=== PATIENT | female | born 1935 | race Caucasian/White ===

== ENCOUNTER 2017-11-15 22:08 | Inpatient (IN) | payer MEDICARE ==
[2017-11-15 23:03] LABS: #Eosinphils 0.2 thou/uL (0.0-0.7); #Lymphocytes 1.2 thou/uL (1.20-3.40); #Monocytes 0.5 thou/uL (0.11-0.59); #Neutrophils 5.3 thou/uL (1.40-6.50); %Eosinophils 3.4 % (0.0-10.0); %Lymphocytes 16.3 % (21.0-51.0); %Monocytes 6.7 % (0.0-10.0); %Neutrophils 73.6 % (42.0-75.0); Hemoglobin 14.1 g/dL (12.0-16.0); Mean Corpuscular HGB CONC 33.2 g/dL (32.0-36.0); Mean Corpuscular Hemoglobin 32.7 pg (27.0-31.0); Mean Corpuscular Volume 98.5 fl (81.0-99.0); Mean Platelet Volume 7.7 fL (7.4-10.4); Platelet Count 247 thou/uL (130-400); RBC Distribution Width 11.7 % (11.5-14.5); White Blood Cell (WBC) Count 7.1 thou/uL (4.8-10.8)
--- NOTE | 2017-11-15 23:20 | RAD ---
PA AND LATERAL CHEST RADIOGRAPH: Date: 11-15-17 History: Cough, congestion since this morning. Comparison: 11-27-16 FINDINGS: Cardiac silhouette is mildly enlarged. The pulmonary vasculature is within normal limits. Lungs are c lear. Vascular calcifications are seen in the thoracic aorta. There is calcification of the anterior longitudinal ligament. There has been no other interval change from the prior exam. IMPRESSION: No acute cardiopulmonary process. POS: [facility]
[2017-11-15 23:24] LABS: ALT (SGPT) 42 U/L (8-55); AST (SGOT) 81 U/L (5-34); Albumin 3.4 g/dL (3.4-4.8); Alkaline Phosphatase 133 U/L (40-150); Anion Gap 13 mmol/L (10-20); BUN (Urea Nitrogen) 25 mg/dL (9.8-20.1); Bilirubin, Total 1.1 mg/dL (0.2-1.2); Calc. Creatinine Clearance 0 mL/min (70-130); Calcium 9.2 mg/dL (7.8-10.44); Carbon Dioxide 29 mmol/L (23-31); Chloride 103 mmol/L (98-107); Estimated GFR-MDRD 46; Globulin 3.7 g/dL (2.4-3.5); Glucose 174 mg/dL (83-110); Potassium 4.1 mmol/L (3.5-5.1); Protein, Total 7.1 g/dL (6.0-8.3); Sodium 141 mmol/L (136-145)
[2017-11-16 00:43] LABS: CKMB 2.9 ng/mL (0-6.6); Troponin I 0.013 ng/mL (< 0.028)
[2017-11-16] MEDS ORDERED: methylPREDNISolone Sod Succ/PF 125 MG/2 ML VIAL ONE (00:43)
[2017-11-16 01:41] LABS: INR-International Normal Ratio 2.9; PTT 39.7 SEC (22.9-36.1); Prothrombin Time 31.3 SEC (12.0-14.7)
[2017-11-16] MEDS ORDERED: Doxycycline 100 MG CAP PO SCH (02:30)
[2017-11-16] MEDS ORDERED: Acetaminophen 325 MG TAB PO PRN ×2 (06:12→07:18)
--- NOTE | 2017-11-16 07:03 | HP-2 ---
TIME AND DATE OF SERVICE: 0500 hours, on 11/16/2017 CODE STATUS: DNR. PRIMARY CARE PHYSICIAN: Dr. Walters with [facility]. ATTENDING: Dr. Amaya. RESIDENT: Mariano Abraham M.D. HISTORIAN: Patient. CHIEF COMPLAINT: Cough x1 day. HISTORY OF PRESENT ILLNESS: Renee Salinas is an 82-year-old female with past medical history of hyp ertension and atrial fibrillation, who presents with a cough starting 1 day ago. Cough is productive with yellow sputum. The patient states that she has associated rhinorrhea and nasal congestion with the cough. She denies any fever, states that she started feeling poorly yesterday morning and decid ed to take a nap. She woke up from that nap, she was feeling very short of breath, and family member states that she looked wide and looked to have increased work of breathing. The patient has no hist ory of smoking. She has no history of congestive heart failure, fluid retention, or COPD; however, s he does have a long history of secondhand smoke exposure. She has no formal diagnosis; however, of C OPD, and she does not take any inhalers at home. She does take warfarin daily due to history of pulm onary embolisms and she has a history of atrial fibrillation. When asked, the patient states that sh e does not think that she has ever been in rapid ventricular response. She states that she never fee ls palpitations and she is currently not feeling any palpitations. She denies any chest pain as well . In the ER, the patient received 3 rounds of DuoNeb, 1 liter of normal saline, 125 mg Solu-Medrol, 100 mg of doxycycline, and just prior to being moved to the floor, she received 10 mg of Cardizem IV push. PAST MEDICAL HISTORY: 1. Atrial fibrillation. 2. Hypertension. 3. Cervical cancer. 4. History of pulmonary embolism. PAST SURGICAL HISTORY: 1. Cholecystectomy. 2. Cervical cancer surgery. 3. Exploratory laparotomy with intestines removed - unspecified. 4. Left hip replacement. 5. Skin graft. ALLERGIES: 1. BACTRIM. 2. PENICILLIN. 3. SULFA. MEDICATIONS: 1. Warfarin 7.5 mg p.o. daily. 2. Carvedilol 6.25 mg p.o. b.i.d. 3. Nasacort 55 mcg INH. 4. Hydrochlorothiazide 25 mg p.o. daily. 5. Lisinopril 40 mg p.o. daily. SOCIAL HISTORY: The patient denies tobacco, alcohol, or drug use. REVIEW OF SYSTEMS: A 12-point review of systems including general, eyes, ENT, respiratory, CV, GI, G U, skin, musculoskeletal, neuro, and psych were all reviewed and were unremarkable unless otherwise s tated in the HPI. PHYSICAL EXAMINATION: VITAL SIGNS: Blood pressure 152/102, pulse 112, respiratory rate 26, temperature 98, pulse ox 98% on room air. Current weight 136 kilograms. GENERAL: The patient is alert and oriented x4, in no acute distress, morbidly obese, appropriately i nteractive. EYES: Pupils equal, round, reactive to light and accommodation. Extraocular muscles intact. Conjun ctivae within normal limits. ENT: Tympanic membranes pearly lay without bulging or erythema. Nasal mucosa and oropharynx within normal limits. NECK: Supple, without lymphadenopathy or thyromegaly. CARDIOVASCULAR: Irregularly irregular rhythm and tachycardia. No murmurs or gallops; however, heart sounds were distant. RESPIRATORY: Normal effort, no retractions. There were bilateral inspiratory and expiratory wheezes . SKIN: Warm and dry without cyanosis or lesions. ABDOMEN: Soft, nontender, bowel sounds normoactive. No masses or distention. EXTREMITIES: No clubbing, cyanosis, or pitting edema. MUSCULOSKELETAL: Structure and tone within normal limits. Full range of motion. NEUROLOGIC: No focal deficits. Sensation within normal limits. PSYCHIATRIC: Appropriate. LABORATORY DATA: White blood cell count 7.1, hemoglobin 14.1, hematocrit 42.4, platelets 249, sodium 141, potassium 4.1, chloride 103, carbon dioxide 29, BUN 25, creatinine 1.14, glucose 174, calcium 9 .2, total protein 7.1, albumin 3.4, total bilirubin 1.1, AST 81, ALT 42, alkaline phosphatase 133. I NR was 2.9, PT was 31.3, PTT was 39.7. Flu A and B were negative. BNP was 195. CK-MB was 2.9, trop onin I 0.013. EKG showed atrial fibrillation with RVR, rate of 107, no ST changes. Chest x-ray show ed no acute cardiopulmonary process. ASSESSMENT AND PLAN: An 82-year-old female with past medical history of atrial fibrillation and hype rtension, who presented with 1-day history of cough and dyspnea. 1. Atrial fibrillation with rapid ventricular rate. Admit to inpatient telemetry, known history of atrial fibrillation. 2. Rapid ventricular response, likely secondary to viral upper respiratory infection versus multiple rounds of DuoNeb. We will see how patient responds to Cardizem 10 mg IV push. Consider starting Ca rdizem drip. Resume all home medications. 3. Viral upper respiratory infection. Supportive treatment. Patient has maintained great O2 sats o n room air since arriving to the ED. Patient does have a long history of secondhand smoke exposure. Consider possible mild chronic obstructive pulmonary disease exacerbation. Patient has already rece ived 3 rounds of DuoNeb and steroid. We will consider continuing steroid. 3. Hypertension. Home medications. 4. History of deep venous thrombosis. Continue home warfarin. 5. Diet: Heart healthy. 6. Activity: Ambulate with assist and fall precautions. 7. Code status: DNR. DISPOSITION AND LENGTH OF HOSPITAL STAY: 2 days. Symptomatic medications will be provided. History and physical exam as well as management discussed with Dr. Amaya.
[2017-11-16] MEDS ORDERED: Ondansetron ODT 4 MG TAB PO PRN (07:18)
[2017-11-16] MEDS ORDERED: Ondansetron HCl/PF 4 MG/2 ML Vial IVP PRN (07:18)
[2017-11-16 07:22] VITALS: BMI 55.7
[2017-11-16] MEDS ORDERED: predniSONE 20 MG TAB PO SCH ×2 (08:00→09:15)
--- NOTE | 2017-11-16 08:07 | CT ---
PRELIMINARY REPORT/[facility]/EMERGENCY AFTER HOURS PROCEDURE: EXAM: CT Chest Without Intravenous Contrast EXAM DATE/TIME: Exam ordered 11/16/2017 2:31 AM CLINICAL HISTORY: 82 years old, female; Signs and symptoms; Cough and shortness of breath; Symptoms not specified; Valentina ent HX: Er 1; 82 yo f presents to ed C/O cough since yesterday. Pt states she has been coughing up ye llow sputum. Also reports rhinorrhea and nasal congestion. Denies fever. Pt states that at 17:00 this evening she started feeling SOB, worse with lying flat. No h/o smoking. No h/o chf or fluid overload . Pt states that she takes warfarin daily for h/o pe. No h/o asthma or copd. Reports h/o afib. TECHNIQUE: Axial computed tomography images of the chest without intravenous contrast. COMPARISON: No relevant prior studies available. FINDINGS: Lungs: Lungs are clear allowing for expiratory phase imaging. Pleural space: Unremarkable. No pneumothorax. No significant effusion. Heart: Unremarkable. No cardiomegaly. No significant pericardial effusion. Mediastinum: The esophagus is unremarkable. Thyroid: 3 cm left lobe thyroid nodule. Bones/joints: Unremarkable. No acute fracture. No dislocation. Soft tissues: Unremarkable. Vasculature: Unremarkable. No thoracic aortic aneurysm. Lymph nodes: Unremarkable. No enlarged lymph nodes. IMPRESSION: 3 cm left lobe thyroid nodule. Thank you for allowing us to participate in the care of your patient. Dictated and Authenticated by: Hero Cruz MD 11/16/2017 2:56 AM Central Time ([place] & May) FINAL REPORT CT CHEST WITHOUT IV CONTRAST: I agree with the preliminary report given by Dr. Hero Cruz of [facility]. POS: [facility]
--- NOTE | 2017-11-16 08:11 | PDOC.EVN ---
Event Note - Event Note Event Note: Primary Care Provider Continuity Note: I am Mrs. Salinas's primary care provider and saw her this morning for continuity. She appears to be doing well this morning but has scattered wheezing on auscultation of her lungs. Work of breathing is normal. I have discussed her history, exam findings, and his assessment and plan with Dr. Abraham. I am in agreement with his plan as stated in his history and physical. Please refer to his notes and Dr. Courtney's notes for full exam findings and management plan.
[2017-11-16] MEDS: Carvedilol 6.25 MG TAB PO SCH ×2 (08:57→17:03)
[2017-11-16] MEDS: Hydrochlorothiazide 25 MG TAB PO SCH (08:57)
[2017-11-16] MEDS: Lisinopril 20 MG TAB PO SCH (08:57)
--- NOTE | 2017-11-16 09:00 | PDOC.EVN ---
Attending Addendum - Attending Addendum I personally evaluated the patient and discussed the management with Dr. Abraham. I agree with the History, Examination, Assessment and Plan documented in his H& P with any addition or exceptions noted below. Patient with history of cough and possible URTI versus bronchitis admitted due to Afib with RVR. She has had cough and increasing shortness of breath recently. Lungs with wheezes, labs stable from baseline. Her telemetry strip shows her to be in RVR with rate in 110-130s. This is possibly due to missing her medications yesterday. She will be admitted to telemetry. Will attempt to rate control with home medications and begin Dilt drip only if home meds to not get her rate under control. Will provide symptomatic meds for cough. INR therapeutic and no evidence on CT of infiltrate or embolism.
[2017-11-16] MEDS: Fluticasone Propionate Nasal Spray 16 gm Bottle NASAL SCH (11:38)
[2017-11-16] MEDS ORDERED: methylPREDNISolone Sod Succ/PF 125 MG/2 ML VIAL IVP SCH (12:00)
[2017-11-16] MEDS: Benzonatate 100 MG CAP PO PRN ×2 (12:34→17:12)
[2017-11-16] MEDS ORDERED: Diltiazem 125 MG in Sodium Chloride 0.9% 100 ML IVPB SCH (12:45)
[2017-11-16] MEDS ORDERED: Metoprolol Tartrate 5 MG/5 ML VIAL IVP PRN (13:58)
[2017-11-16] MEDS ORDERED: Warfarin Sodium 7.5 MG TAB PO SCH (17:00)
[2017-11-16] MEDS ORDERED: Amiodarone 200 MG TAB PO SCH (18:00)
[2017-11-17 05:10] LABS: #Eosinphils 0.1 thou/uL (0.0-0.7); #Monocytes 0.5 thou/uL (0.11-0.59); #Neutrophils 7.4 thou/uL (1.40-6.50); %Basophils 0.3 % (0.0-1.0); %Eosinophils 0.9 % (0.0-10.0); %Lymphocytes 10.8 % (21.0-51.0); %Monocytes 5.7 % (0.0-10.0); %Neutrophils 82.3 % (42.0-75.0); Hemoglobin 13.9 g/dL (12.0-16.0); Mean Corpuscular HGB CONC 31.9 g/dL (32.0-36.0); Mean Corpuscular Hemoglobin 31.9 pg (27.0-31.0); Mean Corpuscular Volume 99.9 fl (81.0-99.0); Mean Platelet Volume 8.1 fL (7.4-10.4); Platelet Count 277 thou/uL (130-400); RBC Distribution Width 11.7 % (11.5-14.5); Red Blood Cell (RBC) Count 4.35 mill/uL (4.20-5.40)
[2017-11-17 05:17] LABS: INR-International Normal Ratio 2.4; PTT 36.5 SEC (22.9-36.1)
[2017-11-17 05:40] LABS: Anion Gap 12 mmol/L (10-20); BUN (Urea Nitrogen) 28 mg/dL (9.8-20.1); Calc. Creatinine Clearance 90 mL/min (70-130); Calcium 9.2 mg/dL (7.8-10.44); Carbon Dioxide 28 mmol/L (23-31); Chloride 104 mmol/L (98-107); Estimated GFR-MDRD 48; Glucose 111 mg/dL (83-110); Sodium 140 mmol/L (136-145)
--- NOTE | 2017-11-17 06:29 | PDOC.FM ---
- Subjective Subjective: Pt had one episode of respiratory distress overnight. She was given a breathing treatment and improved.Still complaining of a cough but denies shortness of breath. - Objective MAR Reviewed: Yes Vital Signs & Weight: Vital Signs (12 hours) Temp Pulse Resp BP Pulse Ox 11/17/17 04:00 97.4 F L 93 21 H 140/65 98 11/17/17 00:00 76 20 95 11/16/17 20:00 98.4 F 110 H 20 138/82 95 11/16/17 19:57 92 20 95 Result Diagrams: 11/17/17 04:30 11/17/17 04:30 <Marilee Piedra - Last Filed: 11/17/17 11:30> - Objective Vital Signs & Weight: Vital Signs (12 hours) Temp Pulse Resp BP BP Pulse Ox 11/17/17 08:38 125/63 11/17/17 08:00 97.8 F 81 18 125/63 97 11/17/17 04:00 97.4 F L 93 21 H 140/65 98 Result Diagrams: 11/17/17 04:30 11/17/17 04:30 <Noman Luis - Last Filed: 11/17/17 12:42> Phys Exam - Physical Examination Constitutional: NAD HEENT: PERRLA, moist MMs mild expiratory wheezing; good air movement however bilaterally Cardiovascular: no significant murmur irregularly irregular Gastrointestinal: soft, non-tender, no distention Musculoskeletal: no edema, pulses present Neurological: non-focal, normal sensation Psychiatric: normal affect, A&O x 3 Skin: no rash <Marilee Piedra - Last Filed: 11/17/17 11:30> Dx/Plan (1) Atrial fibrillation with RVR Code(s): I48.91 - UNSPECIFIED ATRIAL FIBRILLATION Status: Chronic (2) History of DVT (deep vein thrombosis) Code(s): Z86.718 - PERSONAL HISTORY OF OTHER VENOUS THROMBOSIS AND EMBOLISM Status: Chronic (3) Hypertension Code(s): I10 - ESSENTIAL (PRIMARY) HYPERTENSION Status: Chronic (4) Morbid obesity Code(s): E66.01 - MORBID (SEVERE) OBESITY DUE TO EXCESS CALORIES Status: Chronic (5) Viral URI with cough Code(s): J06.9 - ACUTE UPPER RESPIRATORY INFECTION, UNSPECIFIED; B97.89 - OTH VIRAL AGENTS THE CAUSE OF DISEASES CLASSD ELSWHR Status: Acute - Plan Plan: 82 yo F with a hx of paroxsysmal atrial fibrillation, presents for viral uri sx , admitted for afib with rvr and acute bronchitis. 1.) Afib with RVR, provoked from not taking night dose of coreg while in the ER and receiving several duoneb treatments. Pt was given 10mg diltiazem X2 yesterday, metoprolol 5mg IV, and her home med of Coreg, without improvement in RVR. The pharmacy stated that the supplier for a dilt drip is out of dilt. She was then placed on amiodarone 400mg BID, which improved her rate to the mid 70s overnight. She is at 90s currently. We will continue the amiodarone currently. If stable, anticipate discharge later today. Pt is also on warfarin for her pAF, we will decrease the dose to 5mg in anticipation of an increase in her INR d/t being on prednisone and amiodarone. We would recommend that she follow-up in clinic on Wednesday to have her INR checked. We also would recommend that she see a melter supervisor open hearth furnace to further manage her atrial fibrillation while on amiodarone. 2.)Acute Bronchitis, improved Started on oral prednisone 20mg daily. Also provided with duonebs q4h prn. Continue tessilon pearls for symptomatic tx of her cough. 3.) Suspected NEIDA-Would recommend a sleep study in the outpatient setting. 4.)Passive smoke exposure, no diagnosis of COPD but pt presents similiarly to a COPD vs asthma exacerbation. Dispo: Anticipate dc later today if HR stable with close follow-up on Wednesday. <Marilee Piedra - Last Filed: 11/17/17 11:30> Attending Addendum - Attending Addendum I personally evaluated the patient and discussed the management with Dr. Venkat Courtney. I agree with the History, Examination, Assessment and Plan documented above with any addition or exceptions noted below. Patient feels improved today. Still has cough but better with cough suppressants. Her HR has come down, still in Afib but rates in 90s overall with addition of Amiodarone therapy. Dilt x 2 and Metoprolol IV yesterday with not suppress her elevated rate. If her rate continues to be controlled this afternoon, consider discharge home. Will need close monitoring in outpatient setting of her INR and close outpatient follow up. <Noman Luis - Last Filed: 11/17/17 12:42>
[2017-11-17] MEDS ORDERED: predniSONE 20 MG TAB PO SCH ×2 (08:00)
[2017-11-17] MEDS: Carvedilol 6.25 MG TAB PO SCH (08:38)
[2017-11-17] MEDS: Lisinopril 20 MG TAB PO SCH (08:38)
[2017-11-17] MEDS: Hydrochlorothiazide 25 MG TAB PO SCH (08:38)
[2017-11-17] MEDS: Fluticasone Propionate Nasal Spray 16 gm Bottle NASAL SCH (08:38)
[2017-11-17] MEDS ORDERED: Lisinopril 20 MG TAB PO SCH (09:00)
[2017-11-17] MEDS ORDERED: Non-Formulary Item 1 EACH (Lisinopril [Zestril] 40 MG) PO SCH (09:00)
[2017-11-17] MEDS ORDERED: Hydrochlorothiazide 25 MG TAB PO SCH (09:00)
[2017-11-17] MEDS ORDERED: Amiodarone 200 MG TAB PO SCH (09:00)
--- NOTE | 2017-11-17 14:54 | PQF ---
DATE: 11-17-17 ATTN: DR. NEYDA MCGOWAN / DR. TINY MURPHY Please exercise your independent, professional judgment in responding to the clarification form. Clinical indicators are provided on the bottom of this form for your review Please check appropriate box(s): [ ] Acute Renal Failure (ARF) / Acute Kidney Injury (SEGUNDO) [ X ] Acute on Chronic Renal Failure please specify Stage of CKD ____3____ (see below) [ ] Other diagnosis [ ] Unable to determine In addition, please specify: Present on Admission (POA): [ X ] Yes [ ] No [ ] Unable to determine National Kidney Foundation Guidelines for CKD Staging Stage I Kidney damage with normal or increased GFR GFR > 90 Stage II Kidney damage with mildly decreased GFR GFR 60-89 Stage III Kidney damage with moderately decreased GFR GFR 30-59 Stage IV Kidney damage with severely decreased GFR GFR 16-29 Stage V Kidney failure GFR<15 ESRD End Stage Renal Disease On dialysis Acute Renal Failure/Acute Kidney Failure defined as: Increases in SCr by (>) 0.3 mg/dl within 48 hours OR- Increases in SCr by (>) 1.5 times baseline, known or presumed to have occurred within the prior 7 days OR- Urine volume < 0.5 ml/kg/hour for 6 hours (KDIGO supplement 2012 for RIFLE/DANIELA criteria) For continuity of documentation, please document condition throughout progress notes and discharge summary. Thank You. CLINICAL INDICATORS - SIGNS / SYMPTOMS / LABS GFR: 218: 46 2: 48 CREATININE: 11-15-17: 1.14 BUN: 218: 25 2: 28 RISK FACTORS: ( ER) PT ON HOME LISINOPRIL, HYDROCHLOROTHIAZIDE TREATMENTS: ( ER) NORMAL SALINE 1L (This form is maintained as a part of the permanent medical record) 2014 [employer]. All Rights Reserved JOSE EDUARDO [email or web address] Office: [phone] [facility]
[2017-11-17 16:22] VITALS: TEMP 97.5
[2017-11-17 16:37] VITALS: BP 125/63
[2017-11-17] MEDS ORDERED: Carvedilol 6.25 MG TAB PO SCH (17:00)
[2017-11-17] MEDS ORDERED: Warfarin Sodium 7.5 MG TAB PO SCH (17:00)
--- NOTE | 2017-11-18 14:21 | DIS-2 ---
DATE OF ADMISSION: 11/16/2017 DATE OF DISCHARGE: 11/17/2017 ADMITTING RESIDENT: Mariano Abraham MD ADMITTING ATTENDING: Boogie Amaya MD DISCHARGE RESIDENT: Marilee Piedra MD DISCHARGE ATTENDING: Noman Luis MD PRIMARY CARE PHYSICIAN: Brain Walters DO PRIMARY DIAGNOSES: 1. Atrial fibrillation with rapid ventricular response. 2. Acute bronchitis. PROCEDURES: 1. Chest x-ray: No acute cardiopulmonary process; however, mildly enlarged cardiac silhouette. 2. Chest CT: There is a 3-cm left lobe thyroid nodule, otherwise unremarkable. 3. Echocardiogram: Atrial fibrillation was noted. Ejection fraction estimated to be 50-55%, normal right ventricular size and function, left atrium moderately dilated, mildly enlarged right atrium size, trace mitral regurgitation, mild mitral annular calcification is present, aortic valve leaflets are somewhat thickened, mild tricuspid regurgitation, pulmonic regurgitation, and pulmonic valve not well visualized. CONSULTATIONS: None. DISCHARGE MEDICATIONS: 1. Amiodarone 400 mg orally twice daily for the next few days. 2. Amiodarone 200 mg orally twice daily as maintenance therapy for patient's atrial fibrillation with RVR. 3. Tessalon perles 100 mg oral every 4 hours as needed. 4. Carvedilol 12.5 mg orally twice daily with meals. 5. Fluticasone nasal spray, 1 spray each naris daily. 6. Warfarin 5 mg orally at night. 7. Lisinopril 40 mg oral daily. 8. Hydrochlorothiazide 25 mg oral daily. DISCONTINUED MEDICATIONS: 1. Carvedilol 6.25 mg oral twice daily. 2. Warfarin 7.5 mg oral daily. HISTORY OF PRESENT ILLNESS AND HOSPITAL COURSE: This is an 82-year-old pleasant female with a past medical history of hypertension and atrial fibrillation. She initially presented with a cough for 1 day. It was initially productive of yellow sputum. She has associated rhinorrhea and nasal congestion. She denied a history of CHF or COPD. She does have a long history of secondhand smoke. She has a history of pulmonary embolisms and takes warfarin daily. She also has a history of paroxysmal atrial fibrillation. Additionally in the ER, she received 3 rounds of DuoNebs and 125 mg Solu- Medrol. She was not able to take her nighttime dose of her Coreg. On initial presentation, her blood pressure is mildly elevated at 152/102. She was tachycardic at 112 with a respiratory rate of 26. She was afebrile and satting at 98% on room air. She initially had bilateral inspiratory and expiratory wheezing and heart rate was irregularly irregular. Her initial labs were within normal limits with the exception of glucose of 174. AST and ALT were mildly elevated at 81 and 42, alkaline phosphatase is 133. Her EKG showed atrial fibrillation with RVR. She was admitted for atrial fibrillation with RVR and acute bronchitis. 1. Atrial fibrillation with rapid ventricular response. She was admitted to inpatient telemetry and was given 10 mg of diltiazem x2. Throughout the course of the day, her heart rate persisted in the 120s to 130s. We attempted to order a diltiazem drip for her, however, the manufacturing company is currently out of diltiazem. We then provided 5 mg IV of metoprolol to the patient. We also restarted her home medications of Coreg 6.125 mg b.i.d. All of these interventions at this point still did not lower her heart rate, and it persisted again in the 120s to 130s. At that point, we decided to try amiodarone 400 mg b.i.d. Overnight after receiving the first dose of amiodarone 400 mg, her heart rate came down to the 70s-90s range and remained that way. Throughout the rest of the next day, her rate was controlled with amiodarone 400 mg b.i.d. and she was discharged on 400 mg of amiodarone b.i.d. for the next 2 days, followed by starting maintenance therapy at 200 mg b.i.d. We think that the patient was sent into RVR because of her acute bronchitis and having to receive several DuoNeb treatments as well as not being able to take her home medication of Coreg. 2. Acute bronchitis. We provided the patient a supplemental O2. We also providing her with DuoNeb p.r.n. as well as prednisone 20 mg daily because she still was wheezing bilaterally and having mild difficulty breathing and shortness of breath. There were some question and concern regarding whether or not the patient has chronic obstructive pulmonary disease, although she is not a current smoker. She reports many years history of secondhand smoke and we would recommend a workup in the outpatient setting for chronic obstructive pulmonary disease. Patient also endorsed some difficulty sleeping at night and had one episode of respiratory distress at night and which was resolved after a treatment of DuoNebs. We would also recommend consideration of a sleep study in the outpatient setting. 3. Hypertension. The patient was restarted on her home medications and her blood pressure was controlled. 4. History of deep vein thrombosis. Her warfarin was continued; however, it was recommended by the pharmacy to decrease her warfarin dose by 30% since we started amiodarone and prednisone, which both can increase INR. The patient was decreased to 5 mg at bedtime of Warfarin and was recommended that she has close follow up with her PCP for her INR check in the outpatient setting on Wednesday (11/19/2017). DISCHARGE INSTRUCTIONS: Patient was discharged home. Recommended diet, heart healthy. Activity as tolerated and once again recommend follow up with patient' s PCP, Dr. Walters within 1 to 2 days. Also, recommend consideration of establishing care with a planning feeder. The patient states that her sees Dr. Connelly could assist her with management of atrial fibrillation while taking amiodarone. SAVANNAH
--- NOTE | 2017-12-11 18:18 | EKG ---
Test Reason : SOB Blood Pressure : / mmHG Vent. Rate : 107 BPM Atrial Rate : 125 BPM P-R Int : 000 ms QRS Dur : 110 ms QT Int : 370 ms P-R-T Axes : 000 038 101 degrees QTc Int : 493 ms Atrial fibrillation with rapid ventricular response Nonspecific ST and T wave abnormality Abnormal ECG Confirmed by BENNIE CHUNG ([id number]), editorial intern HERBERT CARTY ([id number]) on 12/11/2017 6:18:27 PM Referred By: Confirmed By:BENNIE CHUNG
== END 2017-11-17 17:59 | disposition home or self-care (01) | DRG 309 ==
LOC: ERS 22:08 → 2NO 11-16 05:00
PROVIDERS: ADMIT Family Medicine; ATTEND Family Medicine
DX: I48.2 Chronic atrial fibrillation (principal); N17.9 Acute kidney failure, unspecified; J20.9 Acute bronchitis, unspecified; E66.01 Morbid (severe) obesity due to excess calories; Z68.43 Body mass index [BMI] 50.0-59.9, adult; Z86.718 Personal history of other venous thrombosis and embolism; Z79.01 Long term (current) use of anticoagulants; Z66 Do not resuscitate; I12.9 Hypertensive chronic kidney disease with stage 1 through stage 4 chronic kidney disease, or unspecified chronic kidney disease; N18.3 Chronic kidney disease, stage 3 (moderate)
CPT/HCPCS: 36415; 71046; 71250; 80048; 80053; 82553; 83880; 84484; 85025; 85610; 85730; 87804; 93005; 93306; 94640; 96361; 96374; 96375; A4216; G8978-GP-CM; G8979-GP-CK; J2930; J7050; J7506; J7620

== ENCOUNTER 2019-05-22 17:00 | Inpatient (IN) | payer MEDICARE ==
[2019-05-22] MEDS ORDERED: Aspirin Chewable 81 MG TAB ONE (18:08)
--- NOTE | 2019-05-22 18:17 | RAD ---
Chest AP view INDICATION: Cough with hemoptysis COMPARISON: Chest radiograph dated November 15, 2017 FINDINGS: Lungs:There is airspace opacity within the right suprahilar region suspicious for pneumonia Cardiac silhouette pulmonary vasculature:There is stable cardiomegaly Pleural spaces:No pleural effusion or pneumothorax is demonstrated. Upper abdomen:No abnormality seen. Osseous structures: No acute osseous abnormality. Additional findings:None. IMPRESSION: New airspace opacities in the right upper lobe suspicious for pneumonia. Recommend correl ation with the clinical examination and radiographic follow-up to resolution.
[2019-05-22 18:26] LABS: #Lymphocytes 2.2 thou/uL (1.20-3.40); #Monocytes 1.2 thou/uL (0.11-0.59); #Neutrophils 12.5 thou/uL (1.40-6.50); %Basophils 0.1 % (0.0-1.0); %Eosinophils 0.3 % (0.0-10.0); %Lymphocytes 13.5 % (21.0-51.0); %Monocytes 7.8 % (0.0-10.0); %Neutrophils 78.4 % (42.0-75.0); Hemoglobin 13.2 g/dL (12.0-16.0); Mean Corpuscular HGB CONC 33.3 g/dL (32.0-36.0); Mean Corpuscular Volume 96.2 fL (78.0-98.0); Mean Platelet Volume 8.1 fL (7.4-10.4); Platelet Count 240 thou/uL (130-400); RBC Distribution Width 11.9 % (11.5-14.5); Red Blood Cell (RBC) Count 4.13 mill/uL (4.20-5.40)
[2019-05-22 18:36] LABS: INR-International Normal Ratio 4.6
[2019-05-22] MEDS ORDERED: cefTRIAXone\\ROCEPHIN 1 GM VIAL ONE (18:46)
[2019-05-22 18:48] LABS: ALT (SGPT) 13 U/L (8-55); AST (SGOT) 22 U/L (5-34); Albumin 3.5 g/dL (3.4-4.8); Alkaline Phosphatase 99 U/L (40-150); Anion Gap 15 mmol/L (10-20); BUN (Urea Nitrogen) 31 mg/dL (9.8-20.1); Bilirubin, Total 0.5 mg/dL (0.2-1.2); Calc. Creatinine Clearance 0 mL/min (70-130); Calcium 9.3 mg/dL (7.8-10.44); Carbon Dioxide 24 mmol/L (23-31); Chloride 103 mmol/L (98-107); Estimated GFR-MDRD 32; Globulin 3.5 g/dL (2.4-3.5); Glucose 112 mg/dL (83-110); Potassium 4.4 mmol/L (3.5-5.1); Sodium 138 mmol/L (136-145)
[2019-05-22 19:13] LABS: CKMB 1.7 ng/mL (0-6.6)
[2019-05-22] MEDS ORDERED: Ondansetron PF 4 MG/2 ML Vial IVP PRN (20:57)
[2019-05-22] MEDS ORDERED: Ondansetron ODT 4 MG TAB SL PRN (20:57)
[2019-05-22] MEDS ORDERED: Acetaminophen 325 MG TAB PO PRN (20:57)
[2019-05-22 21:56] LABS: Critical Call Chem Troponin I RESULT DECREASING; Troponin I 0.315 ng/mL (< 0.028)
[2019-05-22] MEDS ORDERED: Senokot S 8.6-50 MG TAB PO PRN (21:58)
--- NOTE | 2019-05-22 22:05 | PDOC.FPRHP ---
- History of Present Illness Chief Complaint: SOB, hemoptysis History of Present Illness: Patient is 83F with PMHx of afib, HTN, PE, abdominal gangrene, and cervical cancer presenting with SOB and hemoptysis. Patient presents today after waking up this morning around 2am feeling SOB accompanied by increased mucus production and hemoptysis. She also reports having hot flashes. Denies fevers, recent illness, chest pain. Patient denies previous diagnosis of CHF, kidney dysfunction, or lung disease. ED Course: ASA 324mg duoneb 3ml ceftriaxone 1g - Allergies/Adverse Reactions Allergies Allergy/AdvReac Type Severity Reaction Status Date / Time Penicillins Allergy Severe Anaphylaxis Verified 12/06/14 08:28 Sulfa (Sulfonamide Allergy Verified 11/16/17 17:40 Antibiotics) sulfamethoxazole Allergy Verified 11/16/17 17:40 [From Bactrim] trimethoprim [From Bactrim] Allergy Verified 11/16/17 17:40 - Home Medications Medication Instructions Recorded Confirmed Type Warfarin Sodium 7.5 mg PO DAILY 10/29/14 05/22/19 History Hydrochlorothiazide 25 mg PO DAILY 11/16/17 05/22/19 History Lisinopril [Zestril] 40 mg PO DAILY 11/16/17 05/22/19 History Diltiazem HCl [Diltiazem 24Hr ER] 180 mg PO BID 05/22/19 05/22/19 History HYDROcodone Bit/APAP 5/325 [Auxier] 1 tab PO PRN MDD 3 x day 05/22/19 History Pantoprazole [Protonix] 20 mg PO DAILY 05/22/19 05/22/19 History Carvedilol [Coreg] 6.25 mg PO BID-WM 05/23/19 05/22/19 History - History PMHx:afib, HTN, PE, abdominal gangrene, cervical cancer PSHx: cholecystectomy, hysterectomy, intestinal sx for abdominal gangrene, R hand skin graft, L hip replacement FHx: mom age 32, unknown cause father-unknown Social: no smoking, etoh, drug use - Review of Systems General: reports: night sweats. denies: fever/chills, weight/appetite/sleep changes Eyes: denies: eye pain, vision changes ENT: denies: nasal congestion, rhinorrhea Respiratory: reports: shortness of breath, other (hemoptysis). denies: cough Cardiovascular: reports: edema. denies: chest pain, palpitation Gastrointestinal: denies: nausea, vomiting, diarrhea Genitourinary: denies: incontinence, dysuria Skin: denies: rashes, lesions Musculoskeletal: denies: pain, tenderness Neurological: denies: numbness, seizure Psychological: denies: anxiety, depression - Vital signs BP: [133/73] HR: [93] RR: [18] Tmax: [98.2] Pox: [94]% on [RA] Wt: [65.0kg] - Physical Exam Constitutional: NAD, awake, alert and oriented HEENT: normocephalic and atraumatic, EOMI Neck: supple, trachea midline Chest: no-tender to palpation, no lesions Heart: other (afib, regular rate) Lungs: no respiratory distress, other (poor air movement, decreased breath sounds on R) Abdomen: soft, non-tender Musculoskeletal: normal structure, normal tone Neurological: no focal deficit, normal sensation Skin: good turgor, capillary refill <2 seconds Heme/Lymphatic: no unusual bruising or bleeding Psychiatric: normal mood and affect, good judgment and insight FMR H&P: Results - Labs Result Diagrams: 05/23/19 05:16 05/23/19 05:16 Lab results: WBC 16.0 thou/uL (4.8-10.8) H 05/22/19 18:14 Hgb 13.2 g/dL (12.0-16.0) 05/22/19 18:14 Hct 39.7 % (36.0-47.0) 05/22/19 18:14 MCV 96.2 fL (78.0-98.0) 05/22/19 18:14 Plt Count 240 thou/uL (130-400) 05/22/19 18:14 Neutrophils % 78.4 % (42.0-75.0) H 05/22/19 18:14 Sodium 138 mmol/L (136-145) 05/22/19 18:14 Potassium 4.4 mmol/L (3.5-5.1) 05/22/19 18:14 Chloride 103 mmol/L (98-107) 05/22/19 18:14 Carbon Dioxide 24 mmol/L (23-31) 05/22/19 18:14 BUN 31 mg/dL (9.8-20.1) H 05/22/19 18:14 Creatinine 1.57 mg/dL (0.6-1.1) H 05/22/19 18:14 Glucose 112 mg/dL (83-110) H 05/22/19 18:14 Lactic Acid 1.7 mmol/L (0.5-2.2) 05/22/19 18:17 Calcium 9.3 mg/dL (7.8-10.44) 05/22/19 18:14 Total Bilirubin 0.5 mg/dL (0.2-1.2) 05/22/19 18:14 AST 22 U/L (5-34) 05/22/19 18:14 ALT 13 U/L (8-55) 05/22/19 18:14 Alkaline Phosphatase 99 U/L (40-150) 05/22/19 18:14 CK-MB (CK-2) 1.7 ng/mL (0-6.6) 05/22/19 18:14 B-Natriuretic Peptide 820.2 pg/mL (0-100) H 05/22/19 18:14 Serum Total Protein 7.0 g/dL (6.0-8.3) 05/22/19 18:14 Albumin 3.5 g/dL (3.4-4.8) 05/22/19 18:14 - EKG Interpretation EKG: afib, flattened t waves - Radiology Interpretation Chest x-ray Status: report reviewed by me (RUL consolidation, suspicious for pneumonia) FMR H&P: A/P - Problem List (1) Cardiorenal syndrome Current Visit: Yes Status: Acute Code(s): I13.10 - HYP HRT & CHR KDNY DIS W/ O HRT FAIL, W STG 1-4/UNSP CHR KDNY (2) Community acquired pneumonia Current Visit: Yes Status: Acute Code(s): J18.9 - PNEUMONIA, UNSPECIFIED ORGANISM (3) NSTEMI (non-ST elevated myocardial infarction) Current Visit: Yes Status: Acute Code(s): I21.4 - NON-ST ELEVATION (NSTEMI) MYOCARDIAL INFARCTION (4) CHF (congestive heart failure) Current Visit: Yes Status: Acute Code(s): I50.9 - HEART FAILURE, UNSPECIFIED (5) Elevated INR Current Visit: Yes Status: Acute Code(s): R79.1 - ABNORMAL COAGULATION PROFILE - Plan 83F with PMHx of afib, HTN, PE, abdominal gangrene, and cervical cancer is admitted for CAP, cardiorenal syndrome, NSTEMI, likely new onset CHF, supertherapeutic INR #CAP -CXR shows RUL pneumonia -no recent hospitalizations -WBC elevated at 16 -procal elevated at 5.3 -started on rocephin in ED, continue and add azithromycin -continue to monitor WBC and procal #Cardiorenal syndrome, new onset CHF -patient has elevated BNP of 820, up from baseline of 195 -initial trop elevated 0.430, continue to trend -creatinine 1.57, up from baseline 1.09 -last echo 11/21: EF 50-55%, afib, mild valvular stenosis -IV lasix, will titrate as needed to diurese -fluid restrictions -strict I&O -will continue to monitor creatinine -chest echo #NSTEMI -initial trop elevated 0.43, patient denies any chest pain -EKG shows no st elevation, some flattened T waves -likely from demand ischemia #supertherapeutic INR -INR 4.6, patient takes 7.5mg warfarin every day -will hold warfarin and continue to monitor DVT proph: already anticoagulated on warfarin GI proph: pepcid Diet: HH Dispo: inpatient for CAP treatment and cardiac workup Code: DNR-DNI FMR H&P: Upper Level - Plan Date/Time: 05/22/19 [id number] IMariano MD, have evaluated this patient and agree with findings/plan as outlined by quality internship resident. Pertinent changes/additions are listed here. Renee Salinas is an 83 year old F with a PMH of atrial fibrillation on coumadin , HTN, GERD who presented to the ED with a 1 day history of dyspnea, cough, and sweats/chills. 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 Pt states that her cough was productive at times with dark and bright red blood. Daughter contacted patient' s PCP who recommended being evaluated in the ED. Patient states that she has had worsened lower extremity edema in both legs over the past week or so as well. She denies any chest pain, palpitations, n/v, abdominal pain, dysuria. On admission, patient had WBC of 16.0 with 73% PMNs. She had CXR done that showed RUL opacity. Lactic acid was 1.7. Her O2 sats were 94% on RA initially and she was given supplemental O2. BNP was 820 and patient has no known hx of CHF. Last Echo in Nov 2017 showed EF of 50-55%. He had a bump in Cr at 1.57. INR was supratherapeutic at 4.6. Trop was 0.43. EKG in ER showed Atrial fibrillation-rate controlled with competing junctional pacemaker, no ST changes. Patient's vitals were stable, no signs of sepsis. Patient is being admitted for community acquired pneumonia, possible new onset heart failure, NSTEMI type 2, supratherapeutic INR, SEGUNDO. We will started azithromycin and rocephin. Ordered Echo, strict I/Os, daily weights, and fluid restrict. Lasix 20 IV BID. We will trend troponins. Holding coumadin and repeating INRs. Will monitor Cr as we diurese patient, anticipate seeing improvement in kidney function with diuresis. Admit to tele/inpatient. Anticipate hospital stay >48 hours. Please see quality internship note above for full H&P, which I have reviewed and agree with. Addendum - Attending - Attending Attestation Date/Time: 05/23/19 0803 I personally evaluated the patient and discussed the management with Dr. Abraham and team on 05/22. I agree with the History, Examination, Assessment and Plan documented above with any addition or exceptions noted below. Continue antibiotics, monitor I&O's, consider cardiology consultation in AM. No additional hemoptysis, hold warfarin.
[2019-05-22] MEDS ORDERED: Furosemide 20 MG/2 ML VIAL SLOW IVP SCH (22:15)
[2019-05-22 22:55] VITALS: BMI 23.1
[2019-05-23 05:42] LABS: PTT 84.3 SEC (22.9-36.1); Prothrombin Time 45.7 SEC (12.0-14.7)
[2019-05-23 05:46] LABS: #Eosinphils 0.2 thou/uL (0.0-0.7); #Lymphocytes 1.6 thou/uL (1.20-3.40); #Monocytes 0.7 thou/uL (0.11-0.59); #Neutrophils 6.8 thou/uL (1.40-6.50); %Basophils 0.3 % (0.0-1.0); %Eosinophils 2.1 % (0.0-10.0); %Lymphocytes 16.8 % (21.0-51.0); %Monocytes 7.5 % (0.0-10.0); %Neutrophils 73.3 % (42.0-75.0); Hemoglobin 12.2 g/dL (12.0-16.0); Mean Corpuscular HGB CONC 31.6 g/dL (32.0-36.0); Mean Corpuscular Hemoglobin 30.7 pg (27.0-31.0); Mean Corpuscular Volume 97.3 fL (78.0-98.0); Mean Platelet Volume 8.2 fL (7.4-10.4); Platelet Count 196 thou/uL (130-400); RBC Distribution Width 11.9 % (11.5-14.5); Red Blood Cell (RBC) Count 3.98 mill/uL (4.20-5.40); White Blood Cell (WBC) Count 9.3 thou/uL (4.8-10.8)
[2019-05-23 05:58] LABS: Anion Gap 14 mmol/L (10-20); BUN (Urea Nitrogen) 30 mg/dL (9.8-20.1); Calc. Creatinine Clearance 31 mL/min (70-130); Calcium 8.9 mg/dL (7.8-10.44); Carbon Dioxide 27 mmol/L (23-31); Chloride 101 mmol/L (98-107); Estimated GFR-MDRD 35; Glucose 98 mg/dL (83-110); Potassium 3.9 mmol/L (3.5-5.1); Sodium 138 mmol/L (136-145)
[2019-05-23] MEDS: Furosemide 20 MG/2 ML VIAL SLOW IVP SCH ×2 (06:07→13:21)
--- NOTE | 2019-05-23 08:18 | PDOC.FM ---
- Subjective Subjective: Patient reports she is feeling better this AM. Denies SOB, reports the oxygen is helping. Denies chest pain. Reports swelling in her legs, L>R. - Objective Vital Signs & Weight: Vital Signs (12 hours) Temp Pulse Resp BP Pulse Ox 05/23/19 07:30 97.6 F 88 20 148/74 H 97 05/23/19 03:59 97.6 F 75 16 109/82 98 05/23/19 00:00 98.2 F 74 16 108/55 L 97 05/22/19 21:04 98.1 F 88 24 H 115/65 95 Weight Weight 65.062 kg I&O: 05/22/19 05/23/19 05/24/19 06:59 06:59 06:59 Output Total 700 Balance -700 Result Diagrams: 05/23/19 05:16 05/23/19 05:16 Phys Exam - Physical Examination Constitutional: NAD HEENT: moist MMs Respiratory: no wheezing, clear to auscultation bilateral exam difficult due to body habitus irregularly irregular rhythm Gastrointestinal: soft, positive bowel sounds obese mild pitting edema bilat Neurological: moves all 4 limbs Psychiatric: normal affect, A&O x 3 Skin: normal turgor, cap refill <2 seconds Dx/Plan (1) CHF (congestive heart failure) Code(s): I50.9 - HEART FAILURE, UNSPECIFIED Status: Suspected (2) Community acquired pneumonia Code(s): J18.9 - PNEUMONIA, UNSPECIFIED ORGANISM Status: Acute (3) Elevated INR Code(s): R79.1 - ABNORMAL COAGULATION PROFILE Status: Acute (4) NSTEMI (non-ST elevated myocardial infarction) Code(s): I21.4 - NON-ST ELEVATION (NSTEMI) MYOCARDIAL INFARCTION Status: Acute (5) History of DVT (deep vein thrombosis) Code(s): Z86.718 - PERSONAL HISTORY OF OTHER VENOUS THROMBOSIS AND EMBOLISM Status: Chronic (6) Hypertension Code(s): I10 - ESSENTIAL (PRIMARY) HYPERTENSION Status: Chronic (7) Morbid obesity Code(s): E66.01 - MORBID (SEVERE) OBESITY DUE TO EXCESS CALORIES Status: Chronic (8) Paroxysmal atrial fibrillation Code(s): I48.0 - PAROXYSMAL ATRIAL FIBRILLATION Status: Chronic - Plan Plan: #CAP -CXR shows RUL pneumonia -WBC elevated at 16 -procal elevated at 5.3 -started on rocephin in ED, continue and add azithromycin -continue to monitor WBC and procal #New onset CHF -BNP of 820, baseline of 195 -initial trop elevated 0.430, downtrending -last echo 11/21: EF 50-55%, afib, mild valvular stenosis -IV lasix, will titrate as needed to diurese -fluid restrictions -strict I&O -daily wts - echo pending #NSTEMI type 2 -initial trop elevated 0.43, patient denies any chest pain, downtrending -EKG shows no st elevation, some flattened T waves -likely from demand ischemia #Supratherapeutic INR -INR 4.6, patient takes 7.5mg warfarin every day -will hold warfarin and continue to monitor #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 Dye. I agree with the History, Examination, Assessment and Plan documented above with any addition or exceptions noted below. Breathing easier today compared to admission. Lungs decreased throughout likely due to habitus. Afebrile. Continue abx's. Echo eval.
[2019-05-23] MEDS ORDERED: Non-Formulary Item 1 EACH (Lisinopril [Zestril] 40 MG) PO SCH (09:00)
[2019-05-23] MEDS ORDERED: Furosemide 20 MG/2 ML VIAL SLOW IVP SCH (09:00)
[2019-05-23] MEDS ORDERED: Famotidine 20 MG TAB PO SCH (09:00)
[2019-05-23] MEDS: Azithromycin 500 MG in Sodium Chloride 0.9% 250 ML 250 ML IVPB SCH (09:04)
[2019-05-23] MEDS: Hydrochlorothiazide 25 MG TAB PO SCH (09:05)
[2019-05-23] MEDS: Lisinopril 20 MG TAB PO SCH (09:05)
[2019-05-23] MEDS: Carvedilol 6.25 MG TAB PO SCH ×2 (09:05→16:00)
[2019-05-23] MEDS: Pantoprazole 40 MG GRANULES PACKET PO SCH (09:05)
[2019-05-23 12:19] LABS: INR-International Normal Ratio 4.3
[2019-05-23 14:15] LABS: PTT 60.8 SEC (22.9-36.1)
[2019-05-23 14:17] LABS: INR-International Normal Ratio 4.7
[2019-05-23] MEDS ORDERED: Carvedilol 6.25 MG TAB PO SCH (17:00)
[2019-05-23] MEDS ORDERED: cefTRIAXone\\ROCEPHIN 1 GM in Sodium Chloride 0.9% 100 ML IVPB SCH (18:30)
[2019-05-23] MEDS ORDERED: Prevnar 13-Val Conj/PF 0.5 ML SYRINGE IM ONE (21:00)
[2019-05-24] MEDS ORDERED: HYDROcodone/Acetaminophen 5/325 mg Tablet PO SCH (02:45)
[2019-05-24 05:29] LABS: INR-International Normal Ratio 3.2; Prothrombin Time 32.7 SEC (12.0-14.7)
[2019-05-24 05:30] LABS: PTT 71.7 SEC (22.9-36.1)
[2019-05-24] MEDS: Furosemide 20 MG/2 ML VIAL SLOW IVP SCH ×2 (05:54→13:23)
--- NOTE | 2019-05-24 08:30 | PDOC.FM ---
- Subjective Subjective: Pt denies SOB or chest pain this AM. Reports she had right hip pain overnight, was given norco which she takes at home. No other complaints. - Objective Vital Signs & Weight: Vital Signs (12 hours) Temp Pulse Resp BP Pulse Ox 05/24/19 03:36 98.3 F 75 20 123/63 95 Weight Weight 141.203 kg I&O: 05/23/19 05/24/19 05/25/19 06:59 06:59 06:59 Intake Total 630 Output Total 700 2625 Result Diagrams: 05/23/19 05:16 05/23/19 05:16 Phys Exam - Physical Examination Constitutional: NAD HEENT: moist MMs Respiratory: no wheezing, clear to auscultation bilateral irregularly irregular rhythm Gastrointestinal: soft, non-tender, positive bowel sounds obese 1+ pitting edema BLE Neurological: non-focal, moves all 4 limbs Psychiatric: normal affect, A&O x 3 Skin: normal turgor, cap refill <2 seconds Dx/Plan (1) CHF (congestive heart failure) Code(s): I50.9 - HEART FAILURE, UNSPECIFIED Status: Suspected (2) Community acquired pneumonia Code(s): J18.9 - PNEUMONIA, UNSPECIFIED ORGANISM Status: Acute (3) Elevated INR Code(s): R79.1 - ABNORMAL COAGULATION PROFILE Status: Acute (4) NSTEMI (non-ST elevated myocardial infarction) Code(s): I21.4 - NON-ST ELEVATION (NSTEMI) MYOCARDIAL INFARCTION Status: Acute (5) History of DVT (deep vein thrombosis) Code(s): Z86.718 - PERSONAL HISTORY OF OTHER VENOUS THROMBOSIS AND EMBOLISM Status: Chronic (6) Hypertension Code(s): I10 - ESSENTIAL (PRIMARY) HYPERTENSION Status: Chronic (7) Morbid obesity Code(s): E66.01 - MORBID (SEVERE) OBESITY DUE TO EXCESS CALORIES Status: Chronic (8) Paroxysmal atrial fibrillation Code(s): I48.0 - PAROXYSMAL ATRIAL FIBRILLATION Status: Chronic - Plan Plan: #CAP -CXR shows RUL pneumonia -WBC elevated at 16, improved today. Procal improved5.3-> 3.13 -rocephin and azithromycin #New onset CHF -BNP of 820, baseline of 195 -initial trop elevated 0.430, downtrending -last echo 11/21: EF 50-55%, afib, mild valvular stenosis -IV lasix, will titrate as needed to diurese -fluid restrictions -strict I&O -daily wts -echo pending, will need cards consult if new dx confirmed #NSTEMI type 2 -initial trop elevated 0.43, patient denies any chest pain, downtrending with diuresis -EKG shows no st elevation, some flattened T waves -likely from demand ischemia #Supratherapeutic INR, resolved -Improving with treatment of infection -INR 3.2 this AM, patient takes 7.5mg warfarin every day -restart warfarin today, recheck in AM #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 Dye. I agree with the History, Examination, Assessment and Plan documented above with any addition or exceptions noted below. Breathing easier. Tolerating RA, Lungs clearer, INR improved. Switch to P.o. abx's resume Coumadin, wean O2
[2019-05-24] MEDS: Hydrochlorothiazide 25 MG TAB PO SCH (10:02)
[2019-05-24] MEDS: Carvedilol 6.25 MG TAB PO SCH ×2 (10:03→17:54)
[2019-05-24] MEDS: Azithromycin 500 MG in Sodium Chloride 0.9% 250 ML 250 ML IVPB SCH (10:03)
[2019-05-24] MEDS: Pantoprazole 40 MG GRANULES PACKET PO SCH (10:03)
[2019-05-24] MEDS: Lisinopril 20 MG TAB PO SCH (10:03)
[2019-05-24] MEDS: Polyethylene Glycol 3350 17 GM Packet PO SCH (10:04)
--- NOTE | 2019-05-24 12:06 | PQF ---
CLINICAL DOCUMENTATION IMPROVEMENT CLARIFICATION FORM: ICD-10 Updated PLEASE DO AN ADDENDUM TO THE PROGRESS NOTE WITH ANY DOCUMENTATION UPDATES OR ADDITIONS AND CARRY THROUGH TO DC SUMMARY. THANK YOU. DATE: 05/24/19 ATTN: DR. TANG Please exercise your independent, professional judgment in responding to the clarification form. Clinical indicators are provided on the bottom of this form for your review Please check appropriate box(es): [ x ] Sepsis due to: (Pna, UTI, gangrenous gall bladder, etc.) pna Due to: [ ] Device (please specify) [ ] Implant [ ] Graft [ ] Infusion [ ] SIRS due to non-infectious process (please specify etiology) [ ] with organ dysfunction [ ] without organ dysfunction [ ] Severe sepsis with acute organ dysfunction of: (Examples: respiratory failure, encephalopathy, acute kidney failure, other) [ ] Septic Shock [ ] Localized infection without sepsis [ ] Other diagnosis [ ] Unable to determine In addition, please specify: Present on Admission (POA): [ x ] Yes [ ] No [ ] Unable to determine For continuity of documentation, please document condition throughout progress notes and discharge summary. Thank You. CLINICAL INDICATORS - SIGNS / SYMPTOMS / LABS ER NOTE: "PT DID MEET SEPSIS CRITERIA" RISKS: PNEUMONIA WBC 16.0 RR 23 TREATMENT: IV ROCEPHIN (ER-PRESENT) IV AZITHROMYCIN (05/23-PRESENT) BLOOD CULTURES CARDIAC MONITORING (This form is maintained as a part of the permanent medical record) 2014 [employer]. All Rights Reserved JOSE EDUARDO [email or web address] Office: [phone] Attending addendum: Sepsis 2/2 PNA 3/4 SIRS criteria. MTDD
[2019-05-24] MEDS ORDERED: Cefdinir 300 MG CAP PO SCH (13:15)
[2019-05-24] MEDS: Cefdinir 300 MG CAP PO SCH ×2 (13:23→20:50)
[2019-05-24] MEDS ORDERED: Warfarin Sodium 7.5 MG TAB PO SCH (17:00)
[2019-05-25 05:22] LABS: Prothrombin Time 22.6 SEC (12.0-14.7)
[2019-05-25 05:45] LABS: #Eosinphils 0.3 thou/uL (0.0-0.7); #Lymphocytes 1.7 thou/uL (1.20-3.40); #Monocytes 0.7 thou/uL (0.11-0.59); #Neutrophils 4.9 thou/uL (1.40-6.50); %Basophils 0.2 % (0.0-1.0); %Eosinophils 4.1 % (0.0-10.0); %Lymphocytes 22.3 % (21.0-51.0); %Monocytes 9.3 % (0.0-10.0); %Neutrophils 64.2 % (42.0-75.0); Hemoglobin 13.1 g/dL (12.0-16.0); Mean Corpuscular HGB CONC 32.5 g/dL (32.0-36.0); Mean Corpuscular Hemoglobin 31.5 pg (27.0-31.0); Mean Corpuscular Volume 96.7 fL (78.0-98.0); Mean Platelet Volume 9.3 fL (7.4-10.4); Platelet Count 206 thou/uL (130-400); RBC Distribution Width 11.9 % (11.5-14.5); Red Blood Cell (RBC) Count 4.15 mill/uL (4.20-5.40); White Blood Cell (WBC) Count 7.7 thou/uL (4.8-10.8)
[2019-05-25] MEDS: Furosemide 20 MG/2 ML VIAL SLOW IVP SCH ×2 (06:20→15:02)
[2019-05-25 08:10] LABS: Anion Gap 15 mmol/L (10-20); BUN (Urea Nitrogen) 32 mg/dL (9.8-20.1); Calc. Creatinine Clearance 70 mL/min (70-130); Calcium 9.2 mg/dL (7.8-10.44); Carbon Dioxide 28 mmol/L (23-31); Chloride 98 mmol/L (98-107); Estimated GFR-MDRD 36; Glucose 130 mg/dL (83-110); Potassium 4.3 mmol/L (3.5-5.1); Sodium 137 mmol/L (136-145)
[2019-05-25] MEDS ORDERED: Azithromycin 250 MG TAB PO SCH (09:00)
--- NOTE | 2019-05-25 09:04 | PDOC.FM ---
- Subjective Subjective: Patient is now on room air. Feeling well and anxious to go home. Reports constipation. - Objective Vital Signs & Weight: Vital Signs (12 hours) Temp Pulse Resp BP Pulse Ox 05/25/19 04:47 94 L 05/25/19 04:00 97.7 F 90 20 128/65 93 L Weight Weight 139.888 kg I&O: 05/24/19 05/25/19 05/26/19 06:59 06:59 06:59 Intake Total 630 1080 Output Total 2625 2500 Balance -1994 Result Diagrams: 05/25/19 04:53 05/25/19 07:18 Phys Exam - Physical Examination Constitutional: NAD HEENT: PERRLA, moist MMs Respiratory: no wheezing, clear to auscultation bilateral Cardiovascular: irregular limited exam due to body habitus Gastrointestinal: soft, non-tender obese Musculoskeletal: pulses present trace pitting edema BLE Neurological: non-focal, moves all 4 limbs Psychiatric: normal affect, A&O x 3 Skin: normal turgor, cap refill <2 seconds Dx/Plan (1) CHF (congestive heart failure) Code(s): I50.9 - HEART FAILURE, UNSPECIFIED Status: Suspected (2) Community acquired pneumonia Code(s): J18.9 - PNEUMONIA, UNSPECIFIED ORGANISM Status: Acute (3) Elevated INR Code(s): R79.1 - ABNORMAL COAGULATION PROFILE Status: Acute (4) NSTEMI (non-ST elevated myocardial infarction) Code(s): I21.4 - NON-ST ELEVATION (NSTEMI) MYOCARDIAL INFARCTION Status: Acute (5) History of DVT (deep vein thrombosis) Code(s): Z86.718 - PERSONAL HISTORY OF OTHER VENOUS THROMBOSIS AND EMBOLISM Status: Chronic (6) Hypertension Code(s): I10 - ESSENTIAL (PRIMARY) HYPERTENSION Status: Chronic (7) Morbid obesity Code(s): E66.01 - MORBID (SEVERE) OBESITY DUE TO EXCESS CALORIES Status: Chronic (8) Paroxysmal atrial fibrillation Code(s): I48.0 - PAROXYSMAL ATRIAL FIBRILLATION Status: Chronic - Plan Plan: #CAP -CXR shows RUL pneumonia -Leukocytosis resolved -omnicef and azithromycin PO, continue for 5 more days. #Elevated BNP -BNP of 820, baseline of 195 -initial trop elevated 0.430, downtrending -last echo 11/21: EF 50-55%, afib, mild valvular stenosis -New echo shows EF 55-60% -fluid restrictions -strict I&O -daily wts -recommend outpatient follow up with Cardiology for this and NSTEMI type 2 #NSTEMI type 2 -initial trop elevated 0.43, patient denies any chest pain, downtrending with diuresis -EKG shows no st elevation, some flattened T waves -likely from demand ischemia #Supratherapeutic INR, resolved -Improving with treatment of infection -INR 2 this AM, patient takes 7.5mg warfarin every day -restart warfarin today, follow up outpatient #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
[2019-05-25 09:14] VITALS: BP 118/64; TEMP 98
[2019-05-25] MEDS: Pantoprazole 40 MG GRANULES PACKET PO SCH (09:15)
[2019-05-25] MEDS: Polyethylene Glycol 3350 17 GM Packet PO SCH (09:15)
[2019-05-25] MEDS: Hydrochlorothiazide 25 MG TAB PO SCH (09:15)
[2019-05-25] MEDS: Lisinopril 20 MG TAB PO SCH (09:16)
[2019-05-25] MEDS: Cefdinir 300 MG CAP PO SCH (09:16)
[2019-05-25] MEDS: Carvedilol 6.25 MG TAB PO SCH (09:16)
[2019-05-25] MEDS ORDERED: Warfarin Sodium 7.5 MG TAB PO SCH (17:00)
--- NOTE | 2019-05-26 13:56 | DIS ---
DATE OF ADMISSION: 05/22/2019 DATE OF DISCHARGE: 05/25/2019 RESIDENT: Kaya Dye MD. DISCHARGE ATTENDING: Dr. Arrington. CONSULTS: None. PROCEDURES: 1. Chest x-ray 05/22/2019, right upper lobe pneumonia. 2. Echocardiogram 05/24/2019, ejection fraction of 55% to 60%, left atrium is moderately dilated. PRIMARY DIAGNOSES: 1. Sepsis secondary to community-acquired pneumonia. 2. [id number] myocardial infarction type 2. 3. Supratherapeutic INR. SECONDARY DIAGNOSES: 1. Acute kidney injury on chronic kidney disease 3 2. Constipation. 3. Morbid obesity. 4. Hypertension. 5. Paroxysmal atrial fibrillation DISCHARGE MEDICATIONS: 1. Azithromycin 250 mg p.o. daily. 2. Cefdinir 300 mg p.o. twice daily for 5 days. 3. Warfarin 7.5 mg p.o. daily. 4. Lisinopril 40 mg p.o. daily. 5. Hydrochlorothiazide 25 mg p.o. daily. 6. Pantoprazole 20 mg p.o. daily. 7. Diltiazem 180 mg p.o. daily. 8. Hydrocodone 5/325 one tab p.o. t.i.d. p.r.n. for pain. 9. Carvedilol 6.25 mg p.o. b.i.d. with meals. DISCONTINUED MEDICATIONS: None. HISTORY OF PRESENT ILLNESS/HOSPITAL COURSE: An 83-year-old female with past medical history of atrial fibrillation, hypertension, and pulmonary embolism, presented with shortness of breath and increased mucus production and hemoptysis. She reported "hot and cold flashes," however, she denied fever or chest pain. The patient was found to have pneumonia on chest x-ray. Her white count was elevated at 16, and her procalcitonin was elevated at 5.3. She was started on Rocephin and azithromycin. Her white blood cell count and procalcitonin trended downward. Her shortness of breath improved. Her 48hr blood culture resulted 1 out of 2 coagulase negative Staph, which is likely contaminant. The patient met criteria on admission with tachypneic and leukocytosis. She was discharged in stable condition on p.o. Omnicef, which she tolerated while she was inpatient, and azithromycin. The patient to follow up with PCP within 1 week. NSTEMI type 2: The patient also had elevated troponins on admission. Initial troponin was 0.430, which down trended to 0.20. We recommend the patient follows up with Dr. Hdz outpatient after discharge. Echo was done, which showed ejection fraction of 55% to 60%. The patient had a supratherapeutic INR of 4.6 on admission, which was likely increased secondary to her infection. The patient's warfarin was held for 2 days while she was inpatient and INR decreased to 2.0. The patient was restarted at her normal dose of warfarin 7.5 mg daily. The patient should follow up outpatient for further monitoring of INR. Her hemoptysis improved after her INR returned to normal and her pneumonia was treated. DISPOSITION: Stable. DISCHARGE INSTRUCTIONS: 1. Location: Home. 2. Diet: Heart healthy. 3. Activity: As tolerated. 4. Followup: With PCP, Dr. Cristhian Horn within 1 week. Also follow up with Dr. Hdz, Cardiology. Job ID: [id number] MTDD
== END 2019-05-25 15:33 | disposition home or self-care (01) | DRG 871 ==
LOC: ERS 17:00 → 2NO 19:11
PROVIDERS: ADMIT Emergency Medicine; ATTEND Emergency Medicine
DX: A41.9 Sepsis, unspecified organism (principal); I21.4 Non-ST elevation (NSTEMI) myocardial infarction; J18.1 Lobar pneumonia, unspecified organism; I13.0 Hypertensive heart and chronic kidney disease with heart failure and stage 1 through stage 4 chronic kidney disease, or unspecified chronic kidney disease; N17.9 Acute kidney failure, unspecified; I10 Essential (primary) hypertension; C53.9 Malignant neoplasm of cervix uteri, unspecified; R79.1 Abnormal coagulation profile; I50.9 Heart failure, unspecified; Z66 Do not resuscitate; E66.01 Morbid (severe) obesity due to excess calories; I48.0 Paroxysmal atrial fibrillation; N18.3 Chronic kidney disease, stage 3 (moderate); K59.00 Constipation, unspecified; Z68.42 Body mass index [BMI] 45.0-49.9, adult; Z88.2 Allergy status to sulfonamides; Z88.0 Allergy status to penicillin; Z88.8 Allergy status to other drugs, medicaments and biological substances; Z90.49 Acquired absence of other specified parts of digestive tract; Z90.710 Acquired absence of both cervix and uterus; Z86.718 Personal history of other venous thrombosis and embolism
CPT/HCPCS: 36415; 71045; 80048; 80053; 82553; 83605; 83880; 84145; 84484; 85025; 85610; 85730; 87040; 87149; 93005; 93306; 94640; 94760; 96365; J0456; J0696; J1940; J3490; J7050

== ENCOUNTER 2020-03-07 19:23 | Inpatient (IN) | payer MEDICARE ==
[2020-03-07] MEDS ORDERED: HYDROcodone/Acetaminophen 5/325 mg Tablet ONE (19:56)
[2020-03-07] MEDS ORDERED: Ketorolac Tromethamine 30 MG/ML VIAL ONE (19:57)
--- NOTE | 2020-03-07 21:04 | CT ---
CT LUMBAR SPINE WITHOUT CONTRAST: 03/07/20 HISTORY: Back pain. COMPARISON: None. FINDINGS: Aortic contour has mild infrarenal ectasia which measures up to 2.8 cm in size. Mild renal cortical thinning. No hydronephrosis. No acute fracture of lumbar spine. There is narrowing of the intraspinous space L2-L5 with sclerosis and subcortical cyst formation. Limited level by level evaluation is as follows: L1-2: No neural foraminal or spinal canal narrowing. L2-3: Small disc bulge. Mild bilateral neural foraminal narrowing. Spinal canal measures approximatel y 1 cm. L3-4: Small disc bulge. Mild right and moderate left neural foraminal narrowing. No significant spina l canal narrowing. L4-5: Mild facet arthrosis on the left and moderate to severe on the right. Mild left and moderate ri ght neural foraminal narrowing. L5-S1: Advanced degenerative disc space height loss. 1 mm retrolisthesis. There is moderate bilateral hypertrophic facet arthrosis. Disc osteophyte complex in the bilateral subforaminal zones and left l ateral recess. There is severe left and moderate right neural foraminal narrowing. IMPRESSION: Spondylosis greatest at L5-S1. No acute fracture or malalignment. POS: HOME
[2020-03-07 21:53] LABS: #Eosinphils 0.2 thou/uL (0.0-0.7); #Lymphocytes 1.4 thou/uL (1.20-3.40); #Monocytes 0.7 thou/uL (0.11-0.59); #Neutrophils 5.3 thou/uL (1.40-6.50); %Basophils 0.5 % (0.0-1.0); %Eosinophils 2.7 % (0.0-10.0); %Lymphocytes 18.6 % (21.0-51.0); %Monocytes 8.6 % (0.0-10.0); %Neutrophils 69.6 % (42.0-75.0); Hemoglobin 12.8 g/dL (12.0-16.0); Mean Corpuscular HGB CONC 32.4 g/dL (32.0-36.0); Mean Corpuscular Volume 95.8 fL (78.0-98.0); Mean Platelet Volume 8.1 fL (7.4-10.4); Platelet Count 222 thou/uL (130-400); RBC Distribution Width 12.2 % (11.5-14.5); Red Blood Cell (RBC) Count 4.11 mill/uL (4.20-5.40); White Blood Cell (WBC) Count 7.6 thou/uL (4.8-10.8)
[2020-03-07 22:10] LABS: ALT (SGPT) 12 U/L (8-55); AST (SGOT) 16 U/L (5-34); Albumin 3.4 g/dL (3.4-4.8); Alkaline Phosphatase 120 U/L (40-110); Anion Gap 14 mmol/L (10-20); BUN (Urea Nitrogen) 36 mg/dL (9.8-20.1); Bilirubin, Total 0.4 mg/dL (0.2-1.2); Calc. Creatinine Clearance 0 mL/min (70-130); Calcium 8.8 mg/dL (7.8-10.44); Carbon Dioxide 28 mmol/L (23-31); Chloride 102 mmol/L (98-107); Estimated GFR-MDRD 30; Globulin 3.3 g/dL (2.4-3.5); Glucose 120 mg/dL (83-110); Potassium 4.6 mmol/L (3.5-5.1); Protein, Total 6.7 g/dL (6.0-8.3); Sodium 139 mmol/L (136-145)
[2020-03-07 22:19] LABS: Bacteria/HPF 1+ HPF (None Seen); Bilirubin Negative (Negative); Blood, Urine Negative (Negative); Clarity Clear (Clear); Glucose, Urine (Dipstick) Normal (Negative); Leukocyte 25 Leu/uL (Negative); Nitrite Negative (Negative); Protein, Urine (Dipstick) 20 mg/dL (Neg-Trace); Urobilinogen 3 mg/dL (Less than 2)
[2020-03-07 23:16] VITALS: BMI 45.2
[2020-03-07] MEDS ORDERED: Ondansetron ODT 4 MG TAB SL PRN (23:17)
[2020-03-07] MEDS ORDERED: HYDROcodone/Acetaminophen 5/325 mg Tablet PO PRN ×2 (23:17)
[2020-03-07] MEDS ORDERED: Acetaminophen 325 MG TAB PO PRN (23:17)
[2020-03-07] MEDS ORDERED: Ondansetron PF 4 MG/2 ML Vial IVP PRN (23:17)
[2020-03-07] MEDS ORDERED: Ketorolac Tromethamine 30 MG/ML VIAL IVP PRN (23:18)
[2020-03-07] MEDS ORDERED: Calcium Carbonate 500 MG ChewTAB PO PRN (23:32)
[2020-03-07] MEDS ORDERED: Senokot S 8.6-50 MG TAB PO PRN (23:32)
--- NOTE | 2020-03-07 23:46 | PDOC.FPRHP ---
- History of Present Illness Chief Complaint: Right SI Joint Pain History of Present Illness: Pt is an 84 yo F with pmh HTN, GERD, CHF, paroxysmal Afib, and HF who presents for R back pain that radiates down her leg. She states that the pain started this morning. The pain was a severe stabbing pain that radiates down the R leg. She says she took her home muscle relaxers and [place] without relief. She says she was unable to get in her bed this morning and scrapped her shins. She had to get her daughter to help her get back in her bed. ED Course: In the ED, she received Toradol and [place]. CT showed Spondylosis greatest at L5- S1. L2-L3, L3-L4 small disc bulge with neural foraminal narrowing. No fracture. Significant OA. Labs were significant for BUN/Cre: 36/1.65, Alk Phos: 120, UA: LE- 25, vishnu- 1+, WBC 4-6 - Allergies/Adverse Reactions Allergies Allergy/AdvReac Type Severity Reaction Status Date / Time Penicillins Allergy Severe Anaphylaxis Verified 03/07/20 23:12 Sulfa (Sulfonamide Allergy Verified 03/07/20 23:12 Antibiotics) sulfamethoxazole Allergy Verified 03/07/20 23:12 [From Bactrim] trimethoprim [From Bactrim] Allergy Verified 03/07/20 23:12 - Home Medications Medication Instructions Recorded Confirmed Type Warfarin Sodium 7.5 mg PO DAILY 10/29/14 03/07/20 History Hydrochlorothiazide 25 mg PO DAILY 11/16/17 03/07/20 History Lisinopril [Zestril] 40 mg PO DAILY 11/16/17 03/07/20 History HYDROcodone Bit/APAP 5/325 [[place]] 1 tab PO TID PRN 05/22/19 03/07/20 History Pantoprazole [Protonix] 20 mg PO DAILY 05/22/19 03/07/20 History Carvedilol [Coreg] 6.25 mg PO BID-WM 05/23/19 03/07/20 History Cyclobenzaprine [Flexeril] 10 mg PO TID PRN 03/07/20 03/08/20 History Diltiazem HCl [Cartia XT] 180 mg PO DAILY 03/07/20 03/07/20 History Ipratropium/Albuterol Sulfate 3 ml NEB QID PRN 03/07/20 03/08/20 History - History PMHx:HTN, GERD, CHF, paroxysmal Afib, HF PSHx: Cholecystecotomy, Cervical Cancer, Right hand skin graft, Small intestine resection, Left hip replacement FMH: Non-contributory Social: No alcohol, tobacco, or recreational drug use. - Review of Systems General: denies: fever/chills Eyes: denies: vision changes ENT: denies: nasal congestion, rhinorrhea Respiratory: denies: cough, congestion, shortness of breath Cardiovascular: denies: chest pain, edema Gastrointestinal: denies: nausea, vomiting, diarrhea, constipation, abdominal pain Genitourinary: denies: dysuria Skin: denies: rashes, lesions Musculoskeletal: reports: pain, tenderness Neurological: denies: numbness, weakness - Vital signs BP: 142/86 HR: 84 RR: 18 Tmax: 97.7 Pox: 94% on RA Wt: 142 kg - Physical Exam -Constitutional: Uncomfortable HEENT: normocephalic and atraumatic, PERRLA, EOMI, conjunctiva clear, MMM, oropharynx clear Neck: supple, no LAD Heart: RRR, normal S1/S2, no murmurs/rubs/gallops, pulses present -Heart: trace edema -Lungs: Whezzing present Abdomen: soft, non-tender, bowel sounds present Musculoskeletal: normal structure, normal tone Neurological: no focal deficit, CN II-XII intact -Neurological: Strength: 4/5 R, 5/5 L Skin: no rash/lesions, good turgor Heme/Lymphatic: no unusual bruising or bleeding, no purpura, no petechia Psychiatric: normal mood and affect FMR H&P: Results - Labs Result Diagrams: 03/08/20 04:11 03/08/20 04:11 Lab results: WBC 7.6 thou/uL (4.8-10.8) 03/07/20 21:43 Hgb 12.8 g/dL (12.0-16.0) 03/07/20 21:43 Hct 39.4 % (36.0-47.0) 03/07/20 21:43 MCV 95.8 fL (78.0-98.0) 03/07/20 21:43 Plt Count 222 thou/uL (130-400) 03/07/20 21:43 Neutrophils % 69.6 % (42.0-75.0) 03/07/20 21:43 Sodium 139 mmol/L (136-145) 03/07/20 21:43 Potassium 4.6 mmol/L (3.5-5.1) 03/07/20 21:43 Chloride 102 mmol/L (98-107) 03/07/20 21:43 Carbon Dioxide 28 mmol/L (23-31) 03/07/20 21:43 BUN 36 mg/dL (9.8-20.1) H 03/07/20 21:43 Creatinine 1.65 mg/dL (0.6-1.1) H 03/07/20 21:43 Glucose 120 mg/dL (83-110) H 03/07/20 21:43 Calcium 8.8 mg/dL (7.8-10.44) 03/07/20 21:43 Total Bilirubin 0.4 mg/dL (0.2-1.2) 03/07/20 21:43 AST 16 U/L (5-34) 03/07/20 21:43 ALT 12 U/L (8-55) 03/07/20 21:43 Alkaline Phosphatase 120 U/L (40-110) H 03/07/20 21:43 Serum Total Protein 6.7 g/dL (6.0-8.3) 03/07/20 21:43 Albumin 3.4 g/dL (3.4-4.8) 03/07/20 21:43 Urine Ketones Negative mg/dL (Negative) 03/07/20 22:00 Urine Blood Negative (Negative) 03/07/20 22:00 Urine Nitrite Negative (Negative) 03/07/20 22:00 Ur Leukocyte Esterase 25 [place]/uL (Negative) 03/07/20 22:00 Urine RBC 4-6 HPF (0-3) A 03/07/20 22:00 Urine WBC 4-6 HPF (0-3) A 03/07/20 22:00 Ur Squamous Epith Cells 4-6 HPF (0-3) A 03/07/20 22:00 Urine Bacteria 1+ HPF (None Seen) A 03/07/20 22:00 FMR H&P: A/P - Problem List (1) Sciatica Current Visit: Yes Status: Acute Code(s): M54.30 - SCIATICA, UNSPECIFIED SIDE (2) Hypertension Current Visit: No Status: Chronic Code(s): I10 - ESSENTIAL (PRIMARY) HYPERTENSION (3) Osteoarthritis Current Visit: No Status: Chronic Code(s): M19.90 - UNSPECIFIED OSTEOARTHRITIS, UNSPECIFIED SITE (4) Paroxysmal atrial fibrillation Current Visit: No Status: Chronic Code(s): I48.0 - PAROXYSMAL ATRIAL FIBRILLATION (5) CHF (congestive heart failure) Current Visit: No Status: Suspected Code(s): I50.9 - HEART FAILURE, UNSPECIFIED - Plan Pt is an 84 yo F with pmh HTN, GERD, CHF, paroxysmal Afib, and HF who presents for R back pain that radiates down her leg 1. Sciatica Pt received [place] & Toradol in the ED * CT: Spondylosis greatest at L5-S1. L2-L3, L3-L4 small disc bulge with neural foraminal narrowing. No fracture. Significant OA * Continue pain medications * PT/OT consulted 2. SEGUNDO vs CKD Cre: 1.65 * Monitro with BMP 3. HF Continue johny meds: Coreg, Diltiazem, Lisinopril 4. GERD Continue home protonix 5. Paroxysmal Afib Continue home Warfarin * Check INR 6. Asymptomatic Bactiuria UA: LE- 25, vishnu- 1+, WBC 4-6 * Will monitor for signs and symptoms at this time Code Status: Full Diet: HHLSo IVF: SL DVT PPx: Warfarin GI PPx: Protonix PCP: RAMÓN Horn Dispo: Admit to Medicine inpt for treatment of intractable back pain. FMR H&P: Upper Level - Pertinent history I went and evaluated pt. Pt reports having severe pain in right hip with inability to transfer and bear weight. Pt denies any recent injury or trauma. Denies any fever or chills. Pt reports pain going on throughout the day an continued to worsen. I reviewed the above HPI and made edits as needed. See above for full details in the HPI. - Pertinent findings Pt has tenderness to palpation along R. SI joint and greater trochanteric bursa. Straight leg test negative. RIVAS positive. No edema noted in LE. Pt has pain with movement of R. hip. No redness, or heat noted around hip. Sensation intact in LE bilaterally. Cardio: RRR, no murmurs or gallops Resp: CTA-B, no wheezes or crackles Abdomen: NTTP, Ventral Hernia noted. No distension noted. Soft - Plan Date/Time: 03/07/20 [id number] IEverette, PGY-3. have evaluated this patient and agree with findings/ plan as outlined by agriculture internship resident. Pertinent changes/additions are listed here. I have reviewed the above plan. I have made edits as needed. At this time I believe pt to be having flare of chronic osteoarthritis in R. hip with component of sacroilitis. Will give gabapentin for sciatic pain. Will continue home pain medication with extra [place] for breakthrough. PT consulted. X-ray does not show any acute pathology. ESR pending. Low suspicion for infection at this time. See above for full detailed plan. Addendum - Attending - Attending Attestation Date/Time: 03/08/20 4778 I personally evaluated the patient and discussed the management with Dr. Miguel Plaza on 03/07/2020 I agree with the History, Examination, Assessment and Plan documented above with any addition or exceptions noted below - 84 yo F with h/o HTN, GERD, CHF, and paroxysmal Afib who presents for R back pain that radiates down her leg. She states that the pain started this morning. The pain was a severe stabbing pain that radiates down the R leg. She says she took her home muscle relaxers and [place] without relief. She says she was unable to get in her bed this morning and scrapped her shins. Denies any bowel or bladder incontinence. PMH/ PSH/Meds/SH reviewed and agree with resident's documentation. Afebrile VSS. Exam repeated by me and agree with resident's findings. Labs: WBC=7.6, H/H=12.8/ 39.4, Ngf=143, Xv=430, K=4.6, Xd=524, CO2=28, BUN/Cr=36/1.65, Ovlt=461. CT L- spine- Multilevel degenerative changes with foraminal stenosis. A/P: 1) Intractable back pain secondary to sciatica - Place in obs. PT consult in AM. Will start gabapentin. Continue flexeril and prn norco. Unable to use NSAIDs due to GFR and patient on warfarin. May consider steroid taper. 2) HTN- stable; continue home meds. 3) Afib- continue home meds.
[2020-03-08] MEDS ORDERED: Cyclobenzaprine 10 MG TAB PO PRN (03:37)
[2020-03-08 04:30] LABS: #Eosinphils 0.3 thou/uL (0.0-0.7); #Lymphocytes 1.8 thou/uL (1.20-3.40); #Monocytes 0.7 thou/uL (0.11-0.59); #Neutrophils 4.1 thou/uL (1.40-6.50); %Basophils 0.2 % (0.0-1.0); %Eosinophils 4.9 % (0.0-10.0); %Lymphocytes 26.5 % (21.0-51.0); %Neutrophils 58.5 % (42.0-75.0); Hemoglobin 11.9 g/dL (12.0-16.0); Mean Corpuscular Hemoglobin 32.8 pg (27.0-31.0); Mean Corpuscular Volume 96.5 fL (78.0-98.0); Mean Platelet Volume 7.9 fL (7.4-10.4); Platelet Count 202 thou/uL (130-400); RBC Distribution Width 12.2 % (11.5-14.5); Red Blood Cell (RBC) Count 3.62 mill/uL (4.20-5.40)
[2020-03-08 04:48] LABS: Prothrombin Time 41.5 sec (12.0-14.7)
[2020-03-08 04:52] LABS: ALT (SGPT) 10 U/L (8-55); AST (SGOT) 15 U/L (5-34); Albumin 3.1 g/dL (3.4-4.8); Alkaline Phosphatase 101 U/L (40-110); Anion Gap 12 mmol/L (10-20); BUN (Urea Nitrogen) 35 mg/dL (9.8-20.1); Bilirubin, Total 0.4 mg/dL (0.2-1.2); Calc. Creatinine Clearance 63 mL/min (70-130); Calcium 8.7 mg/dL (7.8-10.44); Carbon Dioxide 29 mmol/L (23-31); Chloride 104 mmol/L (98-107); Estimated GFR-MDRD 32; Globulin 2.9 g/dL (2.4-3.5); Glucose 101 mg/dL (83-110); Potassium 4.1 mmol/L (3.5-5.1); Sodium 141 mmol/L (136-145)
[2020-03-08 04:57] LABS: INR-International Normal Ratio 4.4
--- NOTE | 2020-03-08 08:01 | PDOC.FM ---
- Subjective Subjective: Pt remains with back pain today. Her R side is worse than her left. She does have some radiation down her R leg. Apparently she has been seen in the past by neurosurgery in the past who did not think she was a surgical candidate due to weight and functional status. She did admit to injections in the distant past. She denies incontinence, saddle parasthesia, fever, chills. - Objective Vital Signs & Weight: Vital Signs (12 hours) Temp Pulse Resp BP BP Pulse Ox 03/08/20 05:30 97.2 F L 64 14 102/63 98 03/07/20 23:52 76 18 94 L 03/07/20 23:13 97.4 F L 76 20 146/86 H 94 L Weight Weight 142.927 kg Result Diagrams: 03/08/20 04:11 03/08/20 04:11 Phys Exam - Physical Examination Constitutional: NAD HEENT: moist MMs, sclera anicteric Neck: no JVD, full ROM difficulty breathing with size but not in distress Cardiovascular: RRR, no significant murmur Gastrointestinal: soft, positive bowel sounds positive leg raise on R Neurological: non-focal Psychiatric: normal affect, A&O x 3 Dx/Plan (1) Sciatica Code(s): M54.30 - SCIATICA, UNSPECIFIED SIDE Status: Acute (2) Elevated INR Code(s): R79.1 - ABNORMAL COAGULATION PROFILE Status: Acute (3) Hypertension Code(s): I10 - ESSENTIAL (PRIMARY) HYPERTENSION Status: Chronic (4) Morbid obesity Code(s): E66.01 - MORBID (SEVERE) OBESITY DUE TO EXCESS CALORIES Status: Chronic (5) Osteoarthritis Code(s): M19.90 - UNSPECIFIED OSTEOARTHRITIS, UNSPECIFIED SITE Status: Chronic (6) CHF (congestive heart failure) Code(s): I50.9 - HEART FAILURE, UNSPECIFIED Status: Suspected - Plan Plan: Pt is an 84 yo F with pmh HTN, GERD, CHF, paroxysmal Afib, and HF who presents for R back pain that radiates down her leg # Sciatica 2/2 spinal stenosis vs bulging disc Pt received [place] & Toradol in the ED - d/c toradol and will start prednisone, gabapentin * CT: Spondylosis greatest at L5-S1. L2-L3, L3-L4 small disc bulge with neural foraminal narrowing. No fracture. Significant OA * PT/OT consulted # SEGUNDO vs CKD Cre: 1.65 * Monitro with BMP but seems to be at baseline. # HF Continue johny meds: Coreg, Diltiazem, Lisinopril # Elevated INR D/C warfarin # GERD Continue home protonix # Paroxysmal Afib Continue home Warfarin * Check INR # Asymptomatic Bacteruria UA: LE- 25, vishnu- 1+, WBC 4-6 * Will monitor for signs and symptoms at this time Code Status: Full Diet: HHLSo IVF: SL DVT PPx: Warfarin GI PPx: Protonix PCP: RAMÓN Horn Dispo: Home today Addendum - Attending - Attending Attestation Date/Time: 03/08/20 [id number] I personally evaluated the patient and discussed the management with . [] I agree with the History, Examination, Assessment and Plan documented above with any addition or exceptions noted below. Pain improved. D/C home with HH, PT/OT.
[2020-03-08] MEDS ORDERED: Warfarin Sodium 7.5 MG TAB PO SCH (09:00)
[2020-03-08] MEDS ORDERED: Enoxaparin Sodium 40 MG/0.4 ML SYRINGE SC SCH (09:00)
[2020-03-08] MEDS ORDERED: Lisinopril 20 MG TAB PO SCH (09:00)
[2020-03-08] MEDS ORDERED: Hydrochlorothiazide 25 MG TAB PO SCH (09:00)
[2020-03-08] MEDS: Gabapentin 100 MG CAP PO SCH ×2 (09:34→15:07)
[2020-03-08] MEDS: Carvedilol 6.25 MG TAB PO SCH ×2 (10:49→17:53)
[2020-03-08] MEDS ORDERED: predniSONE 20 MG TAB PO SCH (12:30)
[2020-03-08] MEDS ORDERED: HYDROcodone/Acetaminophen 5/325 mg Tablet PO PRN (12:45)
[2020-03-08 15:58] VITALS: BP 138/62; TEMP 97.9
[2020-03-09] MEDS ORDERED: predniSONE 20 MG TAB PO SCH (08:00)
== END 2020-03-08 18:58 | disposition home health service (06) | DRG 552 ==
LOC: ERS 19:23 → T4-B 21:29
PROVIDERS: ADMIT Family Medicine; ATTEND Family Medicine
DX: M48.061 Spinal stenosis, lumbar region without neurogenic claudication (principal); N17.9 Acute kidney failure, unspecified; I13.0 Hypertensive heart and chronic kidney disease with heart failure and stage 1 through stage 4 chronic kidney disease, or unspecified chronic kidney disease; Z68.41 Body mass index [BMI] 40.0-44.9, adult; K21.9 Gastro-esophageal reflux disease without esophagitis; I48.0 Paroxysmal atrial fibrillation; I50.9 Heart failure, unspecified; M47.816 Spondylosis without myelopathy or radiculopathy, lumbar region; Z96.642 Presence of left artificial hip joint; M19.90 Unspecified osteoarthritis, unspecified site; M51.26 Other intervertebral disc displacement, lumbar region; N18.9 Chronic kidney disease, unspecified; R82.71 Bacteriuria; E66.01 Morbid (severe) obesity due to excess calories; R79.1 Abnormal coagulation profile; Z88.0 Allergy status to penicillin; Z88.2 Allergy status to sulfonamides; Z88.1 Allergy status to other antibiotic agents; Z79.01 Long term (current) use of anticoagulants; Z90.49 Acquired absence of other specified parts of digestive tract; Z85.41 Personal history of malignant neoplasm of cervix uteri
CPT/HCPCS: 36415; 72131; 80053; 81003; 81015; 85025; 85610; 85652; 94640; 96372; J1885; J7512; J7620

== ENCOUNTER 2020-06-09 04:21 | Emergency (ER) | payer MEDICARE ==
[2020-06-09 06:11] LABS: INR-International Normal Ratio 1.8; Prothrombin Time 20.4 sec (12.0-14.7)
--- NOTE | 2020-06-09 09:37 | RAD ---
RIGHT KNEE 4 VIEWS: HISTORY: Pain. COMPARISON: Radiograph from 2003. FINDINGS: Mild demineralization. Moderate joint effusion. No acute displaced or malalignment. Mild soft tissue calcifications. IMPRESSION: Moderate joint effusion without acute displaced fracture or malalignment. POS: HOME
--- NOTE | 2020-06-09 10:11 | ULT ---
PRELIMINARY REPORT/[facility]/EMERGENCY AFTER HOURS PROCEDURE EXAM: US Duplex right Lower Extremity Veins. CLINICAL HISTORY: RLE PAIN TECHNIQUE: Real-time ultrasound scan of the veins of the right lower extremity with color Doppler vickey w, spectral waveform analysis and compression. COMPARISON: None provided. FINDINGS: DEEP VEINS: The common femoral, femoral, and popliteal veins are echolucent and compressible. These v essels demonstrate respiratory variation and augmentation. There is normal color Doppler flow through out. The visualized calf veins are also patent. SUPERFICIAL VEINS: The visualized greater saphenous vein is patent. IMPRESSION: No deep venous thrombosis in the right lower extremity. ELECTRONICALLY SIGNED BY: Geneva Harrison MD Jun 09, 2020 7:14:09 AM CDT FINAL REPORT VENOUS DOPPLER ULTRASOUND OF THE RIGHT LOWER EXTREMITY: I agree with the preliminary report given by Dr. Deejay Carlson of [facility]. POS: OFF
--- NOTE | 2020-06-09 11:06 | RAD ---
CHEST 1 VIEW: HISTORY: COVID positive. Weakness. COMPARISON: Radiograph 05/17/2020. FINDINGS: Heart size is enlarged. No pneumothorax. No effusion. No acute osseous abnormality. IMPRESSION: Cardiomegaly. Otherwise, unremarkable exam. POS: HOME
== END 2020-06-09 06:51 | disposition home or self-care (01) ==
LOC: ERS 04:21
DX: S80.01XA Contusion of right knee, initial encounter (principal); I48.91 Unspecified atrial fibrillation; I10 Essential (primary) hypertension; J44.9 Chronic obstructive pulmonary disease, unspecified; K21.9 Gastro-esophageal reflux disease without esophagitis; Z79.01 Long term (current) use of anticoagulants; Z79.899 Other long term (current) drug therapy; W19.XXXA Unspecified fall, initial encounter
CPT/HCPCS: 36415; 71045; 85610; 85730

== ENCOUNTER 2020-07-01 08:05 | Inpatient (IN) | payer MEDICARE, OTHER ==
[2020-07-01] MEDS ORDERED: Iopamidol-370 76% 500 ML 1 ML ONE (08:55)
[2020-07-01 09:09] LABS: #Basophils 0.1 thou/uL (0.0-0.2); #Eosinphils 0.2 thou/uL (0.0-0.7); #Lymphocytes 1.4 thou/uL (1.20-3.40); #Monocytes 0.5 thou/uL (0.11-0.59); #Neutrophils 3.6 thou/uL (1.40-6.50); %Eosinophils 3.4 % (0.0-10.0); %Lymphocytes 24.8 % (21.0-51.0); %Monocytes 9.2 % (0.0-10.0); %Neutrophils 61.7 % (42.0-75.0); Hemoglobin 11.5 g/dL (12.0-16.0); Mean Corpuscular Hemoglobin 31.6 pg (27.0-31.0); Mean Corpuscular Volume 98.8 fL (78.0-98.0); Platelet Count 278 thou/uL (130-400); RBC Distribution Width 12.9 % (11.5-14.5); Red Blood Cell (RBC) Count 3.63 mill/uL (4.20-5.40); White Blood Cell (WBC) Count 5.8 thou/uL (4.8-10.8)
[2020-07-01 09:27] LABS: ALT (SGPT) 20 U/L (8-55); AST (SGOT) 19 U/L (5-34); Albumin 3.1 g/dL (3.4-4.8); Alkaline Phosphatase 107 U/L (40-110); Anion Gap 13 mmol/L (10-20); BUN (Urea Nitrogen) 39 mg/dL (9.8-20.1); Bilirubin, Total 0.5 mg/dL (0.2-1.2); CK (CPK) 24 U/L (29-168); Calc. Creatinine Clearance 0 mL/min (70-130); Calcium 9.5 mg/dL (7.8-10.44); Carbon Dioxide 35 mmol/L (23-31); Chloride 99 mmol/L (98-107); Estimated GFR-MDRD 40; Globulin 3.7 g/dL (2.4-3.5); Glucose 140 mg/dL (83-110); Potassium 4.1 mmol/L (3.5-5.1); Protein, Total 6.8 g/dL (6.0-8.3); Sodium 143 mmol/L (136-145)
[2020-07-01 10:31] LABS: Bacteria/HPF 3+ HPF (None Seen); Bilirubin Negative (Negative); Blood, Urine Negative (Negative); Clarity Extra Turbid (Clear); Glucose, Urine (Dipstick) Normal (Negative); Ketone, Urine Negative (Negative); Leukocyte 250 Leu/uL (Negative); Nitrite 1+ (Negative); Protein, Urine (Dipstick) 30 mg/dL (Neg-Trace); RBC/HPF 0-3 HPF (0-3); Specific Gravity, Urine 1.021 (1.002-1.036); Squamous Epithelial 0-3 HPF (0-3); pH, Urine 7.5 (5.0-9.0)
--- NOTE | 2020-07-01 10:58 | RAD ---
CHEST 1 VIEW: INDICATION: History of weakness. COMPARISON: Prior exam dated 06/09/2020. FINDINGS: There is stable cardiomegaly. Lungs are clear. No pleural effusion or pneumothorax is evident. No acute osseous abnormality is evident. IMPRESSION: Stable cardiomegaly. POS: BH
--- NOTE | 2020-07-01 11:12 | RAD ---
Exam: Lumbar spine 3 views HISTORY: Fall. Pain. FINDINGS: Diffuse bony mineralization. Osteophyte formation the distal thoracic spine and upper lumba r spine. No fractures or malalignment. Moderate loss of disc space height at L5-S1. 1.2 mm of vertebral disease L5 upon S1 Atherosclerosis of the aorta. AP diameter is 2.8 cm. Visualized sacrum and bony pelvis are intact. Left hip arthroplasty. There are degenerative changes i n the right shoulder IMPRESSION: 1. Diffuse bone demineralization 2. No fracture. 3. Degenerative disc disease at L4-5-S1.
--- NOTE | 2020-07-01 11:13 | RAD ---
Radiograph pelvis one view: 07/01/2020 HISTORY: 85-year-old female with acute pelvic pain due to fall FINDINGS: Total left hip replacement arthroplasty hardware. In the right hip, there is severe joint space narrowing, severe sclerosis, severe bony hypertrophy, a nd significant flattening of the femoral head. The superior aspect of the femoral head has a moderately large region of dense sclerosis. The pelvic ring appears to be grossly intact. Although no grossly displaced acute fracture is identified, the osteopenia and the overlying bowel ga s could obscure a nondisplaced or mildly displaced acute pelvic fracture. Furthermore, the very severe DJD of the right hip could obscure a right hip fracture. 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 2) status post total left hip replacement arthroplasty. 3) no obvious grossly displaced pelvic fracture identified.
--- NOTE | 2020-07-01 12:12 | PDOC.FPRHP ---
- History of Present Illness Chief Complaint: Right sided weakness History of Present Illness: Patient is an 85 year old female with a history of HTN, HLD, CHF, Afib, CKD3, COPD and DVT/PEs who presents to the ED with complaints of right sided weakness for the past 3 weeks. The patient was recently admitted to the hospital on 05/18- 05/21 for COVID+ pneumonia. On 05/24, the patient noted right sided weakness without numbness or tingling. She denies slurry speech, facial droop, incontinence, syncope and seizure at that time. She says the weakness has not worsened or improved since onset. She also complains of generalized fatigue and weakness. She can only ambulate for 30 seconds before sitting down, change from baseline prior to 05/23 admission. She now requires assistance with most ADLs including changing, cooking, showering and moving. She reports right shoulder pain, right hip pain and right knee pain related to history of OA. She also notes increased reflux episodes since running out of protonix recently. She denies headache, lightheadedness, vision changes, chest pain, SOB, nausea, abdominal pain and edema. She notes that she was discharged in 05/23 on 3L home O2, previously not on O2. ED Course: In the ED, patient noted to have chronic deconditioning. Referral was placed to [facility]. UA + nitrite, leuk yara, WBC and bacteria. Doxy 100 administered. - Allergies/Adverse Reactions Allergies Allergy/AdvReac Type Severity Reaction Status Date / Time Penicillins Allergy Severe Verified 05/18/20 04:28 Sulfa (Sulfonamide Allergy Verified 05/18/20 04:28 Antibiotics) sulfamethoxazole Allergy Verified 05/18/20 04:28 [From Bactrim] trimethoprim [From Bactrim] Allergy Verified 05/18/20 04:28 - Home Medications Medication Instructions Recorded Confirmed Type Hydrochlorothiazide 25 mg PO DAILY 11/16/17 05/18/20 History Lisinopril [Zestril] 40 mg PO DAILY 11/16/17 05/18/20 History Pantoprazole [Protonix] 20 mg PO DAILY 05/22/19 05/18/20 History Carvedilol [Coreg] 6.25 mg PO BID-WM 05/23/19 05/18/20 History Diltiazem HCl [Cartia XT] 180 mg PO DAILY 03/07/20 05/18/20 History Ipratropium/Albuterol Sulfate 3 ml IH Q6H PRN 03/07/20 05/18/20 History Warfarin Sodium 6 mg PO MWF #30 tablet 03/08/20 05/18/20 Rx Warfarin Sodium 7.5 mg PO TTH #30 tablet 03/08/20 05/18/20 Rx Furosemide [Lasix] 20 mg PO DAILY 05/18/20 05/18/20 History Gabapentin [Neurontin] 300 mg PO TID 05/18/20 05/18/20 History Docusate [Colace] 100 mg PO BID cap 05/21/20 Rx Doxycycline [Vibramycin] 100 mg PO BID 5 Days #10 cap 05/21/20 Rx Polyethylene Glycol 3350 [Miralax] 17 gm PO DAILY #0 pk 05/21/20 Rx predniSONE 40 mg PO QAM-WM 5 Days #10 tab 05/21/20 Rx - History PMHx: HTN, chronic back pain due to spondylosis, OA, hypopituitarism, HLD, Afib, CKD3, CHF, COPD, GERD, Afib, cervical cancer at age 37 PSHx: hysterectomy, cholecystectomy, hip replacement, skin graft FHx: Mom-HTN, Dad-[place] Social: lives with daughters, never smoker, no alcohol or drug use. Uses wheelchair because of back pain. - Review of Systems General: reports: fatigue. denies: fever/chills Eyes: denies: eye pain, vision changes ENT: denies: nasal congestion, rhinorrhea Respiratory: reports: exercise intolerance (after walking 30 seconds). denies: cough, congestion, shortness of breath Cardiovascular: denies: chest pain, edema, orthopnea Gastrointestinal: denies: nausea, abdominal pain Genitourinary: denies: incontinence, dysuria, polyuria, discharge Skin: denies: jaundice Musculoskeletal: reports: pain (Right shoulder, hip, knee - chronic), arthritis/arthralgias (Right shoulder, hip, knee). denies: tenderness Neurological: reports: weakness (R sided). denies: numbness, syncope, seizure Psychological: denies: anxiety, depression - Vital signs BP: [141/91] HR: [72] RR: [15] Tmax: [98.1] Pox: [100]% on [3L] Wt: [139kg] - Physical Exam Constitutional: NAD -Constitutional: Morbidly obese HEENT: normocephalic and atraumatic, conjunctiva clear, MMM Neck: FROM, trachea midline Chest: no-tender to palpation Heart: RRR, normal S1/S2, pulses present, no edema Lungs: CTAB, no respiratory distress -Lungs: Difficult to auscultate due to body habitus Abdomen: soft, non-tender, bowel sounds present Musculoskeletal: normal structure -Musculoskeletal: Restricted ROM of right knee, chronic Neurological: CN II-XII intact, normal sensation -Neurological: LUE 5/5, RUE 4/5, LLE 5/5, RLE 3/5 Required assistance moving in bed -Skin: Venous stasis dermatitis, more prevalent on R leg Heme/Lymphatic: no purpura, no petechia Psychiatric: normal mood and affect FMR H&P: Results - Labs Result Diagrams: 07/01/20 08:47 07/01/20 08:46 Lab results: WBC 5.8 thou/uL (4.8-10.8) 07/01/20 08:47 Hgb 11.5 g/dL (12.0-16.0) L 07/01/20 08:47 Hct 35.8 % (36.0-47.0) L 07/01/20 08:47 MCV 98.8 fL (78.0-98.0) H 07/01/20 08:47 Plt Count 278 thou/uL (130-400) 07/01/20 08:47 Neutrophils % 61.7 % (42.0-75.0) 07/01/20 08:47 Sodium 143 mmol/L (136-145) 07/01/20 08:46 Potassium 4.1 mmol/L (3.5-5.1) 07/01/20 08:46 Chloride 99 mmol/L (98-107) 07/01/20 08:46 Carbon Dioxide 35 mmol/L (23-31) H 07/01/20 08:46 BUN 39 mg/dL (9.8-20.1) H 07/01/20 08:46 Creatinine 1.27 mg/dL (0.6-1.1) H 07/01/20 08:46 Glucose 140 mg/dL (83-110) H 07/01/20 08:46 Calcium 9.5 mg/dL (7.8-10.44) 07/01/20 08:46 Total Bilirubin 0.5 mg/dL (0.2-1.2) 07/01/20 08:46 AST 19 U/L (5-34) 07/01/20 08:46 ALT 20 U/L (8-55) 07/01/20 08:46 Alkaline Phosphatase 107 U/L (40-110) 07/01/20 08:46 Creatine Kinase 24 U/L (29-168) L 07/01/20 08:46 Serum Total Protein 6.8 g/dL (6.0-8.3) 07/01/20 08:46 Albumin 3.1 g/dL (3.4-4.8) L 07/01/20 08:46 Urine Ketones Negative mg/dL (Negative) 07/01/20 09:45 Urine Blood Negative (Negative) 07/01/20 09:45 Urine Nitrite 1+ (Negative) A 07/01/20 09:45 Ur Leukocyte Esterase 250 Makenzie/uL (Negative) A 07/01/20 09:45 Urine RBC 0-3 HPF (0-3) 07/01/20 09:45 Urine WBC 11-20 HPF (0-3) A 07/01/20 09:45 Ur Squamous Epith Cells 0-3 HPF (0-3) 07/01/20 09:45 Urine Bacteria 3+ HPF (None Seen) A 07/01/20 09:45 - EKG Interpretation EKG: HR 83, Afib FMR H&P: A/P - Plan Possible CVA vs. chronic deconditioning R sided weakness since 05/23. Hx COVID pneumonia on 05/18, DVT and PEs in past. On warfarin for afib. Chronic deconditioning, worsened after recent hospitalization. -Admit to stroke unit -Start atorvastatin 40mg daily -CTA Head/Neck -Echo -Consider MRI Brain pending CTA results -PT/OT consult -Continue Warfarin 6mg MWF, 7.5 TTH Paroxysmal Afib -EKG in ED showed afib -Continue home meds -Continue warfarin -INR level Asymptomatic bacturia UA + nitrite, leuk yara, WBC, bacteria. Using diaper due to inability to ambulate. Asymptomatic. Received doxy 100 in the ED. -Monitor for symptoms Macrocytic anemia -Hgb 11.5, MCV 98.8 in ED CHF Unknown last echo. Asymptomatic. -Echo -Continue home meds HTN BP ranged 99-140 systolic in ED. -Continue home meds HLD Not currently on statin -Start atorvastatin 40mg daily GERD -Restart home protonix CKD3 Cr. 1.27, BUN 39 in ED. -Renally dose medication COPD Recent COVID+ pneumonia -Continue home O2 at 3L -Continue home duonebs -Does not require contact/respiratory precautions since out of the 20 day time- frame Chronic pain Patient reports taking [place] 5 TID PRN for years due to chronic joint pain. -[place] 5 Q6H PRN Cervical cancer s/p hysterectomy Hypopituitarism -aware PCP: RAMESH Tolliver Code: DNR DVT Ppx: home warfarin Dispo: Admit to stroke inpatient, expected LOS >= 2 days FMR H&P: Upper Level - Plan Date/Time: 07/01/20 1207 IChad DO, have evaluated this patient and agree with findings/plan as outlined by healthcare administration internship resident. Pertinent changes/additions are listed here. This is an 85 yo female with a pmh of GERD, COPD, HTN, Atrial fibrillation, HTN, hx of PEs, who presents to the ER with a cc of weakness. She and her daughter are present and both help with the history. She was diagnosed with COVID-19 on 05/18/20 and was subsequently hospitalized. She did not require intubation or BiPAP and improved until her discharge on 05/21/20. During her hospitalization, she received convalescent plasma and remdesivir. Since her discharge, she has had some generalized weakness. A month ago, however, she developed right sided weakness and required more assistance to move. Her daughter reports they needed to more help to move her to the point of bringing her in at this time. Currently, she denies SOB, chest pain, abdominal pain, nausea, vomiting, or diarrhea. She does endorse right sided pain and weakness that is new. Her daughter reports some right hip and knee pain that has been worked up and ruled out in the ER over the past month She also reports blurry vision that comes and goes. She also reports becoming light headed and passing out when using her duonebs. In the ER today, she received Doxycycline 100mg. [facility] consulted from the ER. Objective: Vitals: BP 162/97 (wrist cuff), HR 77, RR 15, Temp 98.1, SpO2 100 on 3L, Wt 138kg General: NAD, lethally obese HEENT: MMM, AT/NC Cardio: unable to auscultate 2/2 body habitus, tele lead shows rate controlled atrial fibrillation Lungs: Equal chest rise, unable to auscultate 2/2 body habitus MSK: 5/5 strength on the left, 4/5 on the right. poor ROM 2/2 weight and pain in right sided joint Neuro: CNII-XII grossly intact A/P Subacute right sided weakness concerning for stroke s/p COVID -Admit to stroke -CT brain to assess for lesion, CTA head and neck and MRI brain if CT is negative -Risk stratifying labs -CM for in patient rehab -Her current condition is likely the result of her obesity and deconditioning -PT/OT Afib, rate controlled -Continue home meds -Continue home warfarin -Pending INR/PTT Chronic pain -Continue [place] 5 q6hr PRN pain -CLIENT CONSULTANT aware is appropriate Please see healthcare administration internship note for further information and management of chronic conditions Code: DNR per pt and family Prophylaxis: Home Warfarin Family: Daughter at bedside Fluids: SL Diet: CC Disposition: DC to inpt rehab pending stroke work up
[2020-07-01] MEDS ORDERED: Ondansetron ODT 4 MG TAB PO PRN (13:45)
[2020-07-01] MEDS ORDERED: Acetaminophen 325 MG TAB PO PRN (13:45)
[2020-07-01] MEDS ORDERED: Ondansetron PF 4 MG/2 ML Vial IVP PRN (13:45)
--- NOTE | 2020-07-01 15:24 | CT ---
EXAM: CT ANGIOGRAM OF THE HEAD AND NECK INDICATION: Stroke. COMPARISON: None. TECHNIQUE: CT angiogram of the head and neck are performed in the axial plane. Three-dimensional reformatted nathaniel ges are submitted for interpretation. FINDINGS: NONCONTRAST HEAD CT: No parenchymal hemorrhage. No extra-axial hematoma No midline shift. Basilar cisterns are patent. Brain volume, age-appropriate. Cortical lay-white matter differentiation is preserved. Confluent white matter hypodensities due to chronic small vessel ischemic change Intact calvarium. Adequate aeration of the sinuses and mastoid air cells. CTA OF THE HEAD WITH AND WITHOUT CONTRAST: POSTCONTRAST CT OF BRAIN: Pathologic enhancement: No pathologic enhancement the brain. Postcontrast soft tissue neck CT: Aerodigestive tract:Aerodigestive tract is patent. No mucosal abnormality. Sinuses: Adequate aeration. Orbits: Bilateral ocular lenses implants are appropriately located. Both globes are intact. Retrobulb ar fat is preserved. Symmetric attenuation the optic nerves and ocular rectus muscles. Salivary glands:Symmetric attenuation. Thyroid gland: Left thyroid nodule, incompletely evaluated. Lymph nodes: No evidence of lymphadenopathy by size criteria. Paraspinal muscles: Symmetric attenuation of the sternocleidomastoid muscles. Appropriate attenuation of the paraspinal muscles. Cervical spine:Vertebral body height is maintained. No fracture. No sign bolus administration. No sig nificant central canal stenosis or significant neural foraminal narrowing. Limited evaluation by technique. Upper mediastinum and lung apices: Chronic changes. CT angiogram was suboptimal due to patient body habitus, motion degradation and contrast extravasatio n with incomplete bolus administration. CTA OF THE NECK WITH CONTRAST: Aorta: Grossly unremarkable. Right carotid artery: No significant stenosis based upon NASCET criteria. Left carotid: No significant stenosis based upon NASCET criteria. There is calcified plaque in the l eft carotid bifurcation. Subclavian arteries:Grossly patent . Vertebral arteries: Proximal mid vertebral arteries are poorly defined due to body habitus and contra st bolus limiting adequate opacification of the vertebral arteries. Dominant left vertebral artery. CTA OF THE BRAIN: Intracranial internal carotid arteries:Atherosclerosis cavernous and paraclinoid segments of the inte rnal carotid artery . Anterior circulation: Appropriate enhancement and luminal diameter the A1 segments, proximal M1 segme nts, M1 MCA branches and proximal A2 segments. Intracranial vertebral arteries: Grossly patent. Limited evaluation of PICA artery origins. No obviou s abnormality in the left PICA artery origin. Both vertebral arteries supply a normal caliber basilar artery. Right [employer]IONS ARCH[employer] CONSULTANT has a origin. Left P1 segment has appropriate enhancement and luminal diameter. IMPRESSION: 1. Markedly suboptimal evaluation due to patient body habitus, motion and contrast extravasation with resultant suboptimal bolus administration. Due to a diminished GFR, exam was not repeated. 2. No evidence of significant or obvious atherosclerosis of the [place] of [place]. 3. No significant stenosis based upon NASCET criteria involving bilateral cervical carotid arteries. Transcribed Date/Time: 07/01/2020 3:57 PM
[2020-07-01 15:52] LABS: INR-International Normal Ratio 2.1; Prothrombin Time 23.3 sec (12.0-14.7)
[2020-07-01 19:56] VITALS: BMI 43.8
[2020-07-01] MEDS: Gabapentin 100 MG CAP PO SCH ×2 (19:57→20:57)
[2020-07-01] MEDS: Carvedilol 6.25 MG TAB PO SCH (20:56)
[2020-07-01] MEDS: Atorvastatin Calcium 40 MG TAB PO SCH (20:58)
--- NOTE | 2020-07-01 22:52 | HP ---
I have examined the patient and discussed the case with Dr. Mela Watkins. HISTORY OF PRESENT ILLNESS: Briefly, Ms. Salinas is an 85-year-old white female, who was hospitalized just over a month ago with COVID pneumonia. Since that time, she has noticed intermittent weakness on her right side including her right leg, right arm without associated numbness or paresthesia. She has not had any slurred speech nor as she knows the facial droop. She presented to our ER today with the above complaints for further evaluation. The rest of the H and P as well as PMH, social history, etc is on report of Dr. Mela Watkins. PHYSICAL EXAMINATION: VITAL SIGNS: Her blood pressure is 140/90, heart rate is 92 and regular, respirations are 15. She is afebrile. Her pulse ox on 3 L is 100%. GENERAL: She is awake and alert. No acute distress. NECK: Supple. CARDIAC: Heart rhythm is regular without gallop or murmur. LUNGS: Clear, but diminished without rales or wheezes. No respiratory distress. ABDOMEN: Obese, but flat, soft without guarding, rebound, or rigidity. NEUROLOGIC: There is a very subtle difference between strength of the left upper and right upper extremity with the left greater than right. There is as well a very subtle difference between the strength of the left lower extremity with left being greater than right. LABORATORY DATA: CBC; white count is 5800, hemoglobin is 11.5, hematocrit 35.8, MCV is 98.8. Chemistries; sodium 143, potassium 4.1, chloride 99, bicarb is 35, BUN 39, creatinine 1.27, glucose is 140. Her liver enzymes are normal. Her chest x-ray shows stable cardiomegaly. The lungs are clear. CT of the head and neck, the entire report is quite extensive and basically there is no sign of stroke. There is no sign of intracranial hemorrhage or subdural hematoma. ASSESSMENT: Right-sided weakness with no CT evidence of stroke. PLAN: Admit, observe, get OT/PT involved as this may be deconditioning given the patient's body habitus. Job ID: [id number]
[2020-07-02] MEDS ORDERED: Warfarin Sodium 3 MG TAB PO SCH (02:15)
--- NOTE | 2020-07-02 05:45 | PDOC.FM ---
- Subjective Subjective: Patient says she slept well overnight. Reports right sided weakness is unchanged. She denies headache, chest pain, SOB, nausea, abdominal pain and edema. - Objective MAR Reviewed: Yes Vital Signs & Weight: Vital Signs (12 hours) Temp Pulse Resp BP Pulse Ox 07/02/20 03:21 97.4 F L 85 18 111/65 98 07/01/20 23:56 97.6 F 97 20 123/86 98 07/01/20 20:31 121/68 07/01/20 20:00 97.8 F 74 22 H 88/44 L 98 07/01/20 18:25 97.7 F 94 22 H 114/72 97 Weight Weight 138.482 kg Result Diagrams: 07/01/20 08:47 07/02/20 04:45 Phys Exam - Physical Examination Constitutional: NAD Morbidly obese HEENT: moist MMs, sclera anicteric Neck: supple, full ROM Respiratory: no wheezing, clear to auscultation bilateral Difficult to auscultate due to body habitus Cardiovascular: RRR, no significant murmur Gastrointestinal: soft, positive bowel sounds Musculoskeletal: no edema, pulses present Neurological: normal sensation, moves all 4 limbs Strength unchanged from prior exam Psychiatric: normal affect, A&O x 3 Skin: no rash Dx/Plan - Plan Plan: Chronic deconditioning 2/2 recent hospital stay, body habitus R/o CVA R sided weakness and overall fatigue since 05/23. Hx COVID pneumonia on 05/18, DVT and PEs in past. CTA Head/Neck showed no sign of obvious atherosclerosis, no signficant stenosis. -Continue atorvastatin 40mg daily -Echo -MRI Brain -PT/OT consult -Continue home Warfarin 6mg MWF, 7.5 TTH Paroxysmal Afib EKG in ED showed afib. INR 2.1. -Continue home meds -Continue warfarin Asymptomatic bacturia UA + nitrite, leuk yara, WBC, bacteria. Using diaper due to inability to ambulate. Asymptomatic. Received doxy 100 in the ED. -Monitor for symptoms Macrocytic anemia -Hgb 11.5, MCV 98.8 in ED CHF Unknown last echo. Asymptomatic. -Echo -Continue home meds HTN -Continue home meds HLD -Continue atorvastatin 40mg daily GERD -Continue home protonix CKD3 Cr. 1.27, BUN 39 in ED. -Renally dose medication COPD Recent COVID+ pneumonia -Continue home O2 at 3L -Continue home duonebs -Does not require contact/respiratory precautions since out of the 20 day time- frame Chronic pain Patient reports taking [place] 5 TID PRN for years due to chronic joint pain. -[place] 5 Q6H PRN Cervical cancer s/p hysterectomy Hypopituitarism -aware PCP: RAMESH Tolliver Code: DNR DVT Ppx: home warfarin Dispo: Placement pending PT/OT results and further medical management
[2020-07-02 05:51] LABS: Anion Gap 13 mmol/L (10-20); BUN (Urea Nitrogen) 34 mg/dL (9.8-20.1); Calc. Creatinine Clearance 99 mL/min (70-130); Calcium 9.3 mg/dL (7.8-10.44); Carbon Dioxide 32 mmol/L (23-31); Chloride 100 mmol/L (98-107); Estimated GFR-MDRD 57; Glucose 129 mg/dL (83-110); Potassium 3.9 mmol/L (3.5-5.1); Sodium 141 mmol/L (136-145)
--- NOTE | 2020-07-02 09:07 | MRI ---
MRI of thebrain without contrast: 07/02/2020 COMPARISON:None available HISTORY:Generalized weakness, assess for acute infarction TECHNIQUE: Multiplanar multisequence MR imaging of thebrain without contrast Findings:The diffusion weighted imaging demonstrates no evidence for acute infarction. The axial gradient echo imaging demonstrates no evidence for intracranial hemorrhage. There are numerous foci of increased T2 and FLAIR signal within the periventricular, deep, and subcor tical white matter, consistent with small vessel disease. Regional bone marrow signal intensity appears grossly unremarkable on the sagittal T1 imaging. Paranasal sinuses and mastoid air cells demonstrate normal signal intensity. Arterial flow voids at t he axial level of the skull base appear grossly unremarkable on axial T2-weighted imaging. IMPRESSION:Evidence of significant small vessel disease. No MR evidence of intracranial hemorrhage or acute infarction.
[2020-07-02] MEDS: Carvedilol 6.25 MG TAB PO SCH ×2 (09:36→17:58)
[2020-07-02] MEDS: Gabapentin 100 MG CAP PO SCH ×3 (09:37→20:42)
[2020-07-02] MEDS: Hydrochlorothiazide 25 MG TAB PO SCH (09:37)
[2020-07-02] MEDS: Furosemide 20 MG TAB PO SCH (09:37)
[2020-07-02] MEDS: Lisinopril 20 MG TAB PO SCH (09:39)
[2020-07-02] MEDS: HYDROcodone/Acetaminophen 5/325 mg Tablet PO PRN ×2 (14:08→20:43)
[2020-07-02 14:51] LABS: SARS-CoV-2 by NAA Indeterminate (NotDetected); SARS-CoV-2 orf1ab Negative
[2020-07-02 14:52] LABS: SARS-CoV-2 MS2 Positive; SARS-CoV-2 N Gene Positive; SARS-CoV-2 S Gene Negative
[2020-07-02 15:26] LABS: Hemoglobin 11.2 g/dL (12.0-16.0); Platelet Count 251 thou/uL (130-400)
[2020-07-02 15:37] LABS: INR-International Normal Ratio 1.9; Prothrombin Time 21.9 sec (12.0-14.7)
--- NOTE | 2020-07-02 16:20 | PRG ---
DATE OF SERVICE: 07/02/2020 ADDENDUM: This is an addendum to the note of Dr. Mela Watkins. I have examined Ms. Salinas. I agree with the assessment and plan of Dr. Mela Watkins. Job ID: [id number]
[2020-07-02] MEDS: Warfarin Sodium 7.5 MG TAB PO SCH (17:59)
[2020-07-02] MEDS: Atorvastatin Calcium 40 MG TAB PO SCH (20:42)
--- NOTE | 2020-07-03 05:31 | PDOC.FM ---
- Subjective Subjective: Patient reports generalized muscle soreness since working with PT/OT yesterday. She denies headache, vision changes, chest pain, SOB, nausea and abdominal pain. No change in weakness. - Objective MAR Reviewed: Yes Vital Signs & Weight: Vital Signs (12 hours) Temp Pulse Resp BP BP Pulse Ox 07/03/20 03:45 97.8 F 76 18 100/64 92 L 07/03/20 00:00 97.6 F 73 16 104/51 L 96 07/02/20 20:00 98.4 F 76 18 111/59 L 94 L 07/02/20 17:58 119/65 Weight Admit Weight 138.482 kg Weight 138.482 kg I&O: 07/01/20 07/02/20 07/03/20 06:59 06:59 06:59 Intake Total 680 Output Total 600 Balance 80 Result Diagrams: 07/02/20 15:15 07/03/20 04:51 Phys Exam - Physical Examination Constitutional: NAD Morbidly obese HEENT: moist MMs, sclera anicteric Neck: supple, full ROM Respiratory: no wheezing, clear to auscultation bilateral Difficult to auscultate due to body habitus Cardiovascular: RRR, no significant murmur Gastrointestinal: soft, positive bowel sounds Musculoskeletal: no edema, pulses present Neurological: normal sensation, moves all 4 limbs Decreases strength on R side, unchanged Psychiatric: normal affect Skin: no rash Dx/Plan - Plan Plan: Chronic deconditioning 2/2 recent hospital stay, body habitus R sided weakness and overall fatigue since 05/23. Hx COVID pneumonia on 05/18, DVT and PEs in past. CTA Head/Neck showed no sign of obvious atherosclerosis, no signficant stenosis. MRI showed significant small vessel disease. -Continue atorvastatin 40mg daily -F/u Echo result -PT/OT consult. PT recommended rehab. -CM consult for placement -Continue home Warfarin 6mg MWF, 7.5 TTH Paroxysmal Afib EKG in ED showed afib. INR 2.1->1.9 -Continue home meds -Continue warfarin Asymptomatic bacturia UA + nitrite, leuk yara, WBC, bacteria. Using diaper due to inability to ambulate. Asymptomatic. Received doxy 100 in the ED. -Monitor for symptoms Macrocytic anemia -Hgb 11.5, MCV 98.8 in ED. CHF Unknown last echo. Asymptomatic. -Echo -Continue home meds HTN -Continue home meds HLD -Continue atorvastatin 40mg daily GERD -Continue home protonix CKD3 Cr. 1.27, BUN 39 in ED. At baseline. -Renally dose medication COPD Recent COVID+ pneumonia -Continue home O2 at 3L -Continue home duonebs -Does not require contact/respiratory precautions since out of the 20 day time- frame Chronic pain Patient reports taking [place] 5 TID PRN for years due to chronic joint pain. -[place] 5 Q6H PRN Cervical cancer s/p hysterectomy Hypopituitarism -aware PCP: RAMESH Tolliver Code: DNR DVT Ppx: home warfarin Dispo: Placement pending OT recs and further medical management
[2020-07-03 05:39] LABS: Anion Gap 12 mmol/L (10-20); BUN (Urea Nitrogen) 40 mg/dL (9.8-20.1); Calc. Creatinine Clearance 75 mL/min (70-130); Carbon Dioxide 34 mmol/L (23-31); Chloride 99 mmol/L (98-107); Estimated GFR-MDRD 41; Glucose 113 mg/dL (83-110); Potassium 4.1 mmol/L (3.5-5.1); Sodium 141 mmol/L (136-145)
[2020-07-03] MEDS: HYDROcodone/Acetaminophen 5/325 mg Tablet PO PRN ×2 (08:52→22:57)
[2020-07-03] MEDS: Carvedilol 6.25 MG TAB PO SCH ×2 (08:53→16:57)
[2020-07-03] MEDS: Furosemide 20 MG TAB PO SCH (08:54)
[2020-07-03] MEDS: Gabapentin 100 MG CAP PO SCH ×3 (08:54→22:57)
[2020-07-03] MEDS: Lisinopril 20 MG TAB PO SCH (08:55)
[2020-07-03] MEDS: Hydrochlorothiazide 25 MG TAB PO SCH (08:55)
[2020-07-03 09:29] LABS: INR-International Normal Ratio 1.9; Prothrombin Time 21.8 sec (12.0-14.7)
--- NOTE | 2020-07-03 12:32 | PRG ---
DATE OF SERVICE: 07/03/2020 Ms. Salinas is resting quietly in bed. We are still awaiting placement. Job ID: [id number]
--- NOTE | 2020-07-03 15:49 | CT ---
EXAM: CT ANGIOGRAM OF THE HEAD AND NECK INDICATION: Stroke. COMPARISON: None. TECHNIQUE: CT angiogram of the head and neck are performed in the axial plane. Three-dimensional reformatted nathaniel ges are submitted for interpretation. FINDINGS: NONCONTRAST HEAD CT: No parenchymal hemorrhage. No extra-axial hematoma No midline shift. Basilar cisterns are patent. Brain volume, age-appropriate. Cortical lay-white matter differentiation is preserved. Confluent white matter hypodensities due to chronic small vessel ischemic change Intact calvarium. Adequate aeration of the sinuses and mastoid air cells. CTA OF THE HEAD WITH AND WITHOUT CONTRAST: POSTCONTRAST CT OF BRAIN: Pathologic enhancement: No pathologic enhancement the brain. Postcontrast soft tissue neck CT: Aerodigestive tract:Aerodigestive tract is patent. No mucosal abnormality. Sinuses: Adequate aeration. Orbits: Bilateral ocular lenses implants are appropriately located. Both globes are intact. Retrobulb ar fat is preserved. Symmetric attenuation the optic nerves and ocular rectus muscles. Salivary glands:Symmetric attenuation. Thyroid gland: Left thyroid nodule, incompletely evaluated. Lymph nodes: No evidence of lymphadenopathy by size criteria. Paraspinal muscles: Symmetric attenuation of the sternocleidomastoid muscles. Appropriate attenuation of the paraspinal muscles. Cervical spine:Vertebral body height is maintained. No fracture. No sign bolus administration. No sig nificant central canal stenosis or significant neural foraminal narrowing. Limited evaluation by technique. Upper mediastinum and lung apices: Chronic changes. CT angiogram was suboptimal due to patient body habitus, motion degradation and contrast extravasatio n with incomplete bolus administration. CTA OF THE NECK WITH CONTRAST: Aorta: Grossly unremarkable. Right carotid artery: No significant stenosis based upon NASCET criteria. Left carotid: No significant stenosis based upon NASCET criteria. There is calcified plaque in the l eft carotid bifurcation. Subclavian arteries:Grossly patent . Vertebral arteries: Proximal mid vertebral arteries are poorly defined due to body habitus and contra st bolus limiting adequate opacification of the vertebral arteries. Dominant left vertebral artery. CTA OF THE BRAIN: Intracranial internal carotid arteries:Atherosclerosis cavernous and paraclinoid segments of the inte rnal carotid artery . Anterior circulation: Appropriate enhancement and luminal diameter the A1 segments, proximal M1 segme nts, M1 MCA branches and proximal A2 segments. Intracranial vertebral arteries: Grossly patent. Limited evaluation of PICA artery origins. No obviou s abnormality in the left PICA artery origin. Both vertebral arteries supply a normal caliber basilar artery. 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 Left P1 segment has appropriate enhancement and luminal diameter. IMPRESSION: 1. Markedly suboptimal evaluation due to patient body habitus, motion and contrast extravasation with resultant suboptimal bolus administration. Due to a diminished GFR, exam was not repeated. 2. No evidence of significant or obvious atherosclerosis of the [place]. 3. No significant stenosis based upon NASCET criteria involving bilateral cervical carotid arteries. Transcribed Date/Time: 07/03/2020 3:48 PM
[2020-07-03] MEDS: Warfarin Sodium 3 MG TAB PO SCH (16:57)
--- NOTE | 2020-07-03 19:59 | PQF ---
CLINICAL DOCUMENTATION CLARIFICATION FORM: Dear Dr. CATHI QUILES Date: 07-03-20 Please exercise your independent, professional judgment in responding to the clarification form. Clinical indicators are provided on the bottom of this form for your review. Please check appropriate box(es): [ X ] Chronic Respiratory Failure secondary to recent COVID pneumonia [ ] with Hypoxia [ ] with Hypercapnia [ ] Respiratory Insufficiency [ ] Hypoxia [ ] Other diagnosis [ ] Unable to determine In addition, please specify: Present on Admission (POA): [ X ] Yes [ ] No [ ] Unable to determine For continuity of documentation, please document condition throughout progress notes and discharge summary. Thank You. To be completed by CDI/Coding staff for physician review: CLINICAL INDICATORS - SIGNS / SYMPTOMS / LABS / RESULTS AND LOCATION IN MR: H&P 07-01-20: HX CHF, HTN, HLD, A FIB, CKD3, COPD, IN HOSPITAL ON FOR COVID + PNEUMONIA, WAS DISCHARGED IN 05-23 ON 3L HOME O2, PREVIOUSLY NOT ON O2, CONTINUE HOME O2 AT 3L, CONTINUE DUONEBS RISK FACTORS / RESULTS AND LOCATION IN MR: H&P 07-01-20: HX CHF, HTN, HLD, A FIB, CKD3, COPD, IN HOSPITAL ON FOR COVID + PNEUMONIA, WAS DISCHARGED IN 05-23 ON 3L HOME O2, PREVIOUSLY NOT ON O2, CONTINUE HOME O2 AT 3L, CONTINUE DUONEBS TREATMENTS / RESULTS AND LOCATION IN MR: H&P 07-01-20: CONTINUE HOME O2 AT 3L, CONTINUE DUONEBS Acute Respiratory Failure: ABG pH < 7.35 or > 7.45; Decreased oxygen saturation (<90% room air or < 95% on oxygen); PCO2 > 50 mm Hg; PO2 < 60 mm Hg; Labored or rapid respirations ARDS: Dx Criteria [[place] ARDS]: Respiratory symptoms within one week of a known clinical insult (e.g. shock, infection, surgery, trauma) Bilateral opacities in CXR/Chest CT not due to CHF or fluid CDS Signature: Sury Gaitan Phone #: [phone] Date: 07-03-20 This is a permanent part of the Medical Record [facility]
--- NOTE | 2020-07-03 20:11 | PQF ---
CLINICAL DOCUMENTATION CLARIFICATION FORM: Dear Dr. CATHI QUILES Date: 07-03-20 Please exercise your independent, professional judgment in responding to the clarification form. Clinical indicators are provided on the bottom of this form for your review. Please check appropriate box(es): [ ] UTI [ ] Contaminated urine specimen without UTI [ X ] Other diagnosis: Asymptomatic bacteruria [ ] Unable to determine In addition, please specify: Present on Admission (POA): [ X ] Yes [ ] No [ ] Unable to determine For continuity of documentation, please document condition throughout progress notes and discharge summary. Thank You. To be completed by CDI/Coding staff for physician review: CLINICAL INDICATORS - SIGNS / SYMPTOMS / LABS / RESULTS AND LOCATION IN MR: ER NOTES 07-01-20: SHE DOES HAVE A URINARY TRACT INFECTION AND CANNOT WALK ER DX: ACUTE CYSTITIS, WEAKNESS H&P: 07-01-20: UA + NITRATE, LEUK, ROBERTA, WBC AND BACTERIA. DOXY 100 ADMINISTERED. ASYMPTOMATIC BACTERURIA, MONITOR SYMPTOMS URINE: 07-01-20: UR LEUKOCYTE ESTERASE: 250 A URINE WBC: 11-20 A URINE BACTERIA: 3+ A RISK FACTORS / RESULTS AND LOCATION IN MR: ER NOTES 07-01-20: HAD COVID 2 WEEKS AGO AND WAS D/C LAST WEEK AND HAS STEADILY BEEN GETTING WORSE ; SHE DOES HAVE A URINARY TRACT INFECTION AND CANNOT WALK TREATMENT / RESULTS AND LOCATION IN MR: ER NOTES 07-01-20: DOXY-100 IVPB H&P: 07-01-20: MONITOR SYMPTOMS CDS Signature: Sury Gaitan Phone #: [phone] Date: 07-03-20 This is a permanent part of the Medical Record [facility]
[2020-07-03] MEDS: Atorvastatin Calcium 40 MG TAB PO SCH (22:57)
[2020-07-04 05:29] LABS: Anion Gap 16 mmol/L (10-20); BUN (Urea Nitrogen) 46 mg/dL (9.8-20.1); Calc. Creatinine Clearance 63 mL/min (70-130); Calcium 8.7 mg/dL (7.8-10.44); Carbon Dioxide 29 mmol/L (23-31); Chloride 99 mmol/L (98-107); Estimated GFR-MDRD 33; Glucose 121 mg/dL (83-110); Potassium 3.9 mmol/L (3.5-5.1); Sodium 140 mmol/L (136-145)
--- NOTE | 2020-07-04 05:39 | PDOC.FM ---
- Subjective Subjective: Patient reports drinking a few sips of water per day. She says she does not enjoy drinking fluids and is satisfied by little. She notes that her urine remains consistently yellow to [place] depending on fluid intake. She denies headache, vision changes, chest pain, SOB, nausea and vomiting. She notes L leg numbness upon waking. She underwent RA trial last pm with sats > 88% while sitting. - Objective MAR Reviewed: Yes Vital Signs & Weight: Vital Signs (12 hours) Temp Pulse Resp BP Pulse Ox 07/04/20 04:07 100/55 L 93 L 07/04/20 04:00 97.6 F 75 16 92 L 07/04/20 03:35 89 L 07/04/20 03:26 78/45 L 07/03/20 23:53 97.7 F 77 14 96/59 L 94 L 07/03/20 20:00 98.2 F 82 18 100/58 L 99 Weight Admit Weight 138.482 kg Weight 138.482 kg I&O: 07/02/20 07/03/20 07/04/20 06:59 06:59 06:59 Intake Total 680 825 Output Total 600 875 Balance 80 -50 Result Diagrams: 07/02/20 15:15 07/04/20 04:33 Phys Exam - Physical Examination Constitutional: NAD Morbidly obese HEENT: moist MMs, sclera anicteric Neck: supple, full ROM Respiratory: no wheezing, clear to auscultation bilateral Difficult to auscultate due to body habitus Cardiovascular: RRR, no significant murmur Gastrointestinal: soft, positive bowel sounds Musculoskeletal: pulses present, edema present (1+ pitting edema up to ankles ) Neurological: moves all 4 limbs Psychiatric: normal affect, A&O x 3 Skin: no rash Dx/Plan - Plan Plan: Chronic deconditioning 2/2 recent hospital stay, body habitus R sided weakness and overall fatigue since 05/23. Hx COVID pneumonia on 05/18, DVT and PEs in past. CTA Head/Neck showed no sign of obvious atherosclerosis, no signficant stenosis. MRI showed significant small vessel disease. -Continue atorvastatin 40mg daily -F/u Echo result -PT/OT consult. Recommended rehab. Accepted pending insurance approval. -Continue home Warfarin 6mg MWF, 7.5 TTH CKD3 Cr. 1.27, BUN 39 in ED. Trended Cr 0.94->1.24->1.49. Urine [place] in color today. Poor fluid intake. -Renally dose medication -Encouraged increased PO intake while maintaining 1500 fluid restriction Paroxysmal Afib EKG in ED showed afib. INR 2.1->1.9->1.9 -Continue home meds -Continue warfarin Asymptomatic bacteriuria UA + nitrite, leuk yara, WBC, bacteria. Using diaper due to inability to ambulate. Asymptomatic. Received doxy 100 in the ED. -Denies symptoms Macrocytic anemia -Hgb 11.5, MCV 98.8 in ED. CHF Unknown last echo. Asymptomatic. -Echo -Continue home meds HTN BP decreased to 78/45 without symptoms overnight. Improved to 100/55 upon recheck 30 min later. Overall decrease in systolic pressure likely 2/2 decreased PO intake in setting of Lasix administration. -Monitor BP -Continue home meds HLD -Continue atorvastatin 40mg daily GERD -Continue home protonix COPD Recent COVID+ pneumonia -Continue home O2 at 3L -Continue home duonebs -Does not require contact/respiratory precautions since out of the 20 day time- frame Chronic pain Patient reports taking [place] 5 TID PRN for years due to chronic joint pain. -[place] 5 Q6H PRN Cervical cancer s/p hysterectomy Hypopituitarism -aware PCP: RAMESH Tolliver Code: DNR DVT Ppx: home warfarin Dispo: Placement pending insurance approval
[2020-07-04] MEDS: HYDROcodone/Acetaminophen 5/325 mg Tablet PO PRN (08:06)
[2020-07-04] MEDS: Gabapentin 100 MG CAP PO SCH ×3 (08:07→21:00)
[2020-07-04] MEDS: Lisinopril 20 MG TAB PO SCH (08:07)
[2020-07-04] MEDS: Carvedilol 6.25 MG TAB PO SCH ×2 (08:07→17:36)
[2020-07-04] MEDS: Furosemide 20 MG TAB PO SCH (08:07)
[2020-07-04] MEDS: Hydrochlorothiazide 25 MG TAB PO SCH (08:07)
[2020-07-04] MEDS ORDERED: Lactated Ringer's 500 ML IV SCH (09:15)
[2020-07-04 09:32] LABS: Hemoglobin 11.6 g/dL (12.0-16.0)
[2020-07-04 09:39] LABS: INR-International Normal Ratio 2.2; Prothrombin Time 24.5 sec (12.0-14.7)
--- NOTE | 2020-07-04 11:41 | PRG ---
DATE OF SERVICE: 07/04/2020 ADDENDUM: This is an addendum to the note of Dr. Mela Watkins. I have examined Ms. Salinas and agree with the assessment and plan of Dr. Watkins. Ms. Salinas has been approved for placement, which will hopefully take place later today or tomorrow. Job ID: [id number]
[2020-07-04] MEDS: Warfarin Sodium 7.5 MG TAB PO SCH (18:51)
[2020-07-04] MEDS: Atorvastatin Calcium 40 MG TAB PO SCH (21:00)
[2020-07-05] MEDS: HYDROcodone/Acetaminophen 5/325 mg Tablet PO PRN ×2 (04:46→20:43)
[2020-07-05 05:04] LABS: Anion Gap 13 mmol/L (10-20); BUN (Urea Nitrogen) 51 mg/dL (9.8-20.1); Calc. Creatinine Clearance 68 mL/min (70-130); Calcium 8.5 mg/dL (7.8-10.44); Carbon Dioxide 29 mmol/L (23-31); Chloride 98 mmol/L (98-107); Estimated GFR-MDRD 34; Glucose 112 mg/dL (83-110); Sodium 136 mmol/L (136-145)
--- NOTE | 2020-07-05 06:03 | PDOC.FM ---
- Subjective Subjective: Patient says she is feeling "ok." She denies headache, chest pain, SOB, nausea, and abdominal pain. She reports drinking frequently over the past 24 hours and notes that her urine has improved from an [place] color to dark yellow. She has been working with PT/OT daily. - Objective MAR Reviewed: Yes Vital Signs & Weight: Vital Signs (12 hours) Temp Pulse Resp BP Pulse Ox 07/04/20 21:00 100 07/04/20 20:00 98.1 F 70 15 92/63 100 Weight Admit Weight 138.482 kg Weight 147.826 kg I&O: 07/03/20 07/04/20 07/05/20 06:59 06:59 06:59 Intake Total 164 696 3371 Output Total 825 034 4631 Balance 80 -150 1654 Result Diagrams: 07/04/20 08:59 07/05/20 04:34 Phys Exam - Physical Examination Constitutional: NAD Morbid obesity, urine pharmaceutical officer in color vs. yesterday HEENT: moist MMs, sclera anicteric Neck: supple, full ROM Respiratory: no wheezing, clear to auscultation bilateral Difficult to auscultate due to body habitus Cardiovascular: no significant murmur, irregular (Afib) Gastrointestinal: soft, positive bowel sounds Musculoskeletal: no edema, pulses present Neurological: moves all 4 limbs Psychiatric: normal affect, A&O x 3 Skin: no rash Dx/Plan - Plan Plan: Chronic deconditioning 2/2 recent hospital stay, body habitus R sided weakness and overall fatigue since 05/23. Hx COVID pneumonia on 05/18, DVT and PEs in past. CTA Head/Neck showed no sign of obvious atherosclerosis, no signficant stenosis. MRI showed significant small vessel disease. Echo: EF 50- 55%. -Continue atorvastatin 40mg daily -PT/OT consult. Recommended rehab. Accepted pending insurance approval. -Continue home Warfarin 6mg MWF, 7.5 TTH SEGUNDO on CKD3 Cr. 1.27, BUN 39 in ED. Trended Cr 0.94->1.24->1.49->1.47. Hx poor fluid intake. Received 500mL bolus yesterday. -Renally dose medication -Encouraged increased PO intake while maintaining 1500 fluid restriction Paroxysmal Afib EKG in ED showed afib. INR stable. -Tele: Afib, HR 80s -Continue home meds -Continue warfarin Asymptomatic bacteriuria UA + nitrite, leuk yara, WBC, bacteria. Using diaper due to inability to ambulate. Asymptomatic. Received doxy 100 in the ED. -Denies symptoms Macrocytic anemia -Hgb 11.5, MCV 98.8 in ED. -Stable CHF -Echo: EF 50-55% -Continue home meds HTN Hypotensive yesterday afternoon with systolic 80s. Likely 2/2 decreased PO intake in setting of recent Lasix administration. -Continue to hold Lasix -Hold HCTZ and lisinopril until BP improves HLD -Continue atorvastatin 40mg daily GERD -Continue home protonix COPD Recent COVID+ pneumonia -Continue home O2 at 3L. Wean as tolerated with sats > 88% -Continue home duonebs -Does not require contact/respiratory precautions since out of the 20 day time- frame Chronic pain Patient reports taking [place] 5 TID PRN for years due to chronic joint pain. -[place] 5 Q6H PRN Cervical cancer s/p hysterectomy Hypopituitarism -aware PCP: RAMESH Tolliver Code: DNR DVT Ppx: home warfarin Dispo: Placement pending insurance approval
[2020-07-05] MEDS ORDERED: Lactated Ringer's 500 ML IV SCH (08:30)
[2020-07-05] MEDS: Carvedilol 6.25 MG TAB PO SCH ×2 (09:55→16:35)
[2020-07-05] MEDS: Gabapentin 100 MG CAP PO SCH (09:56)
--- NOTE | 2020-07-05 12:07 | PRG ---
DATE OF SERVICE: 07/05/2020 Arrangements have been made for group home and the patient is in agreement. We will try to transfer out today. Job ID: [id number]
[2020-07-05 13:19] LABS: INR-International Normal Ratio 2.3; Prothrombin Time 25.8 sec (12.0-14.7)
[2020-07-05] MEDS: Gabapentin 300 MG CAP PO SCH ×2 (14:37→20:41)
[2020-07-05] MEDS: Warfarin Sodium 3 MG TAB PO SCH (16:36)
[2020-07-05] MEDS: Atorvastatin Calcium 40 MG TAB PO SCH (20:41)
[2020-07-06 05:21] LABS: INR-International Normal Ratio 2.5; Prothrombin Time 26.8 sec (12.0-14.7)
--- NOTE | 2020-07-06 05:33 | PDOC.FM ---
- Subjective Subjective: Patient says she is feeling well. She reports daily activity with therapy. She denies headache, vision changes, SOB, abdominal pain and edema. - Objective MAR Reviewed: Yes Vital Signs & Weight: Vital Signs (12 hours) Temp Pulse Resp BP BP Pulse Ox 07/06/20 04:00 97.5 F L 75 17 127/69 94 L 07/06/20 01:04 95/41 L 07/05/20 20:00 97.3 F L 62 20 111/54 L 100 Weight Admit Weight 138.482 kg Weight 147.826 kg I&O: 07/04/20 07/05/20 07/06/20 06:59 06:59 06:59 Intake Total 825 2899 1180 Output Total 975 1245 2450 Balance -150 1654 -1270 Result Diagrams: 07/06/20 08:27 07/06/20 04:59 Phys Exam - Physical Examination Constitutional: NAD Morbidly obese, yellow urine - improved HEENT: moist MMs, sclera anicteric Neck: supple, full ROM Respiratory: no wheezing, clear to auscultation bilateral Cardiovascular: no significant murmur, irregular (Irregularly irregular) Gastrointestinal: soft, positive bowel sounds Musculoskeletal: no edema, pulses present Neurological: non-focal, moves all 4 limbs Psychiatric: normal affect, A&O x 3 Skin: no rash Dx/Plan - Plan Plan: Chronic deconditioning 2/2 recent hospital stay, body habitus R sided weakness and overall fatigue since 05/23. Hx COVID pneumonia on 05/18, DVT and PEs in past. CTA Head/Neck showed no sign of obvious atherosclerosis, no signficant stenosis. MRI showed significant small vessel disease. Echo: EF 50- 55%. -Continue atorvastatin 40mg daily -PT/OT consult. Recommended rehab. Insurance denied inpatient rehab. Pending approval for [facility] -Continue home Warfarin 6mg MWF, 7.5 TTH SEGUNDO, improved on CKD3 Cr. 1.27, BUN 39 in ED. Trended Cr 0.94->1.24->1.49->1.47->1.18. Hx poor fluid intake. Received 500mL bolus x 2. -Renally dose medication -Encourage increased PO intake while maintaining 1500 fluid restriction Paroxysmal Afib EKG in ED showed afib. INR stable. -Tele: Afib -Continue home meds -Continue warfarin Asymptomatic bacteriuria UA + nitrite, leuk yara, WBC, bacteria. Using diaper due to inability to ambulate. Asymptomatic. Received doxy 100 in the ED. -Denies symptoms Macrocytic anemia -Hgb 11.5, MCV 98.8 in ED. -Stable HFpEF -Echo: EF 50-55% -Continue home meds HTN -Continue to hold Lasix -Hold HCTZ and lisinopril until BP improves HLD -Continue atorvastatin 40mg daily GERD -Continue home protonix COPD Recent COVID+ pneumonia -Continue home O2 at 3L. Wean as tolerated with sats > 88% -Continue home duonebs -Does not require contact/respiratory precautions since out of the 20 day time- frame Chronic pain Patient reports taking [place] 5 TID PRN for years due to chronic joint pain. -[place] 5 Q6H PRN Cervical cancer s/p hysterectomy Hypopituitarism -aware PCP: RAMESH Tolliver Code: DNR DVT Ppx: home warfarin Dispo: [facility] swing bed pending approval Addendum - Attending - Attending Attestation Date/Time: 07/06/20 0900 I personally evaluated the patient and discussed the management with Dr. Bhupinder herrera. I agree with the History, Examination, Assessment and Plan documented above with any addition or exceptions noted below. Patient feeling well. Continue current management. Awaiting swing bed placement.
[2020-07-06 05:39] LABS: Anion Gap 13 mmol/L (10-20); BUN (Urea Nitrogen) 46 mg/dL (9.8-20.1); Calc. Creatinine Clearance 84 mL/min (70-130); Calcium 8.8 mg/dL (7.8-10.44); Carbon Dioxide 31 mmol/L (23-31); Chloride 101 mmol/L (98-107); Estimated GFR-MDRD 44; Glucose 123 mg/dL (83-110); Potassium 4.5 mmol/L (3.5-5.1); Sodium 140 mmol/L (136-145)
[2020-07-06 08:41] LABS: Hemoglobin 11.2 g/dL (12.0-16.0)
[2020-07-06] MEDS: Carvedilol 6.25 MG TAB PO SCH ×2 (10:27→16:18)
[2020-07-06] MEDS: Gabapentin 300 MG CAP PO SCH ×3 (10:28→20:30)
[2020-07-06] MEDS: HYDROcodone/Acetaminophen 5/325 mg Tablet PO PRN (14:55)
[2020-07-06] MEDS ORDERED: Lisinopril 20 MG TAB PO SCH (16:00)
[2020-07-06] MEDS: Warfarin Sodium 7.5 MG TAB PO SCH (16:19)
[2020-07-06] MEDS: Atorvastatin Calcium 40 MG TAB PO SCH (20:30)
[2020-07-07] MEDS: HYDROcodone/Acetaminophen 5/325 mg Tablet PO PRN (02:59)
[2020-07-07 05:13] LABS: INR-International Normal Ratio 2.5; Prothrombin Time 27.2 sec (12.0-14.7)
[2020-07-07 05:26] LABS: Anion Gap 12 mmol/L (10-20); BUN (Urea Nitrogen) 40 mg/dL (9.8-20.1); Calc. Creatinine Clearance 106 mL/min (70-130); Calcium 8.8 mg/dL (7.8-10.44); Carbon Dioxide 31 mmol/L (23-31); Chloride 102 mmol/L (98-107); Estimated GFR-MDRD 57; Glucose 118 mg/dL (83-110); Potassium 4.6 mmol/L (3.5-5.1); Sodium 140 mmol/L (136-145)
--- NOTE | 2020-07-07 05:35 | PDOC.FM ---
- Subjective Subjective: Patient says she is feeling well. She reports daily activity with therapy with increased fatigue afterward. She denies headache, vision changes, SOB, abdominal pain and edema. - Objective Vital Signs & Weight: Vital Signs (12 hours) Temp Pulse Resp BP Pulse Ox 07/07/20 04:00 98.1 F 69 17 113/58 L 96 07/06/20 20:00 98.3 F 73 17 124/65 97 Weight Admit Weight 138.482 kg Weight 147.826 kg I&O: 07/05/20 07/06/20 07/07/20 06:59 06:59 06:59 Intake Total 2899 1180 480 Output Total 1245 2840 750 Balance 5477 -2289 -336 Result Diagrams: 07/06/20 08:27 07/07/20 04:49 Phys Exam - Physical Examination Constitutional: NAD Morbidly obese HEENT: moist MMs, sclera anicteric Neck: supple, full ROM Respiratory: no wheezing, clear to auscultation bilateral Cardiovascular: irregular (Irreguarly irregular) Gastrointestinal: soft, non-tender, positive bowel sounds Musculoskeletal: no edema, pulses present Neurological: non-focal, moves all 4 limbs Psychiatric: normal affect, A&O x 3 Deviation from normal: Venous stasis dermatitis, more prevelent on R leg Dx/Plan - Plan Plan: Chronic deconditioning 2/2 recent hospital stay, body habitus R sided weakness and overall fatigue since 05/23. Hx COVID pneumonia on 05/18. CTA Head/Neck showed no sign of obvious atherosclerosis, no signficant stenosis. MRI showed significant small vessel disease. Echo: EF 50-55%. -Continue atorvastatin 40mg daily -PT/OT consult. Recommended rehab. Insurance denied inpatient rehab. Pending approval for [facility] -Continue home Warfarin 6mg MWF, 7.5 TTH SEGUNDO, resolved, on CKD3 Cr. 1.27, BUN 39 in ED. Trended Cr 0.94->1.24->1.49->1.47->1.18->0.94. Due to poor fluid intake. -Renally dose medication -Encourage increased PO intake while maintaining 1500 fluid restriction Paroxysmal Afib EKG in ED showed afib. INR stable. -Tele: Afib with HR 80s -Continue home meds -Continue warfarin Asymptomatic bacteriuria UA + nitrite, leuk yara, WBC, bacteria. Using diaper due to inability to ambulate. Asymptomatic. Received doxy 100 in the ED. -Denies symptoms Macrocytic anemia -Hgb 11.5, MCV 98.8 in ED. -Stable HFpEF -Echo: EF 50-55% -Continue home meds HTN -Continue to hold Lasix -Hold HCTZ and lisinopril when hypotensive HLD -Continue atorvastatin 40mg daily GERD -Continue home protonix COPD Recent COVID+ pneumonia -Continue home O2 at 3L. Wean as tolerated with sats > 88% -Continue home duonebs -Does not require contact/respiratory precautions since out of the 20 day time- frame Chronic pain Patient reports taking [place] 5 TID PRN for years due to chronic joint pain. -[place] 5 Q6H PRN Cervical cancer s/p hysterectomy Hypopituitarism -aware PCP: RAMESH Tolliver Code: DNR DVT Ppx: home warfarin Dispo: [facility] swing bed pending approval Addendum - Attending - Attending Attestation Date/Time: 07/07/20 0705 I personally evaluated the patient and discussed the management with Dr. Watkins. I agree with the History, Examination, Assessment and Plan documented above with any addition or exceptions noted below. Patient reports feeling well. She was able to stand for the first time in awhile yesterday. Continue current mgmt, working on placement.
[2020-07-07] MEDS: Lisinopril 20 MG TAB PO SCH (10:57)
[2020-07-07] MEDS: Carvedilol 6.25 MG TAB PO SCH ×2 (10:57→17:23)
[2020-07-07] MEDS: Gabapentin 300 MG CAP PO SCH ×3 (10:57→20:40)
[2020-07-07] MEDS: Warfarin Sodium 7.5 MG TAB PO SCH (17:24)
[2020-07-07] MEDS: Atorvastatin Calcium 40 MG TAB PO SCH (20:40)
[2020-07-08 05:10] LABS: INR-International Normal Ratio 2.5; Prothrombin Time 27.2 sec (12.0-14.7)
[2020-07-08 05:29] LABS: Anion Gap 13 mmol/L (10-20); BUN (Urea Nitrogen) 35 mg/dL (9.8-20.1); Calc. Creatinine Clearance 105 mL/min (70-130); Calcium 8.5 mg/dL (7.8-10.44); Carbon Dioxide 26 mmol/L (23-31); Chloride 104 mmol/L (98-107); Estimated GFR-MDRD 56; Glucose 119 mg/dL (83-110); Potassium 4.5 mmol/L (3.5-5.1); Sodium 138 mmol/L (136-145)
--- NOTE | 2020-07-08 05:52 | PDOC.FM ---
- Subjective Subjective: No acute overnight events. She denies chest pain, SOB, constipation. She still has generalized weakness. She is worried about loss of independence. - Objective Vital Signs & Weight: Vital Signs (12 hours) Temp Pulse Resp BP Pulse Ox 07/08/20 03:46 97.8 F 78 18 131/57 L 93 L 07/07/20 23:45 97.1 F L 76 18 136/62 95 07/07/20 20:00 97.9 F 80 20 155/73 H 95 Weight Admit Weight 138.482 kg Weight 147.826 kg I&O: 07/06/20 07/07/20 07/08/20 06:59 06:59 06:59 Intake Total 1180 480 480 Output Total 2450 1200 1180 Balance -1270 -720 -700 Result Diagrams: 07/08/20 08:53 07/08/20 04:33 Phys Exam - Physical Examination Constitutional: NAD HEENT: moist MMs, sclera anicteric Respiratory: no wheezing, no rales clear anteriorly, distant breath sounds Cardiovascular: RRR, no significant murmur Gastrointestinal: soft, non-tender obese Musculoskeletal: no edema, pulses present Neurological: non-focal Psychiatric: normal affect, A&O x 3 Skin: no rash Dx/Plan - Plan Plan: Chronic deconditioning 2/2 recent hospital stay, body habitus R sided weakness and overall fatigue since 05/23. Hx COVID pneumonia on 05/18. CTA Head/Neck showed no sign of obvious atherosclerosis, no signficant stenosis. MRI showed significant small vessel disease. Echo: EF 50-55%. -Continue atorvastatin 40mg daily -PT/OT consult. Recommended rehab. Insurance denied inpatient rehab. Pending approval for [facility] -Continue home Warfarin 6mg MWF, 7.5 TTH SEGUNDO, resolved, on CKD3 Cr. 1.27, BUN 39 in ED. Trended Cr 0.94->1.24->1.49->1.47->1.18->0.94. Due to poor fluid intake. -Renally dose medication -Encourage increased PO intake while maintaining 1500 fluid restriction Paroxysmal Afib EKG in ED showed afib. INR stable. -Tele: Afib with HR 80s -Continue home meds -Continue warfarin Asymptomatic bacteriuria UA + nitrite, leuk yara, WBC, bacteria. Using diaper due to inability to ambulate. Asymptomatic. Received doxy 100 in the ED. -Denies symptoms Macrocytic anemia -Hgb 11.5, MCV 98.8 in ED. -Stable HFpEF -Echo: EF 50-55% -Continue home meds HTN -Continue to hold Lasix -Hold HCTZ and lisinopril when hypotensive HLD -Continue atorvastatin 40mg daily GERD -Continue home protonix COPD Recent COVID+ pneumonia -On 1L NC this AM, Wean as tolerated with sats > 88% -Continue home duonebs -Does not require contact/respiratory precautions since out of the 20 day time- frame Chronic pain Patient reports taking [place] 5 TID PRN for years due to chronic joint pain. -[place] 5 Q6H PRN Cervical cancer s/p hysterectomy Hypopituitarism -aware PCP: RAMESH Tolliver Code: DNR DVT Ppx: home warfarin Dispo: [facility] swing bed pending approval Addendum - Attending - Attending Attestation Date/Time: 07/08/20 1100 I personally evaluated the patient and discussed the management with Dr. Costa. I agree with the History, Examination, Assessment and Plan documented above with any addition or exceptions noted below.
[2020-07-08 09:18] LABS: Hemoglobin 10.4 g/dL (12.0-16.0)
[2020-07-08] MEDS: Carvedilol 6.25 MG TAB PO SCH (09:38)
[2020-07-08] MEDS: Gabapentin 300 MG CAP PO SCH (09:38)
[2020-07-08] MEDS: Lisinopril 20 MG TAB PO SCH (09:38)
[2020-07-08 11:20] VITALS: TEMP 97.5
[2020-07-08 12:37] VITALS: BP 147/69
--- NOTE | 2020-07-09 16:23 | EKG ---
Test Reason : WEAKNESS Blood Pressure : / mmHG Vent. Rate : 082 BPM Atrial Rate : 129 BPM P-R Int : 000 ms QRS Dur : 102 ms QT Int : 366 ms P-R-T Axes : 000 009 066 degrees QTc Int : 427 ms Atrial fibrillation Low voltage QRS Nonspecific ST and T wave abnormality Abnormal ECG Confirmed by CADEN WALLACE DO ([id number]), newspaper copy editor HERBERT CARTY ([id number]) on 07/09/2020 4:22:28 PM Referred By: Confirmed By:CADEN WALLACE DO
--- NOTE | 2020-07-10 02:56 | DIS ---
DATE OF ADMISSION: 07/01/2020 DATE OF DISCHARGE: 07/08/2020 CONSULT: Physical Therapy and Occupational Therapy. PROCEDURES: High CT angiography of the head and neck, brain MRI, echocardiogram. PRIMARY DIAGNOSIS: Chronic deconditioning. SECONDARY DIAGNOSES: 1. Acute kidney injury with chronic kidney disease 3. 2. Paroxysmal atrial fibrillation. 3. Asymptomatic bacteriuria. 4. Macrocytic anemia. 5. Heart failure with preserved ejection fraction. 6. Hypertension. 7. Hyperlipidemia. 8. Gastroesophageal reflux disease. 9. Chronic obstructive pulmonary disease. 10. Recent coronavirus disease pneumonia. 11. Chronic joint pain. 12. History of cervical cancer. 13. History of hypopituitarism. DISCHARGE MEDICATIONS: 1. Lisinopril 40 mg p.o. daily. 2. Protonix 40 mg p.o. daily. 3. Carvedilol 6.25 mg p.o. b.i.d. with meals. 4. Ipratropium albuterol sulfate nebulizer treatments 3 mL q.6 hours p.r.n. 5. Diltiazem 180 mg p.o. daily. 6. Warfarin 6 mg p.o. on Mondays, Wednesdays, and Fridays. 7. Warfarin 7.5 mg p.o. on Tuesdays and . 8. Gabapentin 300 mg p.o. t.i.d. 9. Atorvastatin 40 mg p.o. at bedtime. 10. Monclova 5/325 one tab p.o. q.6 hours p.r.n. Discontinued medications: 1. Hydrochlorothiazide 25 mg p.o. daily. 2. Lasix 20 mg p.o. daily. 3. Monclova 10/325, one tab t.i.d. p.r.n. HOSPITAL COURSE: Ms. Salinas is an 85-year-old female who was admitted to the hospital with complaint of right-sided weakness that had been ongoing for three weeks at the time of presentation. Just prior to the onset of her symptoms, she was hospitalized for COVID positive pneumonia from 05/18 to 05/21. On 05/24, her symptoms of right-sided weakness without numbness or tingling began. She monitored these symptoms at home and has not sought care for them before this admission. Of note, she was discharged from her previous admission to home on 3 L of home oxygen. She had not previously been on oxygen. Since her return to home, she has been requiring assistance with most ADLs including changing her clothes, cooking, showering and moving. Her family was helping her with these ADLs, but they are no longer able to help her perform these activities. She was admitted and evaluated for possible stroke including CT angio of the head and neck and brain, which showed no carotid stenosis, no acute narrowing of the vasculature in the [place] and no acute hemorrhage. She was also evaluated with an echocardiogram which revealed an ejection fraction of 50% to 55% and an MRI of the brain, which revealed significant small-vessel disease, but no evidence of acute stroke. She was evaluated by Physical Therapy and Occupational Therapy, who noted both her right-sided weakness and her chronic deconditioning with difficulty performing ADLs and was recommended to go to inpatient rehab. However, her insurance denied placement at inpatient rehab and she remained admitted for several days awaiting placement in a swing bed. During this time, she had somewhat poor oral intake due to her feeling of generalized weakness. Her home medications were continued and with this poor oral intake in the setting of Lasix administrations, she did have one episode of hypotension. The hypotension improved without the administration of fluids, but did remain borderline. She continued to improve her oral intake. Her blood pressure improved as well and remained stable and her Lasix, hydrochlorothiazide and lisinopril were held throughout most of her admission. The rest of her home medications were continued. Due to her significant small vessel disease, she was started on atorvastatin in the setting of hyperlipidemia as well. She otherwise remained stable, but deconditioned throughout her admission and was discharged to Swing Bed in [place] in stable condition. DISPOSITION: Stable. DISCHARGE INSTRUCTIONS: Location, care home at [place]. Diet, heart healthy. Activity as tolerated. Follow up with your PCP at [facility] upon discharge from care home. Job ID: [id number] [facility] HOSPITALClarice
== END 2020-07-08 13:52 | disposition swing bed (61) | DRG 57 ==
LOC: ERS 08:05 → 2SE 12:02
PROVIDERS: ADMIT Family Medicine; ATTEND Family Medicine
DX: G81.91 Hemiplegia, unspecified affecting right dominant side (principal); J96.10 Chronic respiratory failure, unspecified whether with hypoxia or hypercapnia; I13.0 Hypertensive heart and chronic kidney disease with heart failure and stage 1 through stage 4 chronic kidney disease, or unspecified chronic kidney disease; E23.0 Hypopituitarism; N17.9 Acute kidney failure, unspecified; Z68.42 Body mass index [BMI] 45.0-49.9, adult; I50.32 Chronic diastolic (congestive) heart failure; Z86.19 Personal history of other infectious and parasitic diseases; Z66 Do not resuscitate; M19.90 Unspecified osteoarthritis, unspecified site; E66.01 Morbid (severe) obesity due to excess calories; I87.2 Venous insufficiency (chronic) (peripheral); I48.0 Paroxysmal atrial fibrillation; D53.9 Nutritional anemia, unspecified; R82.71 Bacteriuria; K21.9 Gastro-esophageal reflux disease without esophagitis; J44.9 Chronic obstructive pulmonary disease, unspecified; N18.30 Chronic kidney disease, stage 3 unspecified; E78.5 Hyperlipidemia, unspecified; M47.9 Spondylosis, unspecified; G89.29 Other chronic pain; Z90.710 Acquired absence of both cervix and uterus; Z90.49 Acquired absence of other specified parts of digestive tract; Z88.0 Allergy status to penicillin; Z88.1 Allergy status to other antibiotic agents; Z88.2 Allergy status to sulfonamides; Z88.8 Allergy status to other drugs, medicaments and biological substances; Z79.02 Long term (current) use of antithrombotics/antiplatelets; Z79.899 Other long term (current) drug therapy; Z85.41 Personal history of malignant neoplasm of cervix uteri; Z86.711 Personal history of pulmonary embolism
CPT/HCPCS: 36415; 51701; 70496; 70498; 70551; 71045; 72100; 72170; 80048; 80053; 81003; 81015; 82550; 84484; 85014; 85018; 85025; 85049; 85610; 87635; 93005; 93306; 96365; J3490; Q9967; U0003

== ENCOUNTER 2020-08-16 00:57 | Inpatient (IN) | payer MEDICARE ==
[2020-08-16 01:20] LABS: Actual Bicarbonate (HCO3a) 25.2 mEq/L (22-28); Analyzer IN Cardio ER; Base Excess (BEa) -1.1 mEq/L (-2.0 to +3.0); CO2 Tension 49.3 mmHg (35.0-45.0); Calcium, Ionized (arterial) 1.17 mmol/L (1.12-1.30); Carboxyhemoglobin (COHb) 0.1 gm% (0.0-3.0); Hemoglobin (Hb) 11.3 g/dL (12.0-16.0); O2 Tension (PaO2), arterial 76.5 mmHg (> 60.0); Potassium - ABG Lab 3.62 mmol/L (3.70-5.30); pH, Arterial 7.33 (7.35-7.45)
[2020-08-16 02:09] LABS: #Eosinphils 0.1 thou/uL (0.0-0.7); #Lymphocytes 1.6 thou/uL (1.20-3.40); #Monocytes 0.6 thou/uL (0.11-0.59); #Neutrophils 7.3 thou/uL (1.40-6.50); %Basophils 0.1 % (0.0-1.0); %Eosinophils 1.3 % (0.0-10.0); %Lymphocytes 16.5 % (21.0-51.0); %Monocytes 5.8 % (0.0-10.0); %Neutrophils 76.3 % (42.0-75.0); Hemoglobin 10.5 g/dL (12.0-16.0); Mean Corpuscular HGB CONC 31.4 g/dL (32.0-36.0); Mean Corpuscular Hemoglobin 30.8 pg (27.0-31.0); Mean Corpuscular Volume 97.9 fL (78.0-98.0); Mean Platelet Volume 6.8 fL (7.4-10.4); Platelet Count 291 thou/uL (130-400); RBC Distribution Width 13.9 % (11.5-14.5); White Blood Cell (WBC) Count 9.5 thou/uL (4.8-10.8)
[2020-08-16 02:28] LABS: INR-International Normal Ratio 1.8; Prothrombin Time 21.6 sec (12.0-14.7)
[2020-08-16 02:33] LABS: ALT (SGPT) 54 U/L (8-55); AST (SGOT) 25 U/L (5-34); Alkaline Phosphatase 203 U/L (40-110); Anion Gap 15 mmol/L (10-20); BUN (Urea Nitrogen) 17 mg/dL (9.8-20.1); Bilirubin, Total 0.6 mg/dL (0.2-1.2); Calc. Creatinine Clearance 0 mL/min (70-130); Calcium 8.7 mg/dL (7.8-10.44); Carbon Dioxide 25 mmol/L (23-31); Chloride 105 mmol/L (98-107); Globulin 3.9 g/dL (2.4-3.5); Glucose 163 mg/dL (83-110); Potassium 3.6 mmol/L (3.5-5.1); Protein, Total 6.9 g/dL (6.0-8.3); Sodium 141 mmol/L (136-145)
[2020-08-16] MEDS ORDERED: Furosemide 40 MG/4 ML VIAL ONE (02:52)
[2020-08-16] MEDS ORDERED: Nitroglycerin 2% Ointment 1 INCH/1 GM Packet ONE (02:52)
[2020-08-16] MEDS ORDERED: Aspirin 300 MG Suppository ONE (02:52)
[2020-08-16 02:55] LABS: CKMB 1.5 ng/mL (0-6.6)
--- NOTE | 2020-08-16 03:24 | PDOC.FPRHP ---
- History of Present Illness Chief Complaint: SOB History of Present Illness: 85 yo F with a history of COPD, CHF, Afib, and COVID in May 2020 presenting for shortness of breath and respiratory distress that started yesterday evening. Patient explains while getting ready for bed she began to feel short of breath and it increasingly worsened while lying in bed, not improving with her home oxygen of 2L and her daughter called EMS. On arrival, EMS found O2 sat to be 67%, they placed her home O2 of 2L and she improved to 75% and subsequently placed CPAP, gave solumedrol and magnesium. Patient has been using supplemental oxygen at home since her hospitalization for COVID pnemonia in May. She was also hospitalized at the end of June for generalized deconditioning and weakness and discharged to a SNF for PT. Patient was discharged home from there on 07/27 and has been receiving HH. She had a negative covid test on 08/10. She is dependent on her daughter with which she lives for her ADLs and uses a wheelc hair due to chronic back pain and spondylosis. Patient denies headache, CP, palpitations or LE edema. She was not feeling short of breath during the day yesterday and explains it only began in the evening. She endorses 2-3 days of diarrhea and intermittent nausea since yesterday evening. Upon review of clinic records, patient was switched from warfarin to eliquis for long-term anticoagulation for Afib today by Dr. Tolliver at her home visit. She was often missing doses of warfarin and has been subtherapeutic. - Allergies/Adverse Reactions Allergies Allergy/AdvReac Type Severity Reaction Status Date / Time Penicillins Allergy Severe Verified 05/18/20 04:28 Sulfa (Sulfonamide Allergy Verified 05/18/20 04:28 Antibiotics) sulfamethoxazole Allergy Verified 05/18/20 04:28 [From Bactrim] trimethoprim [From Bactrim] Allergy Verified 05/18/20 04:28 - Home Medications Medication Instructions Recorded Confirmed Type Pantoprazole [Protonix] 20 mg PO DAILY 05/22/19 08/16/20 History Carvedilol [Coreg] 6.25 mg PO BID-WM 05/23/19 08/16/20 History Gabapentin [Neurontin] 300 mg PO TID 05/18/20 08/16/20 History HYDROcodone Bit/APAP 5/325 [[place]] 1 tab PO Q6H PRN tab 07/03/20 08/16/20 Rx Calcium Carbonate [Tums] 1,000 mg PO QIDPRN PRN tab 07/27/20 08/16/20 Rx Apixaban [Eliquis] 5 mg PO BID 08/16/20 08/16/20 History Atorvastatin Calcium 40 mg PO DAILY 08/16/20 08/16/20 History Lisinopril 5 mg PO DAILY 08/16/20 08/16/20 History - History PMHx: COPD, CHF, COVID pneumonia (05/23), HTN, OA, chronic back pain due to spondylosis, hypopituitarism, HLD, Afib, CKD3, GERD, cervical cancer at 37 PSHx: hysterectomy, cholecystectomy, hip replacement, skin graft FHx: Mom-HTN, Dad-NC Social: Denies tobacco, alcohol, and drug use - Review of Systems General: denies: fever/chills Eyes: reports: vision changes Respiratory: reports: shortness of breath. denies: cough Cardiovascular: denies: chest pain, edema Gastrointestinal: reports: nausea, diarrhea, abdominal pain. denies: vomiting, constipation, GI bleeding Genitourinary: denies: dysuria, polyuria Skin: denies: rashes, itching Musculoskeletal: reports: pain Neurological: reports: weakness - Vital signs BP: 130/92 HR: 109 RR: 27 Tmax: 98.3 Pox: 98% on BIPAP Wt: 146kg - Physical Exam Constitutional: awake, alert and oriented HEENT: normocephalic and atraumatic, no scleral icterus, grossly normal vision, grossly normal hearing Neck: no JVD Heart: no murmurs/rubs/gallops, pulses present, no edema -Heart: irregular rate and rhythm Lungs: CTAB, no wheezing Abdomen: soft, non-tender Musculoskeletal: normal structure Neurological: no focal deficit Skin: no rash/lesions Psychiatric: normal mood and affect, good judgment and insight, intact recent and remote memory FMR H&P: Results - Labs Result Diagrams: 09/08/20 03:10 09/09/20 03:11 Lab results: WBC 9.5 thou/uL (4.8-10.8) 08/16/20 01:53 Hgb 10.5 g/dL (12.0-16.0) L 08/16/20 01:53 Hct 33.3 % (36.0-47.0) L 08/16/20 01:53 MCV 97.9 fL (78.0-98.0) 08/16/20 01:53 Plt Count 291 thou/uL (130-400) 08/16/20 01:53 Neutrophils % 76.3 % (42.0-75.0) H 08/16/20 01:53 Sodium 141 mmol/L (136-145) 08/16/20 01:53 Potassium 3.6 mmol/L (3.5-5.1) 08/16/20 01:53 Chloride 105 mmol/L (98-107) 08/16/20 01:53 Carbon Dioxide 25 mmol/L (23-31) 08/16/20 01:53 BUN 17 mg/dL (9.8-20.1) 08/16/20 01:53 Creatinine 1.02 mg/dL (0.6-1.1) 08/16/20 01:53 Glucose 163 mg/dL (83-110) H 08/16/20 01:53 Lactic Acid 2.2 mmol/L (0.5-2.2) 08/16/20 01:14 Calcium 8.7 mg/dL (7.8-10.44) 08/16/20 01:53 Total Bilirubin 0.6 mg/dL (0.2-1.2) 08/16/20 01:53 AST 25 U/L (5-34) 08/16/20 01:53 ALT 54 U/L (8-55) 08/16/20 01:53 Alkaline Phosphatase 203 U/L (40-110) H 08/16/20 01:53 CK-MB (CK-2) 1.5 ng/mL (0-6.6) 08/16/20 01:53 B-Natriuretic Peptide 286.5 pg/mL (0-100) H 08/16/20 01:14 Serum Total Protein 6.9 g/dL (6.0-8.3) 08/16/20 01:53 Albumin 3.0 g/dL (3.4-4.8) L 08/16/20 01:53 - EKG Interpretation EKG: Afib w/RVR, HR 112 - Radiology Interpretation Chest x-ray Status: image reviewed by me (bilateral pleural effusions) FMR H&P: A/P - Plan 85 yo F with history of COPD, CHF, and Afib presenting for SOB and respiratory distress Acute hypoxic respiratory failure -67% on RA at home, improved to 99 on CPAP. Currently 97 on BIPAP in ED. s/p solumedrol and magnesium per EMS -CXR: bilateral pleural effusions that were not present on previous imaging -BNP 286, lactic 2.2, trop 0.068 -ABG: pH 7.32, pCO2 49 -EKG: Afib w/RVR -Unsure of etiology. Suspicion for PE due to sudden onset and patient's recent h istory of missing doses of warfarin and change to eliquis vs Afib w/RVR vs HF exacerbation though patient's BNP is not extraordinary and she does not appear fluid overloaded. Low suspicion for infectious process due to nml WBC, neg lactic, and afebrile. UA pending -Ddimer pending, if positive will order CTA Afib w/RVR -Known history -Anticoagulated with warfarin prior to 08/[address] Tolliver at which time he switched to eliquis due to subtherapeutic INR and missing warfarin doses. -Unsure if patient takes diltiazem at home. It is listed in eCW but not listed as a discharge medication for patient's recent SNF placement. -HR 90-110s while in ED -Given diltiazem 5mg. If tolerates will start Dilt drip at 5mg/hr. Elevated troponin -0.068 -likely demand ischemia due to Afib -trend Diarrhea -2-3 day history. Denies bloody stool. -K 3.6 -Will check Mg, Phos HFpEF -ECHO 07/02, EF 50-55% -BNP 286 -Received 40mg IV lasix in ED -strict I/Os, daily weights -May be source of SOB and pulmonary effusion. Will monitor how patient responds to lasix given ED and pursue further diuresis if necessary COPD -Aware, duonebs prn at home -Received solumedrol and magnesium per EMS -no wheezing on PE Recent hospitalization for COVID pneumonia -05/18-05/21 -Has been on supplemental home oxygen since -Reports negative test on 08/10 HTN -Elevated in ED -Nitropaste -Continue home meds in AM HLD -Aware, continue home meds GERD -Aware, continue home meds Chronic back pain due to spondylosis -Aware, continue home meds -takes norco for pain CKD3 -Cr 1.02 on admission -Continue to monitor DVT PPx: eliquis Diet: NPO while on BIPAP, HH when removed Code: DNR PCP: Jn Dispo: Admit to IMCU for use of BIPAP to maintain oxygenation. eLOS >48 hours for workup of source of sudden SOB and respiratory distress. FMR H&P: Upper Level - Plan Date/Time: 08/16/20 0323 IEagle DO, have evaluated this patient and agree with findings/plan as outlined by summer internship resident. Pertinent changes/additions are listed here. 85 yo F w pmhx sig for copd, afib, and previous covid pna earlier this evening she began to have worsening SOB, she felt like she couldnt get air so her daughter called ems who found her to be satting in the 70s. she denies any chest pain, fever, or feeling poor prior to this. she does report some pre-syncope type feeling with the onset of sob, but not many other symptoms. Of note, over the past few days she has had some loose stools, no abdominal pain and today was switched from warfarin to NOAC for subtherapuetic INR. she was dx with covid in july and sent home on O2 which she had not had before, returned to the hospital for weakness and sent to rehab afterwards, she tested neg for covid on 08/10. In the ED she has been in afib, in and out of rvr, BPs normal to elevated. cxr sig for R and possibly some left pleural effusion, labs near baseline except for an indeterminate troponin. on exam she is breathing comfortably on bipap 15 IPAP/6 EPAP rate in the 20s, lungs CTAB, heart IRIRR, abd nttp, extremities w/o edema, pulses present. Acute hypoxic respiratory failure 2/2 CHF vs PE, abg is pending, new pleural effusion possibly from CHF, consider malig. lower on ddx would be infectious cause obtain procal, lasix given, considering subtherapuetic ac and her mostly being bed bound will obtain ddimer and perform CTA if positive. Her afib rvr could be contributing to her symptoms, will push 5mg dilt and monitor response, consider drip if tolerated. with normal lung exam it is unlikely she is in acute copd exacerba tion. NSTEMI type 2 most likely causing elevated trop, continue to trend, EKG for chest pain. If pt decompensates consider urgent thoracentesis. admit to imcu for monitoring of respiratory status and further evaluation, ELOS>48hrs. Addendum - Attending - Attending Attestation Date/Time: 09/09/20 1028 I personally evaluated the patient and discussed the management with Dr. Ochoa on 08/16/20. I agree with the History, Examination, Assessment and Plan documented above with any addition or exceptions noted below.
[2020-08-16] MEDS ORDERED: Ondansetron ODT 4 MG TAB PO PRN (03:53)
[2020-08-16 04:15] LABS: ALV-art Gradient 147.075 mmHg (0-20); Puncture Site RRA
[2020-08-16 05:06] LABS: Lactic Acid 1.2 mmol/L (0.5-2.2)
[2020-08-16 05:16] LABS: Troponin I 0.164 ng/mL (< 0.028)
[2020-08-16] MEDS ORDERED: Diltiazem 125 MG in Sodium Chloride 0.9% 100 ML IVPB SCH (06:15)
--- NOTE | 2020-08-16 07:46 | RAD ---
XR Chest 1 View Portable History: Dyspnea Comparison: Radiograph July 01, 2020 Findings: Large layering pleural effusions. Heart size is enlarged. No pneumothorax. No acute osseous abnormality. Impression: New large pleural effusions with moderate cardiomegaly and pulmonary venous congestion.
[2020-08-16] MEDS ORDERED: Carvedilol 6.25 MG TAB PO SCH (08:00)
--- NOTE | 2020-08-16 08:17 | CT ---
PRELIMINARY REPORT/[facility]/EMERGENCY AFTER HOURS PROCEDURE EXAM: CTA Chest with Intravenous Contrast CLINICAL HISTORY: ER 12... 85-year-old female presents via EMS with complaints of acute shortness of breath. Past medic al history is significant for COPD and Covid 1 month ago. Patient is chronically on 2 L of supplemental oxygen. Tonight patient states that she gradually developed difficulty breathing that wa s not alleviated with her supplemental oxygen. TECHNIQUE: Axial CTA images of the chest with intravenous contrast. Three-dimensional MIP/volume rendered reform ations were performed. LIMITATIONS: Motion artifact and photon starvation obscures portions of this evaluation. Specifically, this is a limited evaluation of the moderate and smaller sized pulmonary arteries bilaterally. CONTRAST: With; ISOVUE 370. 70ML COMPARISON: Chest CTA from March 07, 2017. FINDINGS: PULMONARY ARTERIES There is no intraluminal filling defect suspicious for PE within the larger main or larger segmental pulmonary arteries bilaterally. AORTA No thoracic aortic aneurysm. LUNGS Small amount of atelectasis versus consolidation adjacent to the bilateral pleural effusions. PLEURAL SPACES Moderate-sized bilateral pleural effusions. No pneumothorax. HEART AND MEDIASTINUM Cardiomegaly. No significant pericardial effusion. Reflux of contrast into the IVC and hepatic veins . LYMPH NODES No lymphadenopathy. BONES No acute fracture. Degenerative changes of the thoracic spine. Osteopenia. CHEST WALL AND UPPER ABDOMEN Minimal nodular thickening of the left adrenal gland. Enlarged heterogeneous left thyroid lobe with internal calcifications. IMPRESSION: 1. No pulmonary embolism within the large main or larger segmental pulmonary arteries bilaterally. Please note that this is a limited exam of the moderate sized and smaller segmental pulmonary arteries bilaterally due to motion artifact and photon starvation, and pulmonary emboli cannot be exc luded in these vessels. 2. Moderate-sized bilateral pleural effusions, left slightly larger than right, with a small amount of adjacent atelectasis versus consolidation. 3. Reflux of contrast into the IVC and hepatic veins may be related to injection technique, however can also be seen in the setting of right heart dysfunction. 4. Enlarged heterogeneous left thyroid lobe with internal calcifications. Recommend dedicated thyro id ultrasound for further evaluation, and this can be performed on an outpatient nonemergent basis. ELECTRONICALLY SIGNED BY: Joe Contreras MD Aug 16, 2020 6:54:30 AM SPLITTER OPERATOR This report is intended for review by the ordering physician only, in accordance of law. If you recei ve this report in error, please call [facility] at [phone]. FINAL REPORT EMERGENT AFTER HOURS CT ANGIOGRAM THORAX WITH IV CONTRAST AND 3D RECONSTRUCTIONS: HISTORY: Elevated D-dimer. Acute shortness of breath. Patient with history of COVID one month ago. COMPARISON: 03/07/2017. IMPRESSION: 1. No CT evidence of a pulmonary embolus involving the central or proximal segmental pulmonary arteri es bilaterally. There is suboptimal evaluation of the distal segmental pulmonary arteries as well as subsegmental pulmonary arteries, and pulmonary embolus at these levels would be difficult to exclu de. 2. Mild cardiomegaly. 3. Moderate-sized bilateral pleural effusions with associated passive atelectasis. 4. Reflux of contrast into the IVC and hepatic veins which may be related to right heart dysfunction. 5. Heterogeneous left thyroid lobe with calcifications likely related to dominant thyroid nodule. Thy roid ultrasound is recommended for further evaluation. The presumed heterogeneous nodule left lobe of thyroid gland measures 2.8 cm. Findings are in agreement with preliminary report by [facility]. Transcribed Date/Time: 08/16/2020 8:21 AM
[2020-08-16] MEDS: Lisinopril 20 MG TAB PO SCH (08:36)
[2020-08-16] MEDS: Apixaban 5 MG TAB PO SCH ×2 (08:36→20:21)
[2020-08-16] MEDS: Gabapentin 300 MG CAP PO SCH ×3 (08:37→20:23)
[2020-08-16 11:42] LABS: Bacteria/HPF 2+ HPF (None Seen); Bilirubin Negative (Negative); Blood, Urine Negative (Negative); Clarity Clear (Clear); Glucose, Urine (Dipstick) Normal (Negative); Ketone, Urine Negative (Negative); Leukocyte 250 Leu/uL (Negative); Nitrite Negative (Negative); Protein, Urine (Dipstick) Negative (Neg-Trace); RBC/HPF 0-3 HPF (0-3); Urobilinogen Normal mg/dL (Less than 2)
[2020-08-16 11:48] LABS: Urine Culture Reflex No No
[2020-08-16 13:26] LABS: Troponin I 0.242 ng/mL (< 0.028)
[2020-08-16] MEDS ORDERED: Iopamidol 370 76% 100 ML VIAL ONE (15:15)
[2020-08-16] MEDS: Carvedilol 6.25 MG TAB PO SCH (15:57)
[2020-08-16] MEDS ORDERED: Polyethylene Glycol 3350 17 GM Packet PO SCH (17:45)
[2020-08-16 18:13] LABS: Troponin I 0.165 ng/mL (< 0.028)
[2020-08-16] MEDS: HYDROcodone/Acetaminophen 5/325 mg Tablet PO PRN (20:21)
[2020-08-16] MEDS: Atorvastatin Calcium 40 MG TAB PO SCH (20:23)
[2020-08-17 04:47] LABS: #Lymphocytes 1.2 thou/uL (1.20-3.40); #Monocytes 0.6 thou/uL (0.11-0.59); #Neutrophils 8.2 thou/uL (1.40-6.50); %Eosinophils 0.1 % (0.0-10.0); %Lymphocytes 11.6 % (21.0-51.0); %Neutrophils 82.3 % (42.0-75.0); Mean Corpuscular HGB CONC 31.4 g/dL (32.0-36.0); Mean Corpuscular Hemoglobin 31.1 pg (27.0-31.0); Mean Corpuscular Volume 99.2 fL (78.0-98.0); Mean Platelet Volume 7.3 fL (7.4-10.4); Platelet Count 237 thou/uL (130-400); RBC Distribution Width 14.1 % (11.5-14.5)
[2020-08-17 05:08] LABS: ALT (SGPT) 40 U/L (8-55); AST (SGOT) 21 U/L (5-34); Alkaline Phosphatase 167 U/L (40-110); Anion Gap 13 mmol/L (10-20); BUN (Urea Nitrogen) 26 mg/dL (9.8-20.1); Bilirubin, Total 0.4 mg/dL (0.2-1.2); Calc. Creatinine Clearance 83 mL/min (70-130); Carbon Dioxide 31 mmol/L (23-31); Chloride 103 mmol/L (98-107); Globulin 3.6 g/dL (2.4-3.5); Glucose 154 mg/dL (83-110); Potassium 4.5 mmol/L (3.5-5.1); Protein, Total 6.6 g/dL (6.0-8.3); Sodium 142 mmol/L (136-145)
--- NOTE | 2020-08-17 05:58 | PDOC.FM ---
- Subjective Subjective: Patient resting in bed this morning on NC. She says she feels much better. Improved SOB, decreased work of breathing. Tolerating PO. Has not been up out of bed yet. Denies CP, abdominal pain, GARCIA. Patient's dilt gtt was discontinued 08/16 around 1640. She remains in Afib but rate is controlled. - Objective MAR Reviewed: Yes Vital Signs & Weight: Vital Signs (12 hours) Temp Pulse Ox 08/17/20 05:06 99 08/17/20 03:38 98.1 F 08/16/20 23:28 96.9 F L 08/16/20 20:00 97.4 F L 93 L Weight Weight 141.521 kg Most Recent Monitor Data Heart Rate from ECG 69 NIBP 116/62 NIBP BP-Mean 80 Respiration from ECG 14 SpO2 97 I&O: 08/15/20 08/16/20 08/17/20 06:59 06:59 06:59 Intake Total 760 Output Total 300 Balance 460 Result Diagrams: 08/17/20 04:32 08/17/20 04:32 Phys Exam - Physical Examination Constitutional: NAD on NC HEENT: moist MMs Neck: full ROM Respiratory: no wheezing hard to assess as patient does not want to sit up in bed for proper exam afib Gastrointestinal: soft, non-tender Musculoskeletal: no edema, pulses present Neurological: moves all 4 limbs Psychiatric: normal affect, A&O x 3 Dx/Plan - Plan Plan: Acute hypoxic respiratory failure -Unsure of etiology: Afib w/RVR vs HF exacerbation though patient's BNP is not extraordinary and she does not appear fluid overloaded. Low suspicion for infectious process due to nml WBC, neg lactic, and afebrile -67% on RA at home, improved to 99 on CPAP. Currently 97 on BIPAP in ED. s/p solumedrol and magnesium per EMS -CXR: bilateral pleural effusions that were not present on previous imaging -BNP 286, lactic 2.2, trop 0.068 -ABG: pH 7.32, pCO2 49 -EKG: Afib w/RVR -Ddimer elevated, CTA negative for PE -echo pending HFpEF -ECHO 07/02, EF 50-55% -BNP 286 -Received 40mg IV lasix in ED -strict I/Os, daily weights -May be source of SOB and pulmonary effusion -echo pending Afib w/RVR, now rate controlled -Known history -Anticoagulated with warfarin prior to 08/[address] Tolliver at which time he switched to eliquis due to subtherapeutic INR and missing warfarin doses. -HR 90-110s while in ED -s/p dilt gtt stopped 08/16 -increased Coreg to 12.5mg -Continue home PO Dilt 180mg Elevated troponin -0.068>.164>.242>.165 -likely demand ischemia due to Afib Diarrhea -2-3 day history. Denies bloody stool. -follow up electrolytes COPD -Aware, duonebs prn at home -Received solumedrol and magnesium per EMS -no wheezing on PE Recent hospitalization for COVID pneumonia -05/18-05/21 -Has been on supplemental home oxygen since -Reports negative test on 08/10 HTN -Elevated in ED -Nitropaste -Continue home meds HLD -Aware, continue home meds GERD -Aware, continue home meds Chronic back pain due to spondylosis -Aware, continue home meds -takes norco for pain CKD3 -Cr 1.02 on admission -Continue to monitor DVT PPx: eliquis Diet: HH Code: DNR PCP: Jn Dispo: eLOS >48 hours for workup of source of sudden SOB and respiratory distress. Transfer to tele if patient is doing well off of bipap Addendum - Attending - Attending Attestation Date/Time: 08/17/20 1202 I personally evaluated the patient and discussed the management with Dr. Marques I agree with the History, Examination, Assessment and Plan documented above with any addition or exceptions noted below.
[2020-08-17] MEDS ORDERED: Atorvastatin Calcium 40 MG TAB PO SCH (09:00)
--- NOTE | 2020-08-17 09:03 | PDOC.BPN ---
- Brief Progress Note Encounter Date: 08/16/20 Encounter Time: 07:45 Renee Salinas is an 85 yo female with a significant PMH including paroxysmal a- fib, post-inflammatory respiratory failure 2/2 COVID, HTN, diastolic heart failure, hx of CAD, hx of thrombus who presented with history of overnight oxygen desaturation and difficulty "catching her breath". She states she has had multiple episodes of waking and feeling like she is short of breath even though she is on [place] oxygen. I saw Mrs. Salinas on 08/15 and placed on order for a home sleep study as I thought an aspect of her desaturating was secondary to NEIDA. Symptoms included snoring, hypoxemia, daytime sleepiness in the setting of being overweight. Of note patient has been subtherapeutic while on warfarin so we were scheduled to switch to apixaban 5 mg BID on 08/16 for better coverage, convenience, and safety, and less risk of bleeding including hemorrhagic stroke. A noteable event was prior to her discharge from rehab at the end of July which resulted in patient being discontinued from her diltiazem, lasix, HCTZ, Lisinopril. She was continued on her coreg for some rate control. Family noted Mrs. Salinas to have episodes of RVR so they initiated diltiazem about a week prior to my home visit. She was running in the 90's on my visit. She also did not appear fluid overloaded but exam is difficult due to body habitus and weakness. Her BP was elevated so restarted lisinopril at half dose, 20 mg. We were going to recheck BP in 2 weeks and possibly increase dose if needed. Vitals: Blood pressure, rate were WNL during my examination Pertinent PE: General: uncomfortable appearing but at baseline for her Lungs: did not appreciate rales, crackles, wheezing but difficult in setting of bipap Cardiac: Reg rate, abnormal rhythm LE: negative raisa's sign, no tenderness to palpation, no significant swelling A/P: # Acute Hypoxic Respiratory Failure - CTA - no PE - CXR, CTA revealed pleural effusions. Could consider initiating Lasix. - Control RVR with dilt drip - continue dilt 180 mg PO daily, coreg 6.25 mg PO BID - Seems pt desats overnight - possibly component of NEIDA. No workup in past. She could benefit from CPAP overnight. - Has post-inflammatory lung changes 2/2 COVID with little reserve it appears - CTA revealed possibly R heart dysfunction which could be 2/2 elevated pressures of pulmonary arteries - procal negative # Elevated trop likely demand ischemia # Paroxysmal A-fib with RVR - restart home dilt, coreg - convert warfarin to apixaban 5 mg PO BID once INR is < 2. # Diastolic Heart Failure; HFpEF - possibly an acute exacerbation with BP uncontrolled, consider controlling BP with addition of home lisinopril 40 mg PO daily - consider restarting home lasix 20 mg PO daily # HTN -as above # HLD - can continue atorvastatin which was restarted at rehab. Could discontinue as her 10 year prognosis is poor. # CKD Stage III - monitor # Hx of CAD - no ASA with Bleed risk and taking anticoag # GERD - recommend continuing home PPI Dispo: admit to IMCU Diet: HH VTE: apixaban Refer to Dr. Marques's workup and treatment for management of patient.
[2020-08-17] MEDS: Carvedilol 6.25 MG TAB PO SCH ×2 (09:57→17:28)
[2020-08-17] MEDS: Apixaban 5 MG TAB PO SCH ×2 (09:57→20:16)
[2020-08-17] MEDS: Gabapentin 300 MG CAP PO SCH ×3 (09:58→20:16)
[2020-08-17] MEDS: Lisinopril 20 MG TAB PO SCH (09:59)
[2020-08-17] MEDS: Polyethylene Glycol 3350 17 GM Packet PO SCH (09:59)
[2020-08-17] MEDS: Atorvastatin Calcium 40 MG TAB PO SCH (20:15)
[2020-08-17] MEDS: HYDROcodone/Acetaminophen 5/325 mg Tablet PO PRN (20:19)
[2020-08-18 04:42] LABS: #Eosinphils 0.1 thou/uL (0.0-0.7); #Lymphocytes 1.6 thou/uL (1.20-3.40); #Monocytes 0.6 thou/uL (0.11-0.59); #Neutrophils 4.4 thou/uL (1.40-6.50); %Basophils 0.1 % (0.0-1.0); %Eosinophils 0.9 % (0.0-10.0); %Lymphocytes 24.4 % (21.0-51.0); %Monocytes 9.1 % (0.0-10.0); %Neutrophils 65.4 % (42.0-75.0); Hemoglobin 9.9 g/dL (12.0-16.0); Mean Corpuscular HGB CONC 30.8 g/dL (32.0-36.0); Mean Corpuscular Hemoglobin 30.8 pg (27.0-31.0); Mean Platelet Volume 7.4 fL (7.4-10.4); Platelet Count 239 thou/uL (130-400); Red Blood Cell (RBC) Count 3.21 mill/uL (4.20-5.40); White Blood Cell (WBC) Count 6.7 thou/uL (4.8-10.8)
[2020-08-18 04:50] LABS: ALT (SGPT) 31 U/L (8-55); AST (SGOT) 15 U/L (5-34); Albumin 2.9 g/dL (3.4-4.8); Alkaline Phosphatase 146 U/L (40-110); Anion Gap 10 mmol/L (10-20); BUN (Urea Nitrogen) 33 mg/dL (9.8-20.1); Bilirubin, Total 0.4 mg/dL (0.2-1.2); Calc. Creatinine Clearance 82 mL/min (70-130); Calcium 8.5 mg/dL (7.8-10.44); Carbon Dioxide 31 mmol/L (23-31); Chloride 103 mmol/L (98-107); Globulin 3.3 g/dL (2.4-3.5); Glucose 110 mg/dL (83-110); Protein, Total 6.2 g/dL (6.0-8.3); Sodium 140 mmol/L (136-145)
--- NOTE | 2020-08-18 06:18 | PDOC.FM ---
- Subjective Subjective: Patient resting comfortably in bed. Breathing has improved, denies SOB. Denies CP, eating well. Using CPAP at night. Discussed HH vs rehab with patient and she agrees she thinks she needs rehab. As per tele, patient is Afib 40s-70s while sleeping. 80s when shes awake. - Objective MAR Reviewed: Yes Vital Signs & Weight: Vital Signs (12 hours) Temp Pulse Resp BP Pulse Ox 08/18/20 03:52 97.8 F 67 125/69 95 08/18/20 00:37 65 15 95 08/18/20 00:00 97 08/17/20 22:01 97.6 F 82 18 110/59 L 97 08/17/20 20:00 94 L 08/17/20 19:25 97.4 F L Weight Weight 140.387 kg Most Recent Monitor Data Heart Rate from ECG 70 NIBP 138/93 NIBP BP-Mean 108 Respiration from ECG 18 SpO2 94 I&O: 08/16/20 08/17/20 08/18/20 06:59 06:59 06:59 Intake Total 1000 720 Output Total 450 400 Balance 550 320 Result Diagrams: 08/18/20 04:05 08/18/20 04:05 Phys Exam - Physical Examination Constitutional: NAD HEENT: moist MMs Neck: full ROM Respiratory: no wheezing, clear to auscultation bilateral afib Gastrointestinal: soft, non-tender Musculoskeletal: edema present trace edema b/l LE Neurological: moves all 4 limbs Psychiatric: A&O x 3 Skin: normal turgor Dx/Plan - Plan Plan: Acute hypoxic respiratory failure -Unsure of etiology: Afib w/RVR vs HF exacerbation though patient's BNP is not extraordinary and she does not appear fluid overloaded. Low suspicion for infectious process due to nml WBC, neg lactic, and afebrile -67% on RA at home, improved to 99 on CPAP. Currently 97 on BIPAP in ED. s/p solumedrol and magnesium per EMS -CXR: bilateral pleural effusions that were not present on previous imaging -BNP 286, lactic 2.2, trop 0.068 -ABG: pH 7.32, pCO2 49 -EKG: Afib w/RVR -Ddimer elevated, CTA negative for PE -echo 08/17: technically difficulty exam 2/2 body habitus, EF 50-55%, diastolic dysfunction cannot be assessed -follow up chest XR HFpEF -ECHO 07/02, EF 50-55%, see repeat above -BNP 286 -Received 40mg IV lasix in ED, continue lasix as needed -strict I/Os, daily weights -May be source of SOB and pulmonary effusion Afib w/RVR, now rate controlled -Known history: known source, as patient was not taking PO Dilt at home. Patient also just was seen by Dr Connelly outpatient -Anticoagulated with warfarin prior to 08/[address] Tolliver at which time he switched to eliquis due to subtherapeutic INR and missing warfarin doses. -HR 90-110s while in ED -s/p dilt gtt stopped 08/16 -decrease Coreg from 12.5mg back to home 6.25mg given patients rate of 40-60s overnight -Continue home PO Dilt 180mg Elevated troponin -0.068>.164>.242>.165 -likely demand ischemia due to Afib Diarrhea -2-3 day history. Denies bloody stool. -follow up electrolytes COPD -Aware, duonebs prn at home -Received solumedrol and magnesium per EMS -no wheezing on PE -duonebs PRN Recent hospitalization for COVID pneumonia -05/18-05/21 -Has been on supplemental home oxygen since -Reports negative test on 08/10 HTN -Elevated in ED -Nitropaste -Continue home meds HLD -Aware, continue home meds GERD -Aware, continue home meds Chronic back pain due to spondylosis -Aware, continue home meds -takes norco for pain CKD3 -Cr 1.02 on admission -Continue to monitor DVT PPx: eliquis Diet: HH Code: DNR PCP: Jn Dispo: eLOS >48 hours for workup of source of sudden SOB and respiratory distress. pending case management for rehab placement Addendum - Attending - Attending Attestation Date/Time: 08/18/20 2211 I personally evaluated the patient and discussed the management with Dr. Marques I agree with the History, Examination, Assessment and Plan documented above with any addition or exceptions noted below. Recommend restart home rx and look into options for continued rehab. She has physically declined since being out of recent rehab and would benefit from continued PT restorative care.
[2020-08-18] MEDS ORDERED: Furosemide 20 MG/2 ML VIAL SLOW IVP SCH (06:30)
[2020-08-18] MEDS: Lisinopril 20 MG TAB PO SCH (08:59)
[2020-08-18] MEDS: Carvedilol 6.25 MG TAB PO SCH ×2 (09:00→15:27)
[2020-08-18] MEDS: Apixaban 5 MG TAB PO SCH ×2 (09:00→21:36)
[2020-08-18] MEDS: Gabapentin 300 MG CAP PO SCH ×3 (09:02→21:36)
[2020-08-18] MEDS: Polyethylene Glycol 3350 17 GM Packet PO SCH (09:05)
--- NOTE | 2020-08-18 12:01 | RAD ---
EXAM: Chest PA and lateral: HISTORY: Bilateral pleural effusion COMPARISON: 11/15/2027 FINDINGS: Heart: Enlarged. Aorta: Unremarkable Pulmonary vessels: Normal Costophrenic angles: Mall bilateral pleural effusions. Lungs: Bibasilar parenchymal changes likely represent atelectasis. Aspiration and/or pneumonia cannot be entirely excluded. Pneumothorax: No pneumothorax Osseous structures: No osseous abnormalities IMPRESSION: 1. Bibasilar pleural and parenchymal changes. 2. Cardiomegaly.
[2020-08-18] MEDS ORDERED: Heparin 1,000 UNITS/ML VIAL ONE (14:03)
[2020-08-18] MEDS: Atorvastatin Calcium 40 MG TAB PO SCH (21:36)
[2020-08-18] MEDS: HYDROcodone/Acetaminophen 5/325 mg Tablet PO PRN (21:40)
[2020-08-19 05:26] LABS: #Eosinphils 0.1 thou/uL (0.0-0.7); #Lymphocytes 1.5 thou/uL (1.20-3.40); #Monocytes 0.5 thou/uL (0.11-0.59); %Basophils 0.3 % (0.0-1.0); %Eosinophils 2.4 % (0.0-10.0); %Lymphocytes 23.8 % (21.0-51.0); %Neutrophils 65.6 % (42.0-75.0); Hemoglobin 10.1 g/dL (12.0-16.0); Mean Corpuscular HGB CONC 31.3 g/dL (32.0-36.0); Mean Corpuscular Hemoglobin 30.7 pg (27.0-31.0); Mean Corpuscular Volume 98.1 fL (78.0-98.0); Platelet Count 259 thou/uL (130-400); RBC Distribution Width 14.1 % (11.5-14.5); Red Blood Cell (RBC) Count 3.27 mill/uL (4.20-5.40); White Blood Cell (WBC) Count 6.1 thou/uL (4.8-10.8)
--- NOTE | 2020-08-19 05:44 | PDOC.FM ---
- Subjective Subjective: Patient was resting comfortably in bed. CPAP was on and running. Patient was awake for the morning and requesting that her CPAP be removed. She denied any CP, SOB, or abdominal pain. - Objective MAR Reviewed: Yes Vital Signs & Weight: Vital Signs (12 hours) Temp Pulse Resp BP Pulse Ox 08/19/20 03:50 98.3 F 58 L 108/55 L 91 L 08/19/20 01:20 66 15 96 08/19/20 00:29 96 08/18/20 20:00 96 08/18/20 19:45 98.0 F 72 20 118/76 96 Weight Weight 136.849 kg Most Recent Monitor Data Heart Rate from ECG 70 NIBP 138/93 NIBP BP-Mean 108 Respiration from ECG 18 SpO2 94 I&O: 08/17/20 08/18/20 08/19/20 06:59 06:59 06:59 Intake Total 7964 552 5148 Output Total 450 400 800 Balance 550 320 340 Result Diagrams: 08/19/20 04:03 08/19/20 04:03 EKG Reviewed by me: Yes (Afib rate in 60s-80s) Phys Exam - Physical Examination Constitutional: NAD HEENT: moist MMs Neck: supple, full ROM Respiratory: no wheezing, no rales, no rhonchi Irregularly irregular Gastrointestinal: soft, non-tender, no distention, positive bowel sounds Musculoskeletal: no edema Neurological: non-focal Psychiatric: normal affect, A&O x 3 Skin: no rash Dx/Plan - Plan Plan: Acute hypoxic respiratory failure -Unsure of etiology: Afib w/RVR vs HF exacerbation though patient's BNP is not extraordinary and she does not appear fluid overloaded. Low suspicion for infectious process due to nml WBC, neg lactic, and afebrile -67% on RA at home, improved to 99 on CPAP. s/p BIPAP in ED. s/p solumedrol and magnesium per EMS -now on 2 L NC -CXR: bilateral pleural effusions that were not present on previous imaging -BNP 286, lactic 2.2, trop 0.068 -ABG: pH 7.32, pCO2 49 -EKG: Afib w/RVR -Ddimer elevated, CTA negative for PE -echo 08/17: technically difficulty exam 2/2 body habitus, EF 50-55%, diastolic dysfunction cannot be assessed -follow up chest XR HFpEF -ECHO 07/02, EF 50-55%, see repeat above -BNP 286 -Received 40mg IV lasix in ED, continue lasix as needed -strict I/Os, daily weights -May be source of SOB and pulmonary effusion Afib w/RVR, now rate controlled -Known history: known source, as patient was not taking PO Dilt at home. Patient also just was seen by Dr Connelly outpatient -Anticoagulated with warfarin prior to 08/[address] Tolliver at which time he switched to eliquis due to subtherapeutic INR and missing warfarin doses. -HR 90-110s while in ED, now rate controlled in the 60s-80s -s/p dilt gtt stopped 08/16 -home Coreg of 6.25mg, home PO Dilt 180mg Elevated troponin -0.068>.164>.242>.165 -likely demand ischemia due to Afib Diarrhea -2-3 day history. Denies bloody stool. -follow up electrolytes, stable COPD -Aware, duonebs prn at home -s/p solumedrol and magnesium per EMS -no wheezing on PE -duonebs PRN Recent hospitalization for COVID pneumonia -05/18-05/21 -Has been on supplemental home oxygen since -Reports negative test on 08/10 HTN -Continue home meds HLD -Aware, continue home meds GERD -Aware, continue home meds Chronic back pain due to spondylosis -Aware, continue home meds -takes norco for pain CKD3 -Cr 1.02 on admission -Continue to monitor Dispo: pending case management for rehab placement Addendum - Attending - Attending Attestation Date/Time: 08/19/20 3883 I personally evaluated the patient and discussed the management with Dr. Jacome I agree with the History, Examination, Assessment and Plan documented above with any addition or exceptions noted below. Working on placement. titrating HF meds.
[2020-08-19 05:49] LABS: ALT (SGPT) 35 U/L (8-55); AST (SGOT) 34 U/L (5-34); Albumin 2.9 g/dL (3.4-4.8); Alkaline Phosphatase 148 U/L (40-110); Anion Gap 12 mmol/L (10-20); BUN (Urea Nitrogen) 36 mg/dL (9.8-20.1); Bilirubin, Total 0.7 mg/dL (0.2-1.2); Calc. Creatinine Clearance 84 mL/min (70-130); Calcium 8.6 mg/dL (7.8-10.44); Carbon Dioxide 30 mmol/L (23-31); Chloride 103 mmol/L (98-107); Globulin 3.3 g/dL (2.4-3.5); Glucose 94 mg/dL (83-110); Potassium 4.3 mmol/L (3.5-5.1); Protein, Total 6.2 g/dL (6.0-8.3); Sodium 141 mmol/L (136-145)
[2020-08-19] MEDS: Gabapentin 300 MG CAP PO SCH ×3 (09:42→21:21)
[2020-08-19] MEDS: Lisinopril 20 MG TAB PO SCH (09:43)
[2020-08-19] MEDS: Apixaban 5 MG TAB PO SCH ×2 (09:45→21:21)
[2020-08-19] MEDS: Carvedilol 6.25 MG TAB PO SCH ×2 (09:45→15:52)
[2020-08-19] MEDS: Polyethylene Glycol 3350 17 GM Packet PO SCH (09:45)
[2020-08-19] MEDS: Calcium Carbonate 500 MG ChewTAB PO PRN (15:51)
[2020-08-19] MEDS: Atorvastatin Calcium 40 MG TAB PO SCH (21:21)
[2020-08-19] MEDS: Ondansetron PF 4 MG/2 ML Vial IVP PRN (21:22)
[2020-08-20 04:31] LABS: #Lymphocytes 0.9 thou/uL (1.20-3.40); #Monocytes 0.6 thou/uL (0.11-0.59); #Neutrophils 7.2 thou/uL (1.40-6.50); %Basophils 0.1 % (0.0-1.0); %Eosinophils 0.2 % (0.0-10.0); %Lymphocytes 10.8 % (21.0-51.0); %Monocytes 6.4 % (0.0-10.0); %Neutrophils 82.4 % (42.0-75.0); Hemoglobin 9.7 g/dL (12.0-16.0); Mean Corpuscular HGB CONC 31.5 g/dL (32.0-36.0); Mean Corpuscular Hemoglobin 30.8 pg (27.0-31.0); Mean Corpuscular Volume 97.9 fL (78.0-98.0); Mean Platelet Volume 7.9 fL (7.4-10.4); Platelet Count 224 thou/uL (130-400); RBC Distribution Width 13.9 % (11.5-14.5); Red Blood Cell (RBC) Count 3.13 mill/uL (4.20-5.40); White Blood Cell (WBC) Count 8.7 thou/uL (4.8-10.8)
[2020-08-20 05:23] LABS: ALT (SGPT) 206 U/L (8-55); AST (SGOT) 247 U/L (5-34); Albumin 2.7 g/dL (3.4-4.8); Alkaline Phosphatase 265 U/L (40-110); Anion Gap 12 mmol/L (10-20); BUN (Urea Nitrogen) 41 mg/dL (9.8-20.1); Calc. Creatinine Clearance 63 mL/min (70-130); Calcium 8.3 mg/dL (7.8-10.44); Carbon Dioxide 29 mmol/L (23-31); Chloride 101 mmol/L (98-107); Glucose 137 mg/dL (83-110); Protein, Total 5.7 g/dL (6.0-8.3); Sodium 137 mmol/L (136-145)
[2020-08-20] MEDS ORDERED: Sodium Chloride 0.9% 500 ML IV SCH (05:30)
--- NOTE | 2020-08-20 06:11 | PDOC.FM ---
- Subjective Subjective: Patient had a low BP of 79/52, was satting in the 70s on CPAP, and was having difficulty following commands. CPAP was removed and she was started on 4L NC with improvement in saturation. She was also given 500 ml bolus with improvement in pressures. When I rounded on the patient, the nurse was checking her BP again and it was in the 80s/60s. We bolused another 500 with improvement in pressure. Patient was responsive at the time and was able to follow commands. She was laying flat on her back and was satting in the 90s on 3 L NC. She denies CP, SOB, abdominal pain, GARCIA. Her daughter reports that she was nauseous all day yesterday and struggled with PO intake. - Objective MAR Reviewed: Yes Vital Signs & Weight: Vital Signs (12 hours) Temp Pulse Resp BP Pulse Ox 08/19/20 20:00 94 L 08/19/20 19:15 97.7 F 65 20 127/60 94 L Weight Weight 136.849 kg Most Recent Monitor Data Heart Rate from ECG 70 NIBP 138/93 NIBP BP-Mean 108 Respiration from ECG 18 SpO2 94 I&O: 08/18/20 08/19/20 08/20/20 06:59 06:59 06:59 Intake Total 720 1140 720 Output Total 400 800 450 Balance 320 340 270 Result Diagrams: 08/20/20 04:04 08/20/20 04:04 EKG Reviewed by me: Yes (afib rate in 70s-80s) Phys Exam - Physical Examination laying flat on her back with NC in place HEENT: moist MMs Respiratory: no wheezing, no rales, no rhonchi Distant breath sounds Cardiovascular: no significant murmur irregularly irregular Gastrointestinal: soft, non-tender Neurological: non-focal Psychiatric: normal affect Skin: no rash Dx/Plan - Plan Plan: Acute hypoxic respiratory failure -Unsure of etiology: Afib w/RVR vs HF exacerbation though patient's BNP is not extraordinary and she does not appear fluid overloaded. Low suspicion for infectious process due to nml WBC, neg lactic, and afebrile -67% on RA at home, improved to 99 on CPAP. s/p BIPAP in ED. s/p solumedrol and magnesium per EMS -now on 3 L NC, pt is on 2 L at home -CXR: bilateral pleural effusions that were not present on previous imaging, repeat xray showed improvement -BNP 286, lactic 2.2, trop 0.068 -ABG: pH 7.32, pCO2 49 -EKG: Afib w/RVR -Ddimer elevated, CTA negative for PE -echo 08/17: technically difficulty exam 2/2 body habitus, EF 50-55%, diastolic dysfunction cannot be assessed HFpEF -ECHO 07/02, EF 50-55%, see repeat above -BNP 286 -s/p lasix -strict I/Os, daily weights -May be source of SOB and pulmonary effusion Hypotension -likely 2/2 to diuresis -low pressures overnight -s/p 500 ml bolus x2 -will hold morning lisinopril and coreg Afib w/RVR, now rate controlled -Known history: known source, as patient was not taking PO Dilt at home. Patient also just was seen by Dr Connelly outpatient -Anticoagulated with warfarin prior to 08/[address] Tolliver at which time he switched to eliquis due to subtherapeutic INR and missing warfarin doses. -HR 90-110s while in ED, now rate controlled in the 60s-80s -s/p dilt gtt stopped 08/16 -home Coreg of 6.25mg (holding today), home PO Dilt 180mg SEGUNDO -likely secondary to hypoperfusion -s/p fluids -will continue to monitor Transaminitis -likely 2/2 to hypoperfusion -s/p fluids -will continue to monitor Elevated troponin -0.068>.164>.242>.165 -likely demand ischemia due to Afib Diarrhea -2-3 day history. Denies bloody stool. -follow up electrolytes, stable COPD -Aware, duonebs prn at home -s/p solumedrol and magnesium per EMS -no wheezing on PE -duonebs PRN Recent hospitalization for COVID pneumonia -05/18-05/21 -Has been on supplemental home oxygen since -Reports negative test on 08/10 HTN -lisinopril decreased yesterday -holding due to hypotension as mentioned above HLD -Aware, continue home meds GERD -Aware, continue home meds Chronic back pain due to spondylosis -Aware, continue home meds -takes norco for pain CKD3 -Cr 1.02 on admission -Continue to monitor Dispo: pending case management for rehab placement and blood pressure control Addendum - Attending - Attending Attestation Date/Time: 08/20/20 7121 I personally evaluated the patient and discussed the management with Dr. Darvin allison. I agree with the History, Examination, Assessment and Plan documented above with any addition or exceptions noted below. Daughter reports declining mentation overnight. She had one episode of hy potension overnight and received a 1L bolus. Likely over diuresis given increase in Cr. Will monitor O2 requirement. Encourage ambulation. Working on placement. OOH DNR signed today.
[2020-08-20] MEDS ORDERED: Lisinopril 20 MG TAB PO SCH (09:00)
[2020-08-20] MEDS: Apixaban 5 MG TAB PO SCH ×2 (10:20→21:25)
[2020-08-20] MEDS: Gabapentin 300 MG CAP PO SCH ×3 (10:20→21:25)
[2020-08-20] MEDS: Polyethylene Glycol 3350 17 GM Packet PO SCH (10:20)
[2020-08-20] MEDS: Carvedilol 6.25 MG TAB PO SCH (10:27)
[2020-08-20] MEDS: Ondansetron PF 4 MG/2 ML Vial IVP PRN (18:57)
[2020-08-20] MEDS: Calcium Carbonate 500 MG ChewTAB PO PRN (18:57)
--- NOTE | 2020-08-20 20:58 | PDOC.BPN ---
- Brief Progress Note Encounter Date: 08/20/20 Encounter Time: 20:30 Called for low BP of 87/44, recheck on manual cuff 88/48. T 97.9, P 72, R 18, 92 on 3L. She has also had minimal urine output: bladder scan showed <100 ml, I/O catheter was 5 ml dark fluid. Went to see patient, she is laying in bed, eyes open, responds to questions. Cardiac: RRR, no murmurs. Lungs BCTA, but difficult exam due to body habitus. Daughter in the room reports she has been pushing fluids today, had about 5 cups of fluids all together today. Plan is to bolus 500 ml LR and recheck BP. Will also check BMP now since daughter is concerned about her kidney function, and her Cr did appear to bump up today.
[2020-08-20] MEDS: Atorvastatin Calcium 40 MG TAB PO SCH (21:24)
[2020-08-20] MEDS: HYDROcodone/Acetaminophen 5/325 mg Tablet PO PRN (21:28)
[2020-08-20 21:55] LABS: Anion Gap 16 mmol/L (10-20); BUN (Urea Nitrogen) 48 mg/dL (9.8-20.1); Calc. Creatinine Clearance 41 mL/min (70-130); Calcium 8.2 mg/dL (7.8-10.44); Carbon Dioxide 25 mmol/L (23-31); Chloride 101 mmol/L (98-107); Glucose 120 mg/dL (83-110); Potassium 4.8 mmol/L (3.5-5.1); Sodium 137 mmol/L (136-145)
[2020-08-20] MEDS ORDERED: Lactated Ringer's 500 ML IV SCH (22:15)
[2020-08-21 04:30] LABS: #Eosinphils 0.2 thou/uL (0.0-0.7); #Lymphocytes 1.3 thou/uL (1.20-3.40); #Monocytes 0.6 thou/uL (0.11-0.59); #Neutrophils 4.3 thou/uL (1.40-6.50); %Basophils 0.2 % (0.0-1.0); %Eosinophils 2.7 % (0.0-10.0); %Monocytes 9.4 % (0.0-10.0); %Neutrophils 66.6 % (42.0-75.0); Hemoglobin 9.5 g/dL (12.0-16.0); Mean Corpuscular HGB CONC 30.6 g/dL (32.0-36.0); Mean Corpuscular Hemoglobin 30.4 pg (27.0-31.0); Mean Corpuscular Volume 99.5 fL (78.0-98.0); Mean Platelet Volume 8.2 fL (7.4-10.4); Platelet Count 213 thou/uL (130-400); RBC Distribution Width 13.9 % (11.5-14.5); Red Blood Cell (RBC) Count 3.12 mill/uL (4.20-5.40); White Blood Cell (WBC) Count 6.4 thou/uL (4.8-10.8)
[2020-08-21 04:50] LABS: ALT (SGPT) 144 U/L (8-55); AST (SGOT) 102 U/L (5-34); Albumin 2.7 g/dL (3.4-4.8); Alkaline Phosphatase 252 U/L (40-110); Anion Gap 13 mmol/L (10-20); BUN (Urea Nitrogen) 51 mg/dL (9.8-20.1); Bilirubin, Total 1.1 mg/dL (0.2-1.2); Calc. Creatinine Clearance 36 mL/min (70-130); Calcium 8.4 mg/dL (7.8-10.44); Carbon Dioxide 30 mmol/L (23-31); Chloride 99 mmol/L (98-107); Globulin 3.1 g/dL (2.4-3.5); Glucose 102 mg/dL (83-110); Potassium 5.2 mmol/L (3.5-5.1); Protein, Total 5.8 g/dL (6.0-8.3); Sodium 137 mmol/L (136-145)
[2020-08-21] MEDS ORDERED: Lactated Ringer's 500 ML IV SCH (05:30)
--- NOTE | 2020-08-21 06:19 | PDOC.FM ---
- Subjective Subjective: Overnight, the residents were called for low BP of 87/44, recheck on manual cuff 88/48. She has also had minimal urine output with I/O catheter showing 5 ml dark fluid. At that time, patient was laying in bed, eyes open, responding to questions. She was bolused a total of 1000 mls of LR overnight. This morning during my exam, patient was sitting up on the side of the bed preparing to eat breakfast. She was requesting her morning coffee. Her daughter reported that this was the most interactive she had been all night. Patient denied any pain but was still producing minimal urine that was very dark in color. - Objective MAR Reviewed: Yes Vital Signs & Weight: Vital Signs (12 hours) Temp Pulse Resp BP Pulse Ox 08/21/20 04:00 97.6 F 75 16 83/49 L 96 08/20/20 22:34 116/66 08/20/20 19:10 97.7 F 72 18 87/44 L 92 L Weight Weight 143.244 kg Most Recent Monitor Data Heart Rate from ECG 70 NIBP 138/93 NIBP BP-Mean 108 Respiration from ECG 18 SpO2 94 I&O: 08/19/20 08/20/20 08/21/20 06:59 06:59 06:59 Intake Total 1140 1100 3620 Output Total 800 550 35 Balance 875 222 2441 Result Diagrams: 08/21/20 04:00 08/21/20 04:00 EKG Reviewed by me: Yes (Afib 60s to 70s) Phys Exam - Physical Examination Constitutional: NAD HEENT: moist MMs Difficult exam due to body habitus, no rales heard on exam Cardiovascular: no significant murmur irregularly irregular, Gastrointestinal: soft, non-tender Neurological: moves all 4 limbs Psychiatric: A&O x 3 Skin: no rash Dx/Plan - Plan Plan: Acute hypoxic respiratory failure likely 2/2 to cardiorenal syndrome -pt originally received lasix due to concern for CHF exacerbation, patient then appeared dry and was hypotensive, labs were concerning for hypoperfusion so patient was given fluids overnight on two different occasions; today there are concerns for cardiorenal syndrome and Dr. Bone has been consulted -now on 3 L NC, pt is on 2 L at home -original CXR: bilateral pleural effusions that were not present on previous imaging, repeat xray showed improvement -repeat xray today: worsening of CHF -BNP 286 > 324.3 -EKG: Afib w/RVR -echo 08/17: technically difficulty exam 2/2 body habitus, EF 50-55%, diastolic dysfunction cannot be assessed; will repeat today due to worsening clinical picture HFpEF -ECHO 07/02, EF 50-55%, see repeat above (repeating echo today) -BNP 286 > 324.3 -s/p lasix -strict I/Os, daily weights -May be source of SOB and pulmonary effusion Hypotension -s/p 500 ml bolus x2 overnight, not receiving fluids due to concern for w orsening CHF and cardiorenal syndrome -likely 2/2 to cardiorenal syndrome -low pressures overnight -will continue to hold morning lisinopril and coreg -Dr. Bone consulted as mentioned above Afib w/RVR, now rate controlled -Known history: known source, as patient was not taking PO Dilt at home. Patient also just was seen by Dr Connelly outpatient -Anticoagulated with warfarin prior to 08/[address] Tolliver at which time he switched to eliquis due to subtherapeutic INR and missing warfarin doses. -HR 90-110s while in ED, now rate controlled in the 60s-80s -s/p dilt gtt stopped 08/16 -home Coreg of 6.25mg (holding today), decreased home PO Dilt from 180mg to 120 mg SEGUNDO on CKD3 -Cr 1.02 on admission -Continue to monitor -likely secondary to cardiorenal syndrome -Dr. Bone consulted -will continue to monitor Transaminitis, improved -likely 2/2 to hypoperfusion vs congestion 2/2 to cardiorenal syndrome -improved, AST/ALT 102/144 -will continue to monitor Elevated troponin -0.068>.164>.242>.165 -likely demand ischemia due to Afib Diarrhea, resolved COPD -Aware, duonebs prn at home -s/p solumedrol and magnesium per EMS -no wheezing on PE -duonebs PRN Recent hospitalization for COVID pneumonia -05/18-05/21 -Has been on supplemental home oxygen since -Reports negative test on 08/10 HTN -lisinopril decreased -holding due to hypotension as mentioned above HLD -Aware, continue home meds GERD -Aware, continue home meds Chronic back pain due to spondylosis -Aware, continue home meds -takes norco for pain Dispo: pending further medical management Addendum - Attending - Attending Attestation Date/Time: 08/21/20 8110 I personally evaluated the patient and discussed the management with Dr. Jacome. I agree with the History, Examination, Assessment and Plan documented above with any addition or exceptions noted below. Her decreased UPO, hypotension, and change in labs concerning for cardiorenal syndrome. Dr. Bone consulted for HF management. Discussed prognosis with daughter who understood.
[2020-08-21] MEDS: Gabapentin 300 MG CAP PO SCH ×3 (07:55→20:40)
--- NOTE | 2020-08-21 07:55 | RAD ---
Chest AP view INDICATION: History of acute hypoxic respiratory failure COMPARISON: August 18, 2020 FINDINGS: Lungs: There are bibasilar pleural-parenchymal opacities appear slightly more pronounced. Cardiac silhouette: Cardiomegaly appears slightly more pronounced. Pulmonary vasculature: Pulmonary vascular congestion appears slightly more pronounced. Pleural spaces: Small bilateral pleural effusions appear slightly larger. No pneumothorax is grossly evident. Upper abdomen: No abnormality seen. Osseous structures: No acute osseous abnormality. Additional findings: None. IMPRESSION: Mild interval worsening of the patient's [id number] CHF
[2020-08-21] MEDS: Apixaban 5 MG TAB PO SCH ×2 (07:57→20:40)
[2020-08-21] MEDS: Polyethylene Glycol 3350 17 GM Packet PO SCH (07:59)
[2020-08-21] MEDS ORDERED: Furosemide 20 MG/2 ML VIAL SLOW IVP SCH (08:30)
[2020-08-21 09:17] LABS: CKMB 3.2 ng/mL (0-6.6)
[2020-08-21] MEDS ORDERED: DOBUTamine 500 mg/250 ml 250 ML IVPB SCH (10:30)
[2020-08-21] MEDS ORDERED: Cosyntropin 250 MCG VIAL SLOW IVP SCH (10:30)
[2020-08-21] MEDS ORDERED: Amiodarone 200 MG TAB PO SCH (13:15)
[2020-08-21] MEDS ORDERED: Magnesium 2 GM/50 ML 2 GM in Premix Bag 1 BAG IVPB SCH (14:45)
--- NOTE | 2020-08-21 16:28 | CON ---
DATE OF CONSULTATION: REASON FOR CONSULT: Hypotension and acute renal failure. HISTORY OF PRESENT ILLNESS: Mrs. Renee Salinas, 85-year-old lady with a long recovery from coronavirus pneumonia, was admitted for severe shortness of breath. Mrs. Salinas before coronavirus, she could get around in her motorized wheelchair, could transfer herself and sit and eat with the family. She lived quite a fairly normal life for some one who is 85 and disabled from severe lower back pain. She was infected with coronavirus in May. She did recover. However, she has not been same since then. She went home on 3 L oxygen. She was admitted at least once before. After the coronavirus infection, she is essentially bed- bound at home. She is unable to sit for very long periods of time. She is unable to transfer herself anymore. For the last 2 weeks, she has steady increase of shortness of breath. She feels like that she is gaining fluid in her abdomen and there is also pressure sensation in her chest. It became significantly worse on Wednesday. Apparently on , August 15, her daughter found her lying. Her daughter said that Mrs. Salinas looked white as sheet with profuse sweating. At that point, she brought her to the emergency room. At the ER at [facility] [facility], she was found to be hypoxic in the high 60s to 70s. Lasix was given. BiPAP was started. A CT angiogram was done. It did not show any pulmonary embolus. Due to history of atrial fibrillation with a rapid rate response, diltiazem was continued. The daughter said Mrs. Salinas did better for several days until August 20. On August 20, she was left sitting in bed. She cannot sit for very long. She became very ill. She had a low oxygen saturation. Her systolic blood pressure dropped in the 70s. She appeared not to tolerate BiPAP and needing a nasal cannula. Since around 08/20, she has multiple instances of low blood pressure. Lactated Ringer IV fluids were given. That did not seem to help. The IV fluids just made her more short of breath. Furthermore, her creatinine took a drastic worsening from August 20 through August 21. On the morning of August 20, it was 1.47 and morning of August 21 it was 2.62. At exam, she feels fatigued and somewhat short of breath. PAST MEDICAL HISTORY: 1. COVID-19 pneumonia. 2. Atrial fibrillation but unclear when it started. 3. Hypertension. 4. History of small bowel obstruction that was relieved with surgery. 5. Hip replacement. 6. Chronic back pain secondary to spondylosis. 7. Obesity. SOCIAL HISTORY: She is a nonsmoker. She does not drink any alcohol. She denies any illicit drug use. She lives with her daughter, Eloise Salinas. FAMILY HISTORY: At age 85, family history is not contributory. REVIEW OF SYSTEMS: GENERAL: Fatigue. HEENT: There is no change in vision, hearing, or swallowing. PULMONARY: Please see HPI. CARDIAC: Please see HPI. GI: She was nauseated when she had she had low blood pressure on August 20, but today she is okay. : It is unclear that she can urinate on her own or not. MUSCULOSKELETAL: She has chronic lower back pain. INTEGUMENT: There are no reports of new skin breakdown. NEUROLOGIC: There are no new focal deficits or weaknesses. ALLERGIES: SHE HAS ALLERGY TO PENICILLIN, SULFA RELATED MEDICINES. CURRENT MEDICATIONS: Include 1. Albuterol 4 hours as needed. 2. Diltiazem extended. 3. Apixaban 5 mg b.i.d. 4. Atorvastatin 40 mg at bedtime. 5. Calcium carbonate 1000 mg as needed for pain. 6. Carvedilol 6.25 mg b.i.d. 7. Gabapentin 300 mg t.i.d. 8. Protonix 20 mg daily. 9. Lisinopril 20 mg daily. PHYSICAL EXAMINATION: The telemetry was reviewed. She is in atrial fibrillation with rate control below 90. There is some PVCs, but there is no concerning arrhythmia. VITAL SIGNS: This morning her blood pressure is 83/49. At the time of exam, her blood pressure is 105/58. GENERAL: An 85-year-old lady, appears to be fatigued and sleeping on her side. She is very large and obese and she does appear to be short of breath. HEENT: Show EOMI. Oropharynx showing poor dentitions. NECK: Difficult to exam. However, it appears to be elevated. JVP at least 13 cm. PULMONARY: Upon sitting up, she has bilateral crackles, more prominent at the right mid to right base, so consequently she has pulmonary edema. CARDIAC: Irregular rate, irregular rhythm. Normal S1, S2. There is 2/6 holosystolic murmur near the left sternal border to apex. ABDOMEN: Very large, soft, nontender. Positive bowel sounds. There is a surgical scar. EXTREMITIES: Her lower extremities, she has slight pitting edema from feet to her ankles. LABORATORY DATA: Include white cell count 6.4, hemoglobin 9.5, platelet count at 213. Her chemistry shows sodium 137, potassium 5.2, BUN 51, creatinine 2.6. Her AST elevated at 102. Her ALT elevated at 144. She has positive troponin at 0.193 and BNP is elevated at 324. Her serum albumin is depressed at 2.7. Her echocardiogram from August 17 was reviewed. 1. It was a difficult study with less than optimal images. 2. Her left ventricular ejection fraction is about 45%. 3. There is a presence of diastolic dysfunction with slow E prime of only 5. 4. She has moderately to severely dilated right ventricle with depressed right ventricular function where TAPSE is only 11. Chest x-ray was reviewed. It showed cardiomegaly with mild pulmonary edema and pleural effusions. ASSESSMENT: 85-year-old suffered from shock that caused acute kidney injury. Cause of shock has a significant cardiac component. She has biventricular dysfunction. She has dilated right ventricle with reduced right ventricle function. So consequently she has RV failure. She also has likely severe diastolic dysfunction with lower than expected ejection fraction, visually it is only about 45%, it could be worse. She could also be infected. So this need to be clearly explored. With coronavirus and steroid use, she could have adrenal insufficiency. So all of these need to be explored. For now, she needs more cardiac output to rescue her kidneys and provide better blood pressure. Please see the following for my recommendations. RECOMMENDATIONS: 1. Start dobutamine at 2.5 mcg/kg/minute. I will check on this and then we will increase the rate if needed. 2. Discontinue diltiazem. 3. Start amiodarone 400 mg b.i.d. for a 5 g low. At the time that she reaches 5 g, then we will go to 200 mg daily. 4. Please do blood culture x2 to make sure she is not infected. 5. Please do urine culture. 6. Please do Cortrosyn stimulation test, there should be a baseline cortisol measurement, afterwards give a Cortrosyn 250 mcg, after that 30 minutes cortisol draw, 60 minute cortisol draw and 90 minute cortisol draw. If the change in cortisol is less than 20, then she will be having adrenal insufficiency. 7. Please give magnesium sulfate 2 g IV one dose. Magnesium needs to be followed daily. 8. Please consider consulting EP Cardiology because this lady can benefit from cardioversion. With normal sinus rhythm, she will have much better cardiac output. It has been a pleasure taking care of Ms. Salinas. Even any question, please give me a call. Time used for this consultation is about 70 minutes. This includes personally performing history and physical, reading echocardiogram reading chest x-ray, counseling and explaining with the patient and her daughter and coordinating care. Job ID: [id number] [facility] CENTERClarice
[2020-08-21] MEDS: Amiodarone 200 MG TAB PO SCH (20:40)
[2020-08-21] MEDS: Atorvastatin Calcium 40 MG TAB PO SCH (20:40)
--- NOTE | 2020-08-21 21:53 | CON ---
DATE OF CONSULTATION: 08/21/2020 REASON FOR CONSULTATION: Consideration for NAKIA cardioversion, atrial fibrillation management. CONSULTING PHYSICIAN: Dr. Amauri Stapleton. HISTORY OF PRESENT ILLNESS: Ms. Salinas is an 85-year-old woman with a very significant unfortunate history of recent medical events. She was sick with the COVID-19 virus in May and has had substantial decline in functional status and prolonged recovery since that time. She has a history of paroxysmal atrial fibrillation dating back to October of 2014 by record review in addition to prior DVT and PEs requiring chronic oral anticoagulation. She has been on warfarin long-term, but recently had subtherapeutic INRs with missed doses, most recently on 08/15 with an INR 1.8. She was then transitioned to Eliquis. She came back to the hospital with progressive increasing shortness of breath. She has essentially been bed-bound for the past few months and does require home O2 chronically. When she came into the emergency room, she was hypoxic with sats in the high 60s to low 70s and IV Lasix has been given. She was then placed on bilevel with some moderate compliance with that. She has since had a negative COVID test on 08/10. During her hospital course, diuresis has been attempted and her kidney function has been significantly declining. She presented in atrial fibrillation with ventricular rate of 112 beats per minute and rate control has been achieved previously with diltiazem, which is recently changed out in favor of beta blockers. Dr. Bone was consulted for advanced heart failure management, is placed on a dobutamine drip and amiodarone is scheduled to start tonight. The EP consult was requested for consideration of a NAKIA-guided cardioversion given her persisting atrial fibrillation. She is also seen to have significant bilateral pleural effusions and there is concern for progressive cardiorenal heart failure now. REVIEW OF SYSTEMS: Ms. Salinas does respond to physical touch, but is quite somnolent and quickly falls back asleep. Review of systems could not be performed today. PAST MEDICAL HISTORY: 1. Paroxysmal atrial fibrillation diagnosed in October of 2014. 2. Hypertension. 3. COVID-19 pneumonia in May 2020, negative COVID swab on 08/10. 4. 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 5. Hip replacement. 6. Small bowel obstruction with surgical repair. 7. Chronic back pain with spondylosis. 8. Morbid obesity. SOCIAL HISTORY: Denies alcohol, tobacco, or illicit drug use. Lives with her daughter until recently, largely sedentary. FAMILY HISTORY: Noncontributory. ALLERGIES: PENICILLIN AND SULFA RELATED MEDICATIONS. CURRENT MEDICATIONS: 1. Albuterol as needed. 2. Amiodarone 40 mg p.o. b.i.d. schedule to start this evening. 3. Eliquis 5 mg b.i.d. 4. Lipitor at bedtime. 5. Tums as needed. 6. Coreg 6.25 mg b.i.d. 7. . 8. Dobutamine drip. 9. Gabapentin t.i.d. 10. [place] as needed. 11. Zofran as needed. 12. Protonix daily. 13. MiraLAX daily. OBJECTIVE: VITAL SIGNS: 5 feet 10 inches, 315 pounds. Temp 98.2, pulse 70, blood pressure 116/57, respirations 20, oxygen is 96% on 3 L via nasal cannula. GENERAL: The patient is resting in bed. She is in no apparent distress, but she is somnolent. She does respond to physical stimuli, but quickly drifts off to sleep. She is morbidly obese and breathing does appear somewhat labored with accessory muscle use. HEENT: Normocephalic, atraumatic, but she has poor dentition. NECK: Obese and JVD is difficult to assess. Trachea is midline. PULMONARY: Breath sounds are difficult throughout and quite in the bases with bibasilar crackles in the mid [place]. She is tachypneic. Heart rate is irregularly irregular with controlled ventricular rate. ABDOMEN: Obese. Soft. Distant bowel tones. EXTREMITIES: Warm and dry to touch. There is pitting edema in her distal lower extremities. NEUROLOGIC: Exam was not performed. Gait could not be assessed. DATABASE: WBC 6.4, hemoglobin 9.5. Chemistry: Potassium 5.2, creatinine 2.6, AST 102, ALT 144, alkaline phosphatase 252. BNP 324. TSH 0.4. Echocardiogram, LVEF 50% to 65%. IMPRESSION: 1. Atrial fibrillation with controlled ventricular rates. 2. Chronic oral anticoagulation or atrial fibrillation in addition to history of multiple prior DVTs and PEs, subtherapeutic INR on 08/15 with an INR of 1.8 and then transition to Eliquis. 3. Preserved LVEF by recent echo. 4. Heart failure with preserved EF. 5. Hypotension. 6. Acute kidney injury with chronic kidney disease, stage 3. 7. COPD. 8. CHADS-VASc score 4 on the basis of age, female gender, and history of hypertension. 9. Recent COVID-19 pneumonia. 10. Morbid obesity. 11. Bilateral pleural effusions. PLAN AND RECOMMENDATIONS: Ms. Salinas is an unfortunate 85-year-old woman who has struggled significantly since her COVID-19 pneumonia in May. She is largely bed bound and very sedentary. She has a history of a paroxysmal atrial fibrillation for at least five years. We now find that she has persisting atrial fibrillation during this acute distress that her body is under with bilateral pleural effusions and diastolic heart failure. She has since been placed on dobutamine for cardiac support and to better perfuse the kidneys and is scheduled to start amiodarone tonight. Given her other acute medical issues, I do not feel her body would be receptive to yazidism of sinus rhythm in the immediate future. This could be considered after adequate amiodarone loading and possibly one oral anticoagulation has been appropriate for 3-4 weeks. The ventricular rates are well controlled on a low-dose carvedilol and I do not feel her atrial arrhythmias are a significant contributor to her current medical picture. This was discussed with her daughter at length at bedside. At this point, I feel heart rate control strategy is adequate for this debilitated woman. Thank you for allowing me to participate in care of this patient. Job ID: [id number]
[2020-08-22 04:08] LABS: #Eosinphils 0.1 thou/uL (0.0-0.7); #Lymphocytes 1.4 thou/uL (1.20-3.40); #Monocytes 0.6 thou/uL (0.11-0.59); #Neutrophils 4.7 thou/uL (1.40-6.50); %Basophils 0.1 % (0.0-1.0); %Eosinophils 1.8 % (0.0-10.0); %Lymphocytes 20.4 % (21.0-51.0); %Monocytes 9.2 % (0.0-10.0); %Neutrophils 68.6 % (42.0-75.0); Hemoglobin 9.4 g/dL (12.0-16.0); Mean Corpuscular HGB CONC 32.5 g/dL (32.0-36.0); Mean Corpuscular Hemoglobin 32.6 pg (27.0-31.0); Mean Platelet Volume 8.1 fL (7.4-10.4); Platelet Count 211 thou/uL (130-400); RBC Distribution Width 13.7 % (11.5-14.5); Red Blood Cell (RBC) Count 2.88 mill/uL (4.20-5.40); White Blood Cell (WBC) Count 6.8 thou/uL (4.8-10.8)
[2020-08-22 04:31] LABS: ALT (SGPT) 102 U/L (8-55); AST (SGOT) 59 U/L (5-34); Albumin 2.6 g/dL (3.4-4.8); Alkaline Phosphatase 239 U/L (40-110); Anion Gap 15 mmol/L (10-20); BUN (Urea Nitrogen) 58 mg/dL (9.8-20.1); Bilirubin, Total 0.8 mg/dL (0.2-1.2); Calc. Creatinine Clearance 33 mL/min (70-130); Calcium 8.1 mg/dL (7.8-10.44); Carbon Dioxide 28 mmol/L (23-31); Chloride 99 mmol/L (98-107); Globulin 3.3 g/dL (2.4-3.5); Glucose 127 mg/dL (83-110); Potassium 5.4 mmol/L (3.5-5.1); Protein, Total 5.9 g/dL (6.0-8.3); Sodium 137 mmol/L (136-145)
--- NOTE | 2020-08-22 05:55 | PDOC.FM ---
- Subjective Subjective: Patient is sitting up in bed. She reports that she tolerated her breakfast. She says that she often feels the urge to urinate but is unable to produce urine. She also reports that she feels as if her abdomen is swollen. She denies CP and SOB. She reports that she called all of her children yesterday to tell them goodbye. She reports that she is at peace with dying. - Objective MAR Reviewed: Yes Vital Signs & Weight: Vital Signs (12 hours) Temp Pulse Resp BP Pulse Ox 08/22/20 04:33 97.9 F 66 20 127/63 95 08/21/20 22:48 66 18 118/58 L 08/21/20 20:00 98.2 F 62 20 106/52 L 96 Weight Weight 141.113 kg Most Recent Monitor Data Heart Rate from ECG 70 NIBP 138/93 NIBP BP-Mean 108 Respiration from ECG 18 SpO2 94 I&O: 08/20/20 08/21/20 08/22/20 06:59 06:59 06:59 Intake Total 1100 3620 630 Output Total 550 35 50 Balance 550 3585 580 Result Diagrams: 08/22/20 03:52 08/22/20 03:52 EKG Reviewed by me: Yes (Afib 60-70s) Phys Exam - Physical Examination Constitutional: NAD HEENT: moist MMs Neck: supple, full ROM Difficult exam due to body habitus, no noticable rales, no wheezing Cardiovascular: no significant murmur irregularly, irregular Gastrointestinal: soft, non-tender large, abdominal pannus; no pitting edema, but very firm trace edema Neurological: non-focal, moves all 4 limbs Psychiatric: normal affect, A&O x 3 Skin: no rash Dx/Plan - Plan Plan: Acute hypoxic respiratory failure likely 2/2 to cardiorenal syndrome -pt originally received lasix due to concern for CHF exacerbation, patient then appeared dry and was hypotensive, labs were concerning for hypoperfusion so patient was given fluids overnight on two different occasions; concerns for cardiorenal syndrome and Dr. Bone has been consulted -now on 3 L NC, pt is on 2 L at home -original CXR: bilateral pleural effusions that were not present on previous imaging, repeat xray showed improvement -repeat xray today: worsening of CHF -BNP 286 > 324.3; s/p lasix yesterday -EKG: Afib w/RVR -echo 08/17: technically difficulty exam 2/2 body habitus, EF 50-55%, diastolic dysfunction cannot be assessed; repeat echo not yet done -Per Dr. Bone: start dobutamine, stop lisinopril and dilt, start amiodarone -obtained cortisol stimulation test yesterday: normal -EP (Dr. Stapleton) consulted per Dr. Bone: not candidate for cardioversion at this time -Output: 400 cc (improved from 35 the day before) HFpEF -ECHO 07/02, EF 50-55%, see repeat above (ordered repeat echo due to worsening clinical picture, not yet done) -BNP 286 > 324.3 -s/p lasix -strict I/Os, daily weights -May be source of SOB and pulmonary effusion Hypotension -s/p 500 ml bolus x2 overnight, not receiving fluids due to concern for worse kamille CHF and cardiorenal syndrome -likely 2/2 to cardiorenal syndrome -low pressures overnight -will continue to hold morning lisinopril and coreg -Dr. Bone consulted as mentioned above Afib w/RVR, now rate controlled -Known history: known source, as patient was not taking PO Dilt at home. Patient also just was seen by Dr Connelly outpatient -Anticoagulated with warfarin prior to 08/[address] Tolliver at which time he switched to eliquis due to subtherapeutic INR and missing warfarin doses. -HR 90-110s while in ED, now rate controlled in the 60s-80s -s/p dilt gtt stopped 08/16 -home Coreg of 6.25mg, DC'd dilt SEGUNDO on CKD3 -Cr 1.02 on admission -Cr of 2.93 today -likely secondary to cardiorenal syndrome -Dr. Bone consulted -will continue to monitor Transaminitis, improved -likely 2/2 to hypoperfusion vs congestion 2/2 to cardiorenal syndrome -continues to improve; AST/ALT 59/102 -will continue to monitor Elevated troponin -0.068>.164>.242>.165 -likely demand ischemia due to Afib Diarrhea, resolved COPD -Aware, duonebs prn at home -s/p solumedrol and magnesium per EMS -no wheezing on PE -duonebs PRN Recent hospitalization for COVID pneumonia -05/18-05/21 -Has been on supplemental home oxygen since -Reports negative test on 08/10 HTN -holding due to hypotension as mentioned above HLD -Aware, continue home meds GERD -Aware, continue home meds Chronic back pain due to spondylosis -Aware, continue home meds -takes norco for pain Dispo: pending further medical management Addendum - Attending - Attending Attestation Date/Time: 08/22/20 1310 I personally evaluated the patient and discussed the management with Dr. Jacome. I agree with the History, Examination, Assessment and Plan documented above with any addition or exceptions noted below. She remains anuric but has clinically stablized. likely ATN as a result of cardiogenic shock. Continue dobutaime and diuresis.
[2020-08-22] MEDS: Amiodarone 200 MG TAB PO SCH ×2 (09:10→21:16)
[2020-08-22] MEDS: Gabapentin 300 MG CAP PO SCH ×3 (09:11→21:16)
[2020-08-22] MEDS: Polyethylene Glycol 3350 17 GM Packet PO SCH (09:12)
[2020-08-22] MEDS: Apixaban 5 MG TAB PO SCH ×2 (09:12→21:16)
[2020-08-22] MEDS: DOBUTamine 500 mg/250 ml 250 ML IVPB SCH (12:20)
[2020-08-22] MEDS ORDERED: Albumin 25% 25 GM/100 ML BOT IVPB SCH (12:30)
[2020-08-22] MEDS ORDERED: Furosemide 100 MG/10 ML VIAL SLOW IVP SCH (12:30)
[2020-08-22] MEDS: HYDROcodone/Acetaminophen 5/325 mg Tablet PO PRN (14:56)
--- NOTE | 2020-08-22 15:11 | PDOC.EP ---
- Subjective Date: 08/22/20 Time: 08:00 Interval History: Definitely more alert today. She was able to eat some breakfast. She reports frequently feeling the need to urinate but unable to do so - Review of Systems Constitutional: reports: weakness. denies: chills, fever Respiratory: reports: shortness of breath. denies: cough, wheezing Cardiology: denies: chest pain, heart racing, light headedness, palpitations, passing out - Objective Allergies/Adverse Reactions: Allergies Allergy/AdvReac Type Severity Reaction Status Date / Time Penicillins Allergy Severe Verified 05/18/20 04:28 Sulfa (Sulfonamide Allergy Verified 05/18/20 04:28 Antibiotics) sulfamethoxazole Allergy Verified 05/18/20 04:28 [From Bactrim] trimethoprim [From Bactrim] Allergy Verified 05/18/20 04:28 Current Medications Hydrocodone Bitart/Acetaminophen (Hydrocodone/Acetaminophen 5/325 Mg Tablet) 1 tab PO Q6H PRN PRN Reason: Moderate Pain (4-6) Last Admin: 08/22/20 14:56 Dose: 1 tab Documented by: Albumin Human (Albumin 25% 25 Gm/100 Ml Bot) 25 gm IVPB NOW [facility] Stop: 08/22/20 16:00 Last Admin: 08/22/20 14:27 Dose: 25 gm Documented by: Albumin Human (Albumin 25% 25 Gm/100 Ml Bot) 25 gm IVPB BID [facility] Stop: 08/23/20 09:01 Albuterol/Ipratropium (Ipratropium/Albuterol Sulfate 3 Ml Neb) 3 ml NEB Q4H PRN PRN Reason: SOB &/or Wheezing Amiodarone HCl (Amiodarone 200 Mg Tab) 400 mg PO BID [facility] Last Admin: 08/22/20 09:10 Dose: 400 mg Documented by: Apixaban (Apixaban 5 Mg Tab) 5 mg PO BID [facility] Last Admin: 08/22/20 09:12 Dose: 5 mg Documented by: Atorvastatin Calcium (Atorvastatin Calcium 40 Mg Tab) 40 mg PO HS [facility] Last Admin: 08/21/20 20:40 Dose: 40 mg Documented by: Calcium Carbonate (Calcium Carbonate 500 Mg Chewtab) 1,000 mg PO QIDPRN PRN PRN Reason: Heartburn or Indigestion Last Admin: 08/20/20 18:57 Dose: 1,000 mg Documented by: Cosyntropin (Cosyntropin 250 Mcg Vial) 250 mcg SLOW IVP WILLCALL [facility] Last Admin: 08/21/20 12:56 Dose: 250 mcg Documented by: Furosemide (Furosemide 100 Mg/10 Ml Vial) 80 mg SLOW IVP NOW [facility] Stop: 08/22/20 16:00 Gabapentin (Gabapentin 300 Mg Cap) 300 mg PO TID [facility] Last Admin: 08/22/20 14:26 Dose: 300 mg Documented by: Dobutamine HCl/Dextrose (Dobutamine 500 Mg/250 Ml) 250 mls @ 21.487 mls/hr IVPB INF [facility]; Protocol Last Admin: 08/22/20 12:20 Dose: 250 mls Documented by: Ondansetron HCl (Ondansetron Odt 4 Mg Tab) 4 mg PO Q6H PRN PRN Reason: Nausea/Vomiting Ondansetron HCl (Ondansetron Pf 4 Mg/2 Ml Vial) 4 mg IVP Q6H PRN PRN Reason: Nausea/Vomiting Last Admin: 08/20/20 18:57 Dose: 4 mg Documented by: Pantoprazole Sodium (Pantoprazole 40 Mg Tab) 20 mg PO DAILY [facility] Last Admin: 08/22/20 09:10 Dose: 20 mg Documented by: Polyethylene Glycol (Polyethylene Glycol 3350 17 Gm Packet) 17 gm PO DAILY [facility] Last Admin: 08/22/20 09:12 Dose: Not Given Documented by: Sodium Chloride (Flush - Normal Saline 10 Ml Syringe) 10 ml IVF PRN PRN PRN Reason: Saline Flush Last Admin: 08/19/20 09:45 Dose: 10 ml Documented by: Vital Signs & Weight: Vital Signs Temp Pulse Resp BP Pulse Ox 08/22/20 12:15 97.7 F 83 18 130/79 96 08/22/20 08:46 95 08/22/20 08:05 98.1 F 70 20 122/61 98 08/22/20 04:33 97.9 F 66 20 127/63 95 Weight 311 lb 1.6 oz I/O: I/O 08/21/20 08/22/20 08/23/20 06:59 06:59 06:59 Intake Total 3620 1118.4 Output Total 35 400 Balance 3585 718.4 - Quality Measures Condition: Atrial Fibrillation/Flutter (hx or current) CV meds: Eliquis: Yes - Physical Exam General: no apparent distress, speech clear, affect appropriate. negative: appears well HEENT: mucus membranes moist, normocephaly, EOMI Neck: supple neck, midline trachea, JVD/HJR Cardiology: regular rate, irregularly irregular Lungs: decreased breath sounds, bibasilar rales Neurology: cranial nerve 2-12 intact, grossly intact, no lateralizing findings Extremities: + edema B, other: ( hemosiderin staining) - Chadsvasc Risk factors Age >75: 2 Female: 1 Risk Score: 3 - Labs Result Diagrams: 08/22/20 03:52 08/22/20 03:52 - EKG Interpretation EKG Method: Telemetry EKG shows: Atrial fibrillation - Assessment/Plan Assessment/Plan: IMPRESSION: 1. Atrial fibrillation with controlled ventricular rates. 2. Chronic oral anticoagulation for atrial fibrillation in addition to history of multiple prior DVTs and PEs, subtherapeutic INR on 08/15 with an INR of 1.8 and then transition to Eliquis. 3. Preserved LVEF by recent echo. 4. Diastolic Heart failure with preserved EF. 5. Hypotension. 6. Acute kidney injury with chronic kidney disease, stage 3. ?ATN 7. COPD. 8. CHADS-VASc score 4 on the basis of age, female gender, and history of hypertension. 9. Recent COVID-19 pneumonia. 10. Morbid obesity. 11. Bilateral pleural effusions. atrial fibrillation remains rate controlled. She was started on amiodarone loading taper last night. In her declining medical status I doubt her heart would be receptive to maintenance of sinus rhythm until further amiodarone loading is been completed and ideally after 3-4 weeks of consistent oral anticoagulation.
--- NOTE | 2020-08-22 15:51 | SPC ---
Left upper extremity PICC placement sonographic guided HISTORY: Infection. Need for long-term antibiotics. FINDINGS: After explaining the procedure and answering all questions, the left upper extremity was pr epped and draped in usual sterile fashion. Sterile technique, buffered local anesthesia, sonographic guidance, and a 22-gauge needle were used t o carefully access the left basilic vein. Standard technique was used to place the tip of a 5 [place] single lumen PICC so that the tip lies at the level of the cavoatrial junction. Catheter was flushed and secured externally. Patient tolerated the procedure well and was returned in unchanged condition. IMPRESSION : Left upper extremity PICC is ready for use.
[2020-08-22] MEDS: Albumin 25% 25 GM/100 ML BOT IVPB SCH (21:16)
[2020-08-22] MEDS: Atorvastatin Calcium 40 MG TAB PO SCH (21:16)
[2020-08-23] MEDS: DOBUTamine 500 mg/250 ml 250 ML IVPB SCH ×2 (00:28→13:47)
[2020-08-23 04:04] LABS: #Eosinphils 0.2 thou/uL (0.0-0.7); #Lymphocytes 1.4 thou/uL (1.20-3.40); #Monocytes 0.6 thou/uL (0.11-0.59); #Neutrophils 4.3 thou/uL (1.40-6.50); %Basophils 0.3 % (0.0-1.0); %Eosinophils 2.5 % (0.0-10.0); %Lymphocytes 21.5 % (21.0-51.0); %Monocytes 9.7 % (0.0-10.0); Hemoglobin 8.8 g/dL (12.0-16.0); Mean Corpuscular HGB CONC 31.6 g/dL (32.0-36.0); Mean Corpuscular Hemoglobin 31.1 pg (27.0-31.0); Mean Corpuscular Volume 98.4 fL (78.0-98.0); Mean Platelet Volume 7.9 fL (7.4-10.4); Platelet Count 206 thou/uL (130-400); RBC Distribution Width 13.8 % (11.5-14.5); Red Blood Cell (RBC) Count 2.82 mill/uL (4.20-5.40); White Blood Cell (WBC) Count 6.4 thou/uL (4.8-10.8)
[2020-08-23 04:28] LABS: ALT (SGPT) 67 U/L (8-55); AST (SGOT) 28 U/L (5-34); Albumin 3.1 g/dL (3.4-4.8); Alkaline Phosphatase 203 U/L (40-110); Anion Gap 15 mmol/L (10-20); BUN (Urea Nitrogen) 62 mg/dL (9.8-20.1); Bilirubin, Total 0.9 mg/dL (0.2-1.2); Calc. Creatinine Clearance 33 mL/min (70-130); Calcium 8.3 mg/dL (7.8-10.44); Carbon Dioxide 30 mmol/L (23-31); Chloride 97 mmol/L (98-107); Globulin 2.8 g/dL (2.4-3.5); Glucose 102 mg/dL (83-110); Magnesium 2.3 mg/dL (1.6-2.6); Potassium 4.7 mmol/L (3.5-5.1); Protein, Total 5.9 g/dL (6.0-8.3); Sodium 137 mmol/L (136-145)
--- NOTE | 2020-08-23 06:15 | PDOC.FM ---
- Subjective Subjective: Patient was resting comfortably in bed. She denied SOB and CP, but reported that she was sore from her PICC line placement yesterday. She is not producing more urine but is still has a net positive fluid balance. She continues to be in good spirits. - Objective MAR Reviewed: Yes Vital Signs & Weight: Vital Signs (12 hours) Temp Pulse Resp BP Pulse Ox 08/23/20 01:46 96 08/23/20 00:02 97/52 L 08/22/20 19:30 98.3 F 92 20 99/51 L 99 Weight Weight 141.113 kg Most Recent Monitor Data Heart Rate from ECG 70 NIBP 138/93 NIBP BP-Mean 108 Respiration from ECG 18 SpO2 94 I&O: 08/21/20 08/22/20 08/23/20 06:59 06:59 06:59 Intake Total 3620 1118.4 1250 Output Total 35 400 425 Balance 3585 718.4 825 Result Diagrams: 08/23/20 03:54 08/23/20 03:54 EKG Reviewed by me: Yes (Afib 70s-80s) Phys Exam - Physical Examination Constitutional: NAD HEENT: moist MMs Neck: supple, full ROM difficult exam, no rales heard irregularly irregular Gastrointestinal: soft trace edema Neurological: moves all 4 limbs Psychiatric: normal affect, A&O x 3 Skin: no rash Dx/Plan - Plan Plan: Acute hypoxic respiratory failure likely 2/2 to cardiorenal syndrome -pt originally received lasix due to concern for CHF exacerbation, patient then appeared dry and was hypotensive, labs were concerning for hypoperfusion so patient was given fluids overnight on two different occasions; now concerns for cardiogentic shock and Dr. Bone has been consulted -now on 3 L NC, pt is on 2 L at home -original CXR: bilateral pleural effusions that were not present on previous imaging, repeat xray showed improvement, repeat worsening of CHF -BNP 286 > 324.3; s/p lasix yesterday -EKG: Afib w/RVR -echo 08/17: technically difficulty exam 2/2 body habitus, EF 50-55%, diastolic dysfunction cannot be assessed -Per Dr. Bone: increased dobutamine, stop lisinopril and dilt, started on amiodarone, added albumin yesterday and gave 80 mg IV lasix -cortisol stimulation test: normal -EP (Dr. Stapleton) consulted per Dr. Bone: not candidate for cardioversion at this time -Output: 1625 cc HFpEF -ECHO 07/02, EF 50-55%, see repeat above) -BNP 286 > 324.3 -s/p lasix -strict I/Os, daily weights -May be source of SOB and pulmonary effusion Hypotension -s/p 500 ml bolus x2 overnight, not receiving fluids due to concern for worsening CHF and cardiogenic shock -likely 2/2 to cardiogenic shock -low pressures overnight -on dobutamine -will continue to hold lisinopril and coreg -Dr. Bone consulted as mentioned above Afib w/RVR, now rate controlled -Known history: known source, as patient was not taking PO Dilt at home. Patient also just was seen by Dr Connelly outpatient -Anticoagulated with warfarin prior to 08/[address] Tolliver at which time he switched to eliquis due to subtherapeutic INR and missing warfarin doses. -HR 90-110s while in ED, now rate controlled in the 60s-80s -s/p dilt gtt stopped 08/16 -home Coreg of 6.25mg, DC'd dilt -TSH: 0.2821 with normal free T3 and T4, will obtain antibodies SEGUNDO on CKD3 and anuric -Cr 1.02 on admission -Cr of 2.85 today -likely secondary to cardiogenic shock -output: 1625 ccs -Dr. Bone consulted -will continue to monitor Transaminitis, improved -likely 2/2 to hypoperfusion vs congestion 2/2 to cardiorenal syndrome -continues to improve; -will continue to monitor Elevated troponin -0.068>.164>.242>.165 -likely demand ischemia due to Afib Diarrhea, resolved COPD -Aware, duonebs prn at home -s/p solumedrol and magnesium per EMS -no wheezing on PE -duonebs PRN Recent hospitalization for COVID pneumonia -05/18-05/21 -Has been on supplemental home oxygen since -Reports negative test on 08/10 HTN -holding due to hypotension as mentioned above HLD -Aware, continue home meds GERD -Aware, continue home meds Chronic back pain due to spondylosis -Aware, continue home meds -takes norco for pain Dispo: currently on dobutamine, pending further medical management, will continue to follow Dr. Bone's recs Addendum - Attending - Attending Attestation Date/Time: 08/23/20 9750 I personally evaluated the patient and discussed the management with Dr. Jacome. I agree with the History, Examination, Assessment and Plan documented above with any addition or exceptions noted below. HF medication titration per Dr. Bone. Patient is clinically improving today.
[2020-08-23] MEDS: Apixaban 5 MG TAB PO SCH (08:08)
[2020-08-23] MEDS: Albumin 25% 25 GM/100 ML BOT IVPB SCH (08:08)
[2020-08-23] MEDS: Amiodarone 200 MG TAB PO SCH ×2 (08:09→21:19)
[2020-08-23] MEDS: Gabapentin 300 MG CAP PO SCH ×3 (08:10→21:17)
[2020-08-23] MEDS: Polyethylene Glycol 3350 17 GM Packet PO SCH (08:11)
[2020-08-23] MEDS ORDERED: Levothyroxine Sodium 25 MCG TAB PO SCH ×2 (10:15→10:30)
[2020-08-23] MEDS ORDERED: Furosemide 100 MG/10 ML VIAL SLOW IVP SCH (12:45)
--- NOTE | 2020-08-23 13:10 | PRG ---
DATE OF SERVICE: 08/22/2020 SUBJECTIVE: Ms. Salinas had an improving day. At first she was really lethargic, not feeling so well. The dobutamine was started late evening. After starting the dobutamine, she noticed she has more energy level, can do things more. Her daughters noticed significant improvement in her energy level. After that, she was starting to produce some urine, but that is without aid of diuretics. This morning, she said she is feeling stronger than yesterday, since starting dobutamine that she felt better. REVIEW OF SYSTEMS: GENERAL: There is no fever, chills, productive cough. HEENT: There is no change in vision, hearing, or swallowing. PULMONARY: She has a basal level of shortness of breath about the same. CARDIAC: There is no palpitation, chest pain or syncope. GI: There is no nausea, vomiting or diarrhea. : She may be incontinent. MUSCULOSKELETAL: There is no complaint of back pain, joint pains or muscle pains. INTEGUMENT: There are no new complaints or skin breakdown. NEUROLOGIC: There is no focal deficits or weaknesses. MEDICATIONS: Her current medications include: 1. Amiodarone 400 mg b.i.d. for total of 5 gm load 2. Apixaban 5 mg b.i.d. 3. Atorvastatin 40 mg p.o. at bedtime. 4. Carvedilol 6.25 mg b.i.d., but this has not been given. 5. Dobutamine currently at 2.5 mcg/kg/minute. 6. Gabapentin 300 mg p.o. t.i.d. 7. Protonix 20 mg daily. 8. MiraLAX 17 g daily. PHYSICAL EXAMINATION: Her telemetry was reviewed. She is in atrial fibrillation. Her after rate is about 70, so she is well rate controlled on amiodarone alone. VITAL SIGNS: It is recorded in system as , however that is not what her vital signs are at the bedside. At bedside her vitals are heart rate 71, blood pressure 96/51. She is on 3 L oxygen by nasal cannula with oxygen saturation of 97%. GENERAL: She is a very large woman, reclining comfortably in bed. HEENT: Show EOMI. Oropharynx is benign with moist mucosa. NECK: JVP is elevated about 11 or 12 cm. LUNGS: She has diminished breath sounds and some crackles at bilateral bases. CARDIAC: Irregularly rate, irregular rhythm with 2/6 holosystolic murmur near the apex and also left upper sternal border. ABDOMEN: Large, soft, nontender. Positive bowel sounds. There is distention. There is fluid in there. EXTREMITIES: Lower extremities, she has palpable dorsalis pedal pulses, 0.5 cm pitting edema at her feet to 1 foot above her ankles. LABORATORY VALUES: This morning, sodium 137, potassium 5.4, BUN is little more at 58, creatinine at 2.93. Her total bilirubin has decreased down to 0.8. Her AST is better now at 59. Her ALT is also improved at 102. She has low albumin at 2.6. More laboratory values, Cortrosyn stimulation test was done. Her baseline cortisol level was 11.3 at 60 minutes it is 31.6, at 90 minutes it is 36. Consequently, she has a normal Cortrosyn response. Thus she has normally functioning adrenal glands, so that could not be a reason for her low blood pressure. ASSESSMENT: 85-year-old lady has most likely right ventricular failure due to increased pulmonary hypertension due to keen virus lung inflammation. Her continuing to needing 3 L of oxygen saturation is intrinsic lung problem. The echocardiogram showed that she does have right ventricular dysfunction. Dobutamine at 2.5 mcg/kg/minute is not sufficient. We will need to increase that to 5 mcg/kg/minute. I appreciate the help from Dr. Amauri Stapleton. We believe that she should benefit from sinus rhythm; however Dr. Stapleton would like to have a complete amiodarone loading and four weeks on Eliquis. At that point, cardioversion can be done. With heart rate at only 70s, then we can increase dobutamine. Please see the following for my recommendation: 1. Increase dobutamine to 5 mcg/kg/minute. 2. Please give albumin 25 g IV one dose now. 3. Please give albumin 25 g IV b.i.d. for one day. 4. Discontinue carvedilol. 5. After dobutamine at 5 mcg/kg for a while and at least 1 hour after receiving albumin, we can give Lasix 80 mg IV one dose. This should provide effective diuresis while improving her renal function. It has been a pleasure taking care of Mrs. Salinas. If you have any questions, please give me a call. The total time for this visit is 40 minutes. Job ID: [id number] MTDD
[2020-08-23] MEDS: hydrALAZINE 10 MG TAB PO SCH ×2 (13:28→21:19)
--- NOTE | 2020-08-23 14:00 | PRG ---
DATE OF SERVICE: 08/23/2020 SUBJECTIVE: Mrs. Salinas had an excellent day. She had responded well to dobutamine. She felt better. She is stronger. She is able to participate with physical therapy. She also has significantly improved urine output. She was pleased with this. REVIEW OF SYSTEMS: GENERAL: There is no fever, chills, or productive cough. HEENT: There is no change in vision, hearing, or swallowing. PULMONARY: She is less short of breath. CARDIAC: There is no complaint of chest pain, palpitations, or syncope. GI: There is no complaint of nausea, vomiting, or diarrhea. : She has a PureWick on. MUSCULOSKELETAL: She does not complain of joint or muscle pains. INTEGUMENT: There is no new skin breakdown. NEUROLOGIC: There are no new focal deficits or weaknesses. CURRENT MEDICATIONS: 1. Amiodarone 400 mg b.i.d. for 5 gm load. 2. Apixaban 2.5 mg b.i.d. 3. Atorvastatin 40 mg at bedtime. 4. Dobutamine currently at 5 mcg/kg/min. 5. Gabapentin 3 mg t.i.d. 6. Levothyroxine at 25 mcg, but then this was stopped due to a potential mistake. 7. Protonix 20 mg daily. PHYSICAL EXAMINATION: VITAL SIGNS: Her telemetry was reviewed. She is in chronic atrial fibrillation with rate control between 70 to 80 beats per minute. Earlier, her heart rate was 83, blood pressure 117/53 . Later, her blood pressure went up to 153/68 and it was measured in both right and left arm. Looking back in her records, she has been increasing her blood pressure up to the 150s range. GENERAL: She is alert, conversational, more active and energetic than yesterday. HEENT: Shows EOMI with benign oropharynx, moist mucosa. NECK: JVP is elevated near the angle of jaw, which is at least 13 cm. PULMONARY: She has bibasilar crackles. CARDIAC: Irregular rate. Irregular rhythm. There is a 2/6 holosystolic murmur at the left sternal border. ABDOMEN: Very large, soft, nontender. Positive bowel sounds. LOWER EXTREMITIES: There is 0.5 cm pitting edema from feet towards her knees. LABORATORY VALUES: Sodium 137, potassium 4.7, chloride 97, BUN 62, creatinine is 2.85 which is a slight decrease from yesterday of 2.93. Total bilirubin and AST have normalized. ALT continued to decrease. Liver functions also normalizing. ASSESSMENT: An 85-year-old lady is recovering some. Her primary problem is her right ventricular dysfunction. With the aid of dobutamine, she has improved significantly. We will need to continue this. There is a good sign that she is now becoming more hypertensive to suggest recovering renal function. PLAN: Please see the following for my recommendations: 1. Continue dobutamine at 5 mcg/kg/min. 2. Continue amiodarone loading as you are doing. She will undergo cardioversion after she has been on amiodarone and also been on Eliquis for more than a month. 3. We will start with blood pressure control with hydralazine at 10 mg p.o. q.8 hours and also isosorbide dinitrate at 10 mg q.12 hours. Please hold this medication if systolic blood pressure is below 100. 4. Please give Lasix 80 mg IV one dose now. This will continue to provide volume relief. It has been a pleasure taking care of Mrs. Salinas. If you have any questions, please give me a call. The total visitation x30 minutes. Job ID: [id number] MTDD
--- NOTE | 2020-08-23 16:54 | PDOC.EP ---
- Subjective Date: 08/23/20 Time: 14:00 Interval History: She is feeling better. less Dyspnea. No palpitations. - Objective Allergies/Adverse Reactions: Allergies Allergy/AdvReac Type Severity Reaction Status Date / Time Penicillins Allergy Severe Verified 05/18/20 04:28 Sulfa (Sulfonamide Allergy Verified 05/18/20 04:28 Antibiotics) sulfamethoxazole Allergy Verified 05/18/20 04:28 [From Bactrim] trimethoprim [From Bactrim] Allergy Verified 05/18/20 04:28 Current Medications Hydrocodone Bitart/Acetaminophen (Hydrocodone/Acetaminophen 5/325 Mg Tablet) 1 tab PO Q6H PRN PRN Reason: Moderate Pain (4-6) Last Admin: 08/22/20 14:56 Dose: 1 tab Documented by: Albuterol/Ipratropium (Ipratropium/Albuterol Sulfate 3 Ml Neb) 3 ml NEB Q4H PRN PRN Reason: SOB &/or Wheezing Amiodarone HCl (Amiodarone 200 Mg Tab) 400 mg PO BID [facility] Last Admin: 08/23/20 08:09 Dose: 400 mg Documented by: Apixaban (Apixaban 2.5 Mg Tab) 2.5 mg PO BID RODRIGO Atorvastatin Calcium (Atorvastatin Calcium 40 Mg Tab) 40 mg PO HS [facility] Last Admin: 08/22/20 21:16 Dose: 40 mg Documented by: Calcium Carbonate (Calcium Carbonate 500 Mg Chewtab) 1,000 mg PO QIDPRN PRN PRN Reason: Heartburn or Indigestion Last Admin: 08/20/20 18:57 Dose: 1,000 mg Documented by: Cosyntropin (Cosyntropin 250 Mcg Vial) 250 mcg SLOW IVP WILLCALL [facility] Last Admin: 08/21/20 12:56 Dose: 250 mcg Documented by: Gabapentin (Gabapentin 300 Mg Cap) 300 mg PO TID [facility] Last Admin: 08/23/20 14:56 Dose: 300 mg Documented by: Hydralazine HCl (Hydralazine 10 Mg Tab) 10 mg PO Q8HR [facility] Last Admin: 08/23/20 13:28 Dose: 10 mg Documented by: Dobutamine HCl/Dextrose (Dobutamine 500 Mg/250 Ml) 250 mls @ 21.487 mls/hr IVPB INF RODRIGO; Protocol Last Admin: 08/23/20 13:47 Dose: 250 mls Documented by: Isosorbide Dinitrate (Isosorbide Dinitrate 5 Mg Tab) 10 mg PO Q12HR [facility] Ondansetron HCl (Ondansetron Odt 4 Mg Tab) 4 mg PO Q6H PRN PRN Reason: Nausea/Vomiting Ondansetron HCl (Ondansetron Pf 4 Mg/2 Ml Vial) 4 mg IVP Q6H PRN PRN Reason: Nausea/Vomiting Last Admin: 08/20/20 18:57 Dose: 4 mg Documented by: Pantoprazole Sodium (Pantoprazole 40 Mg Tab) 20 mg PO DAILY [facility] Last Admin: 08/23/20 08:09 Dose: 20 mg Documented by: Polyethylene Glycol (Polyethylene Glycol 3350 17 Gm Packet) 17 gm PO DAILY [facility] Last Admin: 08/23/20 08:11 Dose: Not Given Documented by: Sodium Chloride (Flush - Normal Saline 10 Ml Syringe) 10 ml IVF PRN PRN PRN Reason: Saline Flush Last Admin: 08/19/20 09:45 Dose: 10 ml Documented by: Vital Signs & Weight: Vital Signs Temp Pulse Pulse Pulse Resp BP BP 08/23/20 13:28 80 122/57 L 08/23/20 11:55 97.9 F 83 18 08/23/20 09:50 85 78 128/57 L 08/23/20 08:22 83 08/23/20 07:20 98 F 89 20 BP BP Pulse Ox 08/23/20 13:28 08/23/20 11:55 153/68 H 97 08/23/20 09:50 141/60 H 08/23/20 08:22 117/53 L 08/23/20 07:20 149/90 H 95 Weight 312 lb I/O: I/O 08/22/20 08/23/20 08/24/20 06:59 06:59 06:59 Intake Total 1118.4 1744 Output Total 400 1625 Balance 718.4 119 - Quality Measures Condition: Atrial Fibrillation/Flutter (hx or current) CV meds: Eliquis: Yes - Physical Exam General: alert & oriented x3, appears well, other (Obese) HEENT: normocephaly Neck: JVD/HJR (difficult to viualize) Cardiology: no murmur, irregularly irregular Lungs: normal breath sounds, no wheezes, no rales, no rhonchi Neurology: grossly intact Abdomen: unremarkable, active bowel sounds, soft Extremities: warm - Labs Result Diagrams: 08/23/20 03:54 08/23/20 03:54 - EKG Interpretation EKG shows: Atrial fibrillation - Assessment/Plan Assessment/Plan: 1. Atrial fibrillation with controlled ventricular rates. 2. Chronic oral anticoagulation for atrial fibrillation in addition to history of multiple prior DVTs and PEs, subtherapeutic INR on 08/15 with an INR of 1.8 and then transition to Eliquis. 3. Preserved LVEF by recent echo. 4. Diastolic Heart failure with preserved EF. 5. Hypotension. 6. Acute kidney injury with chronic kidney disease, stage 3. ?ATN 7. COPD. 8. CHADS-VASc score 4 on the basis of age, female gender, and history of hypertension. 9. Recent COVID-19 pneumonia. 10. Morbid obesity. 11. Bilateral pleural effusions. atrial fibrillation remains rate controlled. She was started on amiodarone loading taper last night. In her declining medical status I doubt her heart would be receptive to maintenance of sinus rhythm until further amiodarone joycelyn ding is been completed and ideally after 3-4 weeks of consistent oral anticoagulation. 08/23/20: Continued clinical improvement. Atrial fibrillation persists, VR well controlled. Continued on Amiodarone loading. Would sign off. Happy to see her back in 3-4 weeks in office to set up her cardioversion after 1 month of anticoagulation.
[2020-08-23] MEDS: Ondansetron PF 4 MG/2 ML Vial IVP PRN (17:22)
[2020-08-23] MEDS: Apixaban 2.5 MG TAB PO SCH (21:15)
[2020-08-23] MEDS: Atorvastatin Calcium 40 MG TAB PO SCH (21:21)
[2020-08-23] MEDS: Isosorbide Dinitrate 5 MG TAB PO SCH (23:45)
[2020-08-24] MEDS: DOBUTamine 500 mg/250 ml 250 ML IVPB SCH ×2 (01:48→14:48)
[2020-08-24 04:38] LABS: #Eosinphils 0.1 thou/uL (0.0-0.7); #Lymphocytes 1.1 thou/uL (1.20-3.40); #Monocytes 0.6 thou/uL (0.11-0.59); #Neutrophils 3.7 thou/uL (1.40-6.50); %Basophils 0.4 % (0.0-1.0); %Eosinophils 2.2 % (0.0-10.0); %Lymphocytes 20.1 % (21.0-51.0); %Monocytes 11.5 % (0.0-10.0); %Neutrophils 65.8 % (42.0-75.0); Hemoglobin 9.5 g/dL (12.0-16.0); Mean Corpuscular HGB CONC 32.5 g/dL (32.0-36.0); Mean Corpuscular Hemoglobin 31.9 pg (27.0-31.0); Mean Platelet Volume 8.2 fL (7.4-10.4); Platelet Count 203 thou/uL (130-400); RBC Distribution Width 13.7 % (11.5-14.5); Red Blood Cell (RBC) Count 2.97 mill/uL (4.20-5.40); White Blood Cell (WBC) Count 5.6 thou/uL (4.8-10.8)
[2020-08-24 05:02] LABS: ALT (SGPT) 49 U/L (8-55); AST (SGOT) 23 U/L (5-34); Albumin 3.2 g/dL (3.4-4.8); Alkaline Phosphatase 183 U/L (40-110); Anion Gap 12 mmol/L (10-20); BUN (Urea Nitrogen) 51 mg/dL (9.8-20.1); Bilirubin, Total 0.9 mg/dL (0.2-1.2); Calc. Creatinine Clearance 40 mL/min (70-130); Calcium 8.9 mg/dL (7.8-10.44); Carbon Dioxide 34 mmol/L (23-31); Chloride 97 mmol/L (98-107); Globulin 2.9 g/dL (2.4-3.5); Glucose 93 mg/dL (83-110); Magnesium 2.1 mg/dL (1.6-2.6); Potassium 4.4 mmol/L (3.5-5.1); Protein, Total 6.1 g/dL (6.0-8.3); Sodium 139 mmol/L (136-145)
[2020-08-24] MEDS: hydrALAZINE 10 MG TAB PO SCH ×3 (05:22→22:11)
[2020-08-24] MEDS ORDERED: Levothyroxine Sodium 25 MCG TAB PO SCH (06:00)
[2020-08-24] MEDS: Isosorbide Dinitrate 5 MG TAB PO SCH ×2 (09:41→20:17)
[2020-08-24] MEDS: Gabapentin 300 MG CAP PO SCH ×3 (09:41→20:18)
[2020-08-24] MEDS: Amiodarone 200 MG TAB PO SCH ×2 (09:42→20:19)
[2020-08-24] MEDS: Apixaban 2.5 MG TAB PO SCH ×2 (09:42→20:19)
--- NOTE | 2020-08-24 09:43 | PDOC.FM ---
- Subjective Subjective: Patient was sleeping comfortably in bed. No acute events overnight. She denies any CP or SOB. She reports that she feels weak despite working with PT/OT. - Objective MAR Reviewed: Yes Vital Signs & Weight: Vital Signs (12 hours) Temp Pulse Resp BP BP Pulse Ox 08/24/20 08:00 98.9 F 102 H 20 109/56 L 94 L 08/24/20 05:58 97 08/24/20 05:22 95 08/24/20 05:21 98.3 F 95 19 112/59 L 93 L Weight Weight 143.607 kg Most Recent Monitor Data Heart Rate from ECG 70 NIBP 138/93 NIBP BP-Mean 108 Respiration from ECG 18 SpO2 94 I&O: 08/23/20 08/24/20 08/25/20 06:59 06:59 06:59 Intake Total 1744 1272 Output Total 1625 3550 Balance 119 -2278 Result Diagrams: 08/24/20 03:59 08/24/20 03:59 EKG Reviewed by me: Yes (Afib 80s-90s) Phys Exam - Physical Examination Constitutional: NAD HEENT: moist MMs Neck: supple, full ROM Difficult exam due to body habitus. no noticable rales on exam Cardiovascular: no significant murmur irregularly irregular Gastrointestinal: soft, positive bowel sounds trace edema Neurological: moves all 4 limbs Psychiatric: normal affect, A&O x 3 Dx/Plan - Plan Plan: Acute hypoxic respiratory failure likely 2/2 to cardiorenal syndrome -pt originally received lasix due to concern for CHF exacerbation, patient then appeared dry and was hypotensive, labs were concerning for hypoperfusion so patient was given fluids overnight on two different occasions; now concerns for cardiogentic shock and Dr. Bone has been consulted -now on 3 L NC, pt is on 2 L at home -original CXR: bilateral pleural effusions that were not present on previous imaging, repeat xray showed improvement, repeat worsening of CHF -BNP 286 > 324.3; s/p lasix yesterday -EKG: Afib w/RVR -echo 08/17: technically difficulty exam 2/2 body habitus, EF 50-55%, diastolic dysfunction cannot be assessed -Per Dr. Bone: increased dobutamine, stop lisinopril and dilt, started on amiodarone, added albumin yesterday and gave 80 mg IV lasix; added hydralazine and isosorbide dinitrate for BP control with goal SBP 110-120 -cortisol stimulation test: normal -EP (Dr. Stapleton) consulted per Dr. Bone: not candidate for cardioversion at this time, f/u outpatient in 2-3 weeks after proper anticoagulation -Output: 1625 cc HFpEF -ECHO 07/02, EF 50-55%, see repeat above) -BNP 286 > 324.3 -s/p lasix -strict I/Os, daily weights -May be source of SOB and pulmonary effusion Hypotension, resolced -s/p 500 ml bolus x2, not receiving fluids due to concern for worsening CHF 2/2 to right heart failure and cardiogenic shock -likely 2/2 to cardiogenic shock -low pressures overnight -on dobutamine -will continue to hold lisinopril and coreg -Dr. Bone consulted as mentioned above Afib w/RVR, now rate controlled -Known history: known source, as patient was not taking PO Dilt at home. Patient also just was seen by Dr Connelly outpatient -Anticoagulated with warfarin prior to 08/[address] Tolliver at which time he switched to eliquis due to subtherapeutic INR and missing warfarin doses. -HR 90-110s while in ED, now rate controlled in the 60s-80s -s/p dilt gtt stopped 08/16 -DC'd dilt and coreg per Lizandro recs, on amiodarone -TSH: 0.2821 with normal free T3 and T4, will obtain antibodies SEGUNDO on CKD3, improving -Cr 1.02 on admission -Cr of 2.4 today -likely secondary to cardiogenic shock -output: 3550 ccs -Dr. Bone consulted -consider consulting nephro as pt has CKD3 and unclear if she has ever seen nephro -will continue to monitor Transaminitis, resolved -likely 2/2 to hypoperfusion vs congestion 2/2 to cardiorenal syndrome -continues to improve; -will continue to monitor Elevated troponin -0.068>.164>.242>.165 -likely demand ischemia due to Afib Diarrhea, resolved COPD -Aware, duonebs prn at home -s/p solumedrol and magnesium per EMS -no wheezing on PE -duonebs PRN Recent hospitalization for COVID pneumonia -05/18-05/21 -Has been on supplemental home oxygen since -Reports negative test on 08/10 HTN -holding due to hypotension as mentioned above HLD -Aware, continue home meds GERD -Aware, continue home meds Chronic back pain due to spondylosis -Aware, continue home meds -takes norco for pain Dispo: currently on dobutamine, pending further medical management, will continue to follow Dr. Bone's recs Addendum - Attending - Attending Attestation Date/Time: 08/24/20 1610 I personally evaluated the patient and discussed the management with Dr. Jacome. I agree with the History, Examination, Assessment and Plan documented above with any addition or exceptions noted below. Patient's renal function is improving. Her urine output is also increasing. Pt is very weak, continue therapy. Appreciate recs from specialists.
[2020-08-24] MEDS: Polyethylene Glycol 3350 17 GM Packet PO SCH (10:06)
--- NOTE | 2020-08-24 13:14 | EKG ---
Test Reason : Blood Pressure : / mmHG Vent. Rate : 112 BPM Atrial Rate : 113 BPM P-R Int : 000 ms QRS Dur : 108 ms QT Int : 284 ms P-R-T Axes : 000 049 194 degrees QTc Int : 387 ms Atrial fibrillation with rapid ventricular response Low voltage QRS Cannot rule out Anterior infarct , age undetermined Abnormal ECG Confirmed by WILIAN KEY ([id number]), copy editor NATHAN FRANCO ([id number]) on 08/24/2020 1:13:48 PM Referred By: Confirmed By:WILIAN KEY
[2020-08-24] MEDS: cefTRIAXone\\ROCEPHIN 1 GM in Sodium Chloride 0.9% 100 ML IVPB SCH (14:49)
--- NOTE | 2020-08-24 17:50 | PRG ---
DATE OF SERVICE: 08/24/2020 SUBJECTIVE: Renee had a variable day. At first, she was feeling energetic and doing well, but then she had nausea and vomiting in the afternoon. Afterwards, she got better. She did have a urinary tract infection and antibiotics were started. Today, she feels better and energetic, and participates with physical therapy. REVIEW OF SYSTEMS: GENERAL: There is no fever, chills, or productive cough. HEENT: There is no change in vision, hearing, or swallowing. PULMONARY: She has baseline shortness of breath, but lot less today, generally feeling better. CARDIAC: There is no palpitation, chest pain, or syncope. GASTROINTESTINAL: Please see HPI. MUSCULOSKELETAL: There is no complaints of muscle or joint pains. INTEGUMENT: There is no skin breakdown. NEUROLOGIC: There are no focal deficits or weaknesses. MEDICATIONS: 1. Amiodarone 400 mg b.i.d. 2. Apixaban 2.5 mg b.i.d. 3. Atorvastatin 40 mg at bedtime. 4. Ceftriaxone 1 g q.24 hours. 5. Dobutamine currently at 5 mcg/kg/minute. 6. Gabapentin 300 mg t.i.d. 7. Hydralazine 10 mg q.8 hours. 8. Albuterol and ipratropium nebs q.4 hours p.r.n. 9. Isosorbide dinitrate 10 mg q.12 hours. 10. Zofran 4 mg IVP q.6 hours p.r.n. 11. Protonix 20 mg daily. 12. MiraLAX 17 g daily. OBJECTIVE: TELEMETRY: Reviewed. She is in chronic atrial fibrillation, rate less than 90. VITAL SIGNS: Her latest vitals are heart rate 72, blood pressure 133/59. GENERAL: She is alert, conversational, quite energetic, and talkative. HEENT: EOMI. Oropharynx is benign with moist mucosa. NECK: JVP is still high about 12 to 13 cm. PULMONARY: There is good air movement in bilateral upper lung frederick; however, there are bibasilar crackles. HEART: Irregular rate, irregular rhythm. Normal S1 and S2. There is 2/6 holosystolic murmur at the apex. ABDOMEN: Large, soft, nontender. Positive bowel sounds. EXTREMITIES: Lower extremities, about 0.5 cm pitting edema, a little bit less from feet about one-third way towards her knees. LABORATORY DATA: Her in's and out's in 24 hours was 1272 in and 3550 out. Her chemistry from today shows sodium 139, potassium 4.4, chloride 97, bicarb 34, BUN has decreased down to 51, and creatinine has decreased down to 2.4. ASSESSMENT: 85-year-old lady is recovering from combination of right heart failure and acute renal failure. Combination of dobutamine increasing forward flow and Lasix decreasing the CVP has worked well. She is still volume overloaded. She will need 60 mg of IV Lasix today. We will just need to do on a day by day basis. She is rate controlled with amiodarone 400 mg b.i.d. This should go 4 or 5 g load. Once that is done, we will decrease down to 200 mg daily and afterwards she should go under cardioversion. Her Eliquis is perhaps too low at 2.5 mg b.i.d. When her renal functions return back near toward normal, she needs to go back to 5 mg b.i.d. Then, she will undergo DC cardioversion in about 3 weeks. Once her renal function returns normal, then we can start other heart failure medications such as Entresto and spironolactone. Right now, only dobutamine is possible to augment her right RV function. Please see the following for my recommendations. RECOMMENDATIONS: 1. Please give Lasix 80 mg IV, one dose now. 2. Please add magnesium 40 mg p.o. daily to keep her magnesium imbalance. 3. She also had a bit of metabolic alkalosis due to diuresis. Please start acetazolamide 250 mg p.o. daily, first dose now. It has been a pleasure taking care of Ms. Salinas. If you have any questions, please give me a call. Visitation time is 30 minutes. Job ID: [id number] [facility]
[2020-08-24] MEDS: Atorvastatin Calcium 40 MG TAB PO SCH (20:18)
[2020-08-24 20:41] LABS: Bacteria/HPF 4+ HPF (None Seen); Bilirubin Negative (Negative); Blood, Urine Negative (Negative); Clarity Clear (Clear); Creatinine, Urine 84.95 mg/dL (47-110); Glucose, Urine (Dipstick) Normal (Negative); Ketone, Urine Negative (Negative); Leukocyte 500 Leu/uL (Negative); Nitrite Negative (Negative); Protein, Urine (Dipstick) 10 mg/dL (Neg-Trace); RBC/HPF 0-3 HPF (0-3); Specific Gravity, Urine 1.013 (1.002-1.036); Squamous Epithelial 0-3 HPF (0-3); Urobilinogen Normal mg/dL (Less than 2)
--- NOTE | 2020-08-24 20:46 | CON ---
DATE OF CONSULTATION: 08/24/2020 SERVICE: Nephrology. REASON FOR CONSULTATION: Acute on chronic kidney disease. REQUESTING PHYSICIAN: Erin Jacome MD HISTORY OF PRESENT ILLNESS: The patient is an 85-year-old female with known history of COPD, atrial fibrillation, CHF and recent treatment for COVID infection, admitted due to worsening shortness of breath associated with respiratory distress, which is worse with exertion. The patient also admitted to orthopnea. Since COVID infection, the patient has been requiring oxygen therapy at 2 L/minute. At presentation, the patient was found to be hypoxic and with edema. An impression of acute on chronic congestive heart failure was made, and she was started on BiPAP as well as diuretics. Of note, the patient had a CT angio of the chest for PE, which was however negative. Creatinine was normal on presentation, but in the next 3 days, it started trending up. On presentation, creatinine was 1.02, but had trended up to a peak of 2.93 on August 22, before starting to trend down following commencement of dobutamine. Due to no significant improvement despite diuretic therapy, heart failure specialist consult was obtained and the patient was started on dobutamine. The patient reports general improvement as evidenced by decreased leg swelling and resolution of orthopnea. There has been no history of fever or chills or chest pain. PAST MEDICAL HISTORY: 1. COPD. 2. Diastolic heart failure. 3. Recent COVID pneumonia. 4. Hypertension. 5. Osteoarthritis. 6. Chronic back pain. 7. Hypopituitarism. 8. Hyperlipidemia. 9. Atrial fibrillation. 10. CKD, stage 3. 11. Gastroesophageal reflux disease. 12. Cervical cancer, status post treatment. PAST SURGICAL HISTORY: 1. Hysterectomy. 2. Cholecystectomy. 3. Hip replacement. 4. Skin grafting. FAMILY HISTORY: Significant for hypertension in mom and myocardial infarction/coronary artery disease in dad. SOCIAL HISTORY: Lives with family. Denied alcohol, tobacco, or drug use. ALLERGIES: PENICILLIN, SULFA, SULFAMETHOXAZOLE AND TRIMETHOPRIM. MEDICATIONS: Prior to hospital, medications are as follows; 1. Lipitor 40 mg p.o. daily. 2. Carvedilol 6.25 mg p.o. b.i.d. 3. Eliquis 5 mg p.o. b.i.d. 4. Lisinopril 5 mg p.o. daily. 5. Gabapentin 300 mg p.o. t.i.d. 6. Protonix 20 mg p.o. daily. 7. Calcium carbonate 1000 mg p.o. q.i.d. p.r.n. Current hospital medications are as follows; 1. Ceftriaxone 1 g daily. 2. Dobutamine infusion. 3. Hydralazine 10 mg p.o. q.8h. 4. Isosorbide dinitrate 10 mg p.o. q.12h. 5. Amiodarone 400 mg p.o. b.i.d. 6. Eliquis 2.5 mg p.o. b.i.d. 7. Lipitor 40 mg p.o. daily at bedtime. 8. Gabapentin 300 mg p.o. t.i.d. 9. Protonix 20 mg p.o. daily. 10. DuoNeb p.r.n. for shortness of breath. REVIEW OF SYSTEMS: A 12-point review of system performed was negative other than pertinent positives and negatives included in the history of present illness. PHYSICAL EXAMINATION: VITAL SIGNS: Temperature 98.0, pulse 72, respiratory rate 16, SpO2 of 96% on 2.5 L nasal cannula oxygen, and blood pressure is 133/59. Intake and output in the last 24 hours showed total intake of 1272 with output of 3550. GENERAL: Obese female, in no obvious distress. Afebrile. Anicteric. Acyanotic. HEENT: Normocephalic and atraumatic. Oral mucosa is moist. NECK: Supple with no obvious JVD. CARDIOVASCULAR: Irregular rhythm and rate with normal heart sounds 1 and 2. RESPIRATORY: Fair air entry bilaterally with some transmitted breath sounds. Few bibasilar crackles were noted. No respiratory distress or rhonchi was appreciated, however. GI: Obese, soft, nontender, and nondistended with normal bowel sounds. EXTREMITIES: Mild bilateral leg edema noted. SUPERVISOR CAB: Conscious, alert, and oriented x3 with appropriate mental status. Cranial nerves II through XII are grossly intact. The patient moves all extremities, but weakly. DIAGNOSTIC DATA: CBC today showed WBC count of 5.6, hemoglobin of 9.5, MCV of 98.0, platelets of 203. Chemistry today showed sodium 139, potassium 4.4, chloride 97, CO2 of 34 BUN 51, creatinine 2.40, glucose 93, calcium 8.9, magnesium 2.1, total bilirubin 0.9, AST 23, ALT 49, alkaline phosphatase 183, total protein 6.1, albumin 3.2. Of note, creatinine was 2.93 on August 22. ASSESSMENT: 1. Acute kidney injury: Due to cardiorenal syndrome as well as aggressive diuretics. Creatinine is beginning to trend down with dobutamine infusion. 2. Metabolic alkalosis, most likely due to aggressive diuretic therapy with some intravascular contraction. 3. Acute on chronic heart failure, requiring inotropic agent. 4. Morbid obesity. 5. Atrial fibrillation with controlled ventricular response. 6. Physical deconditioning. 7. Hyperkalemia: Improved. 8. Abnormal liver function tests: Due to cardiac decompensation, improving. PLAN: 1. We can agree with dobutamine infusion. 2. We will, however, deescalate diuretic therapy in view of metabolic alkalosis. 3. We will also get repeat urinalysis with urine electrolytes. 4. We will monitor intake and output as well as renal function and electrolytes. Further treatment to follow depending on hospital course. Case discussed with the heart failure specialist. We will also get repeat chest x-ray in the morning. Job ID: [id number]
[2020-08-24] MEDS: HYDROcodone/Acetaminophen 5/325 mg Tablet PO PRN (22:04)
[2020-08-24] MEDS ORDERED: Ondansetron PF 4 MG/2 ML Vial SLOW IVP PRN (22:04)
[2020-08-24] MEDS ORDERED: Furosemide 100 MG/10 ML VIAL SLOW IVP SCH (22:15)
[2020-08-24] MEDS ORDERED: AcetaZOLAMIDE 250 MG TAB PO SCH (22:15)
[2020-08-25] MEDS: DOBUTamine 500 mg/250 ml 250 ML IVPB SCH ×3 (02:45→18:09)
[2020-08-25 04:13] LABS: #Basophils 0.1 thou/uL (0.0-0.2); #Eosinphils 0.2 thou/uL (0.0-0.7); #Lymphocytes 1.5 thou/uL (1.20-3.40); #Monocytes 0.9 thou/uL (0.11-0.59); #Neutrophils 3.9 thou/uL (1.40-6.50); %Basophils 0.8 % (0.0-1.0); %Eosinophils 2.9 % (0.0-10.0); %Lymphocytes 22.6 % (21.0-51.0); %Monocytes 13.8 % (0.0-10.0); Hemoglobin 8.9 g/dL (12.0-16.0); Mean Corpuscular HGB CONC 31.5 g/dL (32.0-36.0); Mean Corpuscular Hemoglobin 30.8 pg (27.0-31.0); Mean Corpuscular Volume 97.8 fL (78.0-98.0); Mean Platelet Volume 8.6 fL (7.4-10.4); Platelet Count 197 thou/uL (130-400); RBC Distribution Width 13.8 % (11.5-14.5); Red Blood Cell (RBC) Count 2.89 mill/uL (4.20-5.40); White Blood Cell (WBC) Count 6.5 thou/uL (4.8-10.8)
[2020-08-25 04:29] LABS: ALT (SGPT) 39 U/L (8-55); AST (SGOT) 19 U/L (5-34); Alkaline Phosphatase 164 U/L (40-110); Anion Gap 13 mmol/L (10-20); BUN (Urea Nitrogen) 44 mg/dL (9.8-20.1); Bilirubin, Total 0.7 mg/dL (0.2-1.2); Calc. Creatinine Clearance 48 mL/min (70-130); Calcium 8.8 mg/dL (7.8-10.44); Carbon Dioxide 31 mmol/L (23-31); Chloride 97 mmol/L (98-107); Globulin 2.8 g/dL (2.4-3.5); Glucose 86 mg/dL (83-110); Magnesium 1.8 mg/dL (1.6-2.6); Potassium 4.3 mmol/L (3.5-5.1); Protein, Total 5.8 g/dL (6.0-8.3); Sodium 137 mmol/L (136-145)
--- NOTE | 2020-08-25 05:24 | PDOC.FM ---
- Subjective Subjective: Patient resting comfortably. Denies CP, SOB. Reports shaking of hands and continued weakness. Reports that she tolerated the antibiotic well yesterday without reaction. - Objective MAR Reviewed: Yes Vital Signs & Weight: Vital Signs (12 hours) Temp Pulse Resp BP Pulse Ox 08/25/20 03:20 97.8 F 92 14 111/55 L 94 L 08/24/20 23:02 97 14 92 L 08/24/20 22:11 95 08/24/20 20:05 98.5 F 100 18 115/63 95 Weight Weight 143.607 kg Most Recent Monitor Data Heart Rate from ECG 70 NIBP 138/93 NIBP BP-Mean 108 Respiration from ECG 18 SpO2 94 I&O: 08/23/20 08/24/20 08/25/20 06:59 06:59 06:59 Intake Total 1744 1272 1360 Output Total 1625 3550 900 Balance 119 -8574 460 Result Diagrams: 08/25/20 03:14 08/25/20 03:14 EKG Reviewed by me: Yes (afib) Phys Exam - Physical Examination Constitutional: NAD HEENT: moist MMs Neck: supple, full ROM Respiratory: no wheezing, no rales, no rhonchi Cardiovascular: no significant murmur irregularly, irregular Gastrointestinal: soft, positive bowel sounds Musculoskeletal: no edema Psychiatric: normal affect, A&O x 3 Skin: no rash Dx/Plan - Plan Plan: Acute hypoxic respiratory failure likely 2/2 to right heart failure with cardiorenal syndrome -pt originally received lasix due to concern for CHF exacerbation, patient then appeared dry and was hypotensive, labs were concerning for hypoperfusion so patient was given fluids overnight on two different occasions; now concerns for cardiogentic shock and Dr. Bone has been consulted -now on 3 L NC, pt is on 2 L at home -original CXR: bilateral pleural effusions that were not present on previous imaging, repeat xray showed improvement, repeat worsening of CHF -BNP 286 > 324.3; s/p lasix -EKG: Afib w/RVR -echo 08/17: technically difficulty exam 2/2 body habitus, EF 50-55%, diastolic dysfunction cannot be assessed -Per Dr. Bone: increased dobutamine, stop lisinopril and dilt, started on amiodarone, added albumin, giving lasix per Lizandro requests; added hydralazine and isosorbide dinitrate for BP control with goal SBP 110-120; added acetazolamide and mag ox; consider increasing anticoagulation once kidneys recover -consulted nephro: deescalate diuretic, specialists are communicating with each other -cortisol stimulation test: normal -EP (Dr. Stapleton) consulted per Dr. Bone: not candidate for cardioversion at this time, f/u outpatient in 2-3 weeks after proper anticoagulation -Output: 2800 HFpEF -ECHO 07/02, EF 50-55%, see repeat above) -BNP 286 > 324.3 -s/p lasix -strict I/Os, daily weights -May be source of SOB and pulmonary effusion UTI -urine cx: Kleb, E.coli, non-hem strep with dysuria -Ceftriaxone (08/24), x3 days -discussed possible interaction between penicillin allergy and cross reaction with ceftriaxone, patient understood and was okay with receiving antibiotics, she denies any reaction Hypotension, resolved -s/p 500 ml bolus x2, not receiving fluids due to concern for worsening CHF 2/2 to right heart failure and cardiogenic shock -likely 2/2 to cardiogenic shock -low pressures overnight -on dobutamine -will continue to hold lisinopril and coreg -Dr. Bone consulted as mentioned above Afib w/RVR, now rate controlled -Known history: known source, as patient was not taking PO Dilt at home. Patient also just was seen by Dr Connelly outpatient -Anticoagulated with warfarin prior to 08/[address] Tolliver at which time he switched to eliquis due to subtherapeutic INR and missing warfarin doses. -HR 90-110s while in ED, now rate controlled in the 60s-80s -s/p dilt gtt stopped 08/16 -DC'd dilt and coreg per Lizandro recs, on amiodarone -EP: not current candidate for cardioverision, needs 1 month of anticoagulation, outpatient f/u -TSH: 0.2821 with normal free T3 and T4, will obtain antibodies, patient was mistakenly given levothyroxine (25 mcg), this was discussed with family who was very understanding SEGUNDO on CKD3, improving -Cr 1.02 on admission -Cr of 2.03 today -likely secondary to cardiogenic shock -output: 2800 ccs -Dr. Bone consulted, appreciate recs -Nephro consulted: deescalate diuretics, Dr. Davidson has talked with Dr. Bone, appreciate recs -will continue to monitor Transaminitis, resolved -likely 2/2 to hypoperfusion vs congestion 2/2 to cardiorenal syndrome -continues to improve; -will continue to monitor Elevated troponin -0.068>.164>.242>.165 -likely demand ischemia due to Afib Diarrhea, resolved COPD -Aware, duonebs prn at home -s/p solumedrol and magnesium per EMS -no wheezing on PE -duonebs PRN Recent hospitalization for COVID pneumonia -05/18-05/21 -Has been on supplemental home oxygen since -Reports negative test on 08/10 HTN -holding due to hypotension as mentioned above HLD -Aware, continue home meds GERD -Aware, continue home meds Chronic back pain due to spondylosis -Aware, continue home meds -takes norco for pain Dispo: currently on dobutamine, pending further medical management, will continue to follow Dr. Bone's recs and Dr. Davidson's recs Addendum - Attending - Attending Attestation Date/Time: 08/25/20 0818 I personally evaluated the patient and discussed the management with Dr. Jacome. I agree with the History, Examination, Assessment and Plan documented above with any addition or exceptions noted below. The patient's renal function continues to improve. Will continue current manage ment. Pt remains on drip, continuing diuresis. Started Rocephin for UTI.
[2020-08-25] MEDS: hydrALAZINE 10 MG TAB PO SCH ×3 (06:13→21:44)
--- NOTE | 2020-08-25 08:50 | RAD ---
Chest one view HISTORY: CHF. Dyspnea. Follow-up. COMPARISON: 08/21/2020. FINDINGS: Cardiac silhouette is magnified and enlarged. Pulmonary vasculature remains markedly engorg ed. Mediastinum is midline. Pleural and parenchymal opacity at each base similar in appearance to the prior study. No evidence of pneumothorax. Left upper extremity PICC now in place. IMPRESSION : Pleural fluid, edema, and other findings of CHF are stable.
[2020-08-25] MEDS: Amiodarone 200 MG TAB PO SCH ×2 (10:06→21:44)
[2020-08-25] MEDS: Gabapentin 300 MG CAP PO SCH ×3 (10:08→21:44)
[2020-08-25] MEDS: Magnesium Oxide 400 MG TAB PO SCH (10:10)
[2020-08-25] MEDS: Apixaban 2.5 MG TAB PO SCH ×2 (10:10→21:44)
[2020-08-25] MEDS: Isosorbide Dinitrate 5 MG TAB PO SCH ×2 (10:10→21:46)
[2020-08-25] MEDS: AcetaZOLAMIDE 250 MG TAB PO SCH (10:10)
[2020-08-25] MEDS: Polyethylene Glycol 3350 17 GM Packet PO SCH (10:11)
--- NOTE | 2020-08-25 11:22 | PDOC.NEPPN ---
- Subjective Encounter Date: 08/25/20 Subjective: Seen in follow up for SEGUNDO on CKD due to cardiorenal syndrome. Feeling better and diuresing with. Still on dobutamine - Objective Vital Signs & Weight: Vital Signs (12 hours) Temp Pulse Resp BP BP Pulse Ox 08/25/20 08:00 97.6 F 88 18 133/71 95 08/25/20 06:13 92 08/25/20 03:20 97.8 F 92 14 111/55 L 94 L Weight Weight 311 lb 4.8 oz Most Recent Monitor Data Heart Rate from ECG 70 NIBP 138/93 NIBP BP-Mean 108 Respiration from ECG 18 SpO2 94 I&O: 08/24/20 08/25/20 08/26/20 06:59 06:59 06:59 Intake Total 1272 1620 Output Total 3550 2800 Balance -7438 -8550 Result Diagrams: 08/25/20 03:14 08/25/20 03:14 Nephrology ROS - Medication Medications: Active Medications Generic Name Dose Route Start Last Admin Trade Name Freq PRN Reason Stop Dose Admin Hydrocodone Bitart/Acetaminophen 1 tab 08/16/20 04:09 08/24/20 22:04 Hydrocodone/Acetaminophen 5/325 Mg Tablet PO 1 tab Q6H PRN Administration Moderate Pain (4-6) Acetazolamide 250 mg 08/25/20 09:00 08/25/20 10:10 Acetazolamide 250 Mg Tab PO 250 mg DAILY RODRIGO Administration Amiodarone HCl 400 mg 08/21/20 21:00 08/25/20 10:06 Amiodarone 200 Mg Tab PO 400 mg BID RODRIGO Administration Apixaban 2.5 mg 08/23/20 21:00 08/25/20 10:10 Apixaban 2.5 Mg Tab PO 2.5 mg BID RODRIGO Administration Atorvastatin Calcium 40 mg 08/16/20 21:00 08/24/20 20:18 Atorvastatin Calcium 40 Mg Tab PO 40 mg HS RODRIGO Administration Calcium Carbonate 1,000 mg 08/16/20 16:14 08/20/20 18:57 Calcium Carbonate 500 Mg Chewtab PO 1,000 mg QIDPRN PRN Administration Heartburn or Indigestion Cosyntropin 250 mcg 08/21/20 10:30 08/21/20 12:56 Cosyntropin 250 Mcg Vial SLOW IVP 250 mcg WILLCALL RODRIGO Administration Gabapentin 300 mg 08/16/20 09:00 08/25/20 10:08 Gabapentin 300 Mg Cap PO 300 mg TID RDORIGO Administration Hydralazine HCl 10 mg 08/23/20 14:00 08/25/20 06:13 Hydralazine 10 Mg Tab PO 10 mg Q8HR RODRIGO Administration Dobutamine HCl/Dextrose 250 mls @ 21.487 mls/hr 08/22/20 12:30 08/25/20 02:45 Dobutamine 500 Mg/250 Ml IVPB 250 mls INF RODRIGO Administration Protocol 5 MCG/KG/MIN Ceftriaxone Sodium 1 gm/ 100 mls @ 200 mls/hr 08/24/20 14:30 08/24/20 14:49 Sodium Chloride IVPB 100 mls Q24HR RODRIGO Administration Isosorbide Dinitrate 10 mg 08/23/20 21:00 08/25/20 10:10 Isosorbide Dinitrate 5 Mg Tab PO 10 mg Q12HR RODRIGO Administration Magnesium Oxide 400 mg 08/25/20 09:00 08/25/20 10:10 Magnesium Oxide 400 Mg Tab PO 400 mg DAILY RODRIGO Administration Pantoprazole Sodium 20 mg 08/16/20 09:00 08/25/20 10:11 Pantoprazole 40 Mg Tab PO 20 mg DAILY RODRIGO Administration Polyethylene Glycol 17 gm 08/17/20 09:00 08/25/20 10:11 Polyethylene Glycol 3350 17 Gm Packet PO Not Given DAILY RODRIGO Sodium Chloride 10 ml 08/16/20 03:53 08/25/20 10:25 Flush - Normal Saline 10 Ml Syringe IVF 10 ml PRN PRN Administration Saline Flush Nephrology Results - Labs Result Diagrams: 08/25/20 03:14 08/25/20 03:14 Lab results: WBC 6.5 thou/uL (4.8-10.8) 08/25/20 03:14 Hgb 8.9 g/dL (12.0-16.0) L 08/25/20 03:14 Hct 28.3 % (36.0-47.0) L 08/25/20 03:14 MCV 97.8 fL (78.0-98.0) 08/25/20 03:14 Plt Count 197 thou/uL (130-400) 08/25/20 03:14 Neutrophils % 60.0 % (42.0-75.0) 08/25/20 03:14 ABG pH 7.33 (7.35-7.45) L 08/16/20 01:17 ABG pCO2 49.3 mmHg (35.0-45.0) H 08/16/20 01:17 ABG pO2 76.5 mmHg (> 60.0) H 08/16/20 01:17 Sodium 137 mmol/L (136-145) 08/25/20 03:14 Potassium 4.3 mmol/L (3.5-5.1) 08/25/20 03:14 Chloride 97 mmol/L (98-107) L 08/25/20 03:14 Carbon Dioxide 31 mmol/L (23-31) 08/25/20 03:14 BUN 44 mg/dL (9.8-20.1) H 08/25/20 03:14 Creatinine 2.03 mg/dL (0.6-1.1) H 08/25/20 03:14 Glucose 86 mg/dL (83-110) 08/25/20 03:14 Lactic Acid 1.2 mmol/L (0.5-2.2) 08/16/20 04:38 Calcium 8.8 mg/dL (7.8-10.44) 08/25/20 03:14 Total Bilirubin 0.7 mg/dL (0.2-1.2) 08/25/20 03:14 AST 19 U/L (5-34) 08/25/20 03:14 ALT 39 U/L (8-55) 08/25/20 03:14 Alkaline Phosphatase 164 U/L (40-110) H 08/25/20 03:14 CK-MB (CK-2) 3.2 ng/mL (0-6.6) 08/21/20 04:00 Troponin I 0.193 ng/mL (< 0.028) H 08/21/20 04:00 B-Natriuretic Peptide 324.3 pg/mL (0-100) H 08/21/20 04:00 Serum Total Protein 5.8 g/dL (6.0-8.3) L 08/25/20 03:14 Albumin 3.0 g/dL (3.4-4.8) L 08/25/20 03:14 Urine Ketones Negative mg/dL (Negative) 08/24/20 19:30 Urine Blood Negative (Negative) 08/24/20 19:30 Urine Nitrite Negative (Negative) 08/24/20 19:30 Ur Leukocyte Esterase 500 Makenzie/uL (Negative) A 08/24/20 19:30 Urine RBC 0-3 HPF (0-3) 08/24/20 19:30 Urine WBC 11-20 HPF (0-3) A 08/24/20 19:30 Ur Squamous Epith Cells 0-3 HPF (0-3) 08/24/20 19:30 Urine Bacteria 4+ HPF (None Seen) A 08/24/20 19:30 Sodium 137 mmol/L (136-145) 08/25/20 03:14 Potassium 4.3 mmol/L (3.5-5.1) 08/25/20 03:14 Chloride 97 mmol/L (98-107) L 08/25/20 03:14 Carbon Dioxide 31 mmol/L (23-31) 08/25/20 03:14 Anion Gap 13 mmol/L (10-20) 08/25/20 03:14 BUN 44 mg/dL (9.8-20.1) H 08/25/20 03:14 Creatinine 2.03 mg/dL (0.6-1.1) H 08/25/20 03:14 Glucose 86 mg/dL (83-110) 08/25/20 03:14 Calcium 8.8 mg/dL (7.8-10.44) 08/25/20 03:14 Phosphorus 3.0 mg/dL (2.3-4.7) 08/16/20 04:38 Magnesium 1.8 mg/dL (1.6-2.6) 08/25/20 03:14 Albumin 3.0 g/dL (3.4-4.8) L 08/25/20 03:14 Nephrology AP PN - Plan ASSESSMENT: Acute kidney injury: Due to cardiorenal syndrome as well as aggressive diuretic s. Imoproving with dobutamine infusion. Creat is down from peak of 2.9 to 2.0 today. CKD stage 3. baseline creat around 1.0 Metabolic alkalosis: Improving with descalation of diuretic therapy. Fluid overload. Hyperkalemia: resolved. Acute on chronic heart failure, requiring inotropic agent. Morbid obesity. Atrial fibrillation with controlled ventricular response. Physical deconditioning. Plan Continue dobutamine and gentle diuresis. Monitor intake and output as well as renal function and electrolytes. Increase activity.
[2020-08-25] MEDS: Milrinone Lactate/D5W 20 MG in Premix Bag 1 BAG IV SCH ×2 (12:29→21:42)
--- NOTE | 2020-08-25 13:41 | PRG ---
DATE OF SERVICE: 08/25/2020 From [facility]. SUBJECTIVE: Ms. Salinas had an excellent day. She said that she is breathing easier. She feels like the fluid coming off her abdomen, that her thighs are getting softer. She is quite pleased with that. She did not have any more episodes of nausea or vomiting. They related history of that she has been deteriorating since the keen virus hospitalization, they were to discharge her to rehab, then eventually home without diuretics, they believed the whole time that she was gaining fluid. She gained fluid at home to the point, where she could not move. Thus, we probably will have a long ways to go before we can pull out sufficient fluid back down to her baseline. REVIEW OF SYSTEMS: GENERAL: There is no fever, chills, or productive cough. HEENT: There is no change in vision, hearing, or swallowing. PULMONARY: Please see HPI. CARDIAC: There is no complaints of palpitation, chest pain, or syncope. GI: Although she does not like the food here, she will eat it. There is no nausea, vomiting, or diarrhea. : She is on a [employer] system. MUSCULOSKELETAL: There are no complaints of joint pain. Some muscular pains. INTEGUMENT: There are no new skin lesions. NEUROLOGIC: There is no focal deficits or weaknesses. MEDICATIONS: Included; 1. Acetazolamide 250 mg daily. 2. Amiodarone 400 mg twice a day. 3. Apixaban 2.5 mg twice a day. 4. Atorvastatin 40 mg at bedtime. 5. Ceftriaxone 1 g IV daily. 6. Dobutamine currently at 5 mcg/kg/minute. 7. Gabapentin 300 mg three times a day. 8. Hydralazine 10 mg q.8 hours. 9. Isosorbide dinitrate 10 mg q.12 hours. 10. Magnesium oxide 400 mg daily. 11. Protonix 20 mg daily. 12. MiraLAX 17 g daily. Telemetry was reviewed. She is in chronic atrial fibrillation. She is rate controlled about 80. OBJECTIVE: VITAL SIGNS: Her latest vitals are heart rate about 84 and blood pressure 133/59. GENERAL: She is alert, conversational, reclining comfortably in bed, not in distress, is quite talkative this morning. HEENT: Show EOMI with benign oropharynx with moist mucosa. NECK: Her JVP is elevated at least 13 cm to her earlobe. PULMONARY: She has bilateral bibasilar crackles, more prominent on the right. CARDIAC: Irregular rate and irregular rhythm. Normal S1 and S2. There is 2/6 holosystolic murmur at the apex with radiation towards the left axilla. There is also 2/6 holosystolic murmur at the left upper sternal border. ABDOMEN: Very large, soft, and nontender. Positive bowel sounds. It is looser than yesterday. EXTREMITIES: Lower extremity, there is still pitting edema around hips and there is slight pitting edema in her feet toward her knees. LABORATORY VALUES: White cell count 6.5, hemoglobin 8.9, hematocrit at 28.3, and platelet count 197. Chemistry shows that sodium 137, potassium 4.3, chloride 97. Bicarb has decreased from 34 to 31, which shows correction there. His BUN has decreased from 51 down to 44 and creatinine has decreased from 2.4 down to 2.03. ASSESSMENT: 85-year-old lady is recovering from COVID related RV dysfunction and AFIB. COVID pneumonia likely increased her pulmonary hypertension. Then, her right ventricle dilated and exhibit a low contractility because of this, together with the atrial fibrillation that may low cardiac output and that is what set off this whole event. Now, she is making good progress with diuresing with dobutamine augmentation of her right heart creating more blood flow to the kidneys. Her kidneys are also recovering nicely. However, it was now desired that the dobutamine converted to Milrinone, by doing that, she is less arrhythmogenic and will allow initiation of the beta blockers. Please see the following for my recommendation. RECOMMENDATION: 1. Making the dobutamine to Milrinone conversion. We will start Milrinone at 0.125 mcg/kg/minute, give her systolic blood pressure remains above 100. We will increase milrinone to 0.25 mcg/kg/minute while decreasing the dobutamine down to 2.5 mcg/kg/minute. If systolic blood pressures remain above 100. We will increase milrinone to 0.375 mcg/kg/minute and decrease dobutamine down to 1 mcg/kg/minute. If the patient is stable after 1 hour, then we will turn off the dobutamine. 2. We will continue to diuresis with lower dose Lasix today at 40 mg IV. 3. Tomorrow can convert to oral diuretics, but discontinue IV Lasix, but add Bumex 1 mg twice a day. Please keep the Milrinone going until her creatinine has normalized to the baseline. The way to titrate off the Milrinone is to decrease from 0.375 mcg/kg/minute down to 0.25 on the first night, on the second night decrease down to 0.125 mcg/kg/minute, and on the third morning stop Milrinone. However, one must have a compensating medication on board to allow this to happen. 4. One can add on Toprol-XL (metoprolol succinate) 12.5 mg q12hr for rate control. When tolerated, can increase to 25 mg q12 hr. 5. Will need add spironolactone 25 mg daily in the next 2 days. 6. Bumex may need to be titrated up to 2 mg bid. 7. As mentioned before, with titrating off milrione, Entresto 24/ bid can be added - providing renal function has recovered. It has been a pleasure taking care of Ms. Salinas. If you have any questions, please give me a call. I will be rotating off service today. As mentioned before, if there are problems or questions, I will be happy to take a call. The total visitation time is 45 minutes, including personally performing history and physical, reviewing telemetry, extended explanation counseling with patient and her daughter and also coordinating care with primary team. Job ID: [id number] [facility]
[2020-08-25] MEDS ORDERED: Furosemide 40 MG/4 ML VIAL SLOW IVP SCH (14:15)
[2020-08-25] MEDS: cefTRIAXone\\ROCEPHIN 1 GM in Sodium Chloride 0.9% 100 ML IVPB SCH (15:58)
[2020-08-25] MEDS: Calcium Carbonate 500 MG ChewTAB PO PRN (18:08)
[2020-08-25] MEDS: Atorvastatin Calcium 40 MG TAB PO SCH (21:44)
[2020-08-26] MEDS: Milrinone Lactate/D5W 20 MG in Premix Bag 1 BAG IV SCH (03:29)
[2020-08-26 04:36] LABS: #Eosinphils 0.2 thou/uL (0.0-0.7); #Lymphocytes 1.2 thou/uL (1.20-3.40); #Monocytes 0.9 thou/uL (0.11-0.59); #Neutrophils 5.3 thou/uL (1.40-6.50); %Eosinophils 2.6 % (0.0-10.0); %Lymphocytes 16.3 % (21.0-51.0); %Monocytes 11.3 % (0.0-10.0); %Neutrophils 69.7 % (42.0-75.0); Hemoglobin 8.9 g/dL (12.0-16.0); Mean Corpuscular HGB CONC 31.7 g/dL (32.0-36.0); Mean Corpuscular Hemoglobin 31.1 pg (27.0-31.0); Mean Corpuscular Volume 98.2 fL (78.0-98.0); Mean Platelet Volume 7.8 fL (7.4-10.4); Platelet Count 218 thou/uL (130-400); RBC Distribution Width 13.5 % (11.5-14.5); Red Blood Cell (RBC) Count 2.84 mill/uL (4.20-5.40); White Blood Cell (WBC) Count 7.6 thou/uL (4.8-10.8)
[2020-08-26 05:00] LABS: ALT (SGPT) 28 U/L (8-55); AST (SGOT) 15 U/L (5-34); Alkaline Phosphatase 157 U/L (40-110); Anion Gap 13 mmol/L (10-20); BUN (Urea Nitrogen) 38 mg/dL (9.8-20.1); Bilirubin, Total 0.7 mg/dL (0.2-1.2); Calc. Creatinine Clearance 56 mL/min (70-130); Calcium 8.6 mg/dL (7.8-10.44); Carbon Dioxide 32 mmol/L (23-31); Chloride 95 mmol/L (98-107); Globulin 2.8 g/dL (2.4-3.5); Glucose 123 mg/dL (83-110); Magnesium 1.8 mg/dL (1.6-2.6); Potassium 3.9 mmol/L (3.5-5.1); Protein, Total 5.8 g/dL (6.0-8.3); Sodium 136 mmol/L (136-145)
--- NOTE | 2020-08-26 06:19 | PDOC.FM ---
- Subjective Subjective: No acute events overnight. Patient reports that she is doing well this morning and notices improvement in her abdominal swelling. She reports that she worked with PT yesterday. Denies any questions or concerns today. - Objective MAR Reviewed: Yes Vital Signs & Weight: Vital Signs (12 hours) Temp Pulse Resp BP BP Pulse Ox 08/26/20 05:56 93 L 08/26/20 03:30 99.2 F 105 H 101/53 L 93 L 08/26/20 00:46 97 99/59 L 08/25/20 21:44 99 08/25/20 21:39 98.9 F 100 19 104/48 L 94 L Weight Weight 137.756 kg Most Recent Monitor Data Heart Rate from ECG 70 NIBP 138/93 NIBP BP-Mean 108 Respiration from ECG 18 SpO2 94 I&O: 08/24/20 08/25/20 08/26/20 06:59 06:59 06:59 Intake Total 1272 1620 1206.5 Output Total 3550 2800 1800 Balance -2278 -1180 -593.5 Result Diagrams: 08/26/20 04:06 08/26/20 04:06 EKG Reviewed by me: Yes (Afib 90s) Phys Exam - Physical Examination Constitutional: NAD HEENT: moist MMs Neck: full ROM Respiratory: no wheezing, no rales, clear to auscultation bilateral difficult exam due to body habitus Cardiovascular: no significant murmur irregulary, irregular Gastrointestinal: soft, positive bowel sounds trace edema trace edema Neurological: non-focal Psychiatric: normal affect, A&O x 3 Skin: no rash Dx/Plan - Plan Plan: Acute hypoxic respiratory failure likely 2/2 to right heart failure with cardiorenal syndrome -pt originally received lasix due to concern for CHF exacerbation, patient then appeared dry and was hypotensive, labs were concerning for hypoperfusion so patient was given fluids overnight on two different occasions; now concerns for cardiogentic shock and Dr. Bone has been consulted -now on 3 L NC, pt is on 2 L at home -original CXR: bilateral pleural effusions that were not present on previous imaging, repeat xray showed improvement, repeat worsening of CHF -BNP 286 > 324.3; s/p lasix -EKG: Afib w/RVR -echo 08/17: technically difficulty exam 2/2 body habitus, EF 50-55%, diastolic dysfunction cannot be assessed -Per Dr. Bone: DC'd dobutamine and switched to IV milrinone; bumex added for continued diuresis; see note from 08/25 for more details regarding future tapering of milrinone -consulted nephro: deescalate diuretic, specialists are communicating with each other -cortisol stimulation test: normal -EP (Dr. Stapleton) consulted per Dr. Bone: not candidate for cardioversion at this time, f/u outpatient in 2-3 weeks after proper anticoagulation -Output: 1800 HFpEF -ECHO 07/02, EF 50-55%, see repeat above) -BNP 286 > 324.3 -s/p lasix, on bumex now -strict I/Os, daily weights -May be source of SOB and pulmonary effusion UTI -urine cx: Kleb, E.coli, non-hem strep with dysuria -Ceftriaxone (08/24), x3 days (last day 08/26) -discussed possible interaction between penicillin allergy and cross reaction with ceftriaxone, patient understood and was okay with receiving antibiotics, she denies any reaction Hypotension, resolved -s/p 500 ml bolus x2, not receiving fluids due to concern for worsening CHF 2/2 to right heart failure and cardiogenic shock -likely 2/2 to cardiogenic shock -low pressures overnight -dobutamine dc'd, on milrinone now -will continue to hold lisinopril and coreg -Dr. Bone consulted as mentioned above Afib w/RVR, now rate controlled -Known history: known source, as patient was not taking PO Dilt at home. Patient also just was seen by Dr Connelly outpatient -Anticoagulated with warfarin prior to 08/[address] Tolliver at which time he switched to eliquis due to subtherapeutic INR and missing warfarin doses. -HR 90-110s while in ED, now rate controlled in the 60s-80s -s/p dilt gtt stopped 08/16 -DC'd dilt and coreg per Lizandor recs, on amiodarone -EP: not current candidate for cardioverision, needs 1 month of anticoagulation, outpatient f/u -TSH: 0.2821 with normal free T3 and T4, will obtain antibodies, patient was mistakenly given levothyroxine (25 mcg), this was discussed with family who was very understanding SEGUNDO on CKD3, improving -Cr 1.02 on admission -Cr of 1.71 today -likely secondary to cardiogenic shock -output: 100ccs -Dr. Bone consulted, appreciate recs -Nephro consulted: deescalate diuretics, Dr. Davidson has talked with Dr. Bone, appreciate recs -will continue to monitor Transaminitis, resolved -likely 2/2 to hypoperfusion vs congestion 2/2 to cardiorenal syndrome -will continue to monitor Elevated troponin -0.068>.164>.242>.165 -likely demand ischemia due to Afib Diarrhea, resolved COPD -Aware, duonebs prn at home -s/p solumedrol and magnesium per EMS -no wheezing on PE -duonebs PRN Recent hospitalization for COVID pneumonia -05/18-05/21 -Has been on supplemental home oxygen since -Reports negative test on 08/10 HTN -holding original home meds -on hydralizine and isosorbide dinitrate per Lizandro HLD -Aware, continue home meds GERD -Aware, continue home meds Chronic back pain due to spondylosis -Aware, continue home meds -takes norco for pain Dispo: currently on milrinone, pending further medical management, will continue to follow Dr. Bone's recs and Dr. Davidson's recs Addendum - Attending - Attending Attestation Date/Time: 08/26/201924 I personally evaluated the patient and discussed the management with Dr. Jacome. I agree with the History, Examination, Assessment and Plan documented above with any addition or exceptions noted below. Patient continues to slowly improve. Pt continues on milrinone drip. Continue to trend labs.
[2020-08-26] MEDS: hydrALAZINE 10 MG TAB PO SCH ×3 (07:19→20:54)
[2020-08-26] MEDS: Isosorbide Dinitrate 5 MG TAB PO SCH ×2 (08:30→20:53)
[2020-08-26] MEDS: Amiodarone 200 MG TAB PO SCH ×2 (08:30→20:54)
[2020-08-26] MEDS: Gabapentin 300 MG CAP PO SCH ×3 (08:31→20:55)
[2020-08-26] MEDS: Magnesium Oxide 400 MG TAB PO SCH (08:32)
[2020-08-26] MEDS: Bumetanide 1 MG TAB PO SCH ×2 (08:32→16:45)
[2020-08-26] MEDS: Polyethylene Glycol 3350 17 GM Packet PO SCH (08:32)
[2020-08-26] MEDS: Apixaban 2.5 MG TAB PO SCH ×2 (08:32→20:53)
[2020-08-26] MEDS: AcetaZOLAMIDE 250 MG TAB PO SCH (08:32)
[2020-08-26] MEDS: cefTRIAXone\\ROCEPHIN 1 GM in Sodium Chloride 0.9% 100 ML IVPB SCH (15:01)
--- NOTE | 2020-08-26 16:56 | PDOC.NEPPN ---
- Subjective Encounter Date: 08/26/20 Subjective: Seen in follow up for SEGUNDO on CKD. Feeling better Edema is better. - Objective Vital Signs & Weight: Vital Signs (12 hours) Temp Pulse Resp BP BP BP Pulse Ox 08/26/20 15:23 97.7 F 118 H 18 139/61 94 L 08/26/20 11:28 98.7 F 110 H 18 157/70 H 96 08/26/20 08:39 96 08/26/20 08:37 113 H 08/26/20 08:13 93 L 08/26/20 07:46 98.7 F 20 L 20 143/73 H 93 L 08/26/20 07:19 105 H 08/26/20 05:56 93 L Weight Weight 303 lb 11.2 oz Most Recent Monitor Data Heart Rate from ECG 70 NIBP 138/93 NIBP BP-Mean 108 Respiration from ECG 18 SpO2 94 I&O: 08/25/20 08/26/20 08/27/20 06:59 06:59 06:59 Intake Total 1620 1206.5 Output Total 2800 1800 Balance -1180 -593.5 Result Diagrams: 08/26/20 04:06 08/26/20 04:06 Nephrology ROS - Medication Medications: Active Medications Generic Name Dose Route Start Last Admin Trade Name Freq PRN Reason Stop Dose Admin Acetazolamide 250 mg 08/25/20 09:00 08/26/20 08:32 Acetazolamide 250 Mg Tab PO 250 mg DAILY RODRIGO Administration Amiodarone HCl 400 mg 08/21/20 21:00 08/26/20 08:30 Amiodarone 200 Mg Tab PO 400 mg BID RODRIGO Administration Apixaban 2.5 mg 08/23/20 21:00 08/26/20 08:32 Apixaban 2.5 Mg Tab PO 2.5 mg BID RODRIGO Administration Atorvastatin Calcium 40 mg 08/16/20 21:00 08/25/20 21:44 Atorvastatin Calcium 40 Mg Tab PO 40 mg HS RODRIGO Administration Bumetanide 1 mg 08/26/20 07:30 08/26/20 16:45 Bumetanide 1 Mg Tab PO 1 mg BID-AC RODRIGO Administration Calcium Carbonate 1,000 mg 08/16/20 16:14 08/25/20 18:08 Calcium Carbonate 500 Mg Chewtab PO 1,000 mg QIDPRN PRN Administration Heartburn or Indigestion Cosyntropin 250 mcg 08/21/20 10:30 08/21/20 12:56 Cosyntropin 250 Mcg Vial SLOW IVP 250 mcg WILLCALL RODRIGO Administration Gabapentin 300 mg 08/16/20 09:00 08/26/20 15:01 Gabapentin 300 Mg Cap PO 300 mg TID RODRIGO Administration Hydralazine HCl 10 mg 08/23/20 14:00 08/26/20 15:01 Hydralazine 10 Mg Tab PO 10 mg Q8HR RODRIGO Administration Ceftriaxone Sodium 1 gm/ 100 mls @ 200 mls/hr 08/24/20 14:30 08/26/20 15:01 Sodium Chloride IVPB 100 mls Q24HR RODRIGO Administration Milrinone Lactate/Dextrose 20 100 mls @ 15.885 mls/hr 08/25/20 12:00 08/26/20 03:29 mg/ Device IV 100 mls INF RODRIGO Administration Protocol 0.375 MCG/KG/MIN Isosorbide Dinitrate 10 mg 08/23/20 21:00 08/26/20 08:30 Isosorbide Dinitrate 5 Mg Tab PO 10 mg Q12HR RODRIGO Administration Magnesium Oxide 400 mg 08/25/20 09:00 08/26/20 08:32 Magnesium Oxide 400 Mg Tab PO 400 mg DAILY RODRIGO Administration Pantoprazole Sodium 20 mg 08/16/20 09:00 08/26/20 08:32 Pantoprazole 40 Mg Tab PO 20 mg DAILY RODRIGO Administration Polyethylene Glycol 17 gm 08/17/20 09:00 08/26/20 08:32 Polyethylene Glycol 3350 17 Gm Packet PO Not Given DAILY RODRIGO Sodium Chloride 10 ml 08/16/20 03:53 08/25/20 14:49 Flush - Normal Saline 10 Ml Syringe IVF 10 ml PRN PRN Administration Saline Flush - Exam General Appearance: awake alert General - other findings: obese Eye: anicteric sclera ENT: normocephalic atraumatic, moist mucosa Neck: supple, symmetric, no JVD Respiratory: no wheezes, no ronchi, normal chest expansion, no tachypnea Respiratory - other findings: Fair air entry bilaterally with bibasal crackles and few transmitted sound Cardiovascular: irregular Gastrointestinal: soft, non-tender, normal bowel sounds Gastrointestinal - other findings: Obese Extremities - other findings: trace or no leg edema Neurological: CN's grossly intact, no focal deficits Musculoskeletal: generalized weakness PSYCH: A&O x 3 Nephrology Results - Labs Result Diagrams: 08/26/20 04:06 08/26/20 04:06 Lab results: WBC 7.6 thou/uL (4.8-10.8) 08/26/20 04:06 Hgb 8.9 g/dL (12.0-16.0) L 08/26/20 04:06 Hct 27.9 % (36.0-47.0) L 08/26/20 04:06 MCV 98.2 fL (78.0-98.0) H 08/26/20 04:06 Plt Count 218 thou/uL (130-400) 08/26/20 04:06 Neutrophils % 69.7 % (42.0-75.0) 08/26/20 04:06 ABG pH 7.33 (7.35-7.45) L 08/16/20 01:17 ABG pCO2 49.3 mmHg (35.0-45.0) H 08/16/20 01:17 ABG pO2 76.5 mmHg (> 60.0) H 08/16/20 01:17 Sodium 136 mmol/L (136-145) 08/26/20 04:06 Potassium 3.9 mmol/L (3.5-5.1) 08/26/20 04:06 Chloride 95 mmol/L (98-107) L 08/26/20 04:06 Carbon Dioxide 32 mmol/L (23-31) H 08/26/20 04:06 BUN 38 mg/dL (9.8-20.1) H 08/26/20 04:06 Creatinine 1.71 mg/dL (0.6-1.1) H 08/26/20 04:06 Glucose 123 mg/dL (83-110) H 08/26/20 04:06 Lactic Acid 1.2 mmol/L (0.5-2.2) 08/16/20 04:38 Calcium 8.6 mg/dL (7.8-10.44) 08/26/20 04:06 Total Bilirubin 0.7 mg/dL (0.2-1.2) 08/26/20 04:06 AST 15 U/L (5-34) 08/26/20 04:06 ALT 28 U/L (8-55) 08/26/20 04:06 Alkaline Phosphatase 157 U/L (40-110) H 08/26/20 04:06 CK-MB (CK-2) 3.2 ng/mL (0-6.6) 08/21/20 04:00 Troponin I 0.193 ng/mL (< 0.028) H 08/21/20 04:00 B-Natriuretic Peptide 324.3 pg/mL (0-100) H 08/21/20 04:00 Serum Total Protein 5.8 g/dL (6.0-8.3) L 08/26/20 04:06 Albumin 3.0 g/dL (3.4-4.8) L 08/26/20 04:06 Urine Ketones Negative mg/dL (Negative) 08/24/20 19:30 Urine Blood Negative (Negative) 08/24/20 19:30 Urine Nitrite Negative (Negative) 08/24/20 19:30 Ur Leukocyte Esterase 500 Makenzie/uL (Negative) A 08/24/20 19:30 Urine RBC 0-3 HPF (0-3) 08/24/20 19:30 Urine WBC 11-20 HPF (0-3) A 08/24/20 19:30 Ur Squamous Epith Cells 0-3 HPF (0-3) 08/24/20 19:30 Urine Bacteria 4+ HPF (None Seen) A 08/24/20 19:30 Sodium 136 mmol/L (136-145) 08/26/20 04:06 Potassium 3.9 mmol/L (3.5-5.1) 08/26/20 04:06 Chloride 95 mmol/L (98-107) L 08/26/20 04:06 Carbon Dioxide 32 mmol/L (23-31) H 08/26/20 04:06 Anion Gap 13 mmol/L (10-20) 08/26/20 04:06 BUN 38 mg/dL (9.8-20.1) H 08/26/20 04:06 Creatinine 1.71 mg/dL (0.6-1.1) H 08/26/20 04:06 Glucose 123 mg/dL (83-110) H 08/26/20 04:06 Calcium 8.6 mg/dL (7.8-10.44) 08/26/20 04:06 Phosphorus 3.0 mg/dL (2.3-4.7) 08/16/20 04:38 Magnesium 1.8 mg/dL (1.6-2.6) 08/26/20 04:06 Albumin 3.0 g/dL (3.4-4.8) L 08/26/20 04:06 Nephrology AP PN - Plan ASSESSMENT: Acute kidney injury: Due to cardiorenal syndrome as well as aggressive diuretics. Imoproving with dobutamine infusion. Creat is down from peak of 2.9 to 1.7 today. CKD stage 3. baseline creat around 1.0 Metabolic alkalosis: Improving with descalation of diuretic therapy. Fluid overload. Hyperkalemia: resolved. Cardiorenal syndrome. Now on milrinone infusion HTN: Acute on chronic heart failure, requiring inotropic agent. Morbid obesity. Atrial fibrillation with controlled ventricular response. Physical deconditioning. Anemia: 2/2 Chronic illness and CKD. ? iron deficiency Plan Continue ionotropic and diuretic. Now on milrinone. Get iron chemistry. 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
[2020-08-26] MEDS: Atorvastatin Calcium 40 MG TAB PO SCH (20:54)
[2020-08-27] MEDS: Milrinone Lactate/D5W 20 MG in Premix Bag 1 BAG IV SCH ×2 (01:38→11:42)
[2020-08-27 04:09] LABS: #Eosinphils 0.2 thou/uL (0.0-0.7); #Lymphocytes 1.5 thou/uL (1.20-3.40); #Monocytes 0.9 thou/uL (0.11-0.59); #Neutrophils 6.1 thou/uL (1.40-6.50); %Basophils 0.5 % (0.0-1.0); %Eosinophils 1.9 % (0.0-10.0); %Lymphocytes 16.8 % (21.0-51.0); %Monocytes 9.9 % (0.0-10.0); %Neutrophils 70.8 % (42.0-75.0); Hemoglobin 8.5 g/dL (12.0-16.0); Mean Corpuscular HGB CONC 32.4 g/dL (32.0-36.0); Mean Corpuscular Hemoglobin 31.3 pg (27.0-31.0); Mean Corpuscular Volume 96.4 fL (78.0-98.0); Mean Platelet Volume 8.9 fL (7.4-10.4); Platelet Count 226 thou/uL (130-400); RBC Distribution Width 13.5 % (11.5-14.5); Red Blood Cell (RBC) Count 2.72 mill/uL (4.20-5.40); White Blood Cell (WBC) Count 8.6 thou/uL (4.8-10.8)
[2020-08-27 04:30] LABS: ALT (SGPT) 23 U/L (8-55); AST (SGOT) 15 U/L (5-34); Albumin 2.8 g/dL (3.4-4.8); Alkaline Phosphatase 136 U/L (40-110); Anion Gap 15 mmol/L (10-20); BUN (Urea Nitrogen) 39 mg/dL (9.8-20.1); Bilirubin, Total 0.6 mg/dL (0.2-1.2); Calc. Creatinine Clearance 58 mL/min (70-130); Calcium 8.5 mg/dL (7.8-10.44); Carbon Dioxide 31 mmol/L (23-31); Chloride 95 mmol/L (98-107); Globulin 2.9 g/dL (2.4-3.5); Glucose 125 mg/dL (83-110); Magnesium 1.6 mg/dL (1.6-2.6); Potassium 3.6 mmol/L (3.5-5.1); Protein, Total 5.7 g/dL (6.0-8.3); Sodium 137 mmol/L (136-145)
[2020-08-27] MEDS: hydrALAZINE 10 MG TAB PO SCH (05:22)
--- NOTE | 2020-08-27 06:56 | PDOC.FM ---
- Subjective Subjective: Patient' HR was elevated overnight between 90s and 120s. She was asymptomatic. She reports continued shaking of her hands and continues to work with PT. She also reports that she notices a difference in the edema of her abdomen. - Objective MAR Reviewed: Yes Vital Signs & Weight: Vital Signs (12 hours) Temp Pulse Resp BP BP Pulse Ox 08/27/20 05:22 101 H 08/27/20 03:41 99.2 F 101 H 20 107/52 L 92 L 08/26/20 20:54 108 H 08/26/20 19:37 98.1 F 110 H 16 135/64 96 Weight Weight 139.933 kg Most Recent Monitor Data Heart Rate from ECG 70 NIBP 138/93 NIBP BP-Mean 108 Respiration from ECG 18 SpO2 94 I&O: 08/25/20 08/26/20 08/27/20 06:59 06:59 06:59 Intake Total 1620 1206.5 1765 Output Total 2800 1800 1600 Balance -1180 -593.5 165 Result Diagrams: 08/27/20 03:13 08/27/20 03:13 EKG Reviewed by me: Yes (Afib 90s-120s) Phys Exam - Physical Examination Constitutional: NAD HEENT: moist MMs Neck: supple, full ROM Respiratory: no wheezing, no rales Cardiovascular: no significant murmur irregularly, irregular Gastrointestinal: soft, positive bowel sounds trace edema trace edema Neurological: moves all 4 limbs Psychiatric: normal affect, A&O x 3 Skin: no rash Dx/Plan - Plan Plan: Acute hypoxic respiratory failure likely 2/2 to right heart failure with cardiorenal syndrome -pt originally received lasix due to concern for CHF exacerbation, patient then appeared dry and was hypotensive, labs were concerning for hypoperfusion so patient was given fluids overnight on two different occasions; now concerns for cardiogentic shock and Dr. Bone has been consulted -now on 3 L NC, pt is on 2 L at home -original CXR: bilateral pleural effusions that were not present on previous imaging, repeat xray showed improvement, repeat worsening of CHF -BNP 286 > 324.3; s/p lasix -EKG: Afib w/RVR -echo 08/17: technically difficulty exam 2/2 body habitus, EF 50-55%, diastolic dysfunction cannot be assessed -Per Dr. Bone: DC'd dobutamine and switched to IV milrinone; bumex added for continued diuresis; see note from 08/25 for more details regarding future tapering of milrinone; started on Tropol XL 12.5 mg q 12 hours on 08/26; will contact Dr. Bone regarding elevated HR overnight and his recommended adjustments. -consulted nephro: diuretics per cards, iron studies, specialists are communicating with each other -cortisol stimulation test: normal -EP (Dr. Stapleton) consulted per Dr. Bone: not candidate for cardioversion at this time, f/u outpatient in 2-3 weeks after proper anticoagulation HFpEF -ECHO 07/02, EF 50-55%, see repeat above) -BNP 286 > 324.3 -s/p lasix, on bumex now -strict I/Os, daily weights UTI, s/p treatment -urine cx: Kleb, E.coli, non-hem strep with dysuria -Ceftriaxone (08/24), x3 days (last day 08/26) -discussed possible interaction between penicillin allergy and cross reaction with ceftriaxone, patient understood and was okay with receiving antibiotics, she denies any reaction Hypotension, resolved -s/p 500 ml bolus x2, not receiving fluids due to concern for worsening CHF 2/2 to right heart failure and cardiogenic shock -likely 2/2 to cardiogenic shock -dobutamine dc'd, on milrinone now -will continue to hold lisinopril and coreg -Dr. Bone consulted as mentioned above Afib w/RVR -Known history: known source, as patient was not taking PO Dilt at home. Patient also just was seen by Dr Connelly outpatient -Anticoagulated with warfarin prior to 08/[address] Tolliver at which time he switched to eliquis due to subtherapeutic INR and missing warfarin doses. -HR 90-110s while in ED, now rate controlled in the 60s-80s -RVR initially improved; however, overnight patient's HR was 90-120 -s/p dilt gtt stopped 08/16, transitioned to dilt PO, dilt DC'd per Lizandro recs -DC'd dilt and coreg per Lizandro gonsalez, on amiodarone and Toprol XL, will call Lizandro today regarding elevated HR overnight -EP: not current candidate for cardioverision, needs 1 month of anticoagulation, outpatient f/u -TSH: 0.2821 with normal free T3 and T4, will obtain antibodies, patient was mistakenly given levothyroxine (25 mcg), this was discussed with family who was very understanding SEGUNDO on CKD3, improving -Cr 1.02 on admission -Cr of 1.61 today -likely secondary to cardiogenic shock -Dr. Bone consulted, appreciate recs -Nephro consulted: diuretics per cards, Dr. Davidson has talked with Dr. Bone, appreciate recs -will continue to monitor Normocytic Anemia -Hgb: 8.5 -iron: 23, TIBC: 184, %sat: 13, Transferrin: 147, ferritin pending -Dr. Davidson has ordered IV iron x3 bags -likely anemia of chronic disease Transaminitis, resolved -likely 2/2 to hypoperfusion vs congestion 2/2 to cardiorenal syndrome -will continue to monitor Elevated troponin -0.068>.164>.242>.165 -likely demand ischemia due to Afib Diarrhea, resolved COPD -Aware, duonebs prn at home -s/p solumedrol and magnesium per EMS -no wheezing on PE -duonebs PRN Recent hospitalization for COVID pneumonia -05/18-05/21 -Has been on supplemental home oxygen since -Reports negative test on 08/10 HTN -holding original home meds -on hydralizine and isosorbide dinitrate per Lizandro HLD -Aware, continue home meds GERD -Aware, continue home meds Chronic back pain due to spondylosis -Aware, continue home meds -takes norco for pain Dispo: currently on milrinone, pending further medical management, will continue to follow Dr. Bone's recs and Dr. Davidson's recs Addendum - Attending - Attending Attestation Date/Time: 08/27/201916 I personally evaluated the patient and discussed the management with Dr. Jacome. I agree with the History, Examination, Assessment and Plan documented above with any addition or exceptions noted below. The patient is continuing to have slow improvements. Adjusting meds to control heart rate. Continue on milrinone. Creatinine improving. Pt continues diure sis.
[2020-08-27 08:19] LABS: Iron 23 ug/dL (50-170); Iron Binding Capacity, Total 184 mcg/dL (265-497); Transferrin, Serum 147 mg/dL (173-360)
--- NOTE | 2020-08-27 08:50 | PDOC.NEPPN ---
- Subjective Encounter Date: 08/27/20 Subjective: Seen in follow up for SEGUNDO on CKD due to cardiorenal syndrome. feeling better. - Objective Vital Signs & Weight: Vital Signs (12 hours) Temp Pulse Resp BP BP Pulse Ox 08/27/20 07:37 94 L 08/27/20 07:14 98.4 F 120 H 16 122/63 94 L 08/27/20 05:22 101 H 08/27/20 03:41 99.2 F 101 H 20 107/52 L 92 L 08/26/20 20:54 108 H Weight Weight 308 lb 8 oz Most Recent Monitor Data Heart Rate from ECG 70 NIBP 138/93 NIBP BP-Mean 108 Respiration from ECG 18 SpO2 94 I&O: 08/26/20 08/27/20 08/28/20 06:59 06:59 06:59 Intake Total 1206.5 1765 Output Total 1800 1600 Balance -593.5 165 Result Diagrams: 08/27/20 03:13 08/27/20 03:13 Nephrology ROS - Medication Medications: Active Medications Generic Name Dose Route Start Last Admin Trade Name Freq PRN Reason Stop Dose Admin Acetazolamide 250 mg 08/25/20 09:00 08/26/20 08:32 Acetazolamide 250 Mg Tab PO 250 mg DAILY RODRIGO Administration Amiodarone HCl 400 mg 08/21/20 21:00 08/26/20 20:54 Amiodarone 200 Mg Tab PO 400 mg BID RODRIGO Administration Apixaban 2.5 mg 08/23/20 21:00 08/26/20 20:53 Apixaban 2.5 Mg Tab PO 2.5 mg BID RODRIGO Administration Atorvastatin Calcium 40 mg 08/16/20 21:00 08/26/20 20:54 Atorvastatin Calcium 40 Mg Tab PO 40 mg HS RODRIGO Administration Bumetanide 1 mg 08/26/20 07:30 08/26/20 16:45 Bumetanide 1 Mg Tab PO 1 mg BID-AC RODRIOG Administration Calcium Carbonate 1,000 mg 08/16/20 16:14 08/25/20 18:08 Calcium Carbonate 500 Mg Chewtab PO 1,000 mg QIDPRN PRN Administration Heartburn or Indigestion Cosyntropin 250 mcg 08/21/20 10:30 08/21/20 12:56 Cosyntropin 250 Mcg Vial SLOW IVP 250 mcg WILLCALL RODRIGO Administration Gabapentin 300 mg 08/16/20 09:00 08/26/20 20:55 Gabapentin 300 Mg Cap PO 300 mg TID RODRIGO Administration Hydralazine HCl 10 mg 08/23/20 14:00 08/27/20 05:22 Hydralazine 10 Mg Tab PO 10 mg Q8HR RODRIGO Administration Milrinone Lactate/Dextrose 20 100 mls @ 15.885 mls/hr 08/25/20 12:00 08/27/20 01:38 mg/ Device IV 100 mls INF RODRIGO Administration Protocol 0.375 MCG/KG/MIN Isosorbide Dinitrate 10 mg 08/23/20 21:00 08/26/20 20:53 Isosorbide Dinitrate 5 Mg Tab PO 10 mg Q12HR RODRIGO Administration Magnesium Oxide 400 mg 08/25/20 09:00 08/26/20 08:32 Magnesium Oxide 400 Mg Tab PO 400 mg DAILY RODRIGO Administration Metoprolol Succinate 12.5 mg 08/26/20 21:00 08/26/20 20:55 Metoprolol Succinate Xl 25 Mg Tab PO 12.5 mg Q12HR RODRIGO Administration Pantoprazole Sodium 20 mg 08/16/20 09:00 08/26/20 08:32 Pantoprazole 40 Mg Tab PO 20 mg DAILY RODRIGO Administration Polyethylene Glycol 17 gm 08/17/20 09:00 08/26/20 08:32 Polyethylene Glycol 3350 17 Gm Packet PO Not Given DAILY RODRIGO Sodium Chloride 10 ml 08/16/20 03:53 08/25/20 14:49 Flush - Normal Saline 10 Ml Syringe IVF 10 ml PRN PRN Administration Saline Flush - Exam General Appearance: awake alert General - other findings: obese Eye: anicteric sclera ENT: normocephalic atraumatic, moist mucosa Neck - other findings: short thick neck Respiratory: no tachypnea Respiratory - other findings: fair air entry bilaterally with some crackles Cardiovascular: irregular Gastrointestinal: soft, non-tender, non-distended, normal bowel sounds Gastrointestinal - other findings: obese Extremities: no cyanosis, no edema Neurological: CN's grossly intact, no focal deficits PSYCH: A&O x 3 Nephrology Results - Labs Result Diagrams: 08/27/20 03:13 08/27/20 03:13 Lab results: WBC 8.6 thou/uL (4.8-10.8) 08/27/20 03:13 Hgb 8.5 g/dL (12.0-16.0) L 08/27/20 03:13 Hct 26.2 % (36.0-47.0) L 08/27/20 03:13 MCV 96.4 fL (78.0-98.0) 08/27/20 03:13 Plt Count 226 thou/uL (130-400) 08/27/20 03:13 Neutrophils % 70.8 % (42.0-75.0) 08/27/20 03:13 ABG pH 7.33 (7.35-7.45) L 08/16/20 01:17 ABG pCO2 49.3 mmHg (35.0-45.0) H 08/16/20 01:17 ABG pO2 76.5 mmHg (> 60.0) H 08/16/20 01:17 Sodium 137 mmol/L (136-145) 08/27/20 03:13 Potassium 3.6 mmol/L (3.5-5.1) 08/27/20 03:13 Chloride 95 mmol/L (98-107) L 08/27/20 03:13 Carbon Dioxide 31 mmol/L (23-31) 08/27/20 03:13 BUN 39 mg/dL (9.8-20.1) H 08/27/20 03:13 Creatinine 1.61 mg/dL (0.6-1.1) H 08/27/20 03:13 Glucose 125 mg/dL (83-110) H 08/27/20 03:13 Lactic Acid 1.2 mmol/L (0.5-2.2) 08/16/20 04:38 Calcium 8.5 mg/dL (7.8-10.44) 08/27/20 03:13 Total Bilirubin 0.6 mg/dL (0.2-1.2) 08/27/20 03:13 AST 15 U/L (5-34) 08/27/20 03:13 ALT 23 U/L (8-55) 08/27/20 03:13 Alkaline Phosphatase 136 U/L (40-110) H 08/27/20 03:13 CK-MB (CK-2) 3.2 ng/mL (0-6.6) 08/21/20 04:00 Troponin I 0.193 ng/mL (< 0.028) H 08/21/20 04:00 B-Natriuretic Peptide 324.3 pg/mL (0-100) H 08/21/20 04:00 Serum Total Protein 5.7 g/dL (6.0-8.3) L 08/27/20 03:13 Albumin 2.8 g/dL (3.4-4.8) L 08/27/20 03:13 Urine Ketones Negative mg/dL (Negative) 08/24/20 19:30 Urine Blood Negative (Negative) 08/24/20 19:30 Urine Nitrite Negative (Negative) 08/24/20 19:30 Ur Leukocyte Esterase 500 Makenzie/uL (Negative) A 08/24/20 19:30 Urine RBC 0-3 HPF (0-3) 08/24/20 19:30 Urine WBC 11-20 HPF (0-3) A 08/24/20 19:30 Ur Squamous Epith Cells 0-3 HPF (0-3) 08/24/20 19:30 Urine Bacteria 4+ HPF (None Seen) A 08/24/20 19:30 Sodium 137 mmol/L (136-145) 08/27/20 03:13 Potassium 3.6 mmol/L (3.5-5.1) 08/27/20 03:13 Chloride 95 mmol/L (98-107) L 08/27/20 03:13 Carbon Dioxide 31 mmol/L (23-31) 08/27/20 03:13 Anion Gap 15 mmol/L (10-20) 08/27/20 03:13 BUN 39 mg/dL (9.8-20.1) H 08/27/20 03:13 Creatinine 1.61 mg/dL (0.6-1.1) H 08/27/20 03:13 Glucose 125 mg/dL (83-110) H 08/27/20 03:13 Calcium 8.5 mg/dL (7.8-10.44) 08/27/20 03:13 Phosphorus 3.0 mg/dL (2.3-4.7) 08/16/20 04:38 Magnesium 1.6 mg/dL (1.6-2.6) 08/27/20 03:13 Albumin 2.8 g/dL (3.4-4.8) L 08/27/20 03:13 Nephrology AP PN - Plan ASSESSMENT: Acute kidney injury: Due to cardiorenal syndrome as well as aggressive diuretics. Improved with ionotropic infusion. Creat is down from peak of 2.9 to 1.6 Creat seem to be plateauing out. ? new baseline CKD stage 3. baseline creat around 1.0 Metabolic alkalosis: Improving with descalation of diuretic therapy. Fluid overload. Hyperkalemia: resolved. Cardiorenal syndrome. Now on milrinone infusion HTN: Control acceptable Acute on chronic heart failure, requiring inotropic agent. Morbid obesity. Atrial fibrillation with controlled ventricular response. Physical deconditioning. Anemia: 2/2 Chronic illness and CKD. ? iron deficiency Iron deficiency anemia Plan Start IV iron therapy Continue ionotropic and diuretic. Now on milrinone. Monitor intake and output as well as renal function and electrolytes.
[2020-08-27] MEDS ORDERED: Iron Sucrose Complex 200 MG in Sodium Chloride 0.9% 100 ML IVPB SCH (09:00)
[2020-08-27] MEDS ORDERED: Ferrous Sulfate 325 MG TAB PO SCH (09:00)
[2020-08-27] MEDS: Amiodarone 200 MG TAB PO SCH ×3 (09:16→21:54)
[2020-08-27] MEDS: Bumetanide 1 MG TAB PO SCH ×2 (09:16→15:07)
[2020-08-27] MEDS: Magnesium Oxide 400 MG TAB PO SCH (09:16)
[2020-08-27] MEDS: Apixaban 2.5 MG TAB PO SCH ×2 (09:16→20:47)
[2020-08-27] MEDS: AcetaZOLAMIDE 250 MG TAB PO SCH (09:17)
[2020-08-27] MEDS: Isosorbide Dinitrate 5 MG TAB PO SCH (09:17)
[2020-08-27] MEDS: Gabapentin 300 MG CAP PO SCH ×3 (09:17→20:46)
[2020-08-27] MEDS ORDERED: Potassium Chloride 40 MEQ in Premix Bag 1 BAG IVPB SCH (10:00)
[2020-08-27] MEDS ORDERED: Spironolactone 25 MG TAB PO SCH (10:00)
--- NOTE | 2020-08-27 10:05 | PDOC.BPN ---
- Brief Progress Note Called Dr. Bone to discuss his recommendation. He recommended the followin. Give 80 meq of K today (40 IV now followed by 40 PO this evening) 2. Schedule 40 meq of K daily 3. Give 2gm of Mag x 2 today 4. Stop isosorbide dinitrate and hydralazine today to increase perfusion to the kidney with hopes of increasing diuresis 5. Increase Bumex to 2 mg 6. Add spironolactone 25mg (give one now and schedule tomorrow)
[2020-08-27] MEDS: Polyethylene Glycol 3350 17 GM Packet PO SCH (10:35)
[2020-08-27] MEDS ORDERED: Iron, Sodium Ferric Gluconate 250 MG in Sodium Chloride 0.9% 100 ML IVPB SCH (10:45)
[2020-08-27] MEDS: Magnesium 2 GM/50 ML 2 GM in Premix Bag 1 BAG IVPB SCH ×2 (12:30→15:06)
[2020-08-27] MEDS ORDERED: Potassium Chloride 20 MEQ TAB PO SCH (19:00)
[2020-08-27] MEDS: HYDROcodone/Acetaminophen 5/325 mg Tablet PO PRN (20:53)
[2020-08-27] MEDS: Atorvastatin Calcium 40 MG TAB PO SCH (21:14)
[2020-08-28 05:06] LABS: #Eosinphils 0.2 thou/uL (0.0-0.7); #Lymphocytes 1.5 thou/uL (1.20-3.40); #Monocytes 0.7 thou/uL (0.11-0.59); #Neutrophils 4.5 thou/uL (1.40-6.50); %Basophils 0.4 % (0.0-1.0); %Eosinophils 2.9 % (0.0-10.0); %Monocytes 9.9 % (0.0-10.0); %Neutrophils 64.9 % (42.0-75.0); Hemoglobin 8.6 g/dL (12.0-16.0); Mean Corpuscular HGB CONC 31.8 g/dL (32.0-36.0); Mean Corpuscular Hemoglobin 30.8 pg (27.0-31.0); Mean Corpuscular Volume 96.9 fL (78.0-98.0); Mean Platelet Volume 7.9 fL (7.4-10.4); Platelet Count 217 thou/uL (130-400); RBC Distribution Width 13.3 % (11.5-14.5); White Blood Cell (WBC) Count 6.9 thou/uL (4.8-10.8)
[2020-08-28 05:37] LABS: ALT (SGPT) 18 U/L (8-55); AST (SGOT) 15 U/L (5-34); Albumin 2.7 g/dL (3.4-4.8); Alkaline Phosphatase 129 U/L (40-110); Anion Gap 14 mmol/L (10-20); BUN (Urea Nitrogen) 39 mg/dL (9.8-20.1); Bilirubin, Total 0.5 mg/dL (0.2-1.2); Calc. Creatinine Clearance 58 mL/min (70-130); Calcium 8.7 mg/dL (7.8-10.44); Carbon Dioxide 32 mmol/L (23-31); Chloride 96 mmol/L (98-107); Glucose 96 mg/dL (83-110); Potassium 3.9 mmol/L (3.5-5.1); Protein, Total 5.7 g/dL (6.0-8.3); Sodium 138 mmol/L (136-145)
--- NOTE | 2020-08-28 06:14 | PDOC.FM ---
- Subjective Subjective: Overnight, patient had low BPs with systolics in the 80s. Her amiodarone and metoprolol held and her milrinone was stopped. All of this was discussed with Dr. Bone this am who provided recs below. Patient also remained tachycardic with HR ranging from 100-120. During my morning rounds, patient was sleeping comfortably in bed with cpap on. Patient was very pleasant when I woke her up. She reported that she was feeling well despite last night events. She denies CP, SOB. - Objective MAR Reviewed: Yes Vital Signs & Weight: Vital Signs (12 hours) Temp Pulse Resp BP BP BP Pulse Ox 08/28/20 05:09 72 20 98 08/28/20 05:01 97 111/54 L 08/28/20 04:00 97.9 F 100 88/49 L 20 L 08/27/20 23:30 98.2 F 104 H 20 84/48 L 94 L 08/27/20 20:00 98.4 F 103 H 20 89/53 L 94 L Weight Weight 140.205 kg Most Recent Monitor Data Heart Rate from ECG 70 NIBP 138/93 NIBP BP-Mean 108 Respiration from ECG 18 SpO2 94 I&O: 08/26/20 08/27/20 08/28/20 06:59 06:59 06:59 Intake Total 1206.5 1765 1790 Output Total 1800 1600 1500 Balance -593.5 165 290 Result Diagrams: 08/28/20 04:41 08/28/20 04:41 EKG Reviewed by me: Yes (Afib 100-120s) Phys Exam - Physical Examination Constitutional: NAD Neck: supple, full ROM Respiratory: no wheezing, no rales, clear to auscultation bilateral Cardiovascular: no significant murmur irregularly, irregular Neurological: non-focal, moves all 4 limbs Psychiatric: normal affect, A&O x 3 Dx/Plan - Plan Plan: Acute hypoxic respiratory failure likely 2/2 to right heart failure with cardi orenal syndrome -pt originally received lasix due to concern for CHF exacerbation, patient then appeared dry and was hypotensive, labs were concerning for hypoperfusion so patient was given fluids overnight on two different occasions; now concerns for cardiogentic shock and Dr. Bone has been consulted -now on 3 L NC, pt is on 2 L at home -original CXR: bilateral pleural effusions that were not present on previous imaging, repeat xray showed improvement, repeat worsening of CHF -BNP 286 > 324.3; s/p lasix -EKG: Afib w/RVR -echo 08/17: technically difficulty exam 2/2 body habitus, EF 50-55%, diastolic dysfunction cannot be assessed -Per Dr. Bone: * started on dobutamine on 08/21 --> switched to IV milrinone on 08/25 --> milrinone DC'd and dobutamine restarted on 08/28 due to hypotension * bumex added for continued diuresis on 08/26, spironolactone added on 08/27 * started on Tropol XL 12.5 mg q 12 hours on 08/26, increased to 25 mg q12hrs on 08/27, decreased to 12.5 mg on 08/28 -consulted nephro: diuretics per cards, s/p IV iron, specialists are communicating with each other -cortisol stimulation test: normal -EP (Dr. Stapleton) consulted per Dr. Bone: not candidate for cardioversion at this time, f/u outpatient in 2-3 weeks after proper anticoagulation HFpEF -ECHO 07/02, EF 50-55%, see repeat above) -BNP 286 > 324.3 -s/p lasix, on bumex now -strict I/Os, daily weights UTI, s/p treatment -urine cx: Kleb, E.coli, non-hem strep with dysuria -Ceftriaxone (08/24), x3 days (last day 08/26) -discussed possible interaction between penicillin allergy and cross reaction with ceftriaxone, patient understood and was okay with receiving antibiotics, she denies any reaction -due to hypotension overnight, will repeat blood cx and UA with reflex urine culture Hypotension -s/p 500 ml bolus x2, not receiving fluids due to concern for worsening CHF 2/2 to right heart failure and cardiogenic shock -likely 2/2 to cardiogenic shock -dobutamine restarted and milrinone DC'd -will continue to hold lisinopril and coreg -Dr. Bone consulted as mentioned above Afib w/RVR -Known history: known source, as patient was not taking PO Dilt at home. Patient also just was seen by Dr Connelly outpatient -Anticoagulated with warfarin prior to 08/[address] Tolliver at which time he switched to eliquis due to subtherapeutic INR and missing warfarin doses. -HR 90-110s while in ED, now rate controlled in the 60s-80s -RVR initially improved; however, overnight patient's HR was 90-120 -s/p dilt gtt stopped 08/16, transitioned to dilt PO, dilt DC'd per Lizandro recs -DC'd dilt and coreg per Lizandro gradys, on amiodarone and Toprol XL * Amiodarone 400 mg BID until 5g loading dose achieved followed by amiodarone 200 mg daily * Toprol 12.5 mg q12hrs -EP: not current candidate for cardioverision, needs 1 month of anticoagulation, outpatient f/u -TSH: 0.2821 with normal free T3 and T4, will obtain antibodies, patient was mistakenly given levothyroxine (25 mcg), this was discussed with family who was very understanding SEGUNDO on CKD3, -Cr 1.02 on admission -Cr of 1.61 > 1.62 -likely secondary to cardiogenic shock -Dr. Bone consulted, appreciate recs, restarted dobutamine -Nephro consulted: diuretics per cards, Dr. Davidson has talked with Dr. Bone, appreciate recs -will continue to monitor Normocytic Anemia -Hgb: 8.6; due to CHF and cardiogenic shock, will keep Hgb above 8 -iron: 23, TIBC: 184, %sat: 13, Transferrin: 147, ferritin pending -Dr. Davidson has ordered IV iron x3 bags -possibly a mixed picture, likely anemia of chronic disease with possible iron deficiency anemia Transaminitis, resolved -likely 2/2 to hypoperfusion vs congestion 2/2 to cardiorenal syndrome -will continue to monitor Elevated troponin -0.068>.164>.242>.165 -likely demand ischemia due to Afib Diarrhea, resolved COPD -Aware, duonebs prn at home -s/p solumedrol and magnesium per EMS -no wheezing on PE -duonebs PRN Recent hospitalization for COVID pneumonia -05/18-05/21 -Has been on supplemental home oxygen since -Reports negative test on 08/10 HTN -holding original home meds -on hydralizine and isosorbide dinitrate per Lizandro HLD -Aware, continue home meds GERD -Aware, continue home meds Chronic back pain due to spondylosis -Aware, continue home meds -takes norco for pain Dispo: currently on dobutamine, pending further medical management, will continue to follow Dr. Bone's recs and Dr. Davidson's recs Addendum - Attending - Attending Attestation Date/Time: 08/28/20 [id number] I personally evaluated the patient and discussed the management with Dr. Jacome. I agree with the History, Examination, Assessment and Plan documented above with any addition or exceptions noted below. The patient was hypotensive overnight. After consultation with Dr. Bone, will change to dobutamine. Adding other medication recs from Dr. bone. Continue to trend labs.
[2020-08-28] MEDS: Polyethylene Glycol 3350 17 GM Packet PO SCH (09:37)
[2020-08-28] MEDS: Bumetanide 1 MG TAB PO SCH ×2 (09:38→15:37)
[2020-08-28] MEDS: Potassium Chloride 20 MEQ TAB PO SCH (09:38)
[2020-08-28] MEDS: Spironolactone 25 MG TAB PO SCH (09:40)
[2020-08-28] MEDS: Magnesium Oxide 400 MG TAB PO SCH (09:40)
[2020-08-28] MEDS: Gabapentin 300 MG CAP PO SCH ×3 (09:40→21:48)
[2020-08-28] MEDS: AcetaZOLAMIDE 250 MG TAB PO SCH (09:41)
[2020-08-28] MEDS: DOBUTamine 500 mg/250 ml 250 ML IVPB SCH (09:41)
[2020-08-28] MEDS: Apixaban 2.5 MG TAB PO SCH ×2 (09:41→21:50)
[2020-08-28] MEDS: Iron, Sodium Ferric Gluconate 250 MG in Sodium Chloride 0.9% 100 ML IVPB SCH (11:48)
[2020-08-28] MEDS ORDERED: Amiodarone 200 MG TAB PO SCH ×2 (12:00→21:00)
[2020-08-28 12:12] LABS: Bilirubin Negative (Negative); Blood, Urine Negative (Negative); Clarity Clear (Clear); Glucose, Urine (Dipstick) Normal (Negative); Ketone, Urine Negative (Negative); Leukocyte Negative Leu/uL (Negative); Nitrite Negative (Negative); Protein, Urine (Dipstick) Negative (Neg-Trace); Specific Gravity, Urine 1.011 (1.002-1.036); Urobilinogen Normal mg/dL (Less than 2)
--- NOTE | 2020-08-28 14:47 | PDOC.NEPPN ---
- Subjective Encounter Date: 08/28/20 Subjective: No new problem. Reported that urine output has decreased. Still on ionotropic agent and diuretic. - Objective Vital Signs & Weight: Vital Signs (12 hours) Temp Pulse Resp BP BP BP Pulse Ox 08/28/20 11:20 97.8 F 81 18 119/58 L 98 08/28/20 08:08 98 08/28/20 07:30 97.6 F 89 16 124/67 98 08/28/20 05:09 72 20 98 08/28/20 05:01 97 111/54 L 08/28/20 04:00 97.9 F 100 88/49 L 20 L Weight Weight 309 lb 1.6 oz Most Recent Monitor Data Heart Rate from ECG 70 NIBP 138/93 NIBP BP-Mean 108 Respiration from ECG 18 SpO2 94 I&O: 08/27/20 08/28/20 08/29/20 06:59 06:59 06:59 Intake Total 1765 1790 Output Total 1600 1500 Balance 165 290 Result Diagrams: 08/28/20 04:41 08/28/20 04:41 Nephrology ROS - Medication Medications: Active Medications Generic Name Dose Route Start Last Admin Trade Name Freq PRN Reason Stop Dose Admin Hydrocodone Bitart/Acetaminophen 1 tab 08/26/20 06:12 08/27/20 20:53 Hydrocodone/Acetaminophen 5/325 Mg Tablet PO 1 tab Q6H PRN Administration Moderate Pain (4-6) Acetazolamide 250 mg 08/25/20 09:00 08/28/20 09:41 Acetazolamide 250 Mg Tab PO 250 mg DAILY RODRIGO Administration Apixaban 2.5 mg 08/23/20 21:00 08/28/20 09:41 Apixaban 2.5 Mg Tab PO 2.5 mg BID RODRIGO Administration Atorvastatin Calcium 40 mg 08/16/20 21:00 08/27/20 21:14 Atorvastatin Calcium 40 Mg Tab PO 40 mg HS RODRIGO Administration Bumetanide 2 mg 08/27/20 16:30 08/28/20 09:38 Bumetanide 1 Mg Tab PO 2 mg BID-AC RODRIGO Administration Calcium Carbonate 1,000 mg 08/16/20 16:14 08/25/20 18:08 Calcium Carbonate 500 Mg Chewtab PO 1,000 mg QIDPRN PRN Administration Heartburn or Indigestion Cosyntropin 250 mcg 08/21/20 10:30 08/21/20 12:56 Cosyntropin 250 Mcg Vial SLOW IVP 250 mcg WILLCALL RODRIGO Administration Gabapentin 300 mg 08/16/20 09:00 08/28/20 09:40 Gabapentin 300 Mg Cap PO 300 mg TID RODRIGO Administration Ferric Sodium Gluconate 120 mls @ 60 mls/hr 08/28/20 09:00 08/28/20 11:48 Complex 250 mg/ Sodium IVPB 08/29/20 10:59 120 mls Chloride DAILY RODRIGO Administration Dobutamine HCl/Dextrose 250 mls @ 10.515 mls/hr 08/28/20 07:45 08/28/20 09:41 Dobutamine 500 Mg/250 Ml IVPB 250 mls INF RODRIGO Administration Protocol 2.5 MCG/KG/MIN Magnesium Oxide 400 mg 08/25/20 09:00 08/28/20 09:40 Magnesium Oxide 400 Mg Tab PO 400 mg DAILY RODRIGO Administration Metoprolol Succinate 12.5 mg 08/28/20 09:00 08/28/20 09:39 Metoprolol Succinate Xl 25 Mg Tab PO 12.5 mg Q12HR RODRIGO Administration Pantoprazole Sodium 20 mg 08/16/20 09:00 08/28/20 09:40 Pantoprazole 40 Mg Tab PO 20 mg DAILY RODRIGO Administration Polyethylene Glycol 17 gm 08/17/20 09:00 08/28/20 09:37 Polyethylene Glycol 3350 17 Gm Packet PO 17 gm DAILY RODRIGO Administration Potassium Chloride 40 meq 08/28/20 08:00 08/28/20 09:38 Potassium Chloride 20 Meq Tab PO 40 meq QAM-WM RODRIGO Administration Sodium Chloride 10 ml 08/16/20 03:53 08/25/20 14:49 Flush - Normal Saline 10 Ml Syringe IVF 10 ml PRN PRN Administration Saline Flush Spironolactone 25 mg 08/28/20 08:00 08/28/20 09:40 Spironolactone 25 Mg Tab PO 25 mg QAM-WM RODRIGO Administration - Exam General Appearance: awake alert General - other findings: morbidly obese Eye: anicteric sclera ENT: normocephalic atraumatic Neck: supple, symmetric Respiratory - other findings: fair air entry bilaterally. mildly decreased at the bases posteriorly Cardiovascular: irregular Gastrointestinal: soft, non-tender, non-distended, normal bowel sounds Extremities: no edema Neurological: CN's grossly intact, no focal deficits Musculoskeletal: generalized weakness PSYCH: A&O x 3 Nephrology Results - Labs Result Diagrams: 08/28/20 04:41 08/28/20 04:41 Lab results: WBC 6.9 thou/uL (4.8-10.8) 08/28/20 04:41 Hgb 8.6 g/dL (12.0-16.0) L 08/28/20 04:41 Hct 27.2 % (36.0-47.0) L 08/28/20 04:41 MCV 96.9 fL (78.0-98.0) 08/28/20 04:41 Plt Count 217 thou/uL (130-400) 08/28/20 04:41 Neutrophils % 64.9 % (42.0-75.0) 08/28/20 04:41 ABG pH 7.33 (7.35-7.45) L 08/16/20 01:17 ABG pCO2 49.3 mmHg (35.0-45.0) H 08/16/20 01:17 ABG pO2 76.5 mmHg (> 60.0) H 08/16/20 01:17 Sodium 138 mmol/L (136-145) 08/28/20 04:41 Potassium 3.9 mmol/L (3.5-5.1) 08/28/20 04:41 Chloride 96 mmol/L (98-107) L 08/28/20 04:41 Carbon Dioxide 32 mmol/L (23-31) H 08/28/20 04:41 BUN 39 mg/dL (9.8-20.1) H 08/28/20 04:41 Creatinine 1.62 mg/dL (0.6-1.1) H 08/28/20 04:41 Glucose 96 mg/dL (83-110) 08/28/20 04:41 Lactic Acid 1.2 mmol/L (0.5-2.2) 08/16/20 04:38 Calcium 8.7 mg/dL (7.8-10.44) 08/28/20 04:41 Total Bilirubin 0.5 mg/dL (0.2-1.2) 08/28/20 04:41 AST 15 U/L (5-34) 08/28/20 04:41 ALT 18 U/L (8-55) 08/28/20 04:41 Alkaline Phosphatase 129 U/L (40-110) H 08/28/20 04:41 CK-MB (CK-2) 3.2 ng/mL (0-6.6) 08/21/20 04:00 Troponin I 0.193 ng/mL (< 0.028) H 08/21/20 04:00 B-Natriuretic Peptide 324.3 pg/mL (0-100) H 08/21/20 04:00 Serum Total Protein 5.7 g/dL (6.0-8.3) L 08/28/20 04:41 Albumin 2.7 g/dL (3.4-4.8) L 08/28/20 04:41 Urine Ketones Negative mg/dL (Negative) 08/28/20 11:31 Urine Blood Negative (Negative) 08/28/20 11:31 Urine Nitrite Negative (Negative) 08/28/20 11:31 Ur Leukocyte Esterase Negative Makenzie/uL (Negative) 08/28/20 11:31 Urine RBC 0-3 HPF (0-3) 08/24/20 19:30 Urine WBC 11-20 HPF (0-3) A 08/24/20 19:30 Ur Squamous Epith Cells 0-3 HPF (0-3) 08/24/20 19:30 Urine Bacteria 4+ HPF (None Seen) A 08/24/20 19:30 Sodium 138 mmol/L (136-145) 08/28/20 04:41 Potassium 3.9 mmol/L (3.5-5.1) 08/28/20 04:41 Chloride 96 mmol/L (98-107) L 08/28/20 04:41 Carbon Dioxide 32 mmol/L (23-31) H 08/28/20 04:41 Anion Gap 14 mmol/L (10-20) 08/28/20 04:41 BUN 39 mg/dL (9.8-20.1) H 08/28/20 04:41 Creatinine 1.62 mg/dL (0.6-1.1) H 08/28/20 04:41 Glucose 96 mg/dL (83-110) 08/28/20 04:41 Calcium 8.7 mg/dL (7.8-10.44) 08/28/20 04:41 Phosphorus 3.0 mg/dL (2.3-4.7) 08/16/20 04:38 Magnesium 2.2 mg/dL (1.6-2.6) 08/28/20 04:41 Albumin 2.7 g/dL (3.4-4.8) L 08/28/20 04:41 Nephrology AP PN - Plan ASSESSMENT: Acute kidney injury: Due to cardiorenal syndrome as well as aggressive diuretics. Improved with ionotropic infusion. Creat is down from peak of 2.9 to 1.6 where it seem to be stable. ? new baseline. Seem to did better with dobutamine. CKD stage 3. baseline creat around 1.0 Metabolic alkalosis: Improved. Fluid overload.Improved with ionotropic and diuretic Hyperkalemia: resolved. Cardiorenal syndrome. Was on dobutamine. Now on milrinone infusion HTN: Control acceptable Acute on chronic heart failure, requiring inotropic agent. Morbid obesity. Atrial fibrillation with controlled ventricular response. Physical deconditioning. Anemia: 2/2 Chronic illness and CKD. ? iron deficiency Iron deficiency anemia NEIDA. Plan Ionotropic and diuretic therapy as per heart failure specialist. Continue IV iron therapy Monitor intake and output as well as renal function and electrolytes.
[2020-08-28] MEDS: Atorvastatin Calcium 40 MG TAB PO SCH (21:50)
[2020-08-28] MEDS: HYDROcodone/Acetaminophen 5/325 mg Tablet PO PRN (23:37)
[2020-08-29 05:21] LABS: #Basophils 0.1 thou/uL (0.0-0.2); #Eosinphils 0.2 thou/uL (0.0-0.7); #Lymphocytes 1.9 thou/uL (1.20-3.40); #Monocytes 0.8 thou/uL (0.11-0.59); #Neutrophils 5.3 thou/uL (1.40-6.50); %Basophils 0.6 % (0.0-1.0); %Eosinophils 2.9 % (0.0-10.0); %Lymphocytes 22.6 % (21.0-51.0); %Monocytes 9.9 % (0.0-10.0); Hemoglobin 8.8 g/dL (12.0-16.0); Mean Corpuscular HGB CONC 31.2 g/dL (32.0-36.0); Mean Corpuscular Hemoglobin 30.6 pg (27.0-31.0); Mean Corpuscular Volume 98.1 fL (78.0-98.0); Mean Platelet Volume 7.7 fL (7.4-10.4); Platelet Count 255 thou/uL (130-400); RBC Distribution Width 13.4 % (11.5-14.5); Red Blood Cell (RBC) Count 2.86 mill/uL (4.20-5.40); White Blood Cell (WBC) Count 8.3 thou/uL (4.8-10.8)
--- NOTE | 2020-08-29 05:59 | PDOC.FM ---
- Subjective Subjective: Sleeping comfortably in bed. Denies pain or SOB. Hypertensive overnight, extra dose of Toprol was ordered but not given due to return to normal pressure. - Objective MAR Reviewed: Yes Vital Signs & Weight: Vital Signs (12 hours) Temp Pulse Resp BP Pulse Ox 08/29/20 03:50 78 16 107/54 L 94 L 08/28/20 19:55 98.4 F 90 15 158/72 H 95 Weight Weight 140.205 kg Most Recent Monitor Data Heart Rate from ECG 70 NIBP 138/93 NIBP BP-Mean 108 Respiration from ECG 18 SpO2 94 I&O: 08/27/20 08/28/20 08/29/20 06:59 06:59 06:59 Intake Total 1765 1790 1000 Output Total 1600 1500 1300 Balance 165 290 -300 Result Diagrams: 08/29/20 04:36 08/29/20 04:36 EKG Reviewed by me: Yes (Afib 70s-100s) Phys Exam - Physical Examination Constitutional: NAD HEENT: moist MMs Neck: supple, full ROM Respiratory: no wheezing, no rales, clear to auscultation bilateral Cardiovascular: no significant murmur irregulary, irregular Gastrointestinal: soft, positive bowel sounds Neurological: non-focal Psychiatric: normal affect Skin: no rash Dx/Plan - Plan Plan: Acute hypoxic respiratory failure likely 2/2 to right heart failure with cardiorenal syndrome -pt originally received lasix due to concern for CHF exacerbation, patient then appeared dry and was hypotensive, labs were concerning for hypoperfusion so patient was given fluids overnight on two different occasions; now concerns for cardiogentic shock and Dr. Bone has been consulted -now on 3 L NC, pt is on 2 L at home -original CXR: bilateral pleural effusions that were not present on previous imaging, repeat xray showed improvement, repeat worsening of CHF -BNP 286 > 324.3; s/p lasix -EKG: Afib w/RVR -echo 08/17: technically difficulty exam 2/2 body habitus, EF 50-55%, diastolic dysfunction cannot be assessed -Per Dr. Bone: * started on dobutamine on 08/21 --> switched to IV milrinone on 08/25 --> milrinone DC'd and dobutamine restarted on 08/28 due to hypotension * bumex added for continued diuresis on 08/26, spironolactone added on 08/27 * started on Tropol XL 12.5 mg q 12 hours on 08/26, increased to 25 mg q12hrs on 08/27, decreased to 12.5 mg on 08/28 * will consider adding hydralazine 10 mg PO q8hrs to regimen again for BP goal of systolics between 110-120, hold for SBP <100 -consulted nephro: diuretics per cards, IV iron, specialists are communicating with each other -cortisol stimulation test: normal -EP (Dr. Stapleton) consulted per Dr. Bone: not candidate for cardioversion at this time, f/u outpatient in 2-3 weeks after proper anticoagulation HFpEF -ECHO 07/02, EF 50-55%, see repeat above) -BNP 286 > 324.3 -s/p lasix, on bumex now -strict I/Os, daily weights UTI, s/p treatment -urine cx: Kleb, E.coli, non-hem strep with dysuria -Ceftriaxone (08/24), x3 days (last day 08/26) -discussed possible interaction between penicillin allergy and cross reaction with ceftriaxone, patient understood and was okay with receiving antibiotics, she denies any reaction -due to hypotension overnight on 08/27-08/28, repeat blood cx and UA: UA appeared clean, Cx pending Hypotension -s/p 500 ml bolus x2, not receiving fluids due to concern for worsening CHF 2/2 to right heart failure and cardiogenic shock -likely 2/2 to cardiogenic shock -dobutamine restarted and milrinone DC'd -will continue to hold lisinopril and coreg -Dr. Bone consulted as mentioned above Afib w/RVR, now rate controlled -Known history: known source, as patient was not taking PO Dilt at home. Patient also just was seen by Dr Connelly outpatient -Anticoagulated with warfarin prior to 08/[address] Tolliver at [facility] time he switched to eliquis due to subtherapeutic INR and missing warfarin doses. -HR 90-110s while in ED, now rate controlled in the 60s-80s -RVR initially improved --> RVR returned on 08/27 --> normal rate 08/28 -s/p dilt gtt stopped 08/16, transitioned to dilt PO, dilt DC'd per Lizandro recs -DC'd dilt and coreg per Lizandro recs, on amiodarone and Toprol XL * Amiodarone 400 mg BID until 5g loading dose (last dose 08/28) achieved followed by amiodarone 200 mg daily (08/29) * Toprol 12.5 mg q12hrs -EP: not current candidate for cardioverision, needs 1 month of anticoagulation, outpatient f/u -TSH: 0.2821 with normal free T3 and T4, will obtain antibodies, patient was mistakenly given levothyroxine (25 mcg), this was discussed with family who was very understanding SEGUNDO on CKD3, -Cr 1.02 on admission -Cr of 1.61 > 1.62 -likely secondary to cardiogenic shock -Dr. Bone consulted, appreciate recs, restarted dobutamine -Nephro consulted: diuretics per cards, Dr. Davidson has talked with Dr. Bone, appreciate recs -will continue to monitor Normocytic Anemia -Hgb: 8.6; due to CHF and cardiogenic shock, will keep Hgb above 8 -iron: 23, TIBC: 184, %sat: 13, Transferrin: 147, ferritin pending -Dr. Davidson has ordered IV iron x3 bags -possibly a mixed picture, likely anemia of chronic disease with possible iron deficiency anemia Transaminitis, resolved -likely 2/2 to hypoperfusion vs congestion 2/2 to cardiorenal syndrome -will continue to monitor Elevated troponin -0.068>.164>.242>.165 -likely demand ischemia due to Afib Diarrhea, resolved COPD -Aware, duonebs prn at home -s/p solumedrol and magnesium per EMS -no wheezing on PE -duonebs PRN Recent hospitalization for COVID pneumonia -05/18-05/21 -Has been on supplemental home oxygen since -Reports negative test on 08/10 HTN -holding original home meds -Stopped isosorbide dinitrate and hydralazine on 08/27 to increase perfusion to the kidney with hopes of increasing diuresis; will consider adding back hydralazine as pt had elevated BPs overnight. See above for goals HLD -Aware, continue home meds GERD -Aware, continue home meds Chronic back pain due to spondylosis -Aware, continue home meds -takes norco for pain Dispo: currently on dobutamine, pending further medical management, will continue to follow Dr. Bone's recs and Dr. Davidson's recs Addendum - Attending - Attending Attestation Date/Time: 08/29/20 9878 I personally evaluated the patient and discussed the management with Dr. Jacome. I agree with the History, Examination, Assessment and Plan documented above with any addition or exceptions noted below. Creatinine has improved since starting dobutamine drip yesterday. Continue diuresis. Continue dobutamine, PT.
[2020-08-29 06:04] LABS: ALT (SGPT) 18 U/L (8-55); AST (SGOT) 18 U/L (5-34); Albumin 2.8 g/dL (3.4-4.8); Alkaline Phosphatase 131 U/L (40-110); Anion Gap 15 mmol/L (10-20); BUN (Urea Nitrogen) 41 mg/dL (9.8-20.1); Bilirubin, Total 0.4 mg/dL (0.2-1.2); Calc. Creatinine Clearance 63 mL/min (70-130); Calcium 8.7 mg/dL (7.8-10.44); Carbon Dioxide 32 mmol/L (23-31); Chloride 96 mmol/L (98-107); Globulin 3.2 g/dL (2.4-3.5); Glucose 94 mg/dL (83-110); Potassium 4.1 mmol/L (3.5-5.1); Sodium 139 mmol/L (136-145)
[2020-08-29] MEDS: Magnesium Oxide 400 MG TAB PO SCH (09:16)
[2020-08-29] MEDS: Potassium Chloride 20 MEQ TAB PO SCH (09:16)
[2020-08-29] MEDS: Polyethylene Glycol 3350 17 GM Packet PO SCH (09:16)
[2020-08-29] MEDS: Spironolactone 25 MG TAB PO SCH (09:17)
[2020-08-29] MEDS: Apixaban 2.5 MG TAB PO SCH ×2 (09:17→21:33)
[2020-08-29] MEDS: Gabapentin 300 MG CAP PO SCH ×3 (09:17→21:34)
[2020-08-29] MEDS: Amiodarone 200 MG TAB PO SCH (09:19)
[2020-08-29] MEDS: AcetaZOLAMIDE 250 MG TAB PO SCH (09:19)
[2020-08-29] MEDS: Bumetanide 1 MG TAB PO SCH ×2 (09:21→16:45)
[2020-08-29] MEDS: Iron, Sodium Ferric Gluconate 250 MG in Sodium Chloride 0.9% 100 ML IVPB SCH (09:22)
[2020-08-29] MEDS: DOBUTamine 500 mg/250 ml 250 ML IVPB SCH (12:08)
--- NOTE | 2020-08-29 16:16 | PDOC.NEPPN ---
- Subjective Encounter Date: 08/29/20 Subjective: No new problem. Still on ionotropie and diuretic. - Objective Vital Signs & Weight: Vital Signs (12 hours) Temp Pulse Resp BP BP Pulse Ox 08/29/20 11:48 97.2 F L 69 16 141/69 H 98 08/29/20 07:30 97.4 F L 74 15 119/59 L 94 L Weight Weight 304 lb Most Recent Monitor Data Heart Rate from ECG 70 NIBP 138/93 NIBP BP-Mean 108 Respiration from ECG 18 SpO2 94 I&O: 08/28/20 08/29/20 08/30/20 06:59 06:59 06:59 Intake Total 1790 1366 Output Total 1500 2600 Balance 290 -1234 Result Diagrams: 08/29/20 04:36 08/29/20 04:36 Nephrology ROS - Medication Medications: Active Medications Generic Name Dose Route Start Last Admin Trade Name Freq PRN Reason Stop Dose Admin Hydrocodone Bitart/Acetaminophen 1 tab 08/26/20 06:12 08/28/20 23:37 Hydrocodone/Acetaminophen 5/325 Mg Tablet PO 1 tab Q6H PRN Administration Moderate Pain (4-6) Acetazolamide 250 mg 08/25/20 09:00 08/29/20 09:19 Acetazolamide 250 Mg Tab PO 250 mg DAILY RODRIGO Administration Amiodarone HCl 200 mg 08/29/20 09:00 08/29/20 09:19 Amiodarone 200 Mg Tab PO 200 mg DAILY RODRIGO Administration Apixaban 2.5 mg 08/23/20 21:00 08/29/20 09:17 Apixaban 2.5 Mg Tab PO 2.5 mg BID RODRIGO Administration Atorvastatin Calcium 40 mg 08/16/20 21:00 08/28/20 21:50 Atorvastatin Calcium 40 Mg Tab PO 40 mg HS RODRIGO Administration Bumetanide 2 mg 08/27/20 16:30 08/29/20 09:21 Bumetanide 1 Mg Tab PO 2 mg BID-AC RODRIGO Administration Calcium Carbonate 1,000 mg 08/16/20 16:14 08/25/20 18:08 Calcium Carbonate 500 Mg Chewtab PO 1,000 mg QIDPRN PRN Administration Heartburn or Indigestion Cosyntropin 250 mcg 08/21/20 10:30 08/21/20 12:56 Cosyntropin 250 Mcg Vial SLOW IVP 250 mcg WILLCALL RODRIGO Administration Gabapentin 300 mg 08/16/20 09:00 08/29/20 09:17 Gabapentin 300 Mg Cap PO 300 mg TID RODRIGO Administration Dobutamine HCl/Dextrose 250 mls @ 10.515 mls/hr 08/28/20 07:45 08/29/20 12:08 Dobutamine 500 Mg/250 Ml IVPB 250 mls INF RODRIGO Administration Protocol 2.5 MCG/KG/MIN Magnesium Oxide 400 mg 08/25/20 09:00 08/29/20 09:16 Magnesium Oxide 400 Mg Tab PO 400 mg DAILY RODRIGO Administration Metoprolol Succinate 12.5 mg 08/28/20 09:00 08/29/20 09:20 Metoprolol Succinate Xl 25 Mg Tab PO 12.5 mg Q12HR RODRIGO Administration Pantoprazole Sodium 20 mg 08/16/20 09:00 08/29/20 09:18 Pantoprazole 40 Mg Tab PO 20 mg DAILY RODRIGO Administration Polyethylene Glycol 17 gm 08/17/20 09:00 08/29/20 09:16 Polyethylene Glycol 3350 17 Gm Packet PO 17 gm DAILY RODRIGO Administration Potassium Chloride 40 meq 08/28/20 08:00 08/29/20 09:16 Potassium Chloride 20 Meq Tab PO 40 meq QAM-WM RODRIGO Administration Sodium Chloride 10 ml 08/16/20 03:53 08/25/20 14:49 Flush - Normal Saline 10 Ml Syringe IVF 10 ml PRN PRN Administration Saline Flush Spironolactone 25 mg 08/28/20 08:00 08/29/20 09:17 Spironolactone 25 Mg Tab PO 25 mg QAM-WM RODRIGO Administration - Exam General Appearance: awake alert General - other findings: morbidly obese Eye: anicteric sclera ENT: normocephalic atraumatic, moist mucosa Neck: supple, symmetric Respiratory - other findings: fair air entry bilaterally Cardiovascular: irregular Gastrointestinal: soft, non-distended, normal bowel sounds Gastrointestinal - other findings: morbidly obese Extremities: no edema Neurological: CN's grossly intact, no focal deficits PSYCH: A&O x 3 Nephrology Results - Labs Result Diagrams: 08/29/20 04:36 08/29/20 04:36 Lab results: WBC 8.3 thou/uL (4.8-10.8) 08/29/20 04:36 Hgb 8.8 g/dL (12.0-16.0) L 08/29/20 04:36 Hct 28.1 % (36.0-47.0) L 08/29/20 04:36 MCV 98.1 fL (78.0-98.0) H 08/29/20 04:36 Plt Count 255 thou/uL (130-400) 08/29/20 04:36 Neutrophils % 64.0 % (42.0-75.0) 08/29/20 04:36 ABG pH 7.33 (7.35-7.45) L 08/16/20 01:17 ABG pCO2 49.3 mmHg (35.0-45.0) H 08/16/20 01:17 ABG pO2 76.5 mmHg (> 60.0) H 08/16/20 01:17 Sodium 139 mmol/L (136-145) 08/29/20 04:36 Potassium 4.1 mmol/L (3.5-5.1) 08/29/20 04:36 Chloride 96 mmol/L (98-107) L 08/29/20 04:36 Carbon Dioxide 32 mmol/L (23-31) H 08/29/20 04:36 BUN 41 mg/dL (9.8-20.1) H 08/29/20 04:36 Creatinine 1.49 mg/dL (0.6-1.1) H 08/29/20 04:36 Glucose 94 mg/dL (83-110) 08/29/20 04:36 Lactic Acid 1.2 mmol/L (0.5-2.2) 08/16/20 04:38 Calcium 8.7 mg/dL (7.8-10.44) 08/29/20 04:36 Total Bilirubin 0.4 mg/dL (0.2-1.2) 08/29/20 04:36 AST 18 U/L (5-34) 08/29/20 04:36 ALT 18 U/L (8-55) 08/29/20 04:36 Alkaline Phosphatase 131 U/L (40-110) H 08/29/20 04:36 CK-MB (CK-2) 3.2 ng/mL (0-6.6) 08/21/20 04:00 Troponin I 0.193 ng/mL (< 0.028) H 08/21/20 04:00 B-Natriuretic Peptide 324.3 pg/mL (0-100) H 08/21/20 04:00 Serum Total Protein 6.0 g/dL (6.0-8.3) 08/29/20 04:36 Albumin 2.8 g/dL (3.4-4.8) L 08/29/20 04:36 Urine Ketones Negative mg/dL (Negative) 08/28/20 11:31 Urine Blood Negative (Negative) 08/28/20 11:31 Urine Nitrite Negative (Negative) 08/28/20 11:31 Ur Leukocyte Esterase Negative Makenzie/uL (Negative) 08/28/20 11:31 Urine RBC 0-3 HPF (0-3) 08/24/20 19:30 Urine WBC 11-20 HPF (0-3) A 08/24/20 19:30 Ur Squamous Epith Cells 0-3 HPF (0-3) 08/24/20 19:30 Urine Bacteria 4+ HPF (None Seen) A 08/24/20 19:30 Sodium 139 mmol/L (136-145) 08/29/20 04:36 Potassium 4.1 mmol/L (3.5-5.1) 08/29/20 04:36 Chloride 96 mmol/L (98-107) L 08/29/20 04:36 Carbon Dioxide 32 mmol/L (23-31) H 08/29/20 04:36 Anion Gap 15 mmol/L (10-20) 08/29/20 04:36 BUN 41 mg/dL (9.8-20.1) H 08/29/20 04:36 Creatinine 1.49 mg/dL (0.6-1.1) H 08/29/20 04:36 Glucose 94 mg/dL (83-110) 08/29/20 04:36 Calcium 8.7 mg/dL (7.8-10.44) 08/29/20 04:36 Phosphorus 3.0 mg/dL (2.3-4.7) 08/16/20 04:38 Magnesium 2.2 mg/dL (1.6-2.6) 08/28/20 04:41 Albumin 2.8 g/dL (3.4-4.8) L 08/29/20 04:36 Nephrology AP PN - Plan ASSESSMENT: Acute kidney injury: Due to cardiorenal syndrome as well as aggressive diuretics. Improvingwith ionotropic infusion. Creat is down from peak of 2.9 to 1.4 Furth with dobutamine. CKD stage 3. baseline creat around 1.0 Metabolic alkalosis: Improved. Fluid overload.Improved with ionotropic and diuretic Hyperkalemia: resolved. Cardiorenal syndrome. Now back on dobutamine. HTN: Control acceptable Acute on chronic heart failure, requiring inotropic agent. Morbid obesity. Atrial fibrillation with controlled ventricular response. Physical deconditioning. Anemia: 2/2 Chronic illness and CKD +/- iron deficiency NEIDA. Plan Ionotropic and diuretic therapy as per heart failure specialist. Monitor intake and output as well as renal function and electrolytes. Can be discharged from nephrology point of view. Can follow up in 2-3 weeks. Nephrology will sign off.
[2020-08-29] MEDS: hydrALAZINE 10 MG TAB PO SCH ×2 (16:35→21:36)
[2020-08-29] MEDS: Atorvastatin Calcium 40 MG TAB PO SCH (21:35)
[2020-08-29] MEDS: HYDROcodone/Acetaminophen 5/325 mg Tablet PO PRN (21:40)
[2020-08-30 04:37] LABS: #Eosinphils 0.2 thou/uL (0.0-0.7); #Lymphocytes 1.9 thou/uL (1.20-3.40); #Monocytes 0.7 thou/uL (0.11-0.59); %Basophils 0.5 % (0.0-1.0); %Eosinophils 3.5 % (0.0-10.0); %Lymphocytes 27.4 % (21.0-51.0); %Monocytes 10.1 % (0.0-10.0); %Neutrophils 58.5 % (42.0-75.0); Hemoglobin 9.4 g/dL (12.0-16.0); Mean Corpuscular HGB CONC 31.5 g/dL (32.0-36.0); Mean Corpuscular Hemoglobin 30.5 pg (27.0-31.0); Mean Corpuscular Volume 96.9 fL (78.0-98.0); Mean Platelet Volume 7.6 fL (7.4-10.4); Platelet Count 280 thou/uL (130-400); RBC Distribution Width 13.7 % (11.5-14.5); Red Blood Cell (RBC) Count 3.08 mill/uL (4.20-5.40); White Blood Cell (WBC) Count 6.9 thou/uL (4.8-10.8)
[2020-08-30 05:00] LABS: ALT (SGPT) 17 U/L (8-55); AST (SGOT) 18 U/L (5-34); Alkaline Phosphatase 131 U/L (40-110); Anion Gap 15 mmol/L (10-20); BUN (Urea Nitrogen) 38 mg/dL (9.8-20.1); Bilirubin, Total 0.4 mg/dL (0.2-1.2); Calc. Creatinine Clearance 61 mL/min (70-130); Calcium 9.1 mg/dL (7.8-10.44); Carbon Dioxide 33 mmol/L (23-31); Chloride 94 mmol/L (98-107); Globulin 3.4 g/dL (2.4-3.5); Glucose 117 mg/dL (83-110); Potassium 3.8 mmol/L (3.5-5.1); Protein, Total 6.4 g/dL (6.0-8.3); Sodium 138 mmol/L (136-145)
--- NOTE | 2020-08-30 05:48 | PDOC.FM ---
- Subjective Subjective: Patient did not have NC or CPAP on this morning. She reports that the nurse removed all oxygen because she was satting well. Patient appeared uncomfortable so I replaced NC. Patient reported abdominal discomfort and pain in her hip. - Objective MAR Reviewed: Yes Vital Signs & Weight: Vital Signs (12 hours) Temp Pulse Resp BP BP BP Pulse Ox 08/30/20 04:00 97.6 F 73 18 137/63 97 08/30/20 01:34 92 L 08/29/20 21:36 89 143/64 H 08/29/20 20:10 97.7 F 81 16 147/77 H 96 Weight Weight 137.892 kg Most Recent Monitor Data Heart Rate from ECG 70 NIBP 138/93 NIBP BP-Mean 108 Respiration from ECG 18 SpO2 94 I&O: 08/28/20 08/29/20 08/30/20 06:59 06:59 06:59 Intake Total 1790 1366 1466.18 Output Total 1500 2600 1600 Balance 290 -1234 -133.82 Result Diagrams: 08/30/20 04:03 08/30/20 04:03 EKG Reviewed by me: Yes (Afib 70s) Phys Exam - Physical Examination uncomfortable with rag over eyes HEENT: moist MMs Neck: supple Respiratory: no wheezing, clear to auscultation bilateral irregularly irregular Gastrointestinal: soft, non-tender, positive bowel sounds Musculoskeletal: no edema Neurological: non-focal Psychiatric: normal affect Skin: no rash Dx/Plan - Plan Plan: Plan: Acute hypoxic respiratory failure likely 2/2 to right heart failure with cardiorenal syndrome -pt originally received lasix due to concern for CHF exacerbation, patient then appeared dry and was hypotensive, labs were concerning for hypoperfusion so patient was given fluids overnight on two different occasions; now concerns for cardiogentic shock and Dr. Bone has been consulted -now on 3 L NC, pt is on 2 L at home -original CXR: bilateral pleural effusions that were not present on previous imaging, repeat xray showed improvement, repeat worsening of CHF -BNP 286 > 324.3; s/p lasix, now on bumex -EKG: Afib w/RVR -echo 08/17: technically difficulty exam 2/2 body habitus, EF 50-55%, diastolic dysfunction cannot be assessed -Per Dr. Bone: * started on dobutamine on 08/21 --> switched to IV milrinone on 08/25 --> milrinone DC'd and dobutamine restarted on 08/28 due to hypotension * bumex added for continued diuresis on 08/26, spironolactone added on 08/27 * started on Tropol XL 12.5 mg q 12 hours on 08/26, increased to 25 mg q12hrs on 08/27, decreased to 12.5 mg on 08/28 * will contact Dr. Bone today regarding recommendations for today and the weekend -added hydralazine 10 mg PO q8hrs to regimen again for BP goal of systolics between 110-120, hold for SBP <100 -consulted nephro: diuretics per cards, IV iron, signed off on 08/29 with outpatient f/u in 2-3 weeks -cortisol stimulation test: normal -EP (Dr. Stapleton) consulted per Dr. Bone: not candidate for cardioversion at this time, f/u outpatient in 2-3 weeks after proper anticoagulation HFpEF -ECHO 07/02, EF 50-55%, see repeat above) -BNP 286 > 324.3 -s/p lasix, on bumex now -strict I/Os, daily weights UTI, s/p treatment -urine cx: Kleb, E.coli, non-hem strep with dysuria -Ceftriaxone (08/24), x3 days (last day 08/26) -discussed possible interaction between penicillin allergy and cross reaction w ith ceftriaxone, patient understood and was okay with receiving antibiotics, she denies any reaction -due to hypotension overnight on 08/27-08/28, repeat blood cx and UA: UA appeared clean, Cx pending Hypotension -s/p 500 ml bolus x2, not receiving fluids due to concern for worsening CHF 2/2 to right heart failure and cardiogenic shock -likely 2/2 to cardiogenic shock -dobutamine restarted and milrinone DC'd -will continue to hold lisinopril and coreg -Dr. Bone consulted as mentioned above Afib w/RVR, now rate controlled -Known history: known source, as patient was not taking PO Dilt at home. Patient also just was seen by Dr Connelly outpatient -Anticoagulated with warfarin prior to 08/[address] Tolliver at which time he switched to eliquis due to subtherapeutic INR and missing warfarin doses. -HR 90-110s while in ED, now rate controlled in the 60s-80s -RVR initially improved --> RVR returned on 08/27 --> normal rate 08/28 -s/p dilt gtt stopped 08/16, transitioned to dilt PO, dilt DC'd per Lizandro recs -DC'd dilt and coreg per Lizandro recs, on amiodarone and Toprol XL * Amiodarone 400 mg BID until 5g loading dose (last dose 08/28) achieved followed by amiodarone 200 mg daily (08/29) * Toprol 12.5 mg q12hrs -EP: not current candidate for cardioverision, needs 1 month of anticoagulation, outpatient f/u -TSH: 0.2821 with normal free T3 and T4, will obtain antibodies, patient was mistakenly given levothyroxine (25 mcg), this was discussed with family who was very understanding SEGUNDO on CKD3 -Cr 1.02 on admission -Cr of 1.61 > 1.62 > 1.49 > 1.51; likely approaching new baseline -likely secondary to cardiogenic shock -Dr. Bone consulted, appreciate recs, restarted dobutamine -Nephro consulted: diuretics per cards, signed off with outpatient f/u 2-3 weeks -will continue to monitor Normocytic Anemia -Hgb: 8.6; due to CHF and cardiogenic shock, will keep Hgb above 8 -iron: 23, TIBC: 184, %sat: 13, Transferrin: 147, ferritin pending -Dr. Davidson has ordered IV iron x3 bags -possibly a mixed picture, likely anemia of chronic disease with possible iron deficiency anemia Transaminitis, resolved -likely 2/2 to hypoperfusion vs congestion 2/2 to cardiorenal syndrome -will continue to monitor Elevated troponin -0.068>.164>.242>.165 -likely demand ischemia due to Afib Diarrhea, resolved COPD -Aware, duonebs prn at home -s/p solumedrol and magnesium per EMS -no wheezing on PE -duonebs PRN Recent hospitalization for COVID pneumonia -05/18-05/21 -Has been on supplemental home oxygen since (3L) -Reports negative test on 08/10 HTN -holding original home meds -Stopped isosorbide dinitrate and hydralazine on 08/27 to increase perfusion to the kidney with hopes of increasing diuresis; added back hydralazine on 08/29; see above for further info HLD -Aware, continue home meds GERD -Aware, continue home meds Chronic back pain due to spondylosis -Aware, continue home meds -takes norco for pain Dispo: currently on dobutamine, pending further medical management, will continue to follow Dr. Bone's recs Addendum - Attending - Attending Attestation Date/Time: 08/30/20 0112 I personally evaluated the patient and discussed the management with Dr. Jacome. I agree with the History, Examination, Assessment and Plan documented above with any addition or exceptions noted below. The patient was upset about not getting O2 overnight. She has oxygen on now and is breathing comfortably. Adjusting drips, continue to trend labs. Restarting isosorbid, adjusting hydralazine per Dr. Bone's recs.
[2020-08-30 06:37] LABS: Magnesium 1.9 mg/dL (1.6-2.6); Phosphorus 3.5 mg/dL (2.3-4.7)
[2020-08-30] MEDS: Bumetanide 1 MG TAB PO SCH ×2 (06:41→15:04)
[2020-08-30] MEDS: hydrALAZINE 10 MG TAB PO SCH ×3 (06:41→23:23)
[2020-08-30] MEDS: Apixaban 2.5 MG TAB PO SCH ×2 (09:06→20:44)
[2020-08-30] MEDS: Potassium Chloride 20 MEQ TAB PO SCH (09:06)
[2020-08-30] MEDS: Spironolactone 25 MG TAB PO SCH (09:06)
[2020-08-30] MEDS: AcetaZOLAMIDE 250 MG TAB PO SCH (09:06)
[2020-08-30] MEDS: Amiodarone 200 MG TAB PO SCH (09:07)
[2020-08-30] MEDS: Gabapentin 300 MG CAP PO SCH ×3 (09:07→20:41)
[2020-08-30] MEDS: Magnesium Oxide 400 MG TAB PO SCH (09:07)
[2020-08-30] MEDS: Polyethylene Glycol 3350 17 GM Packet PO SCH (09:08)
[2020-08-30] MEDS ORDERED: Magnesium 2 GM/50 ML 2 GM in Premix Bag 1 BAG IVPB SCH (10:30)
--- NOTE | 2020-08-30 12:07 | PDOC.BPN ---
- Brief Progress Note TRANSITION OF CARE NOTE Patient is an 85 yo F with a history of COPD, CHF, Afib, and COVID in May 2020 who presented for shortness of breath and respiratory distress that did not improve with her home oxygen of 2L. EMS found O2 sat to be 67%, they placed her home O2 of 2L and she improved to 75% and subsequently placed CPAP, gave bela umedrol and magnesium. Patient has been using supplemental oxygen at home since her hospitalization for COVID pnemonia in May. She was also hospitalized at the end of June for generalized deconditioning and weakness and discharged to a SNF for PT. Patient was discharged home from there on 07/27 and has been receiving HH. She had a negative covid test on 08/10. She is dependent on her daughter with which she lives for her ADLs and uses a wheelchair due to chronic back pain and spondylosis. The patient was initially treated for acute hypoxic respiratory failure thought to be 2/2 to Afib w/RVR vs HF exacerbation. Her admission CXR showed bilateral pleural effusions that were not present on previous imaging and labs showed BNP 286, lactic 2.2, trop 0.068. An ABG revealed pH 7.32, pCO2 49 and her EKG showed Afib w/RVR. Her Ddimer was elevated but CTA negative for PE. An echo on 08/17 EF 50-55%, diastolic dysfunction could not be assessed 2/2 to technically difficulty exam because of body habitus. The pt originally received lasix due to concern for CHF exacerbation, but then became hypotensive overnight on 08/20. Her BP was 87/44, recheck on manual cuff 88/48. She has also had minimal urine output: bladder scan showed <100 ml, I/O catheter was 5 ml dark fluid. At that point she was bolused 500 ml LR x2. The patients creatinine began to increase (reaching max of 2.93) and cardiorenal syndrome was a concern. Dr. Bone was consulted on 08/21. Per his recommendation, she was started on dobutamine on 08/21, switched to IV milrinone on 08/25, and then the milrinone DC'd and dobutamine was restarted on 08/28 due to hypotension. Lasix was discontinued and the patient was switched to PO bumex for continued diuresis on 08/26. Spironolactone added on 08/27. The patient was started on Tropol XL 12.5 mg q 12 hours on 08/26, increased to 25 mg q12hrs on 08/27, decreased back to 12.5 mg on 08/28. The patients home antihypertensives were discontinued and hydralazine 10 mg PO q8hrs was added to regimen with BP goal of systolics between 110-120. The patient has remained in Afib throughout her hospitalization and is now rate controlled (RVR initially improved --> RVR returned on 08/27 --> normal rate 08/28). Her heart rate was initially controlled with dilt gtt, transitioned to dilt PO, then discontinued at the request of Dr. Bone and cardiorenal syndrome. She was started on Amiodarone 400 mg BID until 5g loading dose was achieved (last dose 08/28) and then switched to amiodarone 200 mg daily (08/29). She was previously anticoagulated with warfarin prior to 08/[address] Tolliver at which time he switched to eliquis due to subtherapeutic INR and missing warfarin doses. Once the patients kidney function returns to normal, consider increasing patients Eliquis dose. EP (Dr. Stapleton) was consulted per Dr. Bone and said that the patient was not a candidate for cardioversion at this time. He recommended f/u outpatient in 2-3 weeks after proper anticoagulation. Nephrology was also consulted due to the patients elevated creatinine. Nephro recommended diuretics per cards, IV iron for patients normocytic anemia, and outpatient f/u in 2-3 weeks. On 08/30 her Cr was 1.51 which could potentially be a new baseline for the patient. The primary care team will continue to follow the recommendations of Dr. Bone regarding the patients dobutamine and further management. Dr. Bone's recommendations as of 08/30: 1. Continue hydralazine 10 mg q8 hours (hold for systolics <100) 2. Start isosorbide dinitrate 5 mg PO q12 hours (started on 08/30) 3. Decreased Bumex to 1 mg (decreased on 08/30) 4. Decrease dobutamine to 1 mcg/kg/min tomorrow (08/31). If patient does well overnight on 08/31, DC dobutamine on Saturday 09/01 Of note, the patient was also treated for a UTI with ceftriaxone from 08/24-08-26.
[2020-08-30] MEDS: DOBUTamine 500 mg/250 ml 250 ML IVPB SCH (12:23)
[2020-08-30] MEDS: Isosorbide Dinitrate 5 MG TAB PO SCH (20:41)
[2020-08-30] MEDS: HYDROcodone/Acetaminophen 5/325 mg Tablet PO PRN (20:41)
[2020-08-30] MEDS: Atorvastatin Calcium 40 MG TAB PO SCH (20:42)
[2020-08-31 04:50] LABS: #Eosinphils 0.3 thou/uL (0.0-0.7); #Lymphocytes 1.7 thou/uL (1.20-3.40); #Monocytes 0.6 thou/uL (0.11-0.59); #Neutrophils 3.7 thou/uL (1.40-6.50); %Basophils 0.7 % (0.0-1.0); %Eosinophils 4.7 % (0.0-10.0); %Lymphocytes 26.9 % (21.0-51.0); %Monocytes 9.5 % (0.0-10.0); %Neutrophils 58.3 % (42.0-75.0); Hemoglobin 9.7 g/dL (12.0-16.0); Mean Corpuscular HGB CONC 31.2 g/dL (32.0-36.0); Mean Corpuscular Hemoglobin 30.2 pg (27.0-31.0); Mean Platelet Volume 7.1 fL (7.4-10.4); Platelet Count 295 thou/uL (130-400); RBC Distribution Width 13.7 % (11.5-14.5); Red Blood Cell (RBC) Count 3.21 mill/uL (4.20-5.40); White Blood Cell (WBC) Count 6.4 thou/uL (4.8-10.8)
[2020-08-31 05:12] LABS: ALT (SGPT) 14 U/L (8-55); AST (SGOT) 14 U/L (5-34); Alkaline Phosphatase 129 U/L (40-110); Anion Gap 15 mmol/L (10-20); BUN (Urea Nitrogen) 38 mg/dL (9.8-20.1); Bilirubin, Total 0.4 mg/dL (0.2-1.2); Calc. Creatinine Clearance 58 mL/min (70-130); Calcium 9.1 mg/dL (7.8-10.44); Carbon Dioxide 35 mmol/L (23-31); Chloride 94 mmol/L (98-107); Globulin 3.4 g/dL (2.4-3.5); Glucose 111 mg/dL (83-110); Potassium 3.8 mmol/L (3.5-5.1); Protein, Total 6.4 g/dL (6.0-8.3); Sodium 140 mmol/L (136-145)
[2020-08-31] MEDS: hydrALAZINE 10 MG TAB PO SCH ×3 (05:44→20:16)
--- NOTE | 2020-08-31 05:59 | PDOC.FM ---
- Subjective Subjective: Pt resting comfortably. Her daughter said she was snoring louder than usual last night and asked the nurse to increase her oxygen. This morning she was satting well on 2L. - Objective Vital Signs & Weight: Vital Signs (12 hours) Temp Pulse Resp BP BP Pulse Ox 08/31/20 05:44 71 08/31/20 04:00 98.1 F 67 19 123/63 96 08/31/20 01:49 98 08/30/20 23:45 96.7 F L 73 14 120/62 98 08/30/20 23:23 73 08/30/20 20:10 97.5 F L 91 14 138/63 96 Weight Weight 134.037 kg Most Recent Monitor Data Heart Rate from ECG 70 NIBP 138/93 NIBP BP-Mean 108 Respiration from ECG 18 SpO2 94 I&O: 08/29/20 08/30/20 08/31/20 06:59 06:59 06:59 Intake Total 1366 1992.18 1105.9 Output Total 2600 3800 1800 Balance -1234 -1807.82 -694.1 Result Diagrams: 08/31/20 04:21 08/31/20 04:21 Phys Exam - Physical Examination Constitutional: NAD Neck: supple, full ROM Respiratory: no wheezing, clear to auscultation bilateral Cardiovascular: RRR, no significant murmur Gastrointestinal: soft, non-tender, no distention Musculoskeletal: no edema Neurological: non-focal Psychiatric: A&O x 3 Dx/Plan - Plan Plan: Acute hypoxic respiratory failure likely 2/2 to right heart failure with cardiorenal syndrome -pt originally received lasix due to concern for CHF exacerbation, patient then appeared dry and was hypotensive, labs were concerning for hypoperfusion so patient was given fluids overnight on two different occasions; now concerns for cardiogenic shock and Dr. Bone has been consulted -now on 3 L NC, pt is on 2 L at home -original CXR: bilateral pleural effusions that were not present on previous imaging, repeat xray showed improvement, repeat worsening of CHF -BNP 286 > 324.3; s/p lasix, now on bumex -EKG: Afib w/RVR -echo 08/17: technically difficulty exam 2/2 body habitus, EF 50-55%, diastolic dysfunction cannot be assessed -Per Dr. Bone: * started on dobutamine on 08/21 --> switched to IV milrinone on 08/25 --> milrinone DC'd and dobutamine restarted on 08/28 due to hypotension * bumex added for continued diuresis on 08/26, spironolactone added on 08/27 * started on Tropol XL 12.5 mg q 12 hours on 08/26, increased to 25 mg q12hrs on 08/27, decreased to 12.5 mg on 08/28 * decrease dobutamine to 1mcg/kg/min today and if pt does well overnight, DC tomorrow -added hydralazine 10 mg PO q8hrs to regimen again for BP goal of systolics between 110-120, hold for SBP <100 -consulted nephro: diuretics per cards, IV iron, signed off on 08/29 with outpatient f/u in 2-3 weeks -cortisol stimulation test: normal -EP (Dr. Stapleton) consulted per Dr. Bone: not candidate for cardioversion at this time, f/u outpatient in 2-3 weeks after proper anticoagulation HFpEF -ECHO 07/02, EF 50-55%, see repeat above -BNP 286 > 324.3 -s/p lasix, on bumex now -strict I/Os, daily weights UTI, s/p treatment -urine cx: Kleb, E.coli, non-hem strep with dysuria -Ceftriaxone (08/24), x3 days (last day 08/26) -discussed possible interaction between penicillin allergy and cross reaction with ceftriaxone, patient understood and was okay with receiving antibiotics, she denies any reaction -due to hypotension overnight on 08/27-08/28, repeat blood cx and UA: UA appeared clean, Cx pending Hypotension -s/p 500 ml bolus x2, not receiving fluids due to concern for worsening CHF 2/2 to right heart failure and cardiogenic shock -likely 2/2 to cardiogenic shock -dobutamine restarted and milrinone DC'd -will continue to hold lisinopril and coreg -Dr. Bone consulted as mentioned above Afib w/RVR, now rate controlled -Known history: known source, as patient was not taking PO Dilt at home. Patient also just was seen by Dr Connelly outpatient -Anticoagulated with warfarin prior to 08/[address] Tolliver at which time he switched to eliquis due to subtherapeutic INR and missing warfarin doses. -HR 90-110s while in ED, now rate controlled in the 60s-80s -RVR initially improved --> RVR returned on 08/27 --> normal rate 08/28 -s/p dilt gtt stopped 08/16, transitioned to dilt PO, dilt DC'd per Lizandro recs -DC'd dilt and coreg per Lizandro recs, on amiodarone and Toprol XL * Amiodarone 400 mg BID until 5g loading dose (last dose 08/28) achieved followed by amiodarone 200 mg daily (08/29) * Toprol 12.5 mg q12hrs -EP: not current candidate for cardioverision, needs 1 month of anticoagulation, outpatient f/u -TSH: 0.2821 with normal free T3 and T4, will obtain antibodies, patient was mistakenly given levothyroxine (25 mcg), this was discussed with family who was very understanding SEGUNDO on CKD3 -Cr 1.02 on admission -Cr of 1.61 > 1.62 > 1.49 > 1.51; likely approaching new baseline -likely secondary to cardiogenic shock -Dr. Bone consulted, appreciate recs, restarted dobutamine -Nephro consulted: diuretics per cards, signed off with outpatient f/u 2-3 weeks -will continue to monitor Normocytic Anemia -Hgb: 8.6; due to CHF and cardiogenic shock, will keep Hgb above 8 -iron: 23, TIBC: 184, %sat: 13, Transferrin: 147, ferritin pending -Dr. Davidson has ordered IV iron x3 bags -possibly a mixed picture, likely anemia of chronic disease with possible iron deficiency anemia Transaminitis, resolved -likely 2/2 to hypoperfusion vs congestion 2/2 to cardiorenal syndrome -will continue to monitor Elevated troponin -0.068>.164>.242>.165 -likely demand ischemia due to Afib Diarrhea, resolved COPD -Aware, duonebs prn at home -s/p solumedrol and magnesium per EMS -no wheezing on PE -duonebs PRN Recent hospitalization for COVID pneumonia -05/18-05/21 -Has been on supplemental home oxygen since (3L) -Reports negative test on 08/10 HTN -holding original home meds -Stopped isosorbide dinitrate and hydralazine on 08/27 to increase perfusion to the kidney with hopes of increasing diuresis; added back hydralazine on 08/29; see above for further info HLD -Aware, continue home meds GERD -Aware, continue home meds Chronic back pain due to spondylosis -Aware, continue home meds -takes norco for pain Dispo: currently on dobutamine, pending further medical management, will continue to follow Dr. Bone's recs
[2020-08-31] MEDS ORDERED: DOBUTamine 500 mg/250 ml 250 ML IVPB SCH (06:04)
[2020-08-31] MEDS ORDERED: Potassium Chloride 20 MEQ TAB PO SCH (06:15)
[2020-08-31] MEDS: Isosorbide Dinitrate 5 MG TAB PO SCH ×2 (08:37→20:14)
[2020-08-31] MEDS: Bumetanide 1 MG TAB PO SCH ×2 (08:37→15:37)
[2020-08-31] MEDS: Gabapentin 300 MG CAP PO SCH ×3 (08:37→20:14)
[2020-08-31] MEDS: Spironolactone 25 MG TAB PO SCH (08:38)
[2020-08-31] MEDS: AcetaZOLAMIDE 250 MG TAB PO SCH (08:38)
[2020-08-31] MEDS: Apixaban 2.5 MG TAB PO SCH ×2 (08:38→20:14)
[2020-08-31] MEDS: Amiodarone 200 MG TAB PO SCH (08:38)
[2020-08-31] MEDS: Magnesium Oxide 400 MG TAB PO SCH (08:38)
[2020-08-31] MEDS: Polyethylene Glycol 3350 17 GM Packet PO SCH (08:44)
[2020-08-31] MEDS: Potassium Chloride 20 MEQ TAB PO SCH (08:44)
--- NOTE | 2020-08-31 12:25 | PRG ---
DATE OF SERVICE: 08/31/2020 Please see the note from Dr. Whatley, for which I agree. The patient was seen, evaluated, discussed, and examined with the residents by bedside. Basically, has been here for over 2 weeks for congestive heart failure, preserved ejection fraction, is being followed by Dr. Bone, CHF specialist. Is on dobutamine. We are weaning that off and the plan is to eventually get her [facility] a [facility] facility and then mange her there. Follow recommendations that are basically per Dr. Bone and just waiting on this placement. Job ID: [id number]
[2020-08-31] MEDS: Atorvastatin Calcium 40 MG TAB PO SCH (20:13)
[2020-08-31] MEDS: HYDROcodone/Acetaminophen 5/325 mg Tablet PO PRN (20:13)
[2020-09-01 05:21] LABS: ALT (SGPT) 14 U/L (8-55); AST (SGOT) 16 U/L (5-34); Albumin 3.2 g/dL (3.4-4.8); Alkaline Phosphatase 132 U/L (40-110); Anion Gap 12 mmol/L (10-20); BUN (Urea Nitrogen) 39 mg/dL (9.8-20.1); Bilirubin, Total 0.4 mg/dL (0.2-1.2); Calc. Creatinine Clearance 57 mL/min (70-130); Calcium 9.4 mg/dL (7.8-10.44); Carbon Dioxide 36 mmol/L (23-31); Chloride 95 mmol/L (98-107); Globulin 3.5 g/dL (2.4-3.5); Glucose 106 mg/dL (83-110); Magnesium 2.2 mg/dL (1.6-2.6); Protein, Total 6.7 g/dL (6.0-8.3); Sodium 139 mmol/L (136-145)
[2020-09-01] MEDS: hydrALAZINE 10 MG TAB PO SCH ×3 (05:44→20:51)
--- NOTE | 2020-09-01 06:12 | PDOC.FM ---
- Subjective Subjective: Pt resting comfortably. Complained of pain due to pure wick over night, but better this morning. Has had regular b.m. - Objective Vital Signs & Weight: Vital Signs (12 hours) Temp Pulse Resp BP Pulse Ox 09/01/20 05:44 70 09/01/20 03:18 98.1 F 70 14 114/58 L 96 09/01/20 01:31 98 09/01/20 00:00 64 113/57 L 08/31/20 20:16 80 08/31/20 19:27 98.5 F 80 18 127/78 97 Weight Weight 134.445 kg Most Recent Monitor Data Heart Rate from ECG 70 NIBP 138/93 NIBP BP-Mean 108 Respiration from ECG 18 SpO2 94 I&O: 08/30/20 08/31/20 09/01/20 06:59 06:59 06:59 Intake Total 1992.18 1591.9 1500.4 Output Total 3800 3000 2150 Balance -1807.82 -1408.1 -649.6 Result Diagrams: 08/31/20 04:21 09/01/20 04:35 Phys Exam - Physical Examination Constitutional: NAD HEENT: sclera anicteric Neck: supple Respiratory: no wheezing, clear to auscultation bilateral irregularly irregular, distant heart sounds Gastrointestinal: soft, non-tender Musculoskeletal: no edema Neurological: non-focal Psychiatric: normal affect Skin: no rash Dx/Plan - Plan Plan: Acute hypoxic respiratory failure likely 2/2 to right heart failure with cardiorenal syndrome -pt originally received lasix due to concern for CHF exacerbation, patient then appeared dry and was hypotensive, labs were concerning for hypoperfusion so patient was given fluids overnight on two different occasions; now concerns for cardiogenic shock and Dr. Bone has been consulted -now on 3 L NC, pt is on 2 L at home -original CXR: bilateral pleural effusions that were not present on previous imaging, repeat xray showed improvement, repeat worsening of CHF -BNP 286 > 324.3; s/p lasix, now on bumex -EKG: Afib w/RVR -echo 08/17: technically difficulty exam 2/2 body habitus, EF 50-55%, diastolic dysfunction cannot be assessed -added hydralazine 10 mg PO q8hrs to regimen again for BP goal of systolics between 110-120, hold for SBP <100 -consulted nephro: diuretics per cards, IV iron, signed off on 08/29 with outpatient f/u in 2-3 weeks -cortisol stimulation test: normal -EP (Dr. Stapleton) consulted per Dr. Bone: not candidate for cardioversion at this time, f/u outpatient in 2-3 weeks after proper anticoagulation -Per Dr. Bone: * started on dobutamine on 08/21 --> switched to IV milrinone on 08/25 --> milrinone DC'd and dobutamine restarted on 08/28 due to hypotension * bumex added for continued diuresis on 08/26, spironolactone added on 08/27 * started on Tropol XL 12.5 mg q 12 hours on 08/26, increased to 25 mg q12hrs on 08/27, decreased to 12.5 mg on 08/28 * stopped dobutamine gtt on 09/01 HFpEF -ECHO 07/02, EF 50-55%, see repeat above -BNP 286 > 324.3 -s/p lasix, on bumex now -strict I/Os, daily weights UTI, s/p treatment -urine cx: Kleb, E.coli, non-hem strep with dysuria -Ceftriaxone (08/24), x3 days (last day 08/26) -discussed possible interaction between penicillin allergy and cross reaction with ceftriaxone, patient understood and was okay with receiving antibiotics, she denies any reaction -due to hypotension overnight on 08/27-08/28, repeat blood cx and UA: UA appeared clean, Cx pending Hypotension -s/p 500 ml bolus x2, not receiving fluids due to concern for worsening CHF 2/2 to right heart failure and cardiogenic shock -likely 2/2 to cardiogenic shock -dobutamine restarted and milrinone DC'd -will continue to hold lisinopril and coreg -Dr. Bone consulted as mentioned above Afib w/RVR, now rate controlled -Known history: known source, as patient was not taking PO Dilt at home. Patient also just was seen by Dr Connelly outpatient -Anticoagulated with warfarin prior to 08/[address] Tolliver at which time he switched to eliquis due to subtherapeutic INR and missing warfarin doses. -HR 90-110s while in ED, now rate controlled in the 60s-80s -RVR initially improved --> RVR returned on 08/27 --> normal rate 08/28 -s/p dilt gtt stopped 08/16, transitioned to dilt PO, dilt DC'd per Lizandro recs -DC'd dilt and coreg per Lizandro recs, on amiodarone and Toprol XL * Amiodarone 400 mg BID until 5g loading dose (last dose 08/28) achieved followed by amiodarone 200 mg daily (08/29) * Toprol 12.5 mg q12hrs -EP: not current candidate for cardioverision, needs 1 month of anticoagulation, outpatient f/u -TSH: 0.2821 with normal free T3 and T4, will obtain antibodies, patient was mistakenly given levothyroxine (25 mcg), this was discussed with family who was very understanding SEGUNDO on CKD3 -Cr 1.02 on admission -Cr of 1.61 > 1.62 > 1.49 > 1.51; likely approaching new baseline -likely secondary to cardiogenic shock -Dr. Bone consulted, appreciate recs, restarted dobutamine -Nephro consulted: diuretics per cards, signed off with outpatient f/u 2-3 weeks -will continue to monitor Normocytic Anemia -Hgb: 8.6; due to CHF and cardiogenic shock, will keep Hgb above 8 -iron: 23, TIBC: 184, %sat: 13, Transferrin: 147, ferritin pending -Dr. Davidson has ordered IV iron x3 bags -possibly a mixed picture, likely anemia of chronic disease with possible iron deficiency anemia Transaminitis, resolved -likely 2/2 to hypoperfusion vs congestion 2/2 to cardiorenal syndrome -will continue to monitor Elevated troponin -0.068>.164>.242>.165 -likely demand ischemia due to Afib Diarrhea, resolved COPD -Aware, duonebs prn at home -s/p solumedrol and magnesium per EMS -no wheezing on PE -duonebs PRN Recent hospitalization for COVID pneumonia -05/18-05/21 -Has been on supplemental home oxygen since (3L) -Reports negative test on 08/10 HTN -holding original home meds -Stopped isosorbide dinitrate and hydralazine on 08/27 to increase perfusion to the kidney with hopes of increasing diuresis; added back hydralazine on 08/29; see above for further info HLD -Aware, continue home meds GERD -Aware, continue home meds Chronic back pain due to spondylosis -Aware, continue home meds -takes norco for pain Dispo: stopped dobutamine gtt today, will monitor, CM consulted, plan is for patient to go to SNF in [place]
[2020-09-01] MEDS: Bumetanide 1 MG TAB PO SCH ×2 (07:56→15:42)
[2020-09-01] MEDS: AcetaZOLAMIDE 250 MG TAB PO SCH (07:57)
[2020-09-01] MEDS: Spironolactone 25 MG TAB PO SCH (07:57)
[2020-09-01] MEDS: Apixaban 2.5 MG TAB PO SCH ×2 (07:57→20:50)
[2020-09-01] MEDS: Gabapentin 300 MG CAP PO SCH ×3 (07:57→20:51)
[2020-09-01] MEDS: Amiodarone 200 MG TAB PO SCH (07:57)
[2020-09-01] MEDS: Potassium Chloride 20 MEQ TAB PO SCH (07:57)
[2020-09-01] MEDS: Isosorbide Dinitrate 5 MG TAB PO SCH ×2 (07:58→20:52)
[2020-09-01] MEDS: Magnesium Oxide 400 MG TAB PO SCH (07:58)
[2020-09-01] MEDS: Polyethylene Glycol 3350 17 GM Packet PO SCH (08:00)
--- NOTE | 2020-09-01 11:55 | PRG ---
DATE OF SERVICE: 09/01/2020 Please see the note from Dr. Whatley, for which I agree. The patient was seen, evaluated, discussed, and examined with the residents by bedside. Was able to get off the dobutamine this morning. I am waiting on senior living placement just to kind help her with rehab, etc. Dr. Bone is alongside with this as well. Back to 98% on 2 L, which is what she wears at home, so it sounds like she is basically back to baseline. Job ID: [id number]
[2020-09-01] MEDS: HYDROcodone/Acetaminophen 5/325 mg Tablet PO PRN (20:52)
[2020-09-01] MEDS: Atorvastatin Calcium 40 MG TAB PO SCH (20:52)
[2020-09-02 04:40] LABS: #Eosinphils 0.3 thou/uL (0.0-0.7); #Lymphocytes 1.8 thou/uL (1.20-3.40); #Monocytes 0.5 thou/uL (0.11-0.59); #Neutrophils 3.7 thou/uL (1.40-6.50); %Basophils 0.4 % (0.0-1.0); %Eosinophils 5.3 % (0.0-10.0); %Lymphocytes 28.3 % (21.0-51.0); %Monocytes 8.5 % (0.0-10.0); %Neutrophils 57.6 % (42.0-75.0); Mean Corpuscular HGB CONC 31.1 g/dL (32.0-36.0); Mean Corpuscular Hemoglobin 30.5 pg (27.0-31.0); Mean Corpuscular Volume 97.8 fL (78.0-98.0); Mean Platelet Volume 7.1 fL (7.4-10.4); Platelet Count 280 thou/uL (130-400); RBC Distribution Width 13.7 % (11.5-14.5); Red Blood Cell (RBC) Count 3.29 mill/uL (4.20-5.40); White Blood Cell (WBC) Count 6.4 thou/uL (4.8-10.8)
[2020-09-02 05:07] LABS: ALT (SGPT) 13 U/L (8-55); AST (SGOT) 14 U/L (5-34); Albumin 3.1 g/dL (3.4-4.8); Alkaline Phosphatase 126 U/L (40-110); Anion Gap 16 mmol/L (10-20); BUN (Urea Nitrogen) 45 mg/dL (9.8-20.1); Bilirubin, Total 0.4 mg/dL (0.2-1.2); Calc. Creatinine Clearance 52 mL/min (70-130); Calcium 9.1 mg/dL (7.8-10.44); Carbon Dioxide 30 mmol/L (23-31); Chloride 98 mmol/L (98-107); Globulin 3.4 g/dL (2.4-3.5); Glucose 104 mg/dL (83-110); Magnesium 2.2 mg/dL (1.6-2.6); Potassium 4.1 mmol/L (3.5-5.1); Protein, Total 6.5 g/dL (6.0-8.3); Sodium 140 mmol/L (136-145)
[2020-09-02] MEDS: hydrALAZINE 10 MG TAB PO SCH ×3 (05:53→21:20)
--- NOTE | 2020-09-02 06:19 | PDOC.FM ---
- Subjective Subjective: Patient is resting comfortably in bed. Complains of suprapubic abdominal pain, mild that started overnight, is worse with urinating. Denies fever/chills. No SOB/Chest pain. - Objective MAR Reviewed: Yes Vital Signs & Weight: Vital Signs (12 hours) Temp Pulse Resp BP Pulse Ox 09/02/20 04:00 98.4 F 72 14 126/59 L 97 09/01/20 23:53 97.7 F 70 12 112/59 L 97 09/01/20 19:30 97.7 F 93 20 116/84 96 Weight Weight 129.909 kg Most Recent Monitor Data Heart Rate from ECG 70 NIBP 138/93 NIBP BP-Mean 108 Respiration from ECG 18 SpO2 94 I&O: 08/31/20 09/01/20 09/02/20 06:59 06:59 06:59 Intake Total 1591.9 1500.4 1320 Output Total 3000 2150 1650 Balance -1408.1 -649.6 -330 Result Diagrams: 09/02/20 04:18 09/02/20 04:18 Phys Exam - Physical Examination Constitutional: NAD HEENT: PERRLA, moist MMs Respiratory: no wheezing, clear to auscultation bilateral irregularly irregular, distant heart sounds Gastrointestinal: soft, no distention, positive bowel sounds Suprapubic tenderness to palpation Musculoskeletal: no edema Neurological: non-focal Psychiatric: normal affect, A&O x 3 Skin: no rash Dx/Plan - Plan Plan: Acute hypoxic respiratory failure likely 2/2 to right heart failure with cardiorenal syndrome -pt originally received lasix due to concern for CHF exacerbation, patient then appeared dry and was hypotensive, labs were concerning for hypoperfusion so patient was given fluids overnight on two different occasions; now concerns for cardiogenic shock and Dr. Bone has been consulted -now on 2-2.5 L NC, pt is on 2 L at home -original CXR: bilateral pleural effusions that were not present on previous imaging, repeat xray showed improvement, repeat worsening of CHF -BNP 286 > 324.3; s/p lasix, now on bumex -EKG: Afib w/RVR -echo 08/17: technically difficulty exam 2/2 body habitus, EF 50-55%, diastolic dysfunction cannot be assessed -added hydralazine 10 mg PO q8hrs to regimen again for BP goal of systolics between 110-120, hold for SBP <100 -consulted nephro: diuretics per cards, IV iron, signed off on 08/29 with outpatient f/u in 2-3 weeks -cortisol stimulation test: normal -EP (Dr. Stapleton) consulted per Dr. Bone: not candidate for cardioversion at this time, f/u outpatient in 2-3 weeks after proper anticoagulation -Per Dr. Bone: * started on dobutamine on 08/21 --> switched to IV milrinone on 08/25 --> milrinone DC'd and dobutamine restarted on 08/28 due to hypotension * bumex added for continued diuresis on 08/26, spironolactone added on 08/27 * started on Tropol XL 12.5 mg q 12 hours on 08/26, increased to 25 mg q12hrs on 08/27, decreased to 12.5 mg on 08/28 * stopped dobutamine gtt on 09/01 HFpEF -ECHO 07/02, EF 50-55%, see repeat above -BNP 286 > 324.3 -s/p lasix, on bumex now -strict I/Os, daily weights UTI, s/p treatment -urine cx: Kleb, E.coli, non-hem strep with dysuria -Ceftriaxone (08/24), x3 days (last day 08/26) -discussed possible interaction between penicillin allergy and cross reaction with ceftriaxone, patient understood and was okay with receiving antibiotics, she denies any reaction -due to hypotension overnight on 08/27-08/28, repeat blood cx and UA: UA appeared clean, no UCx resulted - New onset suprapubic pain today, worse with urinating, +CVA tenderness --> Will get UA and UCx Hypotension, resolved -s/p 500 ml bolus x2, not receiving fluids due to concern for worsening CHF 2/2 to right heart failure and cardiogenic shock -likely 2/2 to cardiogenic shock -dobutamine and milrinone DC'd -will continue to hold lisinopril and coreg -Dr. Bone consulted as mentioned above Afib w/RVR, now rate controlled -Known history: known source, as patient was not taking PO Dilt at home. Patient also just was seen by Dr Connelly outpatient -Anticoagulated with warfarin prior to 08/[address] Tolliver at which time he switched to eliquis due to subtherapeutic INR and missing warfarin doses. -HR 90-110s while in ED, now rate controlled in the 60s-80s -RVR initially improved --> RVR returned on 08/27 --> normal rate 08/28 -s/p dilt gtt stopped 08/16, transitioned to dilt PO, dilt DC'd per Lizandro gradys -DC'd dilt and coreg per Lizandro gonsalez, on amiodarone and Toprol XL * Amiodarone 400 mg BID until 5g loading dose (last dose 08/28) achieved followed by amiodarone 200 mg daily (08/29) * Toprol 12.5 mg q12hrs -EP: not current candidate for cardioverision, needs 1 month of anticoagulation, outpatient f/u -TSH: 0.2821 with normal free T3 and T4, will obtain antibodies, patient was mistakenly given levothyroxine (25 mcg), this was discussed with family who was very understanding SEGUNDO on CKD3 -Cr 1.02 on admission -Cr of 1.61 > 1.62 > 1.49 > 1.51; likely approaching new baseline -likely secondary to cardiogenic shock -Dr. Bone consulted, tiffany recs -Nephro consulted: diuretics per cards, signed off with outpatient f/u 2-3 weeks -will continue to monitor Normocytic Anemia -Hgb: 8.6; due to CHF and cardiogenic shock, will keep Hgb above 8 -iron: 23, TIBC: 184, %sat: 13, Transferrin: 147, ferritin pending -Dr. Davidson has ordered IV iron x3 bags -possibly a mixed picture, likely anemia of chronic disease with possible iron deficiency anemia Transaminitis, resolved -likely 2/2 to hypoperfusion vs congestion 2/2 to cardiorenal syndrome -will continue to monitor Elevated troponin -0.068>.164>.242>.165 -likely demand ischemia due to Afib Diarrhea, resolved COPD -Aware, duonebs prn at home -s/p solumedrol and magnesium per EMS -no wheezing on PE -duonebs PRN Recent hospitalization for COVID pneumonia -05/18-05/21 -Has been on supplemental home oxygen since (3L) -Reports negative test on 08/10 HTN -holding original home meds -Stopped isosorbide dinitrate and hydralazine on 08/27 to increase perfusion to the kidney with hopes of increasing diuresis; added back hydralazine on 08/29; see above for further info HLD -Aware, continue home meds GERD -Aware, continue home meds Chronic back pain due to spondylosis -Aware, continue home meds -takes norco for pain Dispo: stopped dobutamine gtt, will monitor, CM consulted, plan is for patient to go to SNF in [place]
[2020-09-02] MEDS: Potassium Chloride 20 MEQ TAB PO SCH (08:23)
[2020-09-02] MEDS: Bumetanide 1 MG TAB PO SCH ×2 (08:23→16:04)
[2020-09-02] MEDS: AcetaZOLAMIDE 250 MG TAB PO SCH (08:24)
[2020-09-02] MEDS: Apixaban 2.5 MG TAB PO SCH ×2 (08:24→21:20)
[2020-09-02] MEDS: Amiodarone 200 MG TAB PO SCH (08:24)
[2020-09-02] MEDS: Spironolactone 25 MG TAB PO SCH (08:24)
[2020-09-02] MEDS: Gabapentin 300 MG CAP PO SCH ×3 (08:25→21:23)
[2020-09-02] MEDS: Isosorbide Dinitrate 5 MG TAB PO SCH ×2 (08:26→21:21)
[2020-09-02] MEDS: Magnesium Oxide 400 MG TAB PO SCH (08:26)
[2020-09-02] MEDS: Polyethylene Glycol 3350 17 GM Packet PO SCH (08:29)
--- NOTE | 2020-09-02 11:17 | PRG ---
DATE OF SERVICE: 09/02/2020 Ms. Salinas is an 85-year-old lady, who was admitted with acute hypoxic respiratory failure secondary to right heart failure and cardiorenal syndrome. Dr. Bone was consulted and has been treating the patient along with this. She has multiple other medical comorbidities. After Dr. Bone was consulted, the patient was started on dobutamine and later switched to milrinone, but these both caused some hypotension. In the event, Bumex and spironolactone have been added and the patient is clinically stable. She is planning to go to a SNF placement in [place]. Job ID: [id number]
[2020-09-02 11:59] LABS: Bacteria/HPF None Seen HPF (None Seen); Bilirubin Negative (Negative); Blood, Urine Negative (Negative); Clarity Clear (Clear); Glucose, Urine (Dipstick) Normal (Negative); Ketone, Urine Negative (Negative); Leukocyte 25 Leu/uL (Negative); Nitrite Negative (Negative); Protein, Urine (Dipstick) Negative (Neg-Trace); RBC/HPF 0-3 HPF (0-3); Specific Gravity, Urine 1.016 (1.002-1.036); Squamous Epithelial 0-3 HPF (0-3); WBC/HPF 0-3 HPF (0-3); pH, Urine 6.5 (5.0-9.0)
[2020-09-02] MEDS: Phenazopyridine HCl 100 MG TAB PO SCH (17:44)
--- NOTE | 2020-09-02 18:17 | PRG ---
DATE OF SERVICE: 09/02/2020 SERVICE: Advanced Heart Failure Cardiology Consulting Service. HISTORY OF PRESENT ILLNESS: Ms. Renee Salinas generally had most excellent week. She was on dobutamine for a while. She has increased energy level and she was able to diurese on dobutamine and that was able to preserve her renal function. Over a period of time that she is now able to transfer herself, go to the bathroom, also take a shower. She has much more movement than what she was week ago. She also able to converse with the daughter. Her daughter now says that Ms. Salinas has improved to full and is now back to her normal self. However, she woke up this morning with right hip pain. She does not know how that happened, but the pain is dull. However, if she push on it, it can cause more pain. REVIEW OF SYSTEMS: GENERAL: There is no fever, chills, or productive cough. HEENT: There is no change in vision, hearing, or swallowing. PULMONARY: There is no shortness of breath. CARDIAC: There is no sensation of palpitation, chest pain, or syncope. GI: There is no nausea, vomiting, or diarrhea. : She is able to urinate on her own. However, she was on PureWick. Does not like PureWick. MUSCULOSKELETAL: Please see HPI. INTEGUMENT: There is no new breakdown. NEUROLOGIC: There are no focal deficits or weakness. ALLERGIES: PENICILLIN, SULFA. CURRENT MEDICATIONS: 1. Acetazolamide 250 mg daily. 2. Amiodarone 200 mg daily. 3. Apixaban 2.5 mg b.i.d. 4. Atorvastatin 40 mg at bedtime. 5. Bumex 1 mg b.i.d. 6. Gabapentin 300 mg t.i.d. 7. Hydralazine 10 mg q.8 hours. 8. Isosorbide dinitrate 5 mg b.i.d. 9. Magnesium oxide 400 mg daily. 10. Toprol-XL 12.5 mg q.12 hours. 11. Protonix at 20 mg daily. 12. K-Dur 40 mEq daily. 13. Spironolactone 25 mg p.o. daily. Telemetry was reviewed. She is in chronic atrial fibrillation with rate between 60s and 70s. PHYSICAL EXAMINATION: VITAL SIGNS: Her latest vital signs are heart rate 79, blood pressure 115/81. GENERAL: She is alert, and conversational, able to set up comfortably. This is a significant improvement than last week. HEENT: Show EOMI. Oropharynx is benign with moist mucosa. NECK: Her JVP is about 11 cm. LUNGS: She has bibasilar crackles. CARDIAC: Irregularly irregular rhythm with normal S1 and S2. There is 2/6 holosystolic murmur at the left sternal border. ABDOMEN: Distended, soft, nontender. Positive bowel sounds. MUSCULOSKELETAL: There is a right lower hip pain well with palpation. EXTREMITIES: There is still some edema in her lower extremities. LABORATORY VALUES: Today are white cell count 6.4, hemoglobin 10, and platelet count is 280. Her chemistry values are sodium 140, potassium 4.1, BUN has increased to 45, and creatinine has increased to 1.73, and magnesium 2.2. ASSESSMENT: 85-year-old lady continues to recover from COVID pneumonia related right ventricular dysfunction and also atrial fibrillation. The COVID related pneumonia likely increased pulmonary resistance to give her pulmonary hypertension. This then induced right ventricular failure. She has been doing well with dobutamine. Since titrating off the dobutamine, her BUN and creatinine have increased. I do not know how long she can be off dobutamine. For now, we can wait another day to see if she can sustain at this new baseline. If her BUN and creatinine continues to go up, then we need to consider restart dobutamine. She has also had acute renal failure due to right ventricular failure. Her acute renal failure has improved greatly with inotropic therapy. However, it is now creeping back up due to titrating off dobutamine. Please see the following for my detailed recommendations. RECOMMENDATIONS: 1. Continue with amiodarone. 2. Increase her anticoagulation to full dose of apixaban 5 mg b.i.d. 3. Continue to supplement her potassium, magnesium, with potassium above 4, magnesium above 2. 4. Discontinue spironolactone. This may help with good kidney function. 5. We will hold off on restarting of inotropic therapy. 6. We will watch her BUN and creatinine one today. If her BUN and creatinine continues to climb, we will first attempt use of milrinone. If milrinone drops her blood pressure too much then would convert her back to dobutamine. It has been a pleasure taking care of Ms. Salinas. If you have any questions please give me a call. The total visitation time is 40 minutes. This includes personally performing history and physical and coordinating care with primary team, and also holding small family meeting to explain the situation counseling. Job ID: [id number] MTDClarice
[2020-09-02] MEDS: Atorvastatin Calcium 40 MG TAB PO SCH (21:20)
[2020-09-02] MEDS: HYDROcodone/Acetaminophen 5/325 mg Tablet PO PRN (21:22)
[2020-09-03 05:16] LABS: ALT (SGPT) 10 U/L (8-55); AST (SGOT) 15 U/L (5-34); Albumin 3.1 g/dL (3.4-4.8); Alkaline Phosphatase 127 U/L (40-110); Anion Gap 17 mmol/L (10-20); BUN (Urea Nitrogen) 48 mg/dL (9.8-20.1); Bilirubin, Total 0.3 mg/dL (0.2-1.2); Calc. Creatinine Clearance 53 mL/min (70-130); Calcium 9.1 mg/dL (7.8-10.44); Carbon Dioxide 27 mmol/L (23-31); Chloride 99 mmol/L (98-107); Globulin 3.4 g/dL (2.4-3.5); Glucose 104 mg/dL (83-110); Magnesium 2.1 mg/dL (1.6-2.6); Protein, Total 6.5 g/dL (6.0-8.3); Sodium 139 mmol/L (136-145)
[2020-09-03] MEDS: hydrALAZINE 10 MG TAB PO SCH (05:54)
--- NOTE | 2020-09-03 06:54 | PDOC.FM ---
- Subjective Subjective: Patient is resting comfortably in bed. No acute events overnight. States that her muscles all feel tight. States her stomach feels more full today. Her suprapubic abdominal pain from yesterday is improved per patient. Denies chest pain, shortness of breath, dysuria. - Objective MAR Reviewed: Yes Vital Signs & Weight: Vital Signs (12 hours) Temp Pulse Resp BP Pulse Ox 09/03/20 03:20 97.6 F 66 16 133/63 96 09/02/20 23:58 70 128/61 09/02/20 20:45 97.5 F L 74 18 135/64 98 Weight Weight 129.756 kg Most Recent Monitor Data Heart Rate from ECG 70 NIBP 138/93 NIBP BP-Mean 108 Respiration from ECG 18 SpO2 94 I&O: 09/01/20 09/02/20 09/03/20 06:59 06:59 06:59 Intake Total 1500.4 1320 1160 Output Total 2150 1650 1400 Balance -649.6 -330 -240 Result Diagrams: 09/02/20 04:18 09/03/20 04:12 Phys Exam - Physical Examination Constitutional: NAD HEENT: PERRLA Respiratory: no wheezing, clear to auscultation bilateral irregularly irregular Gastrointestinal: soft, non-tender, positive bowel sounds Musculoskeletal: no edema Neurological: non-focal Psychiatric: normal affect, A&O x 3 Skin: no rash Dx/Plan - Plan Plan: Acute hypoxic respiratory failure likely 2/2 to right heart failure with cardiorenal syndrome -pt originally received lasix due to concern for CHF exacerbation, patient then appeared dry and was hypotensive, labs were concerning for hypoperfusion so patient was given fluids overnight on two different occasions; then concerns for cardiogenic shock --> Dr. Bone consulted -now on 2-2.5 L NC, pt is on 2 L at home -original CXR: bilateral pleural effusions that were not present on previous imaging, repeat xray showed improvement, repeat worsening of CHF -BNP 286 > 324.3; s/p lasix, now on bumex -EKG: Afib w/RVR -echo 08/17: technically difficulty exam 2/2 body habitus, EF 50-55%, diastolic dysfunction cannot be assessed -added hydralazine 10 mg PO q8hrs to regimen again for BP goal of systolics between 110-120, hold for SBP <100 -consulted nephro: diuretics per cards, IV iron, signed off on 08/29 with outpatient f/u in 2-3 weeks -cortisol stimulation test: normal -EP (Dr. Stapleton) consulted per Dr. Bone: not candidate for cardioversion at this time, f/u outpatient in 2-3 weeks after proper anticoagulation -Per Dr. Bone: * started on dobutamine on 08/21 --> switched to IV milrinone on 08/25 --> milrinone DC'd and dobutamine restarted on 08/28 due to hypotension --> stop ped on 09/01 * bumex added for continued diuresis on 08/26, spironolactone added on 08/27 * started on Tropol XL 12.5 mg q 12 hours on 08/26, increased to 25 mg q12hrs on 08/27, decreased to 12.5 mg on 08/28 HFpEF -ECHO 07/02, EF 50-55%, see repeat above -BNP 286 > 324.3 -s/p lasix, on bumex now -strict I/Os, daily weights UTI, s/p treatment -urine cx: Kleb, E.coli, non-hem strep with dysuria -Ceftriaxone (08/24), x3 days (last day 08/26) -discussed possible interaction between penicillin allergy and cross reaction with ceftriaxone, patient understood and was okay with receiving antibiotics, sh e denies any reaction -due to hypotension overnight on 08/27-08/28, repeat blood cx and UA: UA appe ared clean, no UCx resulted -gave azo 09/02 for suprapbuic discomfort with urinating, UA clean, UCx pending, improved today Hypotension, resolved -s/p 500 ml bolus x2, not receiving fluids due to concern for worsening CHF 2/2 to right heart failure and cardiogenic shock -likely 2/2 to cardiogenic shock -dobutamine and milrinone DC'd -will continue to hold lisinopril and coreg -Dr. Bone consulted as mentioned above Afib w/RVR, now rate controlled -Known history: known source, as patient was not taking PO Dilt at home. Patient also just was seen by Dr Connelly outpatient -Anticoagulated with warfarin prior to 08/[address] Tolliver at which time he switched to eliquis due to subtherapeutic INR and missing warfarin doses. -HR 90-110s while in ED, now rate controlled in the 60s-80s -RVR initially improved --> RVR returned on 08/27 --> normal rate 08/28 -s/p dilt gtt stopped 08/16, transitioned to dilt PO, dilt DC'd per Lizandro recs -DC'd dilt and coreg per Lizandro recs, on amiodarone and Toprol XL * Amiodarone 400 mg BID until 5g loading dose (last dose 08/28) achieved followed by amiodarone 200 mg daily (08/29) * Toprol 12.5 mg q12hrs -EP: not current candidate for cardioverision, needs 1 month of anticoagulation, outpatient f/u -TSH: 0.2821 with normal free T3 and T4, will obtain antibodies, patient was mistakenly given levothyroxine (25 mcg), this was discussed with family who was very understanding SEGUNDO on CKD3 -Cr 1.02 on admission -Cr of 1.61 > 1.62 > 1.49 > 1.51; likely new baseline -likely secondary to cardiogenic shock -Dr. Bone consulted, tiffany recs -Nephro consulted: diuretics per cards, signed off with outpatient f/u 2-3 weeks - Cr increased to 1.73 on 09/02, considered restarting dobutamine gtt per Dr. Bone, Cr. decreased to 1.66 today, will likely hold off on restarting Normocytic Anemia -Hgb: 8.6; due to CHF and cardiogenic shock, will keep Hgb above 8 -iron: 23, TIBC: 184, %sat: 13, Transferrin: 147, ferritin pending -Dr. Davidson has ordered IV iron x3 bags -possibly a mixed picture, likely anemia of chronic disease with possible iron deficiency anemia Transaminitis, resolved -likely 2/2 to hypoperfusion vs congestion 2/2 to cardiorenal syndrome -will continue to monitor Elevated troponin -0.068>.164>.242>.165 -likely demand ischemia due to Afib Diarrhea, resolved COPD -Aware, duonebs prn at home -s/p solumedrol and magnesium per EMS -no wheezing on PE -duonebs PRN Recent hospitalization for COVID pneumonia -05/18-05/21 -Has been on supplemental home oxygen since (2L) -Reports negative test on 08/10 HTN -holding original home meds -Stopped isosorbide dinitrate and hydralazine on 08/27 to increase perfusion to the kidney with hopes of increasing diuresis; added back hydralazine on 08/29; see above for further info HLD -Aware, continue home meds GERD -Aware, continue home meds Chronic back pain due to spondylosis -Aware, continue home meds -takes norco for pain Dispo: stopped dobutamine gtt, will monitor, CM consulted, plan is for patient to go to [facility] Addendum - Attending - Attending Attestation Date/Time: 09/03/20 0308 I personally evaluated the patient and discussed the management with Dr. Rose. I agree with the History, Examination, Assessment and Plan documented above with any addition or exceptions noted below. Patient doing well. Denies cp/sob/f/c/n/v. On exam scant bibasilar crackles. I think she has of course a large component of CHF but also is markedly deconditioned. Discuss dispo with Dr. Bone today.
[2020-09-03] MEDS: Bumetanide 1 MG TAB PO SCH ×2 (08:04→15:47)
[2020-09-03] MEDS: Potassium Chloride 20 MEQ TAB PO SCH (08:04)
[2020-09-03] MEDS: Amiodarone 200 MG TAB PO SCH (08:05)
[2020-09-03] MEDS: AcetaZOLAMIDE 250 MG TAB PO SCH (08:05)
[2020-09-03] MEDS: Spironolactone 25 MG TAB PO SCH (08:05)
[2020-09-03] MEDS: Gabapentin 300 MG CAP PO SCH ×3 (08:05→21:45)
[2020-09-03] MEDS: Apixaban 2.5 MG TAB PO SCH ×2 (08:05→21:45)
[2020-09-03] MEDS: Isosorbide Dinitrate 5 MG TAB PO SCH (08:06)
[2020-09-03] MEDS: Magnesium Oxide 400 MG TAB PO SCH (08:06)
[2020-09-03] MEDS: Phenazopyridine HCl 100 MG TAB PO SCH ×3 (08:07→17:00)
[2020-09-03] MEDS: Polyethylene Glycol 3350 17 GM Packet PO SCH (08:07)
[2020-09-03] MEDS: Milrinone Lactate/D5W 20 MG in Premix Bag 1 BAG IV SCH ×2 (12:21→21:50)
[2020-09-03] MEDS: Atorvastatin Calcium 40 MG TAB PO SCH (21:45)
[2020-09-03] MEDS: HYDROcodone/Acetaminophen 5/325 mg Tablet PO PRN (21:48)
[2020-09-04] MEDS: Milrinone Lactate/D5W 20 MG in Premix Bag 1 BAG IV SCH ×2 (03:39→15:47)
[2020-09-04 05:07] LABS: #Eosinphils 0.3 thou/uL (0.0-0.7); #Lymphocytes 1.5 thou/uL (1.20-3.40); #Monocytes 0.5 thou/uL (0.11-0.59); #Neutrophils 4.1 thou/uL (1.40-6.50); %Basophils 0.5 % (0.0-1.0); %Eosinophils 4.2 % (0.0-10.0); %Lymphocytes 23.9 % (21.0-51.0); %Monocytes 8.3 % (0.0-10.0); %Neutrophils 63.2 % (42.0-75.0); Hemoglobin 10.1 g/dL (12.0-16.0); Mean Corpuscular HGB CONC 31.5 g/dL (32.0-36.0); Mean Corpuscular Hemoglobin 30.3 pg (27.0-31.0); Mean Corpuscular Volume 96.3 fL (78.0-98.0); Mean Platelet Volume 7.4 fL (7.4-10.4); Platelet Count 276 thou/uL (130-400); RBC Distribution Width 13.4 % (11.5-14.5); Red Blood Cell (RBC) Count 3.33 mill/uL (4.20-5.40); White Blood Cell (WBC) Count 6.4 thou/uL (4.8-10.8)
[2020-09-04 05:21] LABS: Anion Gap 16 mmol/L (10-20); BUN (Urea Nitrogen) 54 mg/dL (9.8-20.1); Calc. Creatinine Clearance 47 mL/min (70-130); Calcium 9.2 mg/dL (7.8-10.44); Carbon Dioxide 30 mmol/L (23-31); Chloride 97 mmol/L (98-107); Glucose 144 mg/dL (83-110); Magnesium 2.1 mg/dL (1.6-2.6); Potassium 3.9 mmol/L (3.5-5.1); Sodium 139 mmol/L (136-145)
--- NOTE | 2020-09-04 05:46 | PRG ---
DATE OF SERVICE: 09/03/2020 SERVICE: Advanced Heart Failure and Transplant Cardiology Consult Service. SUBJECTIVE: Ms. Salinas had a declining day. She felt generally more tired. She had to sleep a long time. She also has taken long naps during the day. She also noticed that she has increased abdominal girth. She felt much more bloated. She also felt like the lower extremity has gained a little bit of fluid. She and her daughter noticed that her urine output has been getting darker. So, they were concerned about all of these developments. REVIEW OF SYSTEMS: GENERAL: There is no fever, chills, or productive cough. HEENT: There is no change in vision, hearing, or swallowing. PULMONARY: There is no increasing shortness of breath. CARDIAC: There is no palpitation, chest pain, or syncope. GI: There is no nausea, vomiting, or diarrhea. : She uses a PureWick. MUSCULOSKELETAL: She is not complaining of lower back pain today. INTEGUMENT: There are no new skin breakdown. NEUROLOGIC: There are no focal deficits or weaknesses. CURRENT MEDICATIONS: 1. Acetazolamide 250 mg daily. 2. Albuterol and ipratropium nebs q.4 hours p.r.n. 3. Amiodarone 200 mg daily. 4. Eliquis at 2.5 mg b.i.d. 5. Atorvastatin 40 mg at bedtime. 6. Bumex 1 mg p.o. b.i.d. 7. Neurontin 300 mg t.i.d. 8. Magnesium oxide 400 mg daily. 9. Toprol-XL 12.5 mg q.12 hours. 10. Protonix 20 mg daily. 11. Phenazopyridine 100 mg at bedtime. 12. K-Dur 40 mEq daily. 13. Spironolactone 25 mg daily. PHYSICAL EXAMINATION: Telemetry was reviewed. She is in atrial fibrillation that is chronic, heart rate about 70s. VITAL SIGNS: Her latest vital signs are heart rate 70, blood pressure 132/65. Her in's and out's from yesterday was 1160 in and 1400 out, so this is slightly net negative about 240. Her overall urine output has decreased. GENERAL: She is alert and conversational. There is no acute distress. She is quite relaxed. HEENT: Show EOMI. Oropharynx benign. NECK: Her JVP is bit more increased today, is around 12 cm. PULMONARY: There is good air movement bilateral; however, she has bibasilar crackles. CARDIAC: Irregular rate, irregular rhythm. There is a 2/6 holosystolic murmur at the apex and also at the left upper sternal border. So, she has a tricuspid regurgitation and also mitral regurgitation. ABDOMEN: Distended, soft, nontender, it is more distended today than yesterday. LOWER EXTREMITIES: Now, there is a slight re-accumulation of fluid around her feet. LABORATORY VALUES: Today are white cell count 6.4, hemoglobin at 10, platelets at 280. Her chemistry showed sodium 139, potassium 4.0, bicarb at 27, BUN increased a bit at 48, creatinine decreased a bit at 1.66. Her magnesium is good at 2.1. ASSESSMENT: 85-year-old female is suffering from right heart dysfunction/right heart failure from COVID-19 sequela. COVID-19 pneumonia probably worsened her pulmonary hypertension, thereby inducing right heart failure. After 2 days of trying to go without inotropic support, she has decompensated again. So thus, inotropic support will be needed. She did suffer acute renal failure, has improved with inotropic support. She has chronic atrial fibrillation. She is on amiodarone along with apixaban, the overall plan for this is for outpatient cardioversion in about a month. Sinus rhythm will improve her situation. She also has obesity hypoventilation syndrome that will also put stress on her right ventricle. In the future, she will need a sleep study and also have CPAP at nighttime. For now, we need to restart her inotropic drip. I am choosing milrinone because it is less arrhythmic and provides better decrease in pulmonary vascular resistance and has a better efficacy outcome than dobutamine for long-term infusion. Please see the following for my detailed recommendations: RECOMMENDATIONS: 1. Start milrinone at 0.125 mcg/kg/minute. If her blood pressures remain above 100 mmHg, then increase it to 0.25 mcg/kg/minute. Then, I will come back and check this evening. If she is doing well, we will increase it to 0.375 mcg/kg/minute. 2. Discontinue hydralazine. 3. Discontinue isosorbide dinitrate. 4. Continue to keep her potassium above 4 and also keep her magnesium above 2.0. 5. Please increase her Eliquis to 5 mg p.o. b.i.d. She will need to have full anticoagulation in anticipation of eventual attempt at DC cardioversion. 6. Please add TSH for tomorrow's morning labs to make sure she is not having thyroid dysfunction. It has been a pleasure taking care of Ms. Renee Salinas. If any questions, please give me a call. The total visitation time today is 45 minutes. Job ID: [id number] [facility] SYSTEMClarice
--- NOTE | 2020-09-04 06:54 | PDOC.FM ---
- Subjective Subjective: Patient is resting comfortably in bed. No acute events overnight. Residency team got a call about her BP dropping to 90/51 overnight, however patient was sleeping at the time. She denies chest pain, shortness of breath, N/V/ abdominal pain. States her abdominal fullness felt improved today. - Objective MAR Reviewed: Yes Vital Signs & Weight: Vital Signs (12 hours) Temp Pulse Resp BP Pulse Ox 09/04/20 03:11 97.8 F 73 20 90/51 L 95 Weight Weight 129.756 kg Most Recent Monitor Data Heart Rate from ECG 70 NIBP 138/93 NIBP BP-Mean 108 Respiration from ECG 18 SpO2 94 I&O: 09/02/20 09/03/20 09/04/20 06:59 06:59 06:59 Intake Total 1320 1160 840 Output Total 1650 1400 850 Balance -330 -240 -10 Result Diagrams: 09/04/20 04:14 09/04/20 04:14 Phys Exam - Physical Examination Constitutional: NAD HEENT: PERRLA faint crackles b/l Cardiovascular: no significant murmur irregularly irregular Gastrointestinal: soft, non-tender, positive bowel sounds trace edema L>R Neurological: non-focal Psychiatric: normal affect, A&O x 3 Skin: no rash Dx/Plan - Plan Plan: Acute hypoxic respiratory failure likely 2/2 to right heart failure with cardior enal syndrome -pt originally received lasix due to concern for CHF exacerbation, patient then appeared dry and was hypotensive, labs were concerning for hypoperfusion so patient was given fluids overnight on two different occasions; then concerns for cardiogenic shock --> Dr. Bone consulted -now on 2-2.5 L NC, pt is on 2 L at home -original CXR: bilateral pleural effusions that were not present on previous imaging, repeat xray showed improvement, repeat worsening of CHF -BNP 286 > 324.3; s/p lasix, now on bumex -EKG: Afib w/RVR -echo 08/17: technically difficulty exam 2/2 body habitus, EF 50-55%, diastolic dysfunction cannot be assessed -previous hydralazine use for goal bp systolic 110-120 --> stopped on 09/03 after adddition of milrinone -consulted nephro: diuretics per cards, IV iron, signed off on 08/29 with outpatient f/u in 2-3 weeks -cortisol stimulation test: normal -EP (Dr. Stapleton) consulted per Dr. Bone: not candidate for cardioversion at this time, f/u outpatient in 2-3 weeks after proper anticoagulation -Per Dr. Bone: * previously on dobutamine and milrinone, both were d/c'd, restarted on milrinone gtt on 09/03 * bumex added for continued diuresis on 08/26, spironolactone added on 08/27 * started on Tropol XL 12.5 mg q 12 hours on 08/26, increased to 25 mg q12hrs on 08/27, decreased to 12.5 mg on 08/28 HFpEF -ECHO 07/02, EF 50-55%, see repeat above -BNP 286 > 324.3 -s/p lasix, on bumex now -strict I/Os, daily weights UTI, s/p treatment -urine cx: Kleb, E.coli, non-hem strep with dysuria -Ceftriaxone (08/24), x3 days (last day 08/26) -discussed possible interaction between penicillin allergy and cross reaction with ceftriaxone, patient understood and was okay with receiving antibiotics, she denies any reaction -due to hypotension overnight on 08/27-08/28, repeat blood cx and UA: UA appeared clean, no UCx resulted -gave azo 09/02 for suprapbuic discomfort with urinating, UA clean, UCx pending, improved today Hypotension, resolved -s/p 500 ml bolus x2, not receiving fluids due to concern for worsening CHF 2/2 to right heart failure and cardiogenic shock -likely 2/2 to cardiogenic shock -dobutamine and milrinone DC'd -will continue to hold lisinopril and coreg -Dr. Bone consulted as mentioned above Afib w/RVR, now rate controlled -Known history: known source, as patient was not taking PO Dilt at home. Patient also just was seen by Dr Connelly outpatient -Anticoagulated with warfarin prior to 08/[address] Tolliver at which time he switched to eliquis due to subtherapeutic INR and missing warfarin doses. -HR 90-110s while in ED, now rate controlled in the 60s-80s -RVR initially improved --> RVR returned on 08/27 --> normal rate 08/28 -s/p dilt gtt stopped 08/16, transitioned to dilt PO, dilt DC'd per Lizandro recs -DC'd dilt and coreg per Lizandro recs, on amiodarone and Toprol XL * Amiodarone 400 mg BID until 5g loading dose (last dose 08/28) achieved followed by amiodarone 200 mg daily (08/29) * Toprol 12.5 mg q12hrs * Increased Eliquis to 5 mg BID 09/04 per Lizandro recs -EP: not current candidate for cardioverision, needs 1 month of anticoagulation, outpatient f/u -TSH: 0.2821 with normal free T3 and T4, will obtain antibodies, patient was mistakenly given levothyroxine (25 mcg), this was discussed with family who was very understanding SEGUNDO on CKD3 -Cr 1.02 on admission -Cr of 1.61 > 1.62 > 1.49 > 1.51; likely new baseline -likely secondary to cardiogenic shock -Dr. Bone consulted, tiffany recs -Nephro consulted: diuretics per cards, signed off with outpatient f/u 2-3 weeks - Cr increased to 1.66 -- 1.85 09/04, GFR 26; will discuss with Dr. Bone Normocytic Anemia -Hgb: 8.6; due to CHF and cardiogenic shock, will keep Hgb above 8 -iron: 23, TIBC: 184, %sat: 13, Transferrin: 147, ferritin pending -Dr. Davidson has ordered IV iron x3 bags -possibly a mixed picture, likely anemia of chronic disease with possible iron deficiency anemia Transaminitis, resolved -likely 2/2 to hypoperfusion vs congestion 2/2 to cardiorenal syndrome -will continue to monitor Elevated troponin -0.068>.164>.242>.165 -likely demand ischemia due to Afib Diarrhea, resolved COPD -Aware, duonebs prn at home -s/p solumedrol and magnesium per EMS -no wheezing on PE -duonebs PRN Recent hospitalization for COVID pneumonia -05/18-05/21 -Has been on supplemental home oxygen since (2L) -Reports negative test on 08/10 HTN -holding original home meds -Stopped isosorbide dinitrate and hydralazine on 08/27 to increase perfusion to the kidney with hopes of increasing diuresis; added back hydralazine on 08/29; see above for further info --> stopped hydralazine and isosorbite dinitrate 09/03 after adding milrinone gtt HLD -Aware, continue home meds GERD -Aware, continue home meds Chronic back pain due to spondylosis -Aware, continue home meds -takes norco for pain Dispo: CM consulted, plan [facility] Addendum - Attending - Attending Attestation Date/Time: 09/04/20 4807 I personally evaluated the patient and discussed the management with Dr. Rose. I agree with the History, Examination, Assessment and Plan documented above with any addition or exceptions noted below.
[2020-09-04] MEDS ORDERED: Apixaban 2.5 MG TAB PO SCH (09:00)
[2020-09-04] MEDS ORDERED: Potassium Chloride 20 MEQ TAB PO SCH (09:00)
[2020-09-04] MEDS: AcetaZOLAMIDE 250 MG TAB PO SCH (09:08)
[2020-09-04] MEDS: HYDROcodone/Acetaminophen 5/325 mg Tablet PO PRN (09:08)
[2020-09-04] MEDS: Potassium Chloride 20 MEQ TAB PO SCH (09:08)
[2020-09-04] MEDS: Apixaban 5 MG TAB PO SCH ×2 (09:09→22:07)
[2020-09-04] MEDS: Magnesium Oxide 400 MG TAB PO SCH (09:10)
[2020-09-04] MEDS: Gabapentin 300 MG CAP PO SCH ×3 (09:10→22:08)
[2020-09-04] MEDS: Spironolactone 25 MG TAB PO SCH (09:10)
[2020-09-04] MEDS: Furosemide 40 MG/4 ML VIAL SLOW IVP SCH (09:11)
[2020-09-04] MEDS: Phenazopyridine HCl 100 MG TAB PO SCH ×3 (09:12→17:25)
[2020-09-04] MEDS: Polyethylene Glycol 3350 17 GM Packet PO SCH (09:13)
[2020-09-04] MEDS: Amiodarone 200 MG TAB PO SCH (09:14)
--- NOTE | 2020-09-04 11:15 | PRG ---
DATE OF SERVICE: 09/04/2020 SERVICE: Advanced Heart Failure Cardiology Consulting Service. SUBJECTIVE: Mrs. Renee Salinas had a variable day. During the day, she did not feel good, felt more bloated and less energy, wanted to sleep. Milrinone was started in the afternoon. Eventually milrinone was titrated up slowly over time to 0.375 mcg/kg/minute at night. She also has some drop in systolic blood pressure overnight. This morning, she felt much better. She said that she was able to sit up and eat breakfast. She is alert. She is lucid. Her daughter stated that her mom looked better. She also stated her abdomen felt much looser today. However, there was not much urine output so far. Her systolic blood pressure also has increased up to 133. REVIEW OF SYSTEMS: GENERAL: There is no fever, chills, or productive cough. HEENT: There is no change in vision, hearing, or swallowing. PULMONARY: She actually is breathing easy. CARDIAC: There is no chest pain or syncope. GI: There is no nausea, vomiting, diarrhea. : She used PureWick. MUSCULOSKELETAL: There is no musculoskeletal or joint pains. INTEGUMENT: There are no new rashes. NEUROLOGIC: There are no focal deficits or weaknesses. MEDICATIONS: Includes, 1. Acetazolamide 250 mg daily. 2. Albuterol and ipratropium nebs q.4 hours p.r.n. 3. Amiodarone 200 mg daily. 4. Apixaban 5 mg b.i.d. 5. Atorvastatin at 40 mg q.h.s. 6. Furosemide 40 mg IV one dose. 7. Gabapentin 300 mg t.i.d. 8. Magnesium oxide 400 mg daily. 9. Toprol-XL 12.5 mg q.12 hours. 10. Milrinone is a now at 0.375 mcg/kg/minute. 11. Protonix 20 mg daily. 12. K-Dur 20 mEq daily. 13. Spironolactone 25 mg daily. Her telemetry is reviewed. She is in chronic atrial fibrillation. Rate is about the mid 80s. PHYSICAL EXAMINATION: VITAL SIGNS: Her latest vitals are heart rate 84, blood pressure 133/66. GENERAL: She is alert and conversational, reclining comfortably in bed. HEENT: Show EOMI. NECK: Her neck was hard to exam today, her JVP is at least 10 cm. PULMONARY: She has good air movement. Slight bibasilar crackles. CARDIAC: Irregular rate, irregular rhythm with normal S1, S2. There is 2/6 holosystolic murmur near the apex and also at the left sternal border. ABDOMEN: She has a very large abdomen, but softer today. EXTREMITIES: There is a slight pitting edema on her feet. LABORATORY DATA: This morning showed sodium 139, potassium 3.9, BUN 54, creatinine 1.85. Her glucose 144. ASSESSMENT: 85-year-old female continued to suffer from right heart failure due to complication of COVID-19 pneumonia. COVID-19 pneumonia likely worsened her pulmonary hypertension that gave her right heart failure. We attempted 2 days without inotropic support, then she worsened. Milrinone was started last night, but it may not have achieved full effect. Today, we will attempt to use milrinone to augment her right ventricular function and IV Lasix to reduce edema. She also has atrial fibrillation that is chronic. The target is to have her undergo cardioversion. Once in sinus rhythm, she will do much better. She has acute renal failure due to cardiorenal syndrome. She is much better now. However, we still need to watch her for her BUN and creatinine but if her BUN and creatinine continues to worsen, then we will need to be change it back to dobutamine. She also has severe obesity. Please see the following for my recommendations. RECOMMENDATIONS: 1. Continue milrinone at 0.375 mcg/kg/minute for now. 2. Continue with this new regimen of Lasix 40 mg IV in the morning. We will see how she responds. 3. If she responds poorly or her blood pressure dropped again, then we will switch from milrinone back to dobutamine. If her SBP falls to 90 or below, stop milrinone, and start dobutamine at 2.5 mcg/kg/min IVGTT immediately. 4. Please continue to supplement her electrolytes to keep magnesium above 2 and potassium above 4. 5. This will be a back and forth process. Eventually, we will find a regimen that can work for her. There is some chance that she will need to be on long-term inotropic therapy in order to preserve her renal function as much as possible. It has been a pleasure taking care of Mrs. Lippard. If you have any questions, please give me a call. The total visitation time today is 40 minutes. Job ID: [id number] MTDD
[2020-09-04] MEDS ORDERED: diphenhydrAMINE 25 MG CAP PO SCH (11:30)
[2020-09-04] MEDS: Atorvastatin Calcium 40 MG TAB PO SCH (22:08)
[2020-09-05] MEDS: Milrinone Lactate/D5W 20 MG in Premix Bag 1 BAG IV SCH (00:18)
[2020-09-05 04:17] LABS: Anion Gap 13 mmol/L (10-20); BUN (Urea Nitrogen) 54 mg/dL (9.8-20.1); Calc. Creatinine Clearance 47 mL/min (70-130); Carbon Dioxide 31 mmol/L (23-31); Chloride 99 mmol/L (98-107); Glucose 137 mg/dL (83-110); Magnesium 2.1 mg/dL (1.6-2.6); Potassium 4.1 mmol/L (3.5-5.1); Sodium 139 mmol/L (136-145)
--- NOTE | 2020-09-05 06:51 | PDOC.FM ---
- Subjective Subjective: Patient is resting comfortably in bed. Reports that her stomach if feeling bloated again this morning, like there is fluid in her stomach. She states that she feels "blah". Denies chest pain, shortness of breath, abdominal pain. - Objective MAR Reviewed: Yes Vital Signs & Weight: Vital Signs (12 hours) Temp Pulse Resp BP Pulse Ox 09/05/20 04:00 98.2 F 81 18 101/52 L 97 09/04/20 19:30 97.5 F L 88 16 141/67 H 98 Weight Admit Weight 137.524 kg Weight 130.635 kg Most Recent Monitor Data Heart Rate from ECG 70 NIBP 138/93 NIBP BP-Mean 108 Respiration from ECG 18 SpO2 94 I&O: 09/03/20 09/04/20 09/05/20 06:59 06:59 06:59 Intake Total 1160 1251 860 Output Total 1400 1200 750 Balance -240 51 110 Result Diagrams: 09/04/20 04:14 09/05/20 03:23 Phys Exam - Physical Examination Constitutional: NAD HEENT: PERRLA faint crackles bilaterally, faint wheeze detected Cardiovascular: RRR, no significant murmur Gastrointestinal: soft, non-tender, positive bowel sounds trace edema b/l LE Neurological: non-focal Deviation from normal: erythema 2 inches proximal to the wrist anteriorly and posteriorly -: no exudate Dx/Plan - Plan Plan: Acute hypoxic respiratory failure likely 2/2 to right heart failure with cardiorenal syndrome -pt originally received lasix due to concern for CHF exacerbation, patient then appeared dry and was hypotensive, labs were concerning for hypoperfusion so patient was given fluids overnight on two different occasions; then concerns for cardiogenic shock --> Dr. Bone consulted -now on 2-2.5 L NC, pt is on 2 L at home -original CXR: bilateral pleural effusions that were not present on previous imaging, repeat xray showed improvement, repeat worsening of CHF -BNP 286 > 324.3; s/p lasix, now on bumex -EKG: Afib w/RVR -echo 08/17: technically difficulty exam 2/2 body habitus, EF 50-55%, diastolic dysfunction cannot be assessed -previous hydralazine use for goal bp systolic 110-120 --> stopped on 09/03 after adddition of milrinone -consulted nephro: diuretics per cards, IV iron, signed off on 08/29 with outpatient f/u in 2-3 weeks -cortisol stimulation test: normal -EP (Dr. Stapleton) consulted per Dr. Bone: not candidate for cardioversion at this time, f/u outpatient in 2-3 weeks after proper anticoagulation -Per Dr. Bone: * bumex added for continued diuresis on 08/26, spironolactone added on 08/27 * started on Tropol XL 12.5 mg q 12 hours on 08/26, increased to 25 mg q12hrs on 08/27, decreased to 12.5 mg on 08/28 * previously on dobutamine and milrinone, both were d/c'd, restarted on milrinone gtt on 09/03 * patient appears a little more fluid overloaded today, will discuss with Dr. Bone HFpEF -ECHO 07/02, EF 50-55%, see repeat above -BNP 286 > 324.3 -s/p lasix, on bumex now -strict I/Os, daily weights UTI, s/p treatment -urine cx: Kleb, E.coli, non-hem strep with dysuria -Ceftriaxone (08/24), x3 days (last day 08/26) -discussed possible interaction between penicillin allergy and cross reaction with ceftriaxone, patient understood and was okay with receiving antibiotics, she denies any reaction -due to hypotension overnight on 08/27-08/28, repeat blood cx and UA: UA appeared clean, no UCx resulted -gave azo 09/02 for suprapbuic discomfort with urinating, UA clean, UCx - mixed woo; irritation resolved Hypotension, resolved -s/p 500 ml bolus x2, not receiving fluids due to concern for worsening CHF 2/2 to right heart failure and cardiogenic shock -likely 2/2 to cardiogenic shock -dobutamine and milrinone DC'd -will continue to hold lisinopril and coreg -Dr. Bnoe consulted as mentioned above Afib w/RVR, now rate controlled -Known history: known source, as patient was not taking PO Dilt at home. Patient also just was seen by Dr Connelly outpatient -Anticoagulated with warfarin prior to 08/[address] Tolliver at which time he switched to eliquis due to subtherapeutic INR and missing warfarin doses. -HR 90-110s while in ED, now rate controlled in the 60s-80s -RVR initially improved --> RVR returned on 08/27 --> normal rate 08/28 -s/p dilt gtt stopped 08/16, transitioned to dilt PO, dilt DC'd per Lizandro recs -DC'd dilt and coreg per Lizandro recs, on amiodarone and Toprol XL * Amiodarone 400 mg BID until 5g loading dose (last dose 08/28) achieved followed by amiodarone 200 mg daily (08/29) * Toprol 12.5 mg q12hrs * Increased Eliquis to 5 mg BID 09/04 per Lizandro recs -EP: not current candidate for cardioverision, needs 1 month of anticoagulation, outpatient f/u -TSH: 0.2821 with normal free T3 and T4, will obtain antibodies, repeat TSH per Dr. Bone request 1.2 SEGUNDO on CKD3 -Cr 1.02 on admission -Cr of 1.61 > 1.62 > 1.49 > 1.51; likely new baseline -likely secondary to cardiogenic shock -Dr. Bone consulted, tiffany recs -Nephro consulted: diuretics per cards, signed off with outpatient f/u 2-3 weeks - Cr increased to 1.66 -- 1.85 09/04, GFR 26; will discuss with Dr. Bone Normocytic Anemia -Hgb: 8.6; due to CHF and cardiogenic shock, will keep Hgb above 8 -iron: 23, TIBC: 184, %sat: 13, Transferrin: 147, ferritin pending -Dr. Davidson has ordered IV iron x3 bags -possibly a mixed picture, likely anemia of chronic disease with possible iron deficiency anemia Transaminitis, resolved -likely 2/2 to hypoperfusion vs congestion 2/2 to cardiorenal syndrome -will continue to monitor Elevated troponin -0.068>.164>.242>.165 -likely demand ischemia due to Afib Diarrhea, resolved COPD -Aware, duonebs prn at home -s/p solumedrol and magnesium per EMS -no wheezing on PE -duonebs PRN Recent hospitalization for COVID pneumonia -05/18-05/21 -Has been on supplemental home oxygen since (2L) -Reports negative test on 08/10 HTN -holding original home meds -Stopped isosorbide dinitrate and hydralazine on 08/27 to increase perfusion to the kidney with hopes of increasing diuresis; added back hydralazine on 08/29; see above for further info --> stopped hydralazine and isosorbite dinitrate 09/03 after adding milrinone gtt HLD -Aware, continue home meds GERD -Aware, continue home meds Chronic back pain due to spondylosis -Aware, continue home meds -takes norco for pain Dispo: CM consulted, plan is for patient to go to [facility] Addendum - Attending - Attending Attestation Date/Time: 09/05/20 102 I personally evaluated the patient and discussed the management with Dr. Rose. I agree with the History, Examination, Assessment and Plan documented above with any addition or exceptions noted below.
[2020-09-05] MEDS ORDERED: HYDROcodone/Acetaminophen 5/325 mg Tablet PO PRN (09:31)
[2020-09-05] MEDS: Potassium Chloride 20 MEQ TAB PO SCH (09:41)
[2020-09-05] MEDS: Gabapentin 300 MG CAP PO SCH ×3 (09:41→20:16)
[2020-09-05] MEDS: Magnesium Oxide 400 MG TAB PO SCH (09:41)
[2020-09-05] MEDS: Apixaban 5 MG TAB PO SCH ×2 (09:42→20:17)
[2020-09-05] MEDS: AcetaZOLAMIDE 250 MG TAB PO SCH (09:42)
[2020-09-05] MEDS: Spironolactone 25 MG TAB PO SCH (09:43)
[2020-09-05] MEDS: Phenazopyridine HCl 100 MG TAB PO SCH ×3 (09:43→18:00)
[2020-09-05] MEDS: Amiodarone 200 MG TAB PO SCH (09:43)
[2020-09-05] MEDS ORDERED: Furosemide 100 MG/10 ML VIAL SLOW IVP SCH (09:45)
[2020-09-05] MEDS: Polyethylene Glycol 3350 17 GM Packet PO SCH (09:47)
[2020-09-05] MEDS: Furosemide 40 MG/4 ML VIAL SLOW IVP SCH (09:49)
--- NOTE | 2020-09-05 10:42 | PDOC.PALCO ---
Palliative Care Consult - Consult Details Requesting Physician: Dr Black Reason for Consult: goals of care, advance directives assistance, family support Family Members Present: Daughter - Pertinent HPI 85 year old female who has significant morbidities including COPD, CHF, Afib, and was diagnosed with COVID in May of 2020. Recent admission and discharge to skilled bed in last June for deconditioning and weakness, discharged home 07/27/2020. Ms Salinas had an onset of shortness of breath and increased over 24 hours, without improvement of supplemental O2 use. Secondary to worsening respiratory status her daughter called 911. Taken to [facility] for further evaluation and admission for medical management. Decline during course of stay. Dependent on milrinone, hopeful for cardioversion 09/06/2020. O2 dependent. 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 O2 dependent. - Social History Smoking Status: Never smoker Smoking: no tobacco exposure Alcohol Use: none Drug Use History: none Living Situation: other (Lives in a private home with her two daughters) - Medications MAR Reviewed: Yes - Allergies Allergies/Adverse Reactions: Allergies Allergy/AdvReac Type Severity Reaction Status Date / Time Penicillins Allergy Severe Verified 05/18/20 04:28 Sulfa (Sulfonamide Allergy Verified 05/18/20 04:28 Antibiotics) sulfamethoxazole Allergy Verified 05/18/20 04:28 [From Bactrim] trimethoprim [From Bactrim] Allergy Verified 05/18/20 04:28 - Subjective Awake, playful banter. Hopeful for cardioversion 09/06/2020. Inotrope dependent at current time. Daughter at bedside. States she is primarily bedbound, weakness and shortness of breath with minimal exertion. - ROS Constitutional: alert, weakness ENT: other (Denies throat irritation, ) Respiratory: shortness of breath with extertion Cardiology: other (Denies chest pain) Gastrointestinal: bowel incontinence Genitourinary: incontinence Musculoskeletal: arthritis/arthralgias Neurological: other (numbless to right lower extremity) - Objective Vital Signs: Vital Signs - Most Recent Temp Pulse Resp BP Pulse Ox 97.6 F 89 17 136/60 96 09/05/20 08:00 09/05/20 08:00 09/05/20 08:00 09/05/20 08:00 09/05/20 08:27 Palliative Performance Scale: 30 - Physical Exam Constitutional: ill appearing HEENT: EOMI, moist MMs, sclera anicteric Deviation from normal: mildly labored with conversation, bilaterlly mildly adventicous Cardiovascular: irregular Gastrointestinal: incontinent Genitourinary: incontinent Musculoskeletal: pulses present, edema present Skin: cap refill <2 seconds Psychiatric: A&O x 3, normal affect, normal mood - Problem List (1) Palliative care encounter Code(s): Z51.5 - ENCOUNTER FOR PALLIATIVE CARE Current Visit: Yes Status: Acute (2) Physical deconditioning Code(s): R53.81 - OTHER MALAISE Current Visit: No Status: Acute (3) Atrial fibrillation with RVR Code(s): I48.91 - UNSPECIFIED ATRIAL FIBRILLATION Current Visit: No Status: Chronic (4) Hypertension Code(s): I10 - ESSENTIAL (PRIMARY) HYPERTENSION Current Visit: No Status: Chronic (5) Morbid obesity Code(s): E66.01 - MORBID (SEVERE) OBESITY DUE TO EXCESS CALORIES Current Visit: No Status: Chronic (6) CHF (congestive heart failure) Code(s): I50.9 - HEART FAILURE, UNSPECIFIED Current Visit: No Status: Suspected - Plan/Recommendations Plan: Palliative Care RN Joann Betancourt has initiated Palliative Care with patient and family. Patient overall goal is to transition to swing bed to continue to gain strength to return to home setting. Baseline prior to admission: Wheelchair bound Able to transfer self to toilet, bed Assist with ADL Able to cook for family/self from wheelchair. Previously with [facility] Currently: requiring max assist for transfers/ADL. Current concern One daughter who has been able to assist with patient in home setting is having to return to work outside of home, leaving other daughter as primary caregiver. Daughter who will be primary caregiver recently broke her arm and in not able to fully assist patient Patient not able to transition to swing bed with Milrinone drip Cardioversion planned for 09/06/2020 with hopeful transition to PO medications and ability to transfer to swing bed. Palliative care will follow at a distance and assist as needed to revisit Goal of Care as needed. Communicated with Dr Bone [70] minutes spent on this encounter with >50% of the time in counseling and coordination of care. Thank you for this very appropriate consult.
--- NOTE | 2020-09-05 10:47 | PRG ---
DATE OF SERVICE: 09/05/2020 HISTORY: Ms. Salinas seems to have improved with milrinone. She was able to participate with PT better. She has stood for 2 minutes. Afterwards she was able to sit up and do PT activities. She was able to walk sideways a bit in the bathroom, so all of these were significantly increased activity level. This is the most she has done in about 3 months. However, she required milrinone 0.375 mcg/kg/minute. Her urine output is only matching her input and that is about it. So, they were a bit disappointed about not a having a lot of fluid removal. REVIEW OF SYSTEMS: GENERAL: There is no complaint of fevers, chills, productive cough. She does have increased energy level. HEENT: There is no change in vision, hearing, or swallowing. PULMONARY: She has her baseline shortness of breath. She does not have increased shortness of breath. She has decreased shortness of breath. CARDIAC: There are no complaints about chest pain or syncope. GI: There is no nausea or vomiting, however, she feels like her abdomen is getting a little bit more tight again. MUSCULOSKELETAL: She does not complain of muscle or joint pains. INTEGUMENT: There is no new skin breakdown. NEUROLOGIC: There are no new focal deficits or weaknesses. CURRENT MEDICATIONS: 1. Acetazolamide 250 mg daily. 2. Amiodarone 200 mg daily. She has already had a 5 g load. 3. Apixaban 5 mg b.i.d. 4. Atorvastatin 40 mg at bedtime. 5. Lasix 40 mg IV daily. 6. Gabapentin 300 mg p.o. t.i.d. 7. Magnesium oxide 400 mg daily. 8. Toprol-XL 12.5 mg q.12 hours. 9. Milrinone currently at 0.375 mcg/kg/minute. 10. Protonix 40 mg daily. 11. Pyridium 100 mg each night. 12. MiraLAX 17 mg daily. 13. Potassium chloride K-Dur 40 mEq daily. 14. Spironolactone 25 mg daily. PHYSICAL EXAMINATION: VITAL SIGNS: Her telemetry was reviewed. She is in chronic atrial fibrillation. Average rate about 80. She has well rate control. She has a fluctuating blood pressure. Systolic blood pressure range currently between 101 to 136. Her latest systolic blood pressure when I was in the room was 122. Her diastolic blood pressure is between 50 and 67. When I was in the room her diastolic blood pressure was 60. GENERAL: She is alert, conversational and pleasant today and reclining comfortably in bed, not appearing short of breath. HEENT: Show EOMI. Oropharynx is benign. NECK: Her JVP is still elevated about 11 cm or 12 cm. PULMONARY: There is good air movement, however, there are bibasilar crackles, so she still has pulmonary edema. She will need more fluid removal. CARDIAC: Irregular rate and irregular rhythm. There is 2/6 holosystolic murmur at the left upper sternal border. There is also 2/6 holosystolic murmur at the apex. She has both tricuspid regurgitation and mitral regurgitation. ABDOMEN: Very large, distended, soft, nontender. Positive bowel sounds. EXTREMITIES: There is mild edema, but there are palpable dorsalis pedis pulses. LABORATORY VALUES: Sodium 139, potassium 4.1, chloride 99, bicarb 31, BUN 54, creatinine 1.86, and magnesium 2.1. ASSESSMENT: 85-year-old lady is still suffering from right ventricular failure as a result of coronavirus disease pneumonia. It is likely that the coronavirus disease pneumonia caused increased pulmonary vascular resistance to cause severe pulmonary hypertension that made her right heart fail. She has proven that she needs inotropic support. Apparently 0.375 mcg/kg/minute of milrinone is not quite enough since it only provided leveling of Cr and even I/O. We will then increase to 0.425 mcg/kg/min. If 0.425 is not enough, we might need to think about switching back to dobutamine. Another possibility is that I could put her back in sinus rhythm. If she has AV synchrony, especially with her diastolic dysfunction of left ventricle, that could be a considerable improvement in cardiac output. She has been anticoagulated for a long time now. She completed her amiodarone loading already. She is relatively rate controlled with good electrolytes, so this could be a good time to attempt cardioversion. RECOMMENDATIONS: Please see following for my recommendations; 1. Increase milrinone to 0.425 mcg/kg per minute. 2. Please increase furosemide to 60 mg IV one dose in the morning. We will check in afternoon to see if she needs a second dose. 3. I will speak to Dr. Stapleton about conducting cardioversion tomorrow. Perhaps regaining AV synchrony will significantly improve her cardiac output. 4. I met with the daughter and Ms. Salinas for quite a bit of time about long- term planning. She will likely need a hospital bed at home. The most ideal situation is that sinus rhythm will improve her cardiac output to allow wean off the milrinone. If that is the case, then she can go to rehabilitation facility. If she cannot be weaned off the inotropic drip, then there is no choice, but finding an LTAC facility. She needs to regain some function such as transfers. Her daughter also needs respite to allow her broken arm to heal. We will work towards titrating off milrinone if she is able to remain in sinus rhythm. It has been a pleasure taking care of Ms. Salinas. If you have any questions please give me a call. This visit took 50 minutes. This includes performing history and physical, holding a small family meeting, explaining, counseling, and developing a workable plan with the patient and her daughter and also coordinating care with Dr. Stapleton. Job ID: [id number] [facility]
[2020-09-05] MEDS ORDERED: diphenhydrAMINE 25 MG CAP PO SCH (12:15)
--- NOTE | 2020-09-05 17:13 | PDOC.EP ---
- Subjective Date: 09/05/20 Time: 08:00 - Review of Systems Constitutional: reports: weakness. denies: chills, fever, sweats Respiratory: denies: cough, hemoptysis, pleuritic pain, shortness of breath Cardiology: denies: chest pain, edema, heart racing, light headedness, palpitations Gastrointestinal: denies: abdominal pain, constipation, diarrhea Musculoskeletal: denies: falls, neck pain, shoulder pain - Objective Allergies/Adverse Reactions: Allergies Allergy/AdvReac Type Severity Reaction Status Date / Time Penicillins Allergy Severe Verified 05/18/20 04:28 Sulfa (Sulfonamide Allergy Verified 05/18/20 04:28 Antibiotics) sulfamethoxazole Allergy Verified 05/18/20 04:28 [From Bactrim] trimethoprim [From Bactrim] Allergy Verified 05/18/20 04:28 Current Medications Hydrocodone Bitart/Acetaminophen (Hydrocodone/Acetaminophen 5/325 Mg Tablet) 1 tab PO Q6H PRN PRN Reason: Moderate Pain (4-6) Stop: 09/06/20 09:32 Acetazolamide (Acetazolamide 250 Mg Tab) 250 mg PO DAILY [facility] Last Admin: 09/05/20 09:42 Dose: 250 mg Documented by: Albuterol/Ipratropium (Ipratropium/Albuterol Sulfate 3 Ml Neb) 3 ml NEB Q4H PRN PRN Reason: SOB &/or Wheezing Amiodarone HCl (Amiodarone 200 Mg Tab) 200 mg PO DAILY [facility] Last Admin: 09/05/20 09:43 Dose: 200 mg Documented by: Apixaban (Apixaban 5 Mg Tab) 5 mg PO BID [facility] Last Admin: 09/05/20 09:42 Dose: 5 mg Documented by: Atorvastatin Calcium (Atorvastatin Calcium 40 Mg Tab) 40 mg PO HS [facility] Last Admin: 09/04/20 22:08 Dose: 40 mg Documented by: Calcium Carbonate (Calcium Carbonate 500 Mg Chewtab) 1,000 mg PO QIDPRN PRN PRN Reason: Heartburn or Indigestion Last Admin: 08/25/20 18:08 Dose: 1,000 mg Documented by: Cosyntropin (Cosyntropin 250 Mcg Vial) 250 mcg SLOW IVP WILLCALL [facility] Last Admin: 08/21/20 12:56 Dose: 250 mcg Documented by: Furosemide (Furosemide 100 Mg/10 Ml Vial) 60 mg SLOW IVP DAILY [facility] Gabapentin (Gabapentin 300 Mg Cap) 300 mg PO TID [facility] Last Admin: 09/05/20 16:10 Dose: 300 mg Documented by: Milrinone Lactate 20 mg/ (Sodium Chloride) 100 mls @ 16.544 mls/hr IVPB INF [facility]; Protocol Last Admin: 09/05/20 12:55 Dose: 100 mls Documented by: Magnesium Oxide (Magnesium Oxide 400 Mg Tab) 400 mg PO DAILY [facility] Last Admin: 09/05/20 09:41 Dose: 400 mg Documented by: Metoprolol Succinate (Metoprolol Succinate Xl 25 Mg Tab) 25 mg PO Q12HR [facility] Ondansetron HCl (Ondansetron Odt 4 Mg Tab) 4 mg PO Q6H PRN PRN Reason: Nausea/Vomiting Ondansetron HCl (Ondansetron Pf 4 Mg/2 Ml Vial) 4 mg SLOW IVP Q8H PRN PRN Reason: Nausea/Vomiting Pantoprazole Sodium (Pantoprazole 40 Mg Tab) 20 mg PO DAILY [facility] Last Admin: 09/05/20 09:42 Dose: 20 mg Documented by: Phenazopyridine HCl (Phenazopyridine Hcl 100 Mg Tab) 100 mg PO PC [facility] Last Admin: 09/05/20 12:58 Dose: 100 mg Documented by: Polyethylene Glycol (Polyethylene Glycol 3350 17 Gm Packet) 17 gm PO DAILY [facility] Last Admin: 09/05/20 09:47 Dose: Not Given Documented by: Potassium Chloride (Potassium Chloride 20 Meq Tab) 40 meq PO QAM-[facility] Last Admin: 09/05/20 09:41 Dose: 40 meq Documented by: Sodium Chloride (Flush - Normal Saline 10 Ml Syringe) 10 ml IVF PRN PRN PRN Reason: Saline Flush Last Admin: 09/01/20 20:50 Dose: 10 ml Documented by: Spironolactone (Spironolactone 25 Mg Tab) 25 mg PO QAM-WM [facility] Last Admin: 09/05/20 09:43 Dose: 25 mg Documented by: Vital Signs & Weight: Vital Signs Temp Pulse Pulse Pulse Resp BP BP 09/05/20 16:00 98.0 F 95 17 09/05/20 12:00 97.8 F 77 18 09/05/20 09:19 74 82 128/69 132/70 09/05/20 08:27 09/05/20 08:00 97.6 F 89 17 BP BP Pulse Ox 09/05/20 16:00 154/65 H 95 09/05/20 12:00 150/77 H 95 09/05/20 09:19 09/05/20 08:27 96 09/05/20 08:00 136/60 96 Admit Weight 303 lb 3 oz Weight 288 lb I/O: I/O 09/04/20 09/05/20 09/06/20 06:59 06:59 06:59 Intake Total 1251 1280 Output Total 1200 1175 Balance 51 105 - Quality Measures Condition: Atrial Fibrillation/Flutter (hx or current) CV meds: Eliquis: Yes - Physical Exam General: alert & oriented x3, no apparent distress, speech clear, affect approp riate. negative: appears well HEENT: mucus membranes moist, normocephaly, EOMI Neck: supple neck, midline trachea, no JVD/HJR Cardiology: regular rate, irregularly irregular Lungs: no wheeze, rales, rhonchi, decreased breath sounds Neurology: cranial nerve 2-12 intact, grossly intact, no lateralizing findings Abdomen: unremarkable, active bowel sounds, no pulsations/bruits - Chadsvasc Risk factors Congestive heart failure: 1 Age >75: 2 Female: 1 Risk Score: 4 - Labs Result Diagrams: 09/04/20 04:14 09/05/20 03:23 - EKG Interpretation EKG Method: Telemetry EKG shows: Atrial fibrillation - Assessment/Plan Assessment/Plan: 1. Atrial fibrillation with controlled ventricular rates. 2. Chronic oral anticoagulation for atrial fibrillation in addition to history of multiple prior DVTs and PEs, subtherapeutic INR on 08/15 with an INR of 1.8 and then transition to Eliquis. 3. Preserved LVEF by recent echo. 4. Diastolic Heart failure with preserved EF. 5. Hypotension. 6. Acute kidney injury with chronic kidney disease, stage 3. ?ATN 7. COPD. 8. CHADS-VASc score 4 on the basis of age, female gender, and history of hypertension. 9. Recent COVID-19 pneumonia in May 2020 with Negative Covid test on 07/02/2020 10. Morbid obesity. 11. Bilateral pleural effusions. atrial fibrillation remains rate controlled. AMiodarone started 08/22, now with 5Gram loading complete. Adequate OAC since 08/15 on Eliquis. Discussed cardioversion with patient and daughter. They wish to proceed, Scheduled for tomorrow AM. NPO after MN. Consent given.
[2020-09-05] MEDS: Atorvastatin Calcium 40 MG TAB PO SCH (20:16)
[2020-09-06 04:42] LABS: #Eosinphils 0.3 thou/uL (0.0-0.7); #Lymphocytes 1.7 thou/uL (1.20-3.40); #Monocytes 0.5 thou/uL (0.11-0.59); #Neutrophils 2.9 thou/uL (1.40-6.50); %Basophils 0.6 % (0.0-1.0); %Eosinophils 5.1 % (0.0-10.0); %Lymphocytes 31.3 % (21.0-51.0); %Monocytes 9.7 % (0.0-10.0); %Neutrophils 53.3 % (42.0-75.0); Hemoglobin 9.6 g/dL (12.0-16.0); Mean Corpuscular HGB CONC 31.5 g/dL (32.0-36.0); Mean Corpuscular Hemoglobin 30.6 pg (27.0-31.0); Mean Corpuscular Volume 97.2 fL (78.0-98.0); Mean Platelet Volume 7.3 fL (7.4-10.4); Platelet Count 227 thou/uL (130-400); RBC Distribution Width 13.4 % (11.5-14.5); Red Blood Cell (RBC) Count 3.15 mill/uL (4.20-5.40); White Blood Cell (WBC) Count 5.5 thou/uL (4.8-10.8)
[2020-09-06 05:05] LABS: Anion Gap 15 mmol/L (10-20); BUN (Urea Nitrogen) 51 mg/dL (9.8-20.1); Calc. Creatinine Clearance 52 mL/min (70-130); Calcium 8.9 mg/dL (7.8-10.44); Carbon Dioxide 27 mmol/L (23-31); Chloride 102 mmol/L (98-107); Glucose 123 mg/dL (83-110); Magnesium 2.1 mg/dL (1.6-2.6); Potassium 4.3 mmol/L (3.5-5.1); Sodium 140 mmol/L (136-145)
--- NOTE | 2020-09-06 06:27 | PDOC.FM ---
- Subjective Subjective: Patient is resting comfortably in bed. No acute events or concerns. Notes in the middle of the night she had a brief 2 second episode of her left chest tightening. She noted that it felt muscular, and states she felt stressed last night. Has not had the pain since, no associated shortness of breath. No abdominal pain N/V. - Objective MAR Reviewed: Yes Vital Signs & Weight: Vital Signs (12 hours) Temp Pulse Resp BP BP Pulse Ox 09/06/20 03:14 93 L 09/06/20 03:09 98.4 F 84 16 103/53 L 93 L 09/05/20 19:10 99.1 F 104 H 18 131/63 97 Weight Admit Weight 137.524 kg Weight 132.131 kg Most Recent Monitor Data Heart Rate from ECG 70 NIBP 138/93 NIBP BP-Mean 108 Respiration from ECG 18 SpO2 94 I&O: 09/04/20 09/05/20 09/06/20 06:59 06:59 06:59 Intake Total 1251 1280 1326 Output Total 1200 1175 950 Balance 51 105 376 Result Diagrams: 09/06/20 04:26 09/06/20 04:26 Phys Exam - Physical Examination Constitutional: NAD HEENT: PERRLA, moist MMs Respiratory: clear to auscultation bilateral faint crackles b/l Cardiovascular: RRR, no significant murmur Gastrointestinal: soft, non-tender, positive bowel sounds trace edema b/l LE Neurological: non-focal, moves all 4 limbs Psychiatric: normal affect, A&O x 3 Dx/Plan - Plan Plan: Acute hypoxic respiratory failure likely 2/2 to right heart failure with cardiorenal syndrome -pt originally received lasix due to concern for CHF exacerbation, patient then appeared dry and was hypotensive, labs were concerning for hypoperfusion so patient was given fluids overnight on two different occasions; then concerns for cardiogenic shock --> Dr. Bone consulted -now on 2-2.5 L NC, pt is on 2 L at home -original CXR: bilateral pleural effusions that were not present on previous imaging, repeat xray showed improvement, repeat worsening of CHF -BNP 286 > 324.3; s/p lasix, now on bumex -EKG: Afib w/RVR -echo 08/17: technically difficulty exam 2/2 body habitus, EF 50-55%, diastolic dysfunction cannot be assessed -previous hydralazine use for goal bp systolic 110-120 --> stopped on 09/03 after adddition of milrinone -consulted nephro: diuretics per cards, IV iron, signed off on 08/29 with outpatient f/u in 2-3 weeks -cortisol stimulation test: normal -Per Dr. Bone: * bumex added for continued diuresis on 08/26, spironolactone added on 08/27 * started on Tropol XL 12.5 mg q 12 hours on 08/26, increased to 25 mg q12hrs on 08/27, decreased to 12.5 mg on 08/28 * previously on dobutamine and milrinone, both were d/c'd, restarted on milrinone gtt on 09/03 * patient appears a little more fluid overloaded today, will discuss with Dr. Bone -EP (Dr. Stapleton) consulted per Dr. Bone: Patient will get cardioverted today 09/06 @ 0900 HFpEF -ECHO 07/02, EF 50-55%, see repeat above -BNP 286 > 324.3 -s/p lasix, on bumex now -strict I/Os, daily weights UTI, s/p treatment -urine cx: Kleb, E.coli, non-hem strep with dysuria -Ceftriaxone (08/24), x3 days (last day 08/26) -discussed possible interaction between penicillin allergy and cross reaction with ceftriaxone, patient understood and was okay with receiving antibiotics, she denies any reaction -due to hypotension overnight on 08/27-08/28, repeat blood cx and UA: UA appeared clean, no UCx resulted -gave azo 09/02 for suprapbuic discomfort with urinating, UA clean, UCx - mixed woo; irritation resolved Hypotension, resolved -s/p 500 ml bolus x2, not receiving fluids due to concern for worsening CHF 2/2 to right heart failure and cardiogenic shock -likely 2/2 to cardiogenic shock -dobutamine and milrinone DC'd -will continue to hold lisinopril and coreg -Dr. Bone consulted as mentioned above Afib w/RVR, now rate controlled -Known history: known source, as patient was not taking PO Dilt at home. Patient also just was seen by Dr Connelly outpatient -Anticoagulated with warfarin prior to 08/[address] Tolliver at which time he switched to eliquis due to subtherapeutic INR and missing warfarin doses. -HR 90-110s while in ED, now rate controlled in the 60s-80s -RVR initially improved --> RVR returned on 08/27 --> normal rate 08/28 -s/p dilt gtt stopped 08/16, transitioned to dilt PO, dilt DC'd per Lizandro gradys -DC'd dilt and coreg per Lizandro recs, on amiodarone and Toprol XL * Amiodarone 400 mg BID until 5g loading dose (last dose 08/28) achieved followed by amiodarone 200 mg daily (08/29) * Toprol 12.5 mg q12hrs * Increased Eliquis to 5 mg BID 09/04 per Lizandro gradys -EP: not current candidate for cardioverision, needs 1 month of anticoagulation, outpatient f/u -TSH: 0.2821 with normal free T3 and T4, will obtain antibodies, repeat TSH per Dr. Bone request 1.2 SEGUNDO on CKD3 -Cr 1.02 on admission -Cr of 1.61 > 1.62 > 1.49 > 1.51; likely new baseline -likely secondary to cardiogenic shock -Dr. Bone consulted, tiffany recs -Nephro consulted: diuretics per cards, signed off with outpatient f/u 2-3 weeks - Cr increased to 1.66 -- 1.85 09/04, GFR 26; will discuss with Dr. Bone Normocytic Anemia -Hgb: 8.6; due to CHF and cardiogenic shock, will keep Hgb above 8 -iron: 23, TIBC: 184, %sat: 13, Transferrin: 147, ferritin pending -Dr. Davidson has ordered IV iron x3 bags -possibly a mixed picture, likely anemia of chronic disease with possible iron deficiency anemia Transaminitis, resolved -likely 2/2 to hypoperfusion vs congestion 2/2 to cardiorenal syndrome -will continue to monitor Elevated troponin -0.068>.164>.242>.165 -likely demand ischemia due to Afib Diarrhea, resolved COPD -Aware, duonebs prn at home -s/p solumedrol and magnesium per EMS -no wheezing on PE -duonebs PRN Recent hospitalization for COVID pneumonia -05/18-05/21 -Has been on supplemental home oxygen since (2L) -Reports negative test on 08/10 HTN -holding original home meds -Stopped isosorbide dinitrate and hydralazine on 08/27 to increase perfusion to the kidney with hopes of increasing diuresis; added back hydralazine on 08/29; see above for further info --> stopped hydralazine and isosorbite dinitrate 09/03 after adding milrinone gtt HLD -Aware, continue home meds GERD -Aware, continue home meds Chronic back pain due to spondylosis -Aware, continue home meds -takes norco for pain Dispo: CM consulted, plan for LTAC facility on d/c Addendum - Attending - Attending Attestation Date/Time: 09/06/20 [id number] I personally evaluated the patient and discussed the management with the team. I agree with the History, Examination, Assessment and Plan documented above with any addition or exceptions noted below. Continue titrating milrinone and adjusting diuretics.
[2020-09-06] MEDS ORDERED: PROPOFOL 20 ML ONE (09:09)
[2020-09-06 09:23] LABS: SARS-CoV-2 NAA Rapid Test Not Detected (NotDetected)
--- NOTE | 2020-09-06 10:10 | PDOC.EP ---
- Subjective Date: 09/06/20 Time: 10:09 Interval History: No change in status. Mostly bed bound. - Review of Systems Constitutional: denies: chills, fever, malaise, sweats, weakness, other Respiratory: denies: cough, dry, hemoptysis, pleuritic pain, shortness of breath, SOB with excertion, sputum, wheezing, other Cardiology: denies: chest pain, edema, heart racing, light headedness, paroxysmal noc. dyspnea, orthopnea, palpitations, passing out, pleuritic pain, pressure, swelling, other Gastrointestinal: denies: abdominal pain, constipation, diarrhea, hematochezia, melena, nausea, vomitting, other Musculoskeletal: denies: unstable gait, falls, neck pain, shoulder pain, arm pain, hand pain, leg pain, foot pain, other Neurological: denies: headache, vision changes, other - Objective Allergies/Adverse Reactions: Allergies Allergy/AdvReac Type Severity Reaction Status Date / Time Penicillins Allergy Severe Verified 05/18/20 04:28 Sulfa (Sulfonamide Allergy Verified 05/18/20 04:28 Antibiotics) sulfamethoxazole Allergy Verified 05/18/20 04:28 [From Bactrim] trimethoprim [From Bactrim] Allergy Verified 05/18/20 04:28 Current Medications Acetazolamide (Acetazolamide 250 Mg Tab) 250 mg PO DAILY [facility] Last Admin: 09/05/20 09:42 Dose: 250 mg Documented by: Albuterol/Ipratropium (Ipratropium/Albuterol Sulfate 3 Ml Neb) 3 ml NEB Q4H PRN PRN Reason: SOB &/or Wheezing Amiodarone HCl (Amiodarone 200 Mg Tab) 200 mg PO DAILY [facility] Last Admin: 09/05/20 09:43 Dose: 200 mg Documented by: Apixaban (Apixaban 5 Mg Tab) 5 mg PO BID [facility] Last Admin: 09/05/20 20:17 Dose: 5 mg Documented by: Atorvastatin Calcium (Atorvastatin Calcium 40 Mg Tab) 40 mg PO HS [facility] Last Admin: 09/05/20 20:16 Dose: 40 mg Documented by: Calcium Carbonate (Calcium Carbonate 500 Mg Chewtab) 1,000 mg PO QIDPRN PRN PRN Reason: Heartburn or Indigestion Last Admin: 08/25/20 18:08 Dose: 1,000 mg Documented by: Cosyntropin (Cosyntropin 250 Mcg Vial) 250 mcg SLOW IVP WILLCALL [facility] Last Admin: 08/21/20 12:56 Dose: 250 mcg Documented by: Furosemide (Furosemide 100 Mg/10 Ml Vial) 60 mg SLOW IVP DAILY [facility] Gabapentin (Gabapentin 300 Mg Cap) 300 mg PO TID [facility] Last Admin: 09/05/20 20:16 Dose: 300 mg Documented by: Milrinone Lactate 20 mg/ (Sodium Chloride) 100 mls @ 16.544 mls/hr IVPB INF [facility]; Protocol Last Admin: 09/06/20 01:23 Dose: 100 mls Documented by: Magnesium Oxide (Magnesium Oxide 400 Mg Tab) 400 mg PO DAILY [facility] Last Admin: 09/05/20 09:41 Dose: 400 mg Documented by: Metoprolol Succinate (Metoprolol Succinate Xl 25 Mg Tab) 25 mg PO Q12HR [facility] Last Admin: 09/05/20 20:16 Dose: 25 mg Documented by: Ondansetron HCl (Ondansetron Odt 4 Mg Tab) 4 mg PO Q6H PRN PRN Reason: Nausea/Vomiting Ondansetron HCl (Ondansetron Pf 4 Mg/2 Ml Vial) 4 mg SLOW IVP Q8H PRN PRN Reason: Nausea/Vomiting Pantoprazole Sodium (Pantoprazole 40 Mg Tab) 20 mg PO DAILY [facility] Last Admin: 09/05/20 09:42 Dose: 20 mg Documented by: Phenazopyridine HCl (Phenazopyridine Hcl 100 Mg Tab) 100 mg PO PC [facility] Last Admin: 09/05/20 18:00 Dose: 100 mg Documented by: Polyethylene Glycol (Polyethylene Glycol 3350 17 Gm Packet) 17 gm PO DAILY [facility] Last Admin: 09/05/20 09:47 Dose: Not Given Documented by: Potassium Chloride (Potassium Chloride 20 Meq Tab) 40 meq PO QAM-WM [facility] Last Admin: 09/05/20 09:41 Dose: 40 meq Documented by: Sodium Chloride (Flush - Normal Saline 10 Ml Syringe) 10 ml IVF PRN PRN PRN Reason: Saline Flush Last Admin: 09/01/20 20:50 Dose: 10 ml Documented by: Spironolactone (Spironolactone 25 Mg Tab) 25 mg PO QAM-WM [facility] Last Admin: 09/05/20 09:43 Dose: 25 mg Documented by: Vital Signs & Weight: Vital Signs Temp Pulse Resp BP Pulse Ox 09/06/20 08:00 98.5 F 80 17 100/50 L 95 09/06/20 03:14 93 L 09/06/20 03:09 98.4 F 84 16 103/53 L 93 L Admit Weight 303 lb 3 oz Weight 291 lb 4.8 oz I/O: I/O 09/05/20 09/06/20 09/07/20 06:59 06:59 06:59 Intake Total 1280 1326 Output Total 1175 950 Balance 105 376 - Quality Measures Condition: Atrial Fibrillation/Flutter (hx or current) CV meds: Eliquis: Yes - Physical Exam General: alert & oriented x3, appears well HEENT: normocephaly Neck: supple neck Cardiology: no murmur, irregularly irregular Lungs: clear to auscultation, normal breath sounds, no wheezes, no rales Neurology: grossly intact Abdomen: unremarkable, soft, non-tender Extremities: warm. negative: + edema B - Chadsvasc Risk factors Congestive heart failure: 1 Hypertension: 1 Age >75: 2 Diabetes mellitus: 1 Vascular disease: 1 Female: 1 Risk Score: 7 - Labs Result Diagrams: 09/06/20 04:26 09/06/20 04:26 - EKG Interpretation EKG Method: 12 Lead EKG shows: Atrial fibrillation - Assessment/Plan Assessment/Plan: 1. Atrial fibrillation with controlled ventricular rates. - Amiodarone initiated 08/22 - Unsuccesful cardioversion 09/06/20. 2. Chronic oral anticoagulation for atrial fibrillation in addition to history of multiple prior DVTs and PEs, subtherapeutic INR on 08/15 with an INR of 1.8 and then transition to Eliquis. 3. Preserved LVEF by recent echo. 4. Diastolic Heart failure/right sided HF with preserved LVEF. 5. Hypotension. 6. Acute kidney injury with chronic kidney disease, stage 3. ?ATN - improving 7. COPD. 8. CHADS-VASc score 4 on the basis of age, female gender, and history of hypertension. 9. Recent COVID-19 pneumonia in May 2020 with Negative Covid test on 07/02/2020 10. Morbid obesity. 11. Bilateral pleural effusions. Atrial fibrillation remains rate controlled. AMiodarone started 08/22, now with 5Gram loading complete. Adequate OAC since 08/15 on Eliquis. Attempted cardioversion, but no conversion to SR achieved depite multiple high energy shocks. Can consider repeat cardioversion in a month if stays on PO amiodarone. Will need periodic LFT, TSH CXR and [facility] Notify PCP. EP would sign off. Call if can be furhter help. Happy to see in 4 -6 weeks in office.
[2020-09-06] MEDS ORDERED: PROPOFOL 200 MG/20 ML VIAL ONE (10:20)
--- NOTE | 2020-09-06 10:29 | OP ---
DATE OF PROCEDURE: 09/06/2020 PROCEDURE PERFORMED: Electrical external cardioversion. REASON FOR PROCEDURE: Ms. Salinas is an 85-year-old woman with history of persistent atrial fibrillation, difficult ventricular rate control, oral anticoagulation with warfarin, more recently with Eliquis for over 3 weeks. She also has right-sided heart failure and depend on milrinone. She is here for a planned cardioversion after amiodarone loading since 08/28/2020. She is here for a planned cardioversion. DESCRIPTION OF PROCEDURE: The patient received propofol by anesthesia specialist. After adequate level of sedation achieved, a synchronized external cardioversion performed at 150 joules, which failed to cardiovert the patient. A followup 300 joules also did not cardiovert the patient. External shock delivered at 360 joules via paddles, instead of patches, also did not cardiovert the patient back to sinus. CONCLUSION: Unsuccessful cardioversion. PLAN: Continue amiodarone loading. Can consider resuming a cardioversion in about a month. Job ID: [id number]
[2020-09-06] MEDS: Magnesium Oxide 400 MG TAB PO SCH (12:18)
[2020-09-06] MEDS: Gabapentin 300 MG CAP PO SCH ×3 (12:18→20:22)
[2020-09-06] MEDS: Potassium Chloride 20 MEQ TAB PO SCH (12:18)
[2020-09-06] MEDS: Amiodarone 200 MG TAB PO SCH (12:19)
[2020-09-06] MEDS: Apixaban 5 MG TAB PO SCH ×2 (12:19→20:23)
[2020-09-06] MEDS: AcetaZOLAMIDE 250 MG TAB PO SCH (12:19)
[2020-09-06] MEDS: Spironolactone 25 MG TAB PO SCH (12:19)
[2020-09-06] MEDS: Polyethylene Glycol 3350 17 GM Packet PO SCH (12:20)
[2020-09-06] MEDS: Furosemide 100 MG/10 ML VIAL SLOW IVP SCH (12:20)
[2020-09-06] MEDS: Phenazopyridine HCl 100 MG TAB PO SCH ×3 (12:20→17:21)
--- NOTE | 2020-09-06 12:58 | PRG ---
DATE OF SERVICE: 09/06/2020 SERVICE: Advanced Heart Failure Cardiology Consulting Service. SUBJECTIVE: Mrs. Salinas had a variable day. Yesterday afternoon, she was quite active. She was able to be bathed without trouble. She participated with Physical Therapy. She stood up again. She did sit down and did exercises. She was also walked sideways a bit. Afterwards, she was quite fatigued. This morning, she underwent DC cardioversion. Unfortunately, DC cardioversion did not convert her to sinus rhythm. She stayed in atrial fibrillation. Afterwards, she woke up without any problems. She is alert and conversational. She is not short of breath and actually feeling pretty well. Her main complaint is that she feels like her bladder is full and then she cannot urinate even though she felt like there is a full bladder, she has to push it to get it out, but this is a new development for her. REVIEW OF SYSTEMS: GENERAL: There are no fever, chills, or productive cough. HEENT: There are no changes in vision, hearing, or swallowing. PULMONARY: She is breathing easily. CARDIAC: There is no complaint of chest pain, palpitations, or syncope. GI: There is no nausea, vomiting. : Please see HPI. MUSCULOSKELETAL: There is no complaint of new joint or muscle pain. INTEGUMENT: There is no new skin breakdown. NEUROLOGIC: There are no new focal deficits or weaknesses. CURRENT MEDICATIONS: Include, 1. Acetazolamide 250 mg daily. 2. Albuterol and ipratropium nebulization as needed. 3. Amiodarone 200 mg daily. 4. Apixaban 5 mg b.i.d. 5. Atorvastatin 40 mg at bedtime. 6. Furosemide 60 mg IV daily. 7. Gabapentin 300 mg t.i.d. 8. Magnesium oxide 400 mg daily. 9. Toprol-XL 25 mg p.o. q.12 hours. 10. Milrinone currently 0.425 mcg/kg per minute. 11. Protonix 20 mg daily. 12. Pyridium 100 mg at night. 13. MiraLAX at 17 g daily. 14. Potassium chloride 40 mEq daily. 15. Spironolactone 25 mg daily. PHYSICAL EXAMINATION: Telemetry was reviewed. She is in chronic atrial fibrillation, rate between 70 and 90s. VITAL SIGNS: Her latest vital signs are heart rate 74, blood pressure at 130/65. GENERAL: She is alert and conversational, reclining comfortably in bed. She wants to eat. HEENT: Show EOMI. Oropharynx is benign with moist mucosa. NECK: She has a large diameter neck. JVP is not well evaluated today. PULMONARY: She is clear to auscultation bilaterally. There are no crackles. CARDIAC: Irregular rate, irregular rhythm, there are 2/6 holosystolic murmur at the left sternal border and also at the apex that she has combination of tricuspid regurgitation, also mitral regurgitation. ABDOMEN: Soft, nontender. Very large positive bowel sounds. There is quite a bit of adipose tissue. EXTREMITIES: Lower extremities warm and well perfused. Minimal edema. Strong dorsalis pedis pulses bilaterally. LABORATORY DATA: Her chemistry today consists of sodium 140, potassium 4.3, BUN 51, creatinine 1.7. There is a BUN and creatinine improvement from yesterday and her magnesium is 2.1. Her echocardiogram was also reviewed again. Her right ventricle is bigger than her left ventricle. Thus, she has severely dilated right ventricle with depressed right ventricular function. Consequently, she will need a right ventricle augmentation with Milrinone for long-term. 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 She also has chronic atrial fibrillation. This combination places her in right ventricular heart failure. She will require Milrinone for long-term therapy. Currently, Milrinone 0.425 mcg/kg per minute seemed to be enough. It is providing enough cardiac output to slowly recover her renal function. Toprol-XL 25 mg p.o. q.12 hours is providing sufficient rate control. Per Dr. Stapleton, he will like to try another cardioversion again in one month. 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 It is unsure how much she can recover from this point on. We will aim to lower creatinine as much as possible. Please see the following for detailed recommendations. RECOMMENDATIONS: 1. Continue milrinone 0.425 mcg/kg per minute. 2. Please arrange for her to be placed in LTAC facility. Such a facility will allow infusion of milrinone and provide physical therapy. Her daughter cannot take care of her at home. She needs the milrinone to survive. More proximal rehab facility will not take Milrinone. She will need LTAC facility. 3. Please redo an echocardiogram that is focus on the right ventricular failure. We will need to document this carefully. 4. Continue to keep potassium above 4 and magnesium at least 2. It has been a pleasure taking care of Mrs. Salinas. If any questions, please give me a call. The total visitation time for this is 40 minutes. Job ID: [id number] MTDD
--- NOTE | 2020-09-06 16:15 | EKG ---
Test Reason : POST CARDIOVERSION Blood Pressure : / mmHG Vent. Rate : 080 BPM Atrial Rate : 131 BPM P-R Int : 000 ms QRS Dur : 112 ms QT Int : 408 ms P-R-T Axes : 000 025 149 degrees QTc Int : 470 ms Atrial fibrillation Prolonged QT Abnormal ECG When compared with ECG of 16-AUG-2020 01:19, Minimal criteria for Anterior infarct are no longer Present Nonspecific T wave abnormality, improved in Inferior leads Inverted T waves have replaced nonspecific T wave abnormality in Lateral leads Confirmed by DR. Owen STEPHENSON ([id number]) on 09/06/2020 4:14:51 PM Referred By: CYNDEY Confirmed By:DR. Owen STEPHENSON
[2020-09-06] MEDS: Atorvastatin Calcium 40 MG TAB PO SCH (20:23)
[2020-09-06] MEDS: HYDROcodone/Acetaminophen 5/325 mg Tablet PO PRN (23:55)
[2020-09-06] MEDS: Milrinone Lactate/D5W 20 MG in Premix Bag 1 BAG IVPB SCH (23:58)
[2020-09-07] MEDS: Milrinone Lactate/D5W 20 MG in Premix Bag 1 BAG IVPB SCH ×3 (06:08→19:04)
--- NOTE | 2020-09-07 06:15 | PDOC.FM ---
- Subjective Subjective: Patient is resting comfortably in bed. No acute events overnight. No concerns. Denies chest pain, shortness of breath, abdominal pain. She states that she had some pain yesterday evening, but received her norco and it improved. - Objective MAR Reviewed: Yes Vital Signs & Weight: Vital Signs (12 hours) Temp Pulse Resp BP BP Pulse Ox 09/07/20 04:42 97 F L 85 16 116/58 L 95 09/06/20 21:00 95 09/06/20 20:18 98.2 F 86 18 123/75 95 Weight Admit Weight 137.524 kg Weight 132.63 kg Most Recent Monitor Data Heart Rate from ECG 70 NIBP 138/93 NIBP BP-Mean 108 Respiration from ECG 18 SpO2 94 I&O: 09/05/20 09/06/20 09/07/20 06:59 06:59 06:59 Intake Total 1280 1326 983 Output Total 4073 458 2703 Balance 105 376 617 Result Diagrams: 09/06/20 04:26 09/07/20 06:50 Phys Exam - Physical Examination Constitutional: NAD HEENT: PERRLA, moist MMs faint crackles Cardiovascular: RRR, no significant murmur Gastrointestinal: soft, non-tender, positive bowel sounds Musculoskeletal: no edema Neurological: non-focal, moves all 4 limbs Psychiatric: normal affect, A&O x 3 Skin: no rash Dx/Plan - Plan Plan: Acute hypoxic respiratory failure likely 2/2 to right heart failure with cardiorenal syndrome -pt originally received lasix due to concern for CHF exacerbation, patient then appeared dry and was hypotensive, labs were concerning for hypoperfusion so patient was given fluids overnight on two different occasions; then concerns for cardiogenic shock --> Dr. Bone consulted -now on 2-2.5 L NC, pt is on 2 L at home -original CXR: bilateral pleural effusions that were not present on previous imaging, repeat xray showed improvement, repeat worsening of CHF -BNP 286 > 324.3; s/p lasix, now on bumex -EKG: Afib w/RVR -echo 08/17: technically difficulty exam 2/2 body habitus, EF 50-55%, diastolic dysfunction cannot be assessed -previous hydralazine use for goal bp systolic 110-120 --> stopped on 09/03 after adddition of milrinone -consulted nephro: diuretics per cards, IV iron, signed off on 08/29 with outpatient f/u in 2-3 weeks -cortisol stimulation test: normal -Per Dr. Bone: * bumex added for continued diuresis on 08/26, spironolactone added on 08/27 * started on Tropol XL 12.5 mg q 12 hours on 08/26, increased to 25 mg q12hrs on 08/27, decreased to 12.5 mg on 08/28 * previously on dobutamine and milrinone, both were d/c'd --> restarted on milrinone gtt on 09/03, drip at .4 * CM working on placement at LTAC, where patient can still receive milrinone infusion -EP (Dr. Stapleton) consulted per Dr. Bone: Attempted cardioversion 09/06, but no c onversion to SR achieved depite multiple high energy shocks; recommended continued amiodarone 200mg, consider repeat cardioversion in 4-6 weeks HFpEF -ECHO 07/02, EF 50-55%, see repeat above -BNP 286 > 324.3 -s/p lasix, on bumex now -strict I/Os, daily weights UTI, s/p treatment -urine cx: Kleb, E.coli, non-hem strep with dysuria -Ceftriaxone (08/24), x3 days (last day 08/26) -discussed possible interaction between penicillin allergy and cross reaction with ceftriaxone, patient understood and was okay with receiving antibiotics, she denies any reaction -due to hypotension overnight on 08/27-08/28, repeat blood cx and UA: UA appeared clean, no UCx resulted -gave azo 09/02 for suprapbuic discomfort with urinating, UA clean, UCx - mixed woo; irritation resolved Hypotension, resolved -s/p 500 ml bolus x2, not receiving fluids due to concern for worsening CHF 2/2 to right heart failure and cardiogenic shock -likely 2/2 to cardiogenic shock -dobutamine and milrinone DC'd -will continue to hold lisinopril and coreg -Dr. Bone consulted as mentioned above Afib w/RVR, now rate controlled -Known history: known source, as patient was not taking PO Dilt at home. Patient also just was seen by Dr Connelly outpatient -Anticoagulated with warfarin prior to 08/[address] Tolliver at which time he switched to eliquis due to subtherapeutic INR and missing warfarin doses. -HR 90-110s while in ED, now rate controlled in the 60s-80s -RVR initially improved --> RVR returned on 08/27 --> normal rate 08/28 -s/p dilt gtt stopped 08/16, transitioned to dilt PO, dilt DC'd per Lizandro gradys -DC'd dilt and coreg per Lizandro gradys, on amiodarone and Toprol XL * Amiodarone 400 mg BID until 5g loading dose (last dose 08/28) achieved followed by amiodarone 200 mg daily (08/29) * Toprol 12.5 mg q12hrs * Increased Eliquis to 5 mg BID 09/04 per Lizandro gradys -EP: not current candidate for cardioverision, needs 1 month of anticoagulation, outpatient f/u -TSH: 0.2821 with normal free T3 and T4, will obtain antibodies, repeat TSH per Dr. Bone request 1.2 SEGUNDO on CKD3 -Cr 1.02 on admission -Cr of 1.61 > 1.62 > 1.49 > 1.51; likely new baseline -likely secondary to cardiogenic shock -Dr. Bone consulted, tiffany recs -Nephro consulted: diuretics per cards, signed off with outpatient f/u 2-3 weeks - Cr increased to 1.66 -- 1.85 09/04, GFR 26; will discuss with Dr. Bone Normocytic Anemia -Hgb: 8.6; due to CHF and cardiogenic shock, will keep Hgb above 8 -iron: 23, TIBC: 184, %sat: 13, Transferrin: 147, ferritin pending -Dr. Davidson has ordered IV iron x3 bags -possibly a mixed picture, likely anemia of chronic disease with possible iron deficiency anemia Transaminitis, resolved -likely 2/2 to hypoperfusion vs congestion 2/2 to cardiorenal syndrome -will continue to monitor Elevated troponin -0.068>.164>.242>.165 -likely demand ischemia due to Afib Diarrhea, resolved COPD -Aware, duonebs prn at home -s/p solumedrol and magnesium per EMS -no wheezing on PE -duonebs PRN Recent hospitalization for COVID pneumonia -05/18-05/21 -Has been on supplemental home oxygen since (2L) -Reports negative test on 08/10 HTN -holding original home meds -Stopped isosorbide dinitrate and hydralazine on 08/27 to increase perfusion to the kidney with hopes of increasing diuresis; added back hydralazine on 08/29; see above for further info --> stopped hydralazine and isosorbite dinitrate 09/03 after adding milrinone gtt HLD -Aware, continue home meds GERD -Aware, continue home meds Chronic back pain due to spondylosis -Aware, continue home meds -takes norco for pain Dispo: CM consulted, plan for LTAC facility on d/c Addendum - Attending - Attending Attestation Date/Time: 09/07/20 9655 I personally evaluated the patient and discussed the management with Dr. Rose. I agree with the History, Examination, Assessment and Plan documented above with any addition or exceptions noted below. Appreciate Dr. Bone and Pieter recommendations. Awaiting LTAC placement.
[2020-09-07 07:19] LABS: Anion Gap 15 mmol/L (10-20); BUN (Urea Nitrogen) 48 mg/dL (9.8-20.1); Calc. Creatinine Clearance 55 mL/min (70-130); Calcium 9.1 mg/dL (7.8-10.44); Carbon Dioxide 29 mmol/L (23-31); Chloride 102 mmol/L (98-107); Glucose 123 mg/dL (83-110); Potassium 4.3 mmol/L (3.5-5.1); Sodium 142 mmol/L (136-145)
[2020-09-07] MEDS: Spironolactone 25 MG TAB PO SCH (09:19)
[2020-09-07] MEDS: Amiodarone 200 MG TAB PO SCH (09:19)
[2020-09-07] MEDS: Potassium Chloride 20 MEQ TAB PO SCH (09:19)
[2020-09-07] MEDS: Gabapentin 300 MG CAP PO SCH ×3 (09:19→21:04)
[2020-09-07] MEDS: Magnesium Oxide 400 MG TAB PO SCH (09:20)
[2020-09-07] MEDS: AcetaZOLAMIDE 250 MG TAB PO SCH (09:20)
[2020-09-07] MEDS: Furosemide 100 MG/10 ML VIAL SLOW IVP SCH (09:21)
[2020-09-07] MEDS: Polyethylene Glycol 3350 17 GM Packet PO SCH (09:21)
[2020-09-07] MEDS: Apixaban 5 MG TAB PO SCH ×2 (09:27→21:04)
[2020-09-07] MEDS: Phenazopyridine HCl 100 MG TAB PO SCH ×3 (09:29→17:56)
--- NOTE | 2020-09-07 14:44 | PRG ---
DATE OF SERVICE: 09/07/2020 SERVICE: Advanced Heart Failure Cardiology Consulting Service. SUBJECTIVE: Mrs. Renee Salinas had an excellent day. She participated with physical therapy. She was able to stand up three times. First time was 2 minutes and 30 seconds, second time was about 2 minutes and 15 seconds, and third time about a minute and half, and this morning she was able to sit up for about an hour and half. These are significant improvement in terms of function. She says she is breathing well and is well focused. So far, she has been making small improvements every day. REVIEW OF SYSTEMS: GENERAL: There is no fever, chills, or productive cough. HEENT: There is no change in vision, hearing, or swallowing. PULMONARY: She is breathing easy. CARDIAC: There are no complaints of chest pain, palpitations, or syncope. GI: There is no nausea, vomiting, or diarrhea. : She uses [employer]. MUSCULOSKELETAL: There is no complaint of muscle pains or joint pains. INTEGUMENT: There are no new skin breakdown. NEUROLOGIC: There are no focal deficits or weaknesses. CURRENT MEDICATIONS: Include; 1. Acetazolamide 250 mg daily. 2. Amiodarone 200 mg daily. 3. Apixaban 5 mg b.i.d. 4. Atorvastatin 40 mg p.o. at bedtime. 5. Furosemide 60 mg IV daily. 6. Gabapentin 300 mg t.i.d. 7. Magnesium oxide 400 mg daily. 8. Toprol-XL 25 mg p.o. q.12 hours. 9. Milrinone currently at 0.425 mcg/kg per minute. 10. Protonix 20 mg daily. 11. Pyridium 100 mg daily. 12. MiraLAX 17 g daily. 13. Potassium chloride 40 mEq daily. 14. Spironolactone 25 mg daily. Her telemetry was reviewed, it showed chronic atrial fibrillation. Heart rate around 80s. There are no concerning arrhythmia. PHYSICAL EXAMINATION: VITAL SIGNS: Her latest vitals show heart rate of 78, blood pressure 124/58. GENERAL: She is alert and conversational, relaxing while reclining in bed. She is in no acute distress. HEENT: Show EOMI. Oropharynx is benign with moist mucosa. NECK: She has a large diameter neck. Her JVP is approximately 9 or 10 cm. PULMONARY: She has good air movement bilaterally. There are no crackles bilaterally. CARDIAC: irregular rate and irregular rhythm. There is about 2/6 holosystolic murmur near the apex. There are no gallops. No rubs. ABDOMEN: Large, soft, nontender. Positive bowel sounds. EXTREMITIES: Lower extremities, there is slight edema from her feet, torso, and knees. She also has some possible fluid around her thighs. LABORATORY DATA: Her chemistry today are; sodium 142, potassium 4.3, chloride 102, bicarb of 29, BUN 48, and creatinine is at 1.63. This is an improvement since yesterday. Her input and output are 983 in and 1600 out, so she has a net negative of 617 mL yesterday. Echocardiogram from September 06, 2020, was read. 1. Please see the official report. 2. Her LVEF is about 50% to 55%. 3. She has moderately dilated right ventricle. 4. She has severely dilated left atrium and right atrium. 5. The findings are consistent with right heart failure and significant left ventricular diastolic dysfunction. ASSESSMENT: 85-year-old female is recovering from right ventricular failure/cor pulmonale due to keen virus pneumonia. She also has an underlying atrial fibrillation along with diastolic dysfunction to cause this. Currently, she is requiring milrinone at 0.425 mcg/kg per minute to augment her right heart. With this augmentation, she is recovering from a cardiorenal syndrome. She has difficulty controlling atrial fibrillation. She is currently on Toprol-XL 25 mg q.12 hours for rate control. She is also on amiodarone 200 mg. In anticipation of cardioversion in one month, it is hoped that with the amiodarone on board, she could be cardioverted and maintained in sinus rhythm. Converting her to sinus rhythm will help her tremendously. Please see the following for my recommendations. RECOMMENDATIONS: 1. Continue milrinone at 0.425 mcg/kg per minute. 2. Continue Lasix 60 mg IV daily. Sometime in the near future, we will probably need to convert to oral diuretics for maintenance. 3. Please continue to keep potassium above 4, also magnesium above 2. 4. She will need to be placed in LTAC. She needs a facility that can help with her to rehabilitate and support her milrinone. She will need chronic milrinone infusion. 5. I will initiate the process of setting her up for chronic milrinone infusion. It has been a pleasure taking care of . Renee Salinas. If any questions, please give me a call. The total visitation time today is 40 minutes. Job ID: [id number] MTDD
[2020-09-07] MEDS: Atorvastatin Calcium 40 MG TAB PO SCH (21:04)
[2020-09-07] MEDS: HYDROcodone/Acetaminophen 5/325 mg Tablet PO PRN (21:05)
[2020-09-08 04:03] LABS: #Eosinphils 0.3 thou/uL (0.0-0.7); #Lymphocytes 2.1 thou/uL (1.20-3.40); #Monocytes 0.5 thou/uL (0.11-0.59); #Neutrophils 2.8 thou/uL (1.40-6.50); %Basophils 0.7 % (0.0-1.0); %Eosinophils 5.6 % (0.0-10.0); %Lymphocytes 36.3 % (21.0-51.0); %Monocytes 8.8 % (0.0-10.0); %Neutrophils 48.7 % (42.0-75.0); Hemoglobin 9.6 g/dL (12.0-16.0); Mean Corpuscular HGB CONC 31.7 g/dL (32.0-36.0); Mean Corpuscular Hemoglobin 30.7 pg (27.0-31.0); Mean Corpuscular Volume 96.9 fL (78.0-98.0); Mean Platelet Volume 8.3 fL (7.4-10.4); Platelet Count 229 thou/uL (130-400); RBC Distribution Width 13.4 % (11.5-14.5); Red Blood Cell (RBC) Count 3.11 mill/uL (4.20-5.40); White Blood Cell (WBC) Count 5.8 thou/uL (4.8-10.8)
[2020-09-08 04:29] LABS: Anion Gap 16 mmol/L (10-20); BUN (Urea Nitrogen) 50 mg/dL (9.8-20.1); Calc. Creatinine Clearance 51 mL/min (70-130); Calcium 8.9 mg/dL (7.8-10.44); Carbon Dioxide 27 mmol/L (23-31); Chloride 101 mmol/L (98-107); Glucose 129 mg/dL (83-110); Potassium 4.4 mmol/L (3.5-5.1); Sodium 140 mmol/L (136-145)
--- NOTE | 2020-09-08 06:39 | PDOC.FM ---
- Subjective Subjective: Patient is resting comfortably in bed. No acute concerns. No events overnight. Patient denies chest pain, shortness of breath, abdominal pain. - Objective Vital Signs & Weight: Vital Signs (12 hours) Temp Pulse Resp BP BP Pulse Ox 09/08/20 05:09 94 L 09/08/20 04:00 97.7 F 78 20 96/51 L 94 L 09/08/20 00:25 80 20 96/52 L 09/07/20 19:17 98.5 F 83 19 168/69 H 97 Weight Admit Weight 137.524 kg Weight 137.212 kg Most Recent Monitor Data Heart Rate from ECG 70 NIBP 138/93 NIBP BP-Mean 108 Respiration from ECG 18 SpO2 94 I&O: 09/06/20 09/07/20 09/08/20 06:59 06:59 06:59 Intake Total 1326 983 440 Output Total 950 1600 750 Balance 003 -617 -310 Result Diagrams: 09/08/20 03:10 09/08/20 03:10 Phys Exam - Physical Examination Constitutional: NAD HEENT: PERRLA, moist MMs faint crackles Cardiovascular: RRR, no significant murmur Gastrointestinal: soft, non-tender, positive bowel sounds trace edema Neurological: non-focal, moves all 4 limbs Psychiatric: normal affect, A&O x 3 Skin: no rash Dx/Plan - Plan Plan: Acute hypoxic respiratory failure likely 2/2 to right heart failure with cardiorenal syndrome -pt originally received lasix due to concern for CHF exacerbation, patient then appeared dry and was hypotensive, labs were concerning for hypoperfusion so patient was given fluids overnight on two different occasions; then concerns for cardiogenic shock --> Dr. Bone consulted -now on 2-2.5 L NC, pt is on 2 L at home -original CXR: bilateral pleural effusions that were not present on previous imaging, repeat xray showed improvement, repeat worsening of CHF -BNP 286 > 324.3; s/p lasix, now on bumex -EKG: Afib w/RVR -echo 08/17: technically difficulty exam 2/2 body habitus, EF 50-55%, diastolic dysfunction cannot be assessed -previous hydralazine use for goal bp systolic 110-120 --> stopped on 09/03 after adddition of milrinone -consulted nephro: diuretics per cards, IV iron, signed off on 08/29 with outpatient f/u in 2-3 weeks -cortisol stimulation test: normal -EP (Dr. Stapleton) consulted per Dr. Bone: Attempted cardioversion 09/06, but no conversion to SR achieved depite multiple high energy shocks; recommended continued amiodarone 200mg, consider repeat cardioversion in 4-6 weeks -Per Dr. Bone: * lasix stopped 09/08 due to bump in Cr, will continue Bumex 1mg daily 09/09 * started on Tropol XL 12.5 mg q 12 hours on 08/26, increased to 25 mg q12hrs on 08/27, decreased to 12.5 mg on 08/28 * previously on dobutamine and milrinone, both were d/c'd --> restarted on m ilrinone gtt on 09/03, drip at .425 * CM working on placement at LTAC, where patient can still receive milrinone infusion HFpEF -ECHO 07/02, EF 50-55%, see repeat above - TTE 09/06: Combination R ventricular failure and left ventricular diastolic dysfunction -BNP 286 > 324.3 -lasix stopped 09/[address] Bone, will resume Bumex 1 09/09 -strict I/Os, daily weights UTI, s/p treatment -urine cx: Kleb, E.coli, non-hem strep with dysuria -Ceftriaxone (08/24), x3 days (last day 08/26) -discussed possible interaction between penicillin allergy and cross reaction with ceftriaxone, patient understood and was okay with receiving antibiotics, she denies any reaction -due to hypotension overnight on 08/27-08/28, repeat blood cx and UA: UA appeared clean, no UCx resulted -gave azo 09/02 for suprapbuic discomfort with urinating, UA clean, UCx - mixed woo; irritation resolved Hypotension, resolved -s/p 500 ml bolus x2, not receiving fluids due to concern for worsening CHF 2/2 to right heart failure and cardiogenic shock -likely 2/2 to cardiogenic shock -dobutamine and milrinone DC'd -will continue to hold lisinopril and coreg -Dr. Bone consulted as mentioned above Afib w/RVR, now rate controlled -Known history: known source, as patient was not taking PO Dilt at home. Patient also just was seen by Dr Connelly outpatient -Anticoagulated with warfarin prior to 08/[address] Tolliver at which time he switched to eliquis due to subtherapeutic INR and missing warfarin doses. -HR 90-110s while in ED, now rate controlled in the 60s-80s -RVR initially improved --> RVR returned on 08/27 --> normal rate 08/28 -s/p dilt gtt stopped 08/16, transitioned to dilt PO, dilt DC'd per Lizandro gradys -DC'd dilt and coreg per Lizandro recs, on amiodarone and Toprol XL * Amiodarone 400 mg BID until 5g loading dose (last dose 08/28) achieved followed by amiodarone 200 mg daily (08/29) * Toprol 12.5 mg q12hrs * Increased Eliquis to 5 mg BID 09/04 per Lizandro recs -EP: not current candidate for cardioverision, needs 1 month of anticoagulation, outpatient f/u -TSH: 0.2821 with normal free T3 and T4, will obtain antibodies, repeat TSH per Dr. Bone request 1.2 SEGUNDO on CKD3 -Cr 1.02 on admission -Cr of 1.61 > 1.62 > 1.49 > 1.51; likely new baseline -likely secondary to cardiogenic shock -Dr. Bone consulted, tiffany recs -Nephro consulted: diuretics per cards, signed off with outpatient f/u 2-3 weeks - Cr increased to 1.66 -- 1.85 09/04, GFR 26; will discuss with Dr. Bone Normocytic Anemia -Hgb: 8.6; due to CHF and cardiogenic shock, will keep Hgb above 8 -iron: 23, TIBC: 184, %sat: 13, Transferrin: 147, ferritin pending -Dr. Davidson has ordered IV iron x3 bags -possibly a mixed picture, likely anemia of chronic disease with possible iron deficiency anemia Transaminitis, resolved -likely 2/2 to hypoperfusion vs congestion 2/2 to cardiorenal syndrome -will continue to monitor Elevated troponin -0.068>.164>.242>.165 -likely demand ischemia due to Afib Diarrhea, resolved COPD -Aware, duonebs prn at home -s/p solumedrol and magnesium per EMS -no wheezing on PE -duonebs PRN Recent hospitalization for COVID pneumonia -05/18-05/21 -Has been on supplemental home oxygen since (2L) -Reports negative test on 08/10 HTN -holding original home meds -Stopped isosorbide dinitrate and hydralazine on 08/27 to increase perfusion to the kidney with hopes of increasing diuresis; added back hydralazine on 08/29; see above for further info --> stopped hydralazine and isosorbite dinitrate 09/03 after adding milrinone gtt HLD -Aware, continue home meds GERD -Aware, continue home meds Chronic back pain due to spondylosis -Aware, continue home meds -takes norco for pain Dispo: CM consulted, plan for LTAC facility on d/c Addendum - Attending - Attending Attestation Date/Time: 09/08/20 0604 I personally evaluated the patient and discussed the management with Dr. Rose I agree with the History, Examination, Assessment and Plan documented above with any addition or exceptions noted below. Awaiting LTAC placement for milrinone drip.
[2020-09-08] MEDS: Milrinone Lactate/D5W 20 MG in Premix Bag 1 BAG IVPB SCH ×3 (06:45→19:10)
[2020-09-08] MEDS: Apixaban 5 MG TAB PO SCH ×2 (08:44→20:52)
[2020-09-08] MEDS: Phenazopyridine HCl 100 MG TAB PO SCH ×3 (08:44→18:24)
[2020-09-08] MEDS: Furosemide 100 MG/10 ML VIAL SLOW IVP SCH (08:44)
[2020-09-08] MEDS: Gabapentin 300 MG CAP PO SCH ×3 (08:44→20:52)
[2020-09-08] MEDS: Potassium Chloride 20 MEQ TAB PO SCH (08:44)
[2020-09-08] MEDS: Spironolactone 25 MG TAB PO SCH (08:44)
[2020-09-08] MEDS: Magnesium Oxide 400 MG TAB PO SCH ×2 (08:44→20:52)
[2020-09-08] MEDS: AcetaZOLAMIDE 250 MG TAB PO SCH (08:44)
[2020-09-08] MEDS: Polyethylene Glycol 3350 17 GM Packet PO SCH (08:45)
[2020-09-08] MEDS: Amiodarone 200 MG TAB PO SCH (08:45)
--- NOTE | 2020-09-08 11:53 | PRG ---
DATE OF SERVICE: 09/08/2020 SERVICE: Advanced Heart Failure Cardiology Consult Service. SUBJECTIVE: Mrs. Renee Salinas had an excellent day. She said that she feels good. She is relaxed. She has increased energy level. She said that she should really go dancing. She sat up to eat breakfast today, and right now is asymptomatic. She is ready to leave the hospital when she can; however, she is very debilitated. She will need physical therapy just to be able to stand up. Thus, she will need an LTAC care. REVIEW OF SYSTEMS: GENERAL: There is no fever, chills, or productive cough. HEENT: There is no change in vision, hearing, or swallowing. PULMONARY: Please see HPI. CARDIAC: There is no chest pain, palpitations, or syncope. GI: There is no nausea, vomiting, or diarrhea. : She uses a PureWick; however, she can urinate on her own. MUSCULOSKELETAL: There are no muscular or joint pains. INTEGUMENT: There is no new skin breakdown. NEUROLOGIC: There are no focal deficits or weaknesses. MEDICATIONS: Her current and active medications include: 1. Acetazolamide 250 mg daily. 2. Albuterol and ipratropium nebs as needed. 3. Apixaban 5 mg p.o. b.i.d. 4. Atorvastatin 40 mg p.o. at bedtime. 5. Gabapentin 300 mg t.i.d. 6. Magnesium oxide 400 mg daily. 7. Toprol-XL 25 mg p.o. q.12 hours. 8. Milrinone at 0.425 mcg/kg per minute. 9. Protonix 20 mg daily. 10. Pyridium 100 mg at night. 11. MiraLAX at 17 g daily. 12. K-Dur at 40 mEq daily. 13. Spironolactone 25 mg daily. PHYSICAL EXAMINATION: Telemetry was reviewed. She is in chronic atrial fibrillation, rate control between 70 and 80. There are no concerning arrhythmias. VITAL SIGNS: Heart rate is 78, blood pressure 101/57. The recorded in's and out's are 440 in and 750 out; however, I do not believe I/O is accurate. GENERAL: She is alert and conversational, pleasant and relaxed, reclining in bed. HEENT: Show EOMI. Oropharynx is benign with moist mucosa. NECK: Shows large diameter neck. Her JVP is about 9 cm with positive hepatojugular reflux. PULMONARY: She has good air movement bilaterally. There are no crackles. This is the best lungs I have heard yet. CARDIAC: Irregular rate, irregular rhythm with 2/6 holosystolic murmur at the left upper sternal border, corresponding tricuspid regurgitation. ABDOMEN: Large, soft, positive bowel sounds. It is nontender. EXTREMITIES: Lower extremities from her thigh down to her feet, is warm and well perfused. There is no is edema felt. LABORATORY DATA: Her chemistry values show sodium 140, potassium 4.4, chloride 101, bicarb 27, BUN 50, creatinine increased at little bit to 1.75, magnesium 2. Reading of echocardiogram showed a small inferior vena cava that collapses with the inspiration, so she is either euvolemic or low volume per echocardiogram. ASSESSMENT: 85-year-old female has [place] Heart Association stage C and [place] Heart Association class III right ventricular heart failure. This is a result of a Coronavirus pneumonia and atrial fibrillation. She has demonstrated that she needs milrinone at 0.425 mcg/kg/minute to sustain life with good quality. We attempted to titrate off inotrope. Cessation of inotrope caused her to becomes lethargic and reaccumulate the fluid very quickly; therefore, milrinone, is necessary. She also has chronic atrial fibrillation. If she can be cardioverted back to sinus, that would help her greatly. Currently, Dr. Stapleton plans to redo cardioversion in a month. Thus, she will need to have amiodarone and anticoagulation and beta blockade for rate control continued. She also has a cardiorenal syndrome. She came in due to right ventricular heart failure with cardiorenal syndrome, where creatinine was 3 and she was with almost no urine output. Inotropic drips of dobutamine and then switching over to Milrinone recovered her renal function. Overall, she has recovered well enough to the point, where she can be discharged now to an LTAC facility. Today, she is a little bit dry as seen by the echocardiogram, had a slight bump in BUN and creatinine. Thus, we will need to hold diuresis for a day and restart with oral diuretics tomorrow. Her contraction alkalosis has been resolved, so acetazolamide is no longer being needed. RECOMMENDATIONS: Please see the following for my recommendation: 1. Continue Milrinone at 0.425 mcg/kg per minute. 2. Please place her in a LTAC facility where she can undergo rehabilitation while be supported with milrinone 3. Continue combination of amiodarone 200 mg daily and also Toprol-XL 25 mg p.o. q.12 hours to keep AFIB in check and provide support for future cardioversion. 4. Discontinue IV Lasix today. 5. Restart Bumex at 1 mg daily tomorrow. 6. Increase the frequency of magnesium oxide to 400 mg to twice per day. 7. Discontinue acetazolamide. 8. Continue with spironolactone 25 mg daily. It has been a pleasure taking care of Ms. Salinas. She has made tremendous progress in last 2 weeks. I believe that she will do well if she can have her milrinone continued. I will be rotating off service today. Thank you very much for the consult. I will be signing off today. The visitation time was 40 minutes today. Job ID: [id number] MTDD
[2020-09-08] MEDS: Atorvastatin Calcium 40 MG TAB PO SCH (20:52)
[2020-09-08] MEDS: HYDROcodone/Acetaminophen 5/325 mg Tablet PO PRN (20:53)
[2020-09-09] MEDS: Milrinone Lactate/D5W 20 MG in Premix Bag 1 BAG IVPB SCH ×3 (01:15→13:27)
--- NOTE | 2020-09-09 06:45 | PDOC.FM ---
- Subjective Subjective: Patient is resting comfortably in bed. No acute concerns, no events overnight. Denies chest pain, shortness of breath, abdominal pain, N/V. - Objective MAR Reviewed: Yes Vital Signs & Weight: Vital Signs (12 hours) Temp Pulse Resp BP Pulse Ox 09/09/20 03:15 98.6 F 74 20 171/75 H 95 09/08/20 23:25 85 16 104/49 L 09/08/20 19:15 97.7 F 97 20 100/63 94 L Weight Admit Weight 137.524 kg Weight 131.134 kg Most Recent Monitor Data Heart Rate from ECG 70 NIBP 138/93 NIBP BP-Mean 108 Respiration from ECG 18 SpO2 94 I&O: 09/07/20 09/08/20 09/09/20 06:59 06:59 06:59 Intake Total 962 922 9487 Output Total 1600 750 550 Balance -617 -310 1330 Result Diagrams: 09/08/20 03:10 09/09/20 03:11 Phys Exam - Physical Examination Constitutional: NAD HEENT: PERRLA faint crackles Cardiovascular: RRR, no significant murmur Gastrointestinal: soft, non-tender, positive bowel sounds trace edema b/l, L>R Psychiatric: normal affect, A&O x 3 Skin: no rash Dx/Plan - Plan Plan: Acute hypoxic respiratory failure likely 2/2 to right heart failure with cardiorenal syndrome -pt originally received lasix due to concern for CHF exacerbation, patient then appeared dry and was hypotensive, labs were concerning for hypoperfusion so patient was given fluids overnight on two different occasions; then concerns for cardiogenic shock --> Dr. Bone consulted -now on 2-2.5 L NC, pt is on 2 L at home -original CXR: bilateral pleural effusions that were not present on previous imaging, repeat xray showed improvement, repeat worsening of CHF -BNP 286 > 324.3; s/p lasix, now on bumex -EKG: Afib w/RVR -echo 08/17: technically difficulty exam 2/2 body habitus, EF 50-55%, diastolic dysfunction cannot be assessed -consulted nephro: diuretics per cards, IV iron, signed off on 08/29 with outpatient f/u in 2-3 weeks -cortisol stimulation test: normal -EP (Dr. Stapleton) consulted per Dr. Bone: Attempted cardioversion 09/06, but no conversion to SR achieved depite multiple high energy shocks; recommended continued amiodarone 200mg, consider repeat cardioversion in 4-6 weeks -Per Dr. Bone: * lasix stopped 09/08 due to bump in Cr, will continue Bumex 1mg daily 09/09 * started on Tropol XL 12.5 mg q 12 hours on 08/26, increased to 25 mg q12hrs on 08/27, decreased to 12.5 mg on 08/28 * milrinone gtt started on 09/03, drip at .425 * CM working on placement at LTAC, where patient can still receive milrinone infusion HFpEF -ECHO 07/02, EF 50-55%, see repeat above - TTE 09/06: Combination R ventricular failure and left ventricular diastolic dysfunction -BNP 286 > 324.3 -lasix stopped 09/[address] Bone, will resume Bumex 1 09/09 -strict I/Os, daily weights UTI, s/p treatment -urine cx: Kleb, E.coli, non-hem strep with dysuria -Ceftriaxone (08/24), x3 days (last day 08/26) -discussed possible interaction between penicillin allergy and cross reaction with ceftriaxone, patient understood and was okay with receiving antibiotics, she denies any reaction -due to hypotension overnight on 08/27-08/28, repeat blood cx and UA: UA appeared clean, no UCx resulted -gave azo 09/02 for suprapbuic discomfort with urinating, UA clean, UCx - mixed woo; irritation resolved Hypotension, resolved -s/p 500 ml bolus x2, not receiving fluids due to concern for worsening CHF 2/2 to right heart failure and cardiogenic shock -likely 2/2 to cardiogenic shock - on milrinone gtt -will continue to hold lisinopril and coreg -Dr. Bone consulted as mentioned above Afib w/RVR, now rate controlled -Known history: known source, as patient was not taking PO Dilt at home. Patient also just was seen by Dr Connelly outpatient -Anticoagulated with warfarin prior to 08/[address] Tolliver at which time he switched to eliquis due to subtherapeutic INR and missing warfarin doses. -HR 90-110s while in ED, now rate controlled in the 60s-80s -RVR initially improved --> RVR returned on 08/27 --> normal rate 08/28 -s/p dilt gtt stopped 08/16, transitioned to dilt PO, dilt DC'd per Lizandro recs -DC'd dilt and coreg per Lizandro recs, on amiodarone and Toprol XL * Amiodarone 400 mg BID until 5g loading dose (last dose 08/28) achieved followe d by amiodarone 200 mg daily (08/29) * Toprol 12.5 mg q12hrs * Increased Eliquis to 5 mg BID 09/04 per Lizandro recs -EP: failed cardioversion 09/06, will reattempt in 4 weeks -TSH: 0.2821 with normal free T3 and T4, will obtain antibodies, repeat TSH per Dr. Bone request 1.2 SEGUNDO on CKD3 -Cr 1.02 on admission -Cr of 1.61 > 1.62 > 1.49 > 1.51; likely new baseline -likely secondary to cardiogenic shock -Dr. Bone consulted, tiffany recs -Nephro consulted: diuretics per cards, signed off with outpatient f/u 2-3 weeks - Normocytic Anemia -Hgb: 8.6; due to CHF and cardiogenic shock, will keep Hgb above 8 -iron: 23, TIBC: 184, %sat: 13, Transferrin: 147, ferritin pending -Dr. Davidson has ordered IV iron x3 bags -possibly a mixed picture, likely anemia of chronic disease with possible iron deficiency anemia Transaminitis, resolved -likely 2/2 to hypoperfusion vs congestion 2/2 to cardiorenal syndrome -will continue to monitor Elevated troponin -0.068>.164>.242>.165 -likely demand ischemia due to Afib COPD -duandi PRN Recent hospitalization for COVID pneumonia -05/18-05/21 -Has been on supplemental home oxygen since (2L) -Reports negative test on 08/10 HTN -holding original home meds -Stopped isosorbide dinitrate and hydralazine on 08/27 to increase perfusion to the kidney with hopes of increasing diuresis; added back hydralazine on 08/29; see above for further info --> stopped hydralazine and isosorbite dinitrate 09/03 after adding milrinone gtt HLD -Aware, continue home meds GERD -Aware, continue home meds Chronic back pain due to spondylosis -Aware, continue home meds -takes norco for pain Dispo: CM consulted, plan for LTAC facility on d/c Addendum - Attending - Attending Attestation Date/Time: 09/09/20 8033 I personally evaluated the patient and discussed the management with Dr. Rose. I agree with the History, Examination, Assessment and Plan documented above with any addition or exceptions noted below. Patient stable. Continue Milrinone per HF team. Awaiting placement for halfway IV infusion and rehab needs.
[2020-09-09] MEDS: Polyethylene Glycol 3350 17 GM Packet PO SCH (07:45)
[2020-09-09] MEDS: Spironolactone 25 MG TAB PO SCH (07:45)
[2020-09-09] MEDS: Magnesium Oxide 400 MG TAB PO SCH ×2 (07:45→22:21)
[2020-09-09] MEDS: Bumetanide 1 MG TAB PO SCH (07:45)
[2020-09-09] MEDS: Phenazopyridine HCl 100 MG TAB PO SCH ×2 (07:45→13:27)
[2020-09-09] MEDS: Gabapentin 300 MG CAP PO SCH ×3 (07:46→22:15)
[2020-09-09] MEDS: Amiodarone 200 MG TAB PO SCH (07:47)
[2020-09-09] MEDS: Apixaban 5 MG TAB PO SCH ×2 (07:47→22:15)
[2020-09-09] MEDS: Potassium Chloride 20 MEQ TAB PO SCH (07:47)
[2020-09-09 09:47] LABS: Anion Gap 13 mmol/L (10-20); BUN (Urea Nitrogen) 48 mg/dL (9.8-20.1); Calc. Creatinine Clearance 50 mL/min (70-130); Carbon Dioxide 27 mmol/L (23-31); Chloride 102 mmol/L (98-107); Glucose 148 mg/dL (83-110); Potassium 4.8 mmol/L (3.5-5.1); Sodium 137 mmol/L (136-145)
[2020-09-09] MEDS: Atorvastatin Calcium 40 MG TAB PO SCH (22:15)
[2020-09-10 04:36] LABS: #Eosinphils 0.3 thou/uL (0.0-0.7); #Lymphocytes 1.9 thou/uL (1.20-3.40); #Monocytes 0.5 thou/uL (0.11-0.59); #Neutrophils 2.9 thou/uL (1.40-6.50); %Basophils 0.5 % (0.0-1.0); %Eosinophils 5.4 % (0.0-10.0); %Lymphocytes 33.8 % (21.0-51.0); %Monocytes 8.7 % (0.0-10.0); %Neutrophils 51.6 % (42.0-75.0); Hemoglobin 9.3 g/dL (12.0-16.0); Mean Corpuscular HGB CONC 31.4 g/dL (32.0-36.0); Mean Corpuscular Hemoglobin 30.4 pg (27.0-31.0); Mean Corpuscular Volume 96.8 fL (78.0-98.0); Mean Platelet Volume 7.7 fL (7.4-10.4); Platelet Count 216 thou/uL (130-400); RBC Distribution Width 13.3 % (11.5-14.5); Red Blood Cell (RBC) Count 3.05 mill/uL (4.20-5.40); White Blood Cell (WBC) Count 5.7 thou/uL (4.8-10.8)
[2020-09-10 05:01] LABS: Anion Gap 15 mmol/L (10-20); BUN (Urea Nitrogen) 48 mg/dL (9.8-20.1); Calc. Creatinine Clearance 54 mL/min (70-130); Calcium 8.9 mg/dL (7.8-10.44); Carbon Dioxide 27 mmol/L (23-31); Chloride 103 mmol/L (98-107); Glucose 120 mg/dL (83-110); Potassium 4.6 mmol/L (3.5-5.1); Sodium 140 mmol/L (136-145)
--- NOTE | 2020-09-10 07:00 | PDOC.FM ---
- Subjective Subjective: Patient is resting comfortably in bed. States that she has not urinated since last night, and her abdomen feels "harder". Reports that she has had bowel incontinence x 1 weeks, stating she doesn't know at all when she is having a BM and pooped all over the floor yesterday. She states this is new over the last week. She states she fell in may and had resulting numbness in the lower part of her back, it has been getting better though and she has been able to get up and walk a little with PT. She has not lost groin sensation. Denies chest pain, shortness of breath, abdominal pain, N/V. - Objective MAR Reviewed: Yes Vital Signs & Weight: Vital Signs (12 hours) Temp Pulse Resp BP BP Pulse Ox 09/10/20 04:00 98.2 F 89 16 91/55 L 97 09/09/20 22:09 97.2 F L 89 16 116/63 96 Weight Admit Weight 137.524 kg Weight 131.134 kg Most Recent Monitor Data Heart Rate from ECG 70 NIBP 138/93 NIBP BP-Mean 108 Respiration from ECG 18 SpO2 94 I&O: 09/09/20 09/10/20 09/11/20 06:59 06:59 06:59 Intake Total 1880 720 Output Total 550 1325 Balance 1330 -605 Result Diagrams: 09/10/20 04:19 09/10/20 04:19 Phys Exam - Physical Examination Constitutional: NAD HEENT: PERRLA, moist MMs faint crackles Cardiovascular: RRR, no significant murmur Gastrointestinal: soft, non-tender, positive bowel sounds trace edema Neurological: moves all 4 limbs Skin: no rash Dx/Plan - Plan Plan: Acute hypoxic respiratory failure likely 2/2 to right heart failure with cardiorenal syndrome -pt originally received lasix due to concern for CHF exacerbation, patient then appeared dry and was hypotensive, labs were concerning for hypoperfusion so patient was given fluids overnight on two different occasions; then concerns for cardiogenic shock --> Dr. Bone consulted -now on 2-2.5 L NC, pt is on 2 L at home -original CXR: bilateral pleural effusions that were not present on previous imaging, repeat xray showed improvement, repeat worsening of CHF -BNP 286 > 324.3; s/p lasix, now on bumex -EKG: Afib w/RVR -echo 08/17: technically difficulty exam / body habitus, EF 50-55%, diastolic dysfunction cannot be assessed -consulted nephro: diuretics per cards, IV iron, signed off on 08/29 with outpatient f/u in 2-3 weeks -cortisol stimulation test: normal -EP (Dr. Stapleton) consulted per Dr. Bone: Attempted cardioversion 09/06, but no conversion to SR achieved depite multiple high energy shocks; recommended continued amiodarone 200mg, consider repeat cardioversion in 4-6 weeks -Per Dr. Bone: * lasix stopped 09/08 due to bump in Cr, will continue Bumex 1mg daily 09/09 * started on Tropol XL 12.5 mg q 12 hours on 08/26, increased to 25 mg q12hrs on 08/27, decreased to 12.5 mg on 08/28 * milrinone gtt started on 09/03, drip at .425 * CM working on placement at LTAC, where patient can still receive milrinone infusion HFpEF -ECHO 07/02, EF 50-55%, see repeat above - TTE 09/06: Combination R ventricular failure and left ventricular diastolic dysfunction -BNP 286 > 324.3 -lasix stopped 09/[address] Bone, will resume Bumex 1 09/09 -strict I/Os, daily weights UTI, s/p treatment -urine cx: Kleb, E.coli, non-hem strep with dysuria -Ceftriaxone (08/24), x3 days (last day 08/26) -discussed possible interaction between penicillin allergy and cross reaction with ceftriaxone, patient understood and was okay with receiving antibiotics, she denies any reaction -due to hypotension overnight on 08/27-08/28, repeat blood cx and UA: UA appeared clean, no UCx resulted -gave azo 09/02 for suprapbuic discomfort with urinating, UA clean, UCx - mixed woo; irritation resolved Hypotension, resolved -s/p 500 ml bolus x2, not receiving fluids due to concern for worsening CHF 2/2 to right heart failure and cardiogenic shock -likely 2/2 to cardiogenic shock - on milrinone gtt -will continue to hold lisinopril and coreg -Dr. Bone consulted as mentioned above Afib w/RVR, now rate controlled -Known history: known source, as patient was not taking PO Dilt at home. Patient also just was seen by Dr Connelly outpatient -Anticoagulated with warfarin prior to 08/[address] Tolliver at which time he switched to eliquis due to subtherapeutic INR and missing warfarin doses. -HR 90-110s while in ED, now rate controlled in the 60s-80s -RVR initially improved --> RVR returned on 08/27 --> normal rate 08/28 -s/p dilt gtt stopped 08/16, transitioned to dilt PO, dilt DC'd per Lizandro gradys -DC'd dilt and coreg per Lizandro gradys, on amiodarone and Toprol XL * Amiodarone 400 mg BID until 5g loading dose (last dose 08/28) achieved followed by amiodarone 200 mg daily (08/29) * Toprol 12.5 mg q12hrs * Increased Eliquis to 5 mg BID 09/04 per Lizandro recs -EP: failed cardioversion 09/06, will reattempt in 4 weeks -TSH: 0.2821 with normal free T3 and T4, will obtain antibodies, repeat TSH per Dr. Bone request 1.2 Bowel Incontinence, possibly 2/2 Low Back Injury Fall in May, resulting in lower back numbness - improving; Bowel incontinence x 1 week - will return for thorough exam of lower back, reflexes, anal sphincter tone - will get XR back SEGUNDO on CKD3 -Cr 1.02 on admission -Cr of 1.61 > 1.62 > 1.49 > 1.51; likely new baseline -likely secondary to cardiogenic shock -Dr. Bone consulted, tiffany recs -Nephro consulted: diuretics per cards, signed off with outpatient f/u 2-3 weeks - remains near baseline, will continue to monitor Normocytic Anemia -Hgb: 8.6; due to CHF and cardiogenic shock, will keep Hgb above 8 -iron: 23, TIBC: 184, %sat: 13, Transferrin: 147, ferritin pending -Dr. Davidson has ordered IV iron x3 bags -possibly a mixed picture, likely anemia of chronic disease with possible iron deficiency anemia Transaminitis, resolved -likely 2/2 to hypoperfusion vs congestion 2/2 to cardiorenal syndrome -will continue to monitor Elevated troponin -0.068>.164>.242>.165 -likely demand ischemia due to Afib COPD -[id number] PRN Recent hospitalization for COVID pneumonia -05/18-05/21 -Has been on supplemental home oxygen since (2L) -Reports negative test on 08/10 HTN -holding original home meds -Stopped isosorbide dinitrate and hydralazine on 08/27 to increase perfusion to the kidney with hopes of increasing diuresis; added back hydralazine on 08/29; see above for further info --> stopped hydralazine and isosorbite dinitrate 09/03 after adding milrinone gtt HLD -Aware, continue home meds GERD -Aware, continue home meds Chronic back pain due to spondylosis -Aware, continue home meds -takes norco for pain Dispo: CM consulted, plan for LTAC facility on d/c Addendum - Attending - Attending Attestation Date/Time: 09/10/20 1116 I personally evaluated the patient and discussed the management with Dr. Rose. I agree with the History, Examination, Assessment and Plan documented above with any addition or exceptions noted below. Patient stable. We are continuing milrinone and working on LTAC placement. Will workup her complaints of fecal incontinence today.
[2020-09-10] MEDS ORDERED: Milrinone Lactate/D5W 20 MG in Premix Bag 1 BAG IVPB SCH (07:45)
[2020-09-10] MEDS: Magnesium Oxide 400 MG TAB PO SCH ×2 (08:17→21:02)
[2020-09-10] MEDS: Bumetanide 1 MG TAB PO SCH (08:17)
[2020-09-10] MEDS: Potassium Chloride 20 MEQ TAB PO SCH (08:17)
[2020-09-10] MEDS: Amiodarone 200 MG TAB PO SCH (08:18)
[2020-09-10] MEDS: Gabapentin 300 MG CAP PO SCH ×3 (08:19→21:03)
[2020-09-10] MEDS: Apixaban 5 MG TAB PO SCH ×2 (08:19→21:02)
[2020-09-10] MEDS: Polyethylene Glycol 3350 17 GM Packet PO SCH (08:20)
[2020-09-10] MEDS: Spironolactone 25 MG TAB PO SCH (08:21)
--- NOTE | 2020-09-10 10:49 | PDOC.PALPN ---
Palliative Progress Note - Subjective Ms Salinas is awaiting approval for transition to LTAC. On arrival to room she was working with PT. Two person assist, short of breath sitting on side of bed. Continues with incontinence and assist for ADL. Inotrope infusion dependent. Daughter at bedside. - Objective Vital Signs: Vital Signs - Most Recent Temp Pulse Resp BP Pulse Ox 97.7 F 83 13 106/59 L 97 09/10/20 08:00 09/10/20 08:00 09/10/20 08:00 09/10/20 08:00 09/10/20 08:09 - Physical Exam Constitutional: ill appearing HEENT: EOMI, moist MMs Respiratory: labored respirations Gastrointestinal: soft, incontinent Genitourinary: incontinent Neurology: moves all 4 limbs, no focal deficits Skin: fragile Psychiatric: A&O x 3, normal affect - Assessment (1) Palliative care encounter Code(s): Z51.5 - ENCOUNTER FOR PALLIATIVE CARE Current Visit: Yes Status: Acute (2) Physical deconditioning Code(s): R53.81 - OTHER MALAISE Current Visit: No Status: Acute (3) Atrial fibrillation with RVR Code(s): I48.91 - UNSPECIFIED ATRIAL FIBRILLATION Current Visit: No Status: Chronic (4) Hypertension Code(s): I10 - ESSENTIAL (PRIMARY) HYPERTENSION Current Visit: No Status: Chronic (5) Morbid obesity Code(s): E66.01 - MORBID (SEVERE) OBESITY DUE TO EXCESS CALORIES Current Visit: No Status: Chronic (6) CHF (congestive heart failure) Code(s): I50.9 - HEART FAILURE, UNSPECIFIED Current Visit: No Status: Suspected - Plan Plan: Goal of Care *Continue with Inotrope infusion *Transition to LTAC to gain strenght to return to home setting *Discussed when transitioning to home setting to have Home Health continue PT with infusion Palliative Care will sign as currently goal of care in place. If we can assist in the future please re consult our team to assist in revisiting goal of care, education related to disease trajectory, complex de cision making. Thank you for this very appropriate consult, we appreciate the opportunity to participate in the care of Ms Salinas. [30] minutes spent on this encounter with >50% of the time in counseling and coordination of care. - ROS Constitutional: alert, weakness Respiratory: shortness of breath with extertion Cardiology: other (Denies chest pain or palpitations) Gastrointestinal: other (incontinence ) Musculoskeletal: arthritis/arthralgias Neurological: numbness
--- NOTE | 2020-09-10 11:59 | PDOC.BPN ---
- Brief Progress Note Returned to assess after reports of Bowel Incontinence. Patient has tenderness to the spine around L1-L2. No saddle anesthesia. Reported decreased sensation on RLE. Patellar and Achilles Reflexes difficult to assess, likely 2/2 body habitus. Patient had very decreased rectal tone, no change with bearing down. Will order MRI Lumbar Spine.
[2020-09-10] MEDS: Milrinone Lactate/D5W 20 MG in Premix Bag 1 BAG IVPB SCH ×2 (15:26→21:09)
[2020-09-10] MEDS: Atorvastatin Calcium 40 MG TAB PO SCH (21:03)
[2020-09-11] MEDS: Milrinone Lactate/D5W 20 MG in Premix Bag 1 BAG IVPB SCH ×3 (04:29→20:40)
[2020-09-11] MEDS: diphenhydrAMINE 25 MG CAP PO PRN (05:56)
[2020-09-11 08:31] LABS: Anion Gap 13 mmol/L (10-20); BUN (Urea Nitrogen) 48 mg/dL (9.8-20.1); Calc. Creatinine Clearance 55 mL/min (70-130); Calcium 8.9 mg/dL (7.8-10.44); Carbon Dioxide 30 mmol/L (23-31); Chloride 103 mmol/L (98-107); Glucose 132 mg/dL (83-110); Potassium 4.5 mmol/L (3.5-5.1); Sodium 141 mmol/L (136-145)
[2020-09-11] MEDS: Spironolactone 25 MG TAB PO SCH (10:05)
[2020-09-11] MEDS: Amiodarone 200 MG TAB PO SCH (10:05)
[2020-09-11] MEDS: Apixaban 5 MG TAB PO SCH ×2 (10:05→20:39)
[2020-09-11] MEDS: Bumetanide 1 MG TAB PO SCH (10:05)
[2020-09-11] MEDS: Magnesium Oxide 400 MG TAB PO SCH ×2 (10:05→20:39)
[2020-09-11] MEDS: Gabapentin 300 MG CAP PO SCH ×3 (10:06→20:39)
[2020-09-11] MEDS: Potassium Chloride 20 MEQ TAB PO SCH (10:07)
--- NOTE | 2020-09-11 10:30 | PDOC.FM ---
- Subjective Subjective: Patient is resting comfortably in bed. No acute concerns. No events overnight. Denies chest pain, shortness of breath, abdominal pain, N/V. - Objective MAR Reviewed: Yes Vital Signs & Weight: Vital Signs (12 hours) Temp Pulse Resp BP Pulse Ox 09/11/20 07:35 98.2 F 92 18 123/67 96 09/11/20 03:17 97.9 F 89 18 100/62 96 09/11/20 00:04 96 09/11/20 00:00 70 18 Weight Admit Weight 137.524 kg Weight 134.535 kg Most Recent Monitor Data Heart Rate from ECG 70 NIBP 138/93 NIBP BP-Mean 108 Respiration from ECG 18 SpO2 94 I&O: 09/10/20 09/11/20 09/12/20 06:59 06:59 06:59 Intake Total 720 2143.4 Output Total 1325 1350 Balance -605 793.4 Result Diagrams: 09/10/20 04:19 09/11/20 07:37 Phys Exam - Physical Examination Constitutional: NAD HEENT: PERRLA, moist MMs faint crackles Cardiovascular: RRR, no significant murmur Gastrointestinal: soft, non-tender, positive bowel sounds trace edema bilaterally Neurological: non-focal, moves all 4 limbs Psychiatric: normal affect, A&O x 3 Dx/Plan - Plan Plan: Acute hypoxic respiratory failure likely 2/2 to right heart failure with cardiorenal syndrome -pt originally received lasix due to concern for CHF exacerbation, patient then appeared dry and was hypotensive, labs were concerning for hypoperfusion so patient was given fluids overnight on two different occasions; then concerns for cardiogenic shock --> Dr. Bone consulted -now on 2-2.5 L NC, pt is on 2 L at home -original CXR: bilateral pleural effusions that were not present on previous imaging, repeat xray showed improvement, repeat worsening of CHF -BNP 286 > 324.3; s/p lasix, now on bumex -EKG: Afib w/RVR -echo 08/17: technically difficulty exam 2/2 body habitus, EF 50-55%, diastolic dysfunction cannot be assessed -consulted nephro: diuretics per cards, IV iron, signed off on 08/29 with outpatient f/u in 2-3 weeks -cortisol stimulation test: normal -EP (Dr. Stapleton) consulted per Dr. Bone: Attempted cardioversion 09/06, but no conversion to SR achieved depite multiple high energy shocks; recommended continued amiodarone 200mg, consider repeat cardioversion in 4-6 weeks -Per Dr. Bone: * lasix stopped 09/08 due to bump in Cr, will continue Bumex 1mg daily 09/09 * started on Tropol XL 12.5 mg q 12 hours on 08/26, increased to 25 mg q12hrs on 08/27, decreased to 12.5 mg on 08/28 * milrinone gtt started on 09/03, drip at .425 * CM working on placement at LTAC, where patient can still receive milrinone infusion HFpEF -ECHO 07/02, EF 50-55%, see repeat above - TTE 09/06: Combination R ventricular failure and left ventricular diastolic dysfunction -BNP 286 > 324.3 -lasix stopped 09/[address] Bone, will resume Bumex 1 09/09 -strict I/Os, daily weights Bowel Incontinence, Likely 2/2 age and inactivity Possible long-term gabapentin use causing - ordered back MRI, although low suspicion of neurologic cause as patient has sensation at the anus and groin, is walking, the loss of stool is positional, typically when sitting UTI, s/p treatment -urine cx: Kleb, E.coli, non-hem strep with dysuria -Ceftriaxone (08/24), x3 days (last day 08/26) -discussed possible interaction between penicillin allergy and cross reaction with ceftriaxone, patient understood and was okay with receiving antibiotics, she denies any reaction -due to hypotension overnight on 08/27-08/28, repeat blood cx and UA: UA appeared clean, no UCx resulted -gave azo 09/02 for suprapubic discomfort with urinating, UA clean, UCx - mixed woo; irritation resolved Hypotension, resolved -s/p 500 ml bolus x2, not receiving fluids due to concern for worsening CHF 2/2 to right heart failure and cardiogenic shock -likely 2/2 to cardiogenic shock - on milrinone gtt -will continue to hold lisinopril and coreg -Dr. Bone consulted as mentioned above Afib w/RVR, now rate controlled -Known history: known source, as patient was not taking PO Dilt at home. Patient also just was seen by Dr Connelly outpatient -Anticoagulated with warfarin prior to 08/[address] Tolliver at which time he switched to eliquis due to subtherapeutic INR and missing warfarin doses. -HR 90-110s while in ED, now rate controlled in the 60s-80s -RVR initially improved --> RVR returned on 08/27 --> normal rate 08/28 -s/p dilt gtt stopped 08/16, transitioned to dilt PO, dilt DC'd per Lizandro gradys -DC'd dilt and coreg per Lizandro recs, on amiodarone and Toprol XL * Amiodarone 400 mg BID until 5g loading dose (last dose 08/28) achieved followed by amiodarone 200 mg daily (08/29) * Toprol 12.5 mg q12hrs * Increased Eliquis to 5 mg BID 09/04 per Lizandro recs -EP: failed cardioversion 09/06, will reattempt in 4 weeks -TSH: 0.2821 with normal free T3 and T4, will obtain antibodies, repeat TSH per Dr. Bone request 1.2 Bowel Incontinence, possibly 2/2 Low Back Injury Fall in May, resulting in lower back numbness - improving; Bowel incontinence x 1 week - will return for thorough exam of lower back, reflexes, anal sphincter tone - will get XR back SEGUNDO on CKD3 -Cr 1.02 on admission -Cr of 1.61 > 1.62 > 1.49 > 1.51; likely new baseline -likely secondary to cardiogenic shock -Dr. Bone consulted, appreciate recs -Nephro consulted: diuretics per cards, signed off with outpatient f/u 2-3 weeks - remains near baseline, will continue to monitor Normocytic Anemia -Hgb: 8.6; due to CHF and cardiogenic shock, will keep Hgb above 8 -iron: 23, TIBC: 184, %sat: 13, Transferrin: 147, ferritin pending -Dr. Davidson has ordered IV iron x3 bags -possibly a mixed picture, likely anemia of chronic disease with possible iron deficiency anemia Transaminitis, resolved -likely 2/2 to hypoperfusion vs congestion 2/2 to cardiorenal syndrome -will continue to monitor Elevated troponin -0.068>.164>.242>.165 -likely demand ischemia due to Afib COPD -sony PRN Recent hospitalization for COVID pneumonia -05/18-05/21 -Has been on supplemental home oxygen since (2L) -Reports negative test on 08/10 HTN -holding original home meds -Stopped isosorbide dinitrate and hydralazine on 08/27 to increase perfusion to the kidney with hopes of increasing diuresis; added back hydralazine on 08/29; see above for further info --> stopped hydralazine and isosorbite dinitrate 09/03 after adding milrinone gtt HLD -Aware, continue home meds GERD -Aware, continue home meds Chronic back pain due to spondylosis -Aware, continue home meds -takes norco for pain Dispo: CM consulted, plan for LTAC facility on d/c Addendum - Attending - Attending Attestation Date/Time: 09/11/20 1040 I personally evaluated the patient and discussed the management with Dr. Rose. I agree with the History, Examination, Assessment and Plan documented above with any addition or exceptions noted below. Patient overall stable. Continue Milrinone. Working on LTAC placement. We are working up some fecal incontinence at this time that does not appear related to neurological injury given her ability to feel pain, voiding, and ambulate with assist.
[2020-09-11] MEDS: Atorvastatin Calcium 40 MG TAB PO SCH (20:39)
[2020-09-11] MEDS: HYDROcodone/Acetaminophen 5/325 mg Tablet PO PRN (20:45)
[2020-09-12] MEDS: Milrinone Lactate/D5W 20 MG in Premix Bag 1 BAG IVPB SCH ×3 (04:29→17:56)
[2020-09-12 05:24] LABS: Anion Gap 13 mmol/L (10-20); BUN (Urea Nitrogen) 52 mg/dL (9.8-20.1); Calc. Creatinine Clearance 53 mL/min (70-130); Calcium 8.7 mg/dL (7.8-10.44); Carbon Dioxide 28 mmol/L (23-31); Chloride 102 mmol/L (98-107); Glucose 113 mg/dL (83-110); Magnesium 1.9 mg/dL (1.6-2.6); Potassium 4.3 mmol/L (3.5-5.1); Sodium 139 mmol/L (136-145)
--- NOTE | 2020-09-12 06:32 | PDOC.FM ---
- Subjective Subjective: Patient is resting comfortably in bed. No events overnight, no concerns. Denies chest pain, shortness of breath, abdominal pain, N/V. - Objective MAR Reviewed: Yes Vital Signs & Weight: Vital Signs (12 hours) Temp Pulse Resp BP Pulse Ox 09/12/20 06:00 101/58 L 09/12/20 00:05 98 20 105/53 L 09/11/20 20:00 97.8 F 115 H 20 120/60 98 Weight Admit Weight 137.524 kg Weight 134.717 kg Most Recent Monitor Data Heart Rate from ECG 70 NIBP 138/93 NIBP BP-Mean 108 Respiration from ECG 18 SpO2 94 I&O: 09/10/20 09/11/20 09/12/20 06:59 06:59 06:59 Intake Total 720 2143.4 1770 Output Total 1325 1350 1675 Balance -605 793.4 95 Result Diagrams: 09/10/20 04:19 09/12/20 04:22 Phys Exam - Physical Examination Constitutional: NAD HEENT: PERRLA, moist MMs faint crackles Cardiovascular: RRR, no significant murmur Gastrointestinal: soft, non-tender, positive bowel sounds trace edema present Neurological: moves all 4 limbs Psychiatric: normal affect, A&O x 3 Skin: no rash Dx/Plan - Plan Plan: Acute hypoxic respiratory failure likely 2/2 to right heart failure with cardiorenal syndrome -pt originally received lasix due to concern for CHF exacerbation, patient then appeared dry and was hypotensive, labs were concerning for hypoperfusion so patient was given fluids overnight on two different occasions; then concerns for cardiogenic shock --> Dr. Bone consulted -now on 2-2.5 L NC, pt is on 2 L at home -original CXR: bilateral pleural effusions that were not present on previous imaging, repeat xray showed improvement, repeat worsening of CHF -BNP 286 > 324.3; s/p lasix, now on bumex -EKG: Afib w/RVR -echo 08/17: technically difficulty exam 2/2 body habitus, EF 50-55%, diastolic dysfunction cannot be assessed -consulted nephro: diuretics per cards, IV iron, signed off on 08/29 with outpatient f/u in 2-3 weeks -cortisol stimulation test: normal -EP (Dr. Stapleton) consulted per Dr. Bone: Attempted cardioversion 09/06, but no conversion to SR achieved depite multiple high energy shocks; recommended continued amiodarone 200mg, consider repeat cardioversion in 4-6 weeks -Per Dr. Bone: * lasix stopped 09/08 due to bump in Cr, will continue Bumex 1mg daily 09/09 * started on Tropol XL 12.5 mg q 12 hours on 08/26, increased to 25 mg q12hrs on 08/27, decreased to 12.5 mg on 08/28 * milrinone gtt started on 09/03, drip at .425 * CM working on placement at LTAC, where patient can still receive milrinone infusion HFpEF -ECHO 07/02, EF 50-55%, see repeat above - TTE 09/06: Combination R ventricular failure and left ventricular diastolic dysfunction -BNP 286 > 324.3 -lasix stopped 09/[address] Bone, will resume Bumex 1 09/09 -strict I/Os, daily weights Bowel Incontinence, Likely 2/2 age and inactivity Possible long-term gabapentin use causing - ordered back MRI, however due to body habitus MRI informed us that we would be unable to get it, d/c'd order due to low suspicion of neurologic cause as patient has sensation at the anus and groin, is walking, the loss of stool is positional- typically when sitting - continue working with PT to regain strength - cdiff culture ordered to r/o UTI, s/p treatment -urine cx: Kleb, E.coli, non-hem strep with dysuria -Ceftriaxone (08/24), x3 days (last day 08/26) -discussed possible interaction between penicillin allergy and cross reaction with ceftriaxone, patient understood and was okay with receiving antibiotics, she denies any reaction -due to hypotension overnight on 08/27-08/28, repeat blood cx and UA: UA appeared clean, no UCx resulted -gave azo 09/02 for suprapubic discomfort with urinating, UA clean, UCx - mixed woo; irritation resolved Hypotension, resolved -s/p 500 ml bolus x2, not receiving fluids due to concern for worsening CHF 2/2 to right heart failure and cardiogenic shock -likely 2/2 to cardiogenic shock - on milrinone gtt -will continue to hold lisinopril and coreg -Dr. Bone consulted as mentioned above Afib w/RVR, now rate controlled -Known history: known source, as patient was not taking PO Dilt at home. Patient also just was seen by Dr Connelly outpatient -Anticoagulated with warfarin prior to 08/[address] Tolliver at which time he switched to eliquis due to subtherapeutic INR and missing warfarin doses. -HR 90-110s while in ED, now rate controlled in the 60s-80s -RVR initially improved --> RVR returned on 08/27 --> normal rate 08/28 -s/p dilt gtt stopped 08/16, transitioned to dilt PO, dilt DC'd per Lizandro recs -DC'd dilt and coreg per Lizandro recs, on amiodarone and Toprol XL * Amiodarone 400 mg BID until 5g loading dose (last dose 08/28) achieved followed by amiodarone 200 mg daily (08/29) * Toprol 12.5 mg q12hrs * Increased Eliquis to 5 mg BID 09/04 per Lizandro recs -EP: failed cardioversion 09/06, will reattempt in 4 weeks -TSH: 0.2821 with normal free T3 and T4, will obtain antibodies, repeat TSH per Dr. Bone request 1.2 Bowel Incontinence, possibly 2/2 Low Back Injury Fall in May, resulting in lower back numbness - improving; Bowel incontinence x 1 week - will return for thorough exam of lower back, reflexes, anal sphincter tone - will get XR back SEGUNDO on CKD3 -Cr 1.02 on admission -Cr of 1.61 > 1.62 > 1.49 > 1.51; likely new baseline -likely secondary to cardiogenic shock -Dr. Bone consulted, appreciate recs -Nephro consulted: diuretics per cards, signed off with outpatient f/u 2-3 weeks - remains near baseline, will continue to monitor Normocytic Anemia -Hgb: 8.6; due to CHF and cardiogenic shock, will keep Hgb above 8 -iron: 23, TIBC: 184, %sat: 13, Transferrin: 147, ferritin pending -Dr. Davidson has ordered IV iron x3 bags -possibly a mixed picture, likely anemia of chronic disease with possible iron deficiency anemia Transaminitis, resolved -likely 2/2 to hypoperfusion vs congestion 2/2 to cardiorenal syndrome -will continue to monitor Elevated troponin -0.068>.164>.242>.165 -likely demand ischemia due to Afib COPD -sony HYMAN Recent hospitalization for COVID pneumonia -05/18-05/21 -Has been on supplemental home oxygen since (2-3L) -Reports negative test on 08/10 HTN -holding original home meds -Stopped isosorbide dinitrate and hydralazine on 08/27 to increase perfusion to the kidney with hopes of increasing diuresis; added back hydralazine on 08/29; see above for further info --> stopped hydralazine and isosorbite dinitrate 09/03 after adding milrinone gtt HLD -Aware, continue home meds GERD -Aware, continue home meds Chronic back pain due to spondylosis -Aware, continue home meds -takes norco for pain Dispo: CM consulted, plan for LTAC facility on d/c Addendum - Attending - Attending Attestation Date/Time: 09/12/20 1035 I personally evaluated the patient and discussed the management with Dr. Rose. I agree with the History, Examination, Assessment and Plan documented above with any addition or exceptions noted below. Patient stable. Continue Milrinone and awaiting placement decision from insurance. Continue to work with PT. We have made some adjustments to her meds that will hopefully diminish her fecal incontinence issues.
[2020-09-12] MEDS ORDERED: Magnesium 2 GM/50 ML 2 GM in Premix Bag 1 BAG IVPB SCH (06:45)
[2020-09-12] MEDS: Bumetanide 1 MG TAB PO SCH (08:26)
[2020-09-12] MEDS: Potassium Chloride 20 MEQ TAB PO SCH (08:27)
[2020-09-12] MEDS: Spironolactone 25 MG TAB PO SCH (08:27)
[2020-09-12] MEDS: Apixaban 5 MG TAB PO SCH ×2 (08:27→20:54)
[2020-09-12] MEDS: Gabapentin 300 MG CAP PO SCH ×2 (08:27→20:54)
[2020-09-12] MEDS: Amiodarone 200 MG TAB PO SCH (08:27)
[2020-09-12] MEDS: Magnesium Oxide 400 MG TAB PO SCH ×2 (08:28→20:54)
[2020-09-12] MEDS: diphenhydrAMINE 25 MG CAP PO PRN (15:35)
[2020-09-12] MEDS: HYDROcodone/Acetaminophen 5/325 mg Tablet PO PRN (17:58)
[2020-09-12] MEDS: Atorvastatin Calcium 40 MG TAB PO SCH (20:54)
[2020-09-13] MEDS: Milrinone Lactate/D5W 20 MG in Premix Bag 1 BAG IVPB SCH ×4 (00:28→21:03)
[2020-09-13 05:17] LABS: Anion Gap 12 mmol/L (10-20); BUN (Urea Nitrogen) 52 mg/dL (9.8-20.1); Calc. Creatinine Clearance 53 mL/min (70-130); Calcium 8.8 mg/dL (7.8-10.44); Carbon Dioxide 28 mmol/L (23-31); Chloride 101 mmol/L (98-107); Glucose 139 mg/dL (83-110); Magnesium 2.1 mg/dL (1.6-2.6); Potassium 4.4 mmol/L (3.5-5.1); Sodium 137 mmol/L (136-145)
--- NOTE | 2020-09-13 06:24 | PDOC.FM ---
- Subjective Subjective: Patient is resting comfortably in bed. No acute events overnight, no concerns. Denies chest pain, shortness of breath, abdominal pain, N/V. - Objective MAR Reviewed: Yes Vital Signs & Weight: Vital Signs (12 hours) Temp Pulse Resp BP BP Pulse Ox 09/13/20 04:00 97.6 F 87 20 106/55 L 98 09/13/20 01:00 97 09/12/20 20:00 97.8 F 76 20 132/63 97 Weight Admit Weight 137.524 kg Weight 134.263 kg Most Recent Monitor Data Heart Rate from ECG 70 NIBP 138/93 NIBP BP-Mean 108 Respiration from ECG 18 SpO2 94 I&O: 09/11/20 09/12/20 09/13/20 06:59 06:59 06:59 Intake Total 2143.4 1770 1399 Output Total 1350 1675 1000 Balance 793.4 95 399 Result Diagrams: 09/10/20 04:19 09/13/20 04:09 Phys Exam - Physical Examination Constitutional: NAD HEENT: PERRLA, moist MMs faint crackles Cardiovascular: RRR, no significant murmur Gastrointestinal: soft, non-tender, positive bowel sounds trace edema Psychiatric: normal affect, A&O x 3 Deviation from normal: mild erythema on bilateral forearms where bp cuff is placed Dx/Plan - Plan Plan: Acute hypoxic respiratory failure likely 2/2 to right heart failure with cardiorenal syndrome -pt originally received lasix due to concern for CHF exacerbation, patient then appeared dry and was hypotensive, labs were concerning for hypoperfusion so patient was given fluids overnight on two different occasions; then concerns for cardiogenic shock --> Dr. Bone consulted -now on 2-2.5 L NC, pt is on 2 L at home -original CXR: bilateral pleural effusions that were not present on previous imaging, repeat xray showed improvement, repeat worsening of CHF -BNP 286 > 324.3; s/p lasix, now on bumex -EKG: Afib w/RVR -echo 08/17: technically difficulty exam 2/2 body habitus, EF 50-55%, diastolic dysfunction cannot be assessed -consulted nephro: diuretics per cards, IV iron, signed off on 08/29 with outpatient f/u in 2-3 weeks -cortisol stimulation test: normal -EP (Dr. Stapleton) consulted per Dr. Bone: Attempted cardioversion 09/06, but no conversion to SR achieved depite multiple high energy shocks; recommended continued amiodarone 200mg, consider repeat cardioversion in 4-6 weeks -Per Dr. Bone: * lasix stopped 09/08 due to bump in Cr, will continue Bumex 1mg daily 09/09 * started on Tropol XL 12.5 mg q 12 hours on 08/26, increased to 25 mg q12hrs on 08/27, decreased to 12.5 mg on 08/28 * milrinone gtt started on 09/03, drip at .425 * CM working on placement at LTAC, where patient can still receive milrinone infusion HFpEF -ECHO 07/02, EF 50-55%, see repeat above - TTE 09/06: Combination R ventricular failure and left ventricular diastolic dysfunction -BNP 286 > 324.3 -lasix stopped 09/[address] Bone, will resume Bumex 1 09/09 -strict I/Os, daily weights Bowel Incontinence, Likely 2/2 age and inactivity Possible long-term gabapentin use causing - ordered back MRI, however due to body habitus MRI informed us that we would be unable to get it, d/c'd order due to low suspicion of neurologic cause as patient has sensation at the anus and groin, is walking, the loss of stool is positional- typically when sitting - continue working with PT to regain strength UTI, s/p treatment -urine cx: Kleb, E.coli, non-hem strep with dysuria -Ceftriaxone (08/24), x3 days (last day 08/26) -discussed possible interaction between penicillin allergy and cross reaction w ith ceftriaxone, patient understood and was okay with receiving antibiotics, she denies any reaction -due to hypotension overnight on 08/27-08/28, repeat blood cx and UA: UA appeared clean, no UCx resulted -gave azo 09/02 for suprapubic discomfort with urinating, UA clean, UCx - mixed woo; irritation resolved Hypotension, resolved -s/p 500 ml bolus x2, not receiving fluids due to concern for worsening CHF 2/2 to right heart failure and cardiogenic shock -likely 2/2 to cardiogenic shock - on milrinone gtt -will continue to hold lisinopril and coreg -Dr. Bone consulted as mentioned above Afib w/RVR, now rate controlled -Known history: known source, as patient was not taking PO Dilt at home. Patient also just was seen by Dr Connelly outpatient -Anticoagulated with warfarin prior to 08/[address] Tolliver at which time he switched to eliquis due to subtherapeutic INR and missing warfarin doses. -HR 90-110s while in ED, now rate controlled in the 60s-80s -RVR initially improved --> RVR returned on 08/27 --> normal rate 08/28 -s/p dilt gtt stopped 08/16, transitioned to dilt PO, dilt DC'd per Lizandro recs -DC'd dilt and coreg per Lizandro recs, on amiodarone and Toprol XL * Amiodarone 400 mg BID until 5g loading dose (last dose 08/28) achieved followed by amiodarone 200 mg daily (08/29) * Toprol 12.5 mg q12hrs * Increased Eliquis to 5 mg BID 09/04 per Lizandro recs -EP: failed cardioversion 09/06, will reattempt in 4 weeks -TSH: 0.2821 with normal free T3 and T4, will obtain antibodies, repeat TSH per Dr. Bone request 1.2 Bowel Incontinence, possibly 2/2 Low Back Injury Fall in May, resulting in lower back numbness - improving; Bowel incontinence x 1 week - will return for thorough exam of lower back, reflexes, anal sphincter tone - will get XR back SEGUNDO on CKD3 -Cr 1.02 on admission -Cr of 1.61 > 1.62 > 1.49 > 1.51; likely new baseline -likely secondary to cardiogenic shock -Dr. Bone consulted, appreciate recs -Nephro consulted: diuretics per cards, signed off with outpatient f/u 2-3 weeks - remains near baseline, will continue to monitor Normocytic Anemia -Hgb: 8.6; due to CHF and cardiogenic shock, will keep Hgb above 8 -iron: 23, TIBC: 184, %sat: 13, Transferrin: 147, ferritin pending -Dr. Davidson has ordered IV iron x3 bags -possibly a mixed picture, likely anemia of chronic disease with possible iron deficiency anemia Transaminitis, resolved -likely 2/2 to hypoperfusion vs congestion 2/2 to cardiorenal syndrome -will continue to monitor Elevated troponin -0.068>.164>.242>.165 -likely demand ischemia due to Afib COPD -sony HYMAN Recent hospitalization for COVID pneumonia -05/18-05/21 -Has been on supplemental home oxygen since (2-3L) -Reports negative test on 08/10 HTN -holding original home meds -Stopped isosorbide dinitrate and hydralazine on 08/27 to increase perfusion to the kidney with hopes of increasing diuresis; added back hydralazine on 08/29; see above for further info --> stopped hydralazine and isosorbite dinitrate 09/03 after adding milrinone gtt HLD -Aware, continue home meds GERD -Aware, continue home meds Chronic back pain due to spondylosis -Aware, continue home meds -takes norco for pain Dispo: CM consulted, plan for LTAC facility on d/c Addendum - Attending - Attending Attestation Date/Time: 09/13/20 1045 I personally evaluated the patient and discussed the management with Dr. Rose. I agree with the History, Examination, Assessment and Plan documented above with any addition or exceptions noted below. Patient stable. Awaiting placement decision. Needs continued Milrinone infusion per HF team.
[2020-09-13] MEDS: Potassium Chloride 20 MEQ TAB PO SCH (10:06)
[2020-09-13] MEDS: Amiodarone 200 MG TAB PO SCH (10:06)
[2020-09-13] MEDS: Bumetanide 1 MG TAB PO SCH (10:07)
[2020-09-13] MEDS: Gabapentin 300 MG CAP PO SCH ×2 (10:07→21:01)
[2020-09-13] MEDS: Spironolactone 25 MG TAB PO SCH (10:07)
[2020-09-13] MEDS: Magnesium Oxide 400 MG TAB PO SCH ×2 (10:07→21:02)
[2020-09-13] MEDS: Apixaban 5 MG TAB PO SCH ×2 (10:07→21:02)
--- NOTE | 2020-09-13 16:17 | PDOC.BPN ---
- Brief Progress Note Transition of care note from Dr. Jacome from 08/16-08/30: Patient is an 85 yo F with a history of COPD, CHF, Afib, and COVID in May 2020 who presented for shortness of breath and respiratory distress that did not improve with her home oxygen of 2L. EMS found O2 sat to be 67%, they placed her home O2 of 2L and she improved to 75% and subsequently placed CPAP, gave solumedrol and magnesium. Patient has been using supplemental oxygen at home since her hospitalization for COVID pnemonia in May. She was also hospitalized at the end of June for generalized deconditioning and weakness and discharged to a SNF for PT. Patient was discharged home from there on 07/27 and has been receiving HH. She had a negative covid test on 08/10. She is dependent on her daughter with which she lives for her ADLs and uses a wheelchair due to chronic back pain and spondylosis. The patient was initially treated for acute hypoxic respiratory failure thought to be 2/2 to Afib w/RVR vs HF exacerbation. Her admission CXR showed bilateral pleural effusions that were not present on previous imaging and labs showed BNP 286, lactic 2.2, trop 0.068. An ABG revealed pH 7.32, pCO2 49 and her EKG showed Afib w/RVR. Her Ddimer was elevated but CTA negative for PE. An echo on 08/17 EF 50-55%, diastolic dysfunction could not be assessed 2/2 to technically difficulty exam because of body habitus. The pt originally received lasix due to concern for CHF exacerbation, but then became hypotensive overnight on 08/20. Her BP was 87/44, recheck on manual cuff 88/48. She has also had minimal urine output: bladder scan showed <100 ml, I/O catheter was 5 ml dark fluid. At that point she was bolused 500 ml LR x2. The patients creatinine began to increase (reaching max of 2.93) and cardiorenal syndrome was a concern. Dr. Bone was consulted on 08/21. Per his recommendation, she was started on dobutamine on 08/21, switched to IV milrinone on 08/25, and then the milrinone DC'd and dobutamine was restarted on 08/28 due to hypotension. Lasix was discontinued and the patient was switched to PO bumex for continued diuresis on 08/26. Spironolactone added on 08/27. The patient was started on Tropol XL 12.5 mg q 12 hours on 08/26, increased to 25 mg q12hrs on 08/27, decreased back to 12.5 mg on 08/28. The patients home antihypertensives were discontinued and hydralazine 10 mg PO q8hrs was added to regimen with BP goal of systolics between 110-120. The patient has remained in Afib throughout her hospitalization and is now rate controlled (RVR initially improved --> RVR returned on 08/27 --> normal rate 08/28). Her heart rate was initially controlled with dilt gtt, transitioned to dilt PO, then discontinued at the request of Dr. Bone and cardiorenal syndrome. She was started on Amiodarone 400 mg BID until 5g loading dose was achieved (last dose 08/28) and then switched to amiodarone 200 mg daily (08/29). She was previously anticoagulated with warfarin prior to 08/[address] Tolliver at which time he switched to eliquis due to subtherapeutic INR and missing warfarin doses. Once the patients kidney function returns to normal, consider increasing patients Eliquis dose. EP (Dr. Stapleton) was consulted per Dr. Bone and said that the patient was not a candidate for cardioversion at this time. He recommended f/u outpatient in 2-3 weeks after proper anticoagulation. Nephrology was also consulted due to the patients elevated creatinine. Nephro recommended diuretics per cards, IV iron for patients normocytic anemia, and outpatient f/u in 2-3 weeks. On 08/30 her Cr was 1.51 which could potentially be a new baseline for the patient. The primary care team will continue to follow the recommendations of Dr. Bone regarding the patients dobutamine and further management. Dr. Bone's recommendations as of 08/30: 1. Continue hydralazine 10 mg q8 hours (hold for systolics <100) 2. Start isosorbide dinitrate 5 mg PO q12 hours (started on 08/30) 3. Decreased Bumex to 1 mg (decreased on 08/30) 4. Decrease dobutamine to 1 mcg/kg/min tomorrow (08/31). If patient does well overnight on 08/31, DC dobutamine on Saturday 09/01 Of note, the patient was also treated for a UTI with ceftriaxone from 08/24-08-26. Updates from 08/30-09/[address] Rose: Per Dr. Bone's Recs: 1. Dobutamine drip stopped 09/01 2. Isosorbide dinitrate & hydralazine stopped 09/03 3. Due to rising BUN/Cr, Milrinone drip started on 09/03 titrated up to .425, stable at this dose 4. Bumex continued at 1mg 5. Dr. Bone ordered repeat Echo with focus on the RV to support milrinone need: TTE 09/06: Combination R ventricular failure and left ventricular diastolic dysfunction 6. is working on getting patient placed at [facility], where patient can still receive milrinone, peer to peer 09/[address] Bone and [facility] Recs 1. Attempted Cardioversion on 09/06, no convertion to SR achieved despite multi ple high energy shocks; recommended continue amiodarone 200mg, consider repeat cardioversion in 4-6 weeks; continue Eliquis 5 BID Other Updates: 1. Patient has suprapubic discomfort on 09/02, UA and UCx clean, azo cleared the symptoms 2. Bowel incontinence x 1 week, suspected 2/2 decreased physical activity and age, decreased rectal tone, ordered back MRI however could not obtain due to patient's body habitus; however, no concern for neuro involvement due to walking, positional loss of stool, sensation intact at anus and groin; decreased patient's gabapentin as this could be causing it, patient is also taking magnesium daily, encouraged continued physical therapy
[2020-09-13] MEDS: HYDROcodone/Acetaminophen 5/325 mg Tablet PO PRN (21:01)
[2020-09-13] MEDS: Atorvastatin Calcium 40 MG TAB PO SCH (21:02)
[2020-09-14] MEDS: Milrinone Lactate/D5W 20 MG in Premix Bag 1 BAG IVPB SCH ×3 (03:26→20:47)
--- NOTE | 2020-09-14 05:01 | PDOC.FM ---
- Subjective Subjective: Pt resting comfortably in bed this AM. No acute events overnight. Has remained in Afib with HR in 80s, rate controlled. - Objective Vital Signs & Weight: Vital Signs (12 hours) Temp Pulse Resp BP BP Pulse Ox 09/14/20 04:00 97.9 F 83 20 126/59 L 95 09/14/20 00:00 93 124/56 L 09/13/20 19:47 98.1 F 80 18 128/65 98 Weight Admit Weight 137.524 kg Weight 134.263 kg Most Recent Monitor Data Heart Rate from ECG 70 NIBP 138/93 NIBP BP-Mean 108 Respiration from ECG 18 SpO2 94 I&O: 09/12/20 09/13/20 09/14/20 06:59 06:59 06:59 Intake Total 1770 1939.4 850 Output Total 1675 1400 900 Balance 95 539.4 -50 Result Diagrams: 09/10/20 04:19 09/14/20 04:21 Phys Exam - Physical Examination Constitutional: NAD HEENT: PERRLA Neck: supple Respiratory: no wheezing, no rales, no rhonchi poor inspiratory effort Cardiovascular: no significant murmur, no rub irregular RR Gastrointestinal: soft, non-tender, no distention, positive bowel sounds Musculoskeletal: pulses present 1+ pitting edema Neurological: moves all 4 limbs Deviation from normal: asleep this AM Skin: normal turgor Dx/Plan - Plan Plan: Acute hypoxic respiratory failure likely 2/2 to right heart failure with cardiorenal syndrome -pt originally received lasix due to concern for CHF exacerbation, patient then appeared dry and was hypotensive, labs were concerning for hypoperfusion so patient was given fluids overnight on two different occasions; then concerns for cardiogenic shock --> Dr. Bone consulted -now on 2-2.5 L NC, pt is on 2 L at home -original CXR: bilateral pleural effusions that were not present on previous imaging, repeat xray showed improvement, repeat worsening of CHF -BNP 286 > 324.3; s/p lasix, now on bumex -EKG: Afib w/RVR -echo 08/17: technically difficulty exam 2/2 body habitus, EF 50-55%, diastolic dysfunction cannot be assessed -consulted nephro: diuretics per cards, IV iron, signed off on 08/29 with outpatient f/u in 2-3 weeks -cortisol stimulation test: normal -EP (Dr. Stapleton) consulted per Dr. Bone: Attempted cardioversion 09/06, but no conversion to SR achieved depite multiple high energy shocks; recommended continued amiodarone 200mg, consider repeat cardioversion in 4-6 weeks -Per Dr. Boen: * lasix stopped 09/08 due to bump in Cr, will continue Bumex 1mg daily 09/09 * started on Tropol XL 12.5 mg q 12 hours on 08/26, increased to 25 mg q12hrs on 08/27, decreased to 12.5 mg on 08/28 * milrinone gtt started on 09/03, drip at .425 * Working on placement at LTAC, where patient can still receive milrinone infusion HFpEF -ECHO 07/02, EF 50-55%, see repeat above - TTE 09/06: Combination R ventricular failure and left ventricular diastolic dysfunction -BNP 286 > 324.3 -lasix stopped 09/[address] Bone, will resume Bumex 1 09/09 -strict I/Os, daily weights Bowel Incontinence, Likely 2/2 age and inactivity Possible long-term gabapentin use causing - ordered back MRI, however due to body habitus MRI informed us that we would be unable to get it, d/c'd order due to low suspicion of neurologic cause as patient has sensation at the anus and groin, is walking, the loss of stool is positional- typically when sitting - continue working with PT to regain strength UTI, s/p treatment -urine cx: Kleb, E.coli, non-hem strep with dysuria -Ceftriaxone (08/24), x3 days (last day 08/26) -discussed possible interaction between penicillin allergy and cross reaction with ceftriaxone, patient understood and was okay with receiving antibiotics, she denies any reaction -due to hypotension overnight on 08/27-08/28, repeat blood cx and UA: UA appeared clean, no UCx resulted -gave azo 09/02 for suprapubic discomfort with urinating, UA clean, UCx - mixed woo; irritation resolved Hypotension, resolved -s/p 500 ml bolus x2, not receiving fluids due to concern for worsening CHF 2/2 to right heart failure and cardiogenic shock -likely 2/2 to cardiogenic shock - on milrinone gtt -will continue to hold lisinopril and coreg -Dr. Bone consulted as mentioned above Afib w/RVR, now rate controlled -Known history: known source, as patient was not taking PO Dilt at home. Patient also just was seen by Dr Connelly outpatient -Anticoagulated with warfarin prior to 08/[address] Tolliver at which time he switched to eliquis due to subtherapeutic INR and missing warfarin doses. -HR 90-110s while in ED, now rate controlled in the 60s-80s -RVR initially improved --> RVR returned on 08/27 --> normal rate 08/28 -s/p dilt gtt stopped 08/16, transitioned to dilt PO, dilt DC'd per Lizandro recs -DC'd dilt and coreg per Lizandro recs, on amiodarone and Toprol XL * Amiodarone 400 mg BID until 5g loading dose (last dose 08/28) achieved followed by amiodarone 200 mg daily (08/29) * Toprol 12.5 mg q12hrs * Increased Eliquis to 5 mg BID 09/04 per Lizandro recs -EP: failed cardioversion 09/06, will reattempt in 4 weeks -TSH: 0.2821 with normal free T3 and T4, will obtain antibodies, repeat TSH per Dr. Bone request 1.2 Bowel Incontinence, possibly 2/2 Low Back Injury Fall in May, resulting in lower back numbness - improving; Bowel incontinence x 1 week - will return for thorough exam of lower back, reflexes, anal sphincter tone - will get XR back SEGUNDO on CKD3 -Cr 1.02 on admission -Cr of 1.61 > 1.62 > 1.49 > 1.51; likely new baseline -likely secondary to cardiogenic shock -Dr. Bone consulted, appreciate recs -Nephro consulted: diuretics per cards, signed off with outpatient f/u 2-3 weeks - remains near baseline, will continue to monitor Normocytic Anemia -Hgb: 8.6; due to CHF and cardiogenic shock, will keep Hgb above 8 -iron: 23, TIBC: 184, %sat: 13, Transferrin: 147, ferritin pending -Dr. Davidson has ordered IV iron x3 bags -possibly a mixed picture, likely anemia of chronic disease with possible iron deficiency anemia Transaminitis, resolved -likely 2/2 to hypoperfusion vs congestion 2/2 to cardiorenal syndrome -will continue to monitor Elevated troponin -0.068>.164>.242>.165 -likely demand ischemia due to Afib COPD -sony PRN Recent hospitalization for COVID pneumonia -05/18-05/21 -Has been on supplemental home oxygen since (2-3L) -Reports negative test on 08/10 HTN -holding original home meds -Stopped isosorbide dinitrate and hydralazine on 08/27 to increase perfusion to the kidney with hopes of increasing diuresis; added back hydralazine on 08/29; see above for further info --> stopped hydralazine and isosorbite dinitrate 09/03 after adding milrinone gtt HLD -Aware, continue home meds GERD -Aware, continue home meds Chronic back pain due to spondylosis -Aware, continue home meds -takes norco for pain Dispo as of 09/14/20: LTAC placement denied yesterday 09/13/20. CM contacted Dr. Bone regarding this and placement/approval pending peer-peer. Today holding potassium supplementation due to K 5.2. Addendum - Attending - Attending Attestation Date/Time: 09/14/20 [id number] I personally evaluated the patient and discussed the management with Dr. Tracey. I agree with the History, Examination, Assessment and Plan documented above with any addition or exceptions noted below. Patient stable. Renal function remains stable. Awaiting placement for [facility] Milrinone infusion.
[2020-09-14 05:11] LABS: Anion Gap 15 mmol/L (10-20); BUN (Urea Nitrogen) 52 mg/dL (9.8-20.1); Calc. Creatinine Clearance 51 mL/min (70-130); Calcium 8.4 mg/dL (7.8-10.44); Carbon Dioxide 26 mmol/L (23-31); Chloride 100 mmol/L (98-107); Glucose 113 mg/dL (83-110); Potassium 5.2 mmol/L (3.5-5.1); Sodium 136 mmol/L (136-145)
[2020-09-14] MEDS: Gabapentin 300 MG CAP PO SCH ×2 (08:44→20:35)
[2020-09-14] MEDS: Bumetanide 1 MG TAB PO SCH (08:44)
[2020-09-14] MEDS: Magnesium Oxide 400 MG TAB PO SCH ×2 (08:44→20:35)
[2020-09-14] MEDS: Spironolactone 25 MG TAB PO SCH (08:44)
[2020-09-14] MEDS: Apixaban 5 MG TAB PO SCH ×2 (08:45→20:35)
[2020-09-14] MEDS: Amiodarone 200 MG TAB PO SCH (08:45)
[2020-09-14] MEDS: Potassium Chloride 20 MEQ TAB PO SCH (08:55)
[2020-09-14] MEDS: HYDROcodone/Acetaminophen 5/325 mg Tablet PO PRN (20:34)
[2020-09-14] MEDS: Atorvastatin Calcium 40 MG TAB PO SCH (20:35)
[2020-09-15] MEDS: HYDROcodone/Acetaminophen 5/325 mg Tablet PO PRN ×2 (02:57→20:41)
[2020-09-15] MEDS: Milrinone Lactate/D5W 20 MG in Premix Bag 1 BAG IVPB SCH ×4 (02:58→20:49)
[2020-09-15 04:52] LABS: Anion Gap 14 mmol/L (10-20); BUN (Urea Nitrogen) 48 mg/dL (9.8-20.1); Calc. Creatinine Clearance 51 mL/min (70-130); Calcium 8.6 mg/dL (7.8-10.44); Carbon Dioxide 29 mmol/L (23-31); Chloride 98 mmol/L (98-107); Glucose 114 mg/dL (83-110); Potassium 4.4 mmol/L (3.5-5.1); Sodium 137 mmol/L (136-145)
--- NOTE | 2020-09-15 05:31 | PDOC.FM ---
- Subjective Subjective: Pt resting comfortably in bed this AM. No acute events overnight. States that she slept well as she could last night. States that her arms are itching from where the BP cuff takes her vitals. Continues to be rate controlled in Afib. - Objective Vital Signs & Weight: Vital Signs (12 hours) Temp Pulse Resp BP Pulse Ox 09/15/20 04:00 97.3 F L 74 16 127/56 L 96 09/15/20 01:19 95 09/14/20 19:27 98.1 F 100 20 126/56 L 98 Weight Admit Weight 137.524 kg Weight 132 kg Most Recent Monitor Data Heart Rate from ECG 70 NIBP 138/93 NIBP BP-Mean 108 Respiration from ECG 18 SpO2 94 I&O: 09/13/20 09/14/20 09/15/20 06:59 06:59 06:59 Intake Total 1939.4 1096 300 Output Total 1400 1375 1000 Balance 539.4 -735 -700 Result Diagrams: 09/10/20 04:19 09/15/20 04:04 Phys Exam - Physical Examination Constitutional: NAD HEENT: moist MMs Neck: supple Respiratory: no wheezing, no rales, no rhonchi, clear to auscultation bilateral Cardiovascular: no rub irregular RR Gastrointestinal: soft, non-tender, no distention, positive bowel sounds Musculoskeletal: pulses present Neurological: moves all 4 limbs Psychiatric: A&O x 3 Skin: normal turgor Dx/Plan - Plan Plan: Acute hypoxic respiratory failure likely 2/2 to right heart failure with cardiorenal syndrome -pt originally received lasix due to concern for CHF exacerbation, patient then appeared dry and was hypotensive, labs were concerning for hypoperfusion so patient was given fluids overnight on two different occasions; then concerns for cardiogenic shock --> Dr. Bone consulted -now on 2-2.5 L NC, pt is on 2 L at home -original CXR: bilateral pleural effusions that were not present on previous imaging, repeat xray showed improvement, repeat worsening of CHF -BNP 286 > 324.3; s/p lasix, now on bumex -EKG: Afib w/RVR -echo 08/17: technically difficulty exam 2/2 body habitus, EF 50-55%, diastolic dysfunction cannot be assessed -consulted nephro: diuretics per cards, IV iron, signed off on 08/29 with outpatient f/u in 2-3 weeks -cortisol stimulation test: normal -EP (Dr. Stapleton) consulted per Dr. Bone: Attempted cardioversion 09/06, but no conversion to SR achieved depite multiple high energy shocks; recommended continued amiodarone 200mg, consider repeat cardioversion in 4-6 weeks -Per Dr. Bone: * lasix stopped 09/08 due to bump in Cr, will continue Bumex 1mg daily 09/09 * started on Tropol XL 12.5 mg q 12 hours on 08/26, increased to 25 mg q12hrs on 08/27, decreased to 12.5 mg on 08/28 * milrinone gtt started on 09/03, drip at .425 * Working on placement at LTAC, where patient can still receive milrinone infusion HFpEF -ECHO 07/02, EF 50-55%, see repeat above - TTE 09/06: Combination R ventricular failure and left ventricular diastolic dysfunction -BNP 286 > 324.3 -lasix stopped 09/[address] Bone, will resume Bumex 1 09/09 -strict I/Os, daily weights Bowel Incontinence, Likely 2/2 age and inactivity Possible long-term gabapentin use causing - ordered back MRI, however due to body habitus MRI informed us that we would be unable to get it, d/c'd order due to low suspicion of neurologic cause as patient has sensation at the anus and groin, is walking, the loss of stool is positional- typically when sitting - continue working with PT to regain strength UTI, s/p treatment -urine cx: Kleb, E.coli, non-hem strep with dysuria -Ceftriaxone (08/24), x3 days (last day 08/26) -discussed possible interaction between penicillin allergy and cross reaction with ceftriaxone, patient understood and was okay with receiving antibiotics, she denies any reaction -due to hypotension overnight on 08/27-08/28, repeat blood cx and UA: UA appeared clean, no UCx resulted -gave azo 09/02 for suprapubic discomfort with urinating, UA clean, UCx - mixed woo; irritation resolved Hypotension, resolved -s/p 500 ml bolus x2, not receiving fluids due to concern for worsening CHF 2/2 to right heart failure and cardiogenic shock -likely 2/2 to cardiogenic shock - on milrinone gtt -will continue to hold lisinopril and coreg -Dr. Bone consulted as mentioned above Afib w/RVR, now rate controlled -Known history: known source, as patient was not taking PO Dilt at home. Patient also just was seen by Dr Connelly outpatient -Anticoagulated with warfarin prior to 08/[address] Tolliver at which time he switched to eliquis due to subtherapeutic INR and missing warfarin doses. -HR 90-110s while in ED, now rate controlled in the 60s-80s -RVR initially improved --> RVR returned on 08/27 --> normal rate 08/28 -s/p dilt gtt stopped 08/16, transitioned to dilt PO, dilt DC'd per Lizandro recs -DC'd dilt and coreg per Lizandro recs, on amiodarone and Toprol XL * Amiodarone 400 mg BID until 5g loading dose (last dose 08/28) achieved followed by amiodarone 200 mg daily (08/29) * Toprol 12.5 mg q12hrs * Increased Eliquis to 5 mg BID 09/04 per Lizandro recs -EP: failed cardioversion 09/06, will reattempt in 4 weeks -TSH: 0.2821 with normal free T3 and T4, will obtain antibodies, repeat TSH per Dr. Bone request 1.2 Bowel Incontinence, possibly 2/2 Low Back Injury Fall in May, resulting in lower back numbness - improving; Bowel incontinence x 1 week - will return for thorough exam of lower back, reflexes, anal sphincter tone - will get XR back SEGUNDO on CKD3 -Cr 1.02 on admission -Cr of 1.61 > 1.62 > 1.49 > 1.51; likely new baseline -likely secondary to cardiogenic shock -Dr. Bone consulted, appreciate recs -Nephro consulted: diuretics per cards, signed off with outpatient f/u 2-3 weeks - remains near baseline, will continue to monitor Normocytic Anemia -Hgb: 8.6; due to CHF and cardiogenic shock, will keep Hgb above 8 -iron: 23, TIBC: 184, %sat: 13, Transferrin: 147, ferritin pending -Dr. Davidson has ordered IV iron x3 bags -possibly a mixed picture, likely anemia of chronic disease with possible iron deficiency anemia Transaminitis, resolved -likely 2/2 to hypoperfusion vs congestion 2/2 to cardiorenal syndrome -will continue to monitor Elevated troponin -0.068>.164>.242>.165 -likely demand ischemia due to Afib COPD -[id number] PRN Recent hospitalization for COVID pneumonia -05/18-05/21 -Has been on supplemental home oxygen since (2-3L) -Reports negative test on 08/10 HTN -holding original home meds -Stopped isosorbide dinitrate and hydralazine on 08/27 to increase perfusion to the kidney with hopes of increasing diuresis; added back hydralazine on 08/29; see above for further info --> stopped hydralazine and isosorbite dinitrate 09/03 after adding milrinone gtt HLD -Aware, continue home meds GERD -Aware, continue home meds Chronic back pain due to spondylosis -Aware, continue home meds -takes norco for pain Dispo as of 09/15/20: LTAC placement denied by insurance 09/13/20. CM contacted Dr. Bone regarding this and placement/approval pending peer-peer. Imagine that this will take place sometime this coming week. Addendum - Attending - Attending Attestation Date/Time: 09/15/20 [id number] I personally evaluated the patient and discussed the management with Dr. Tracey. I agree with the History, Examination, Assessment and Plan documented above with any addition or exceptions noted below. Stable. Awaiting placement. Continue Milrinone. Renal function overall unchanged.
[2020-09-15] MEDS ORDERED: Hydrocortisone 1% Cream 30 GM TUBE TOP PRN (06:16)
[2020-09-15] MEDS: Apixaban 5 MG TAB PO SCH ×2 (09:40→20:40)
[2020-09-15] MEDS: Magnesium Oxide 400 MG TAB PO SCH ×2 (09:40→20:40)
[2020-09-15] MEDS: Bumetanide 1 MG TAB PO SCH (09:40)
[2020-09-15] MEDS: Gabapentin 300 MG CAP PO SCH ×2 (09:41→20:40)
[2020-09-15] MEDS: Amiodarone 200 MG TAB PO SCH (09:41)
[2020-09-15] MEDS: Spironolactone 25 MG TAB PO SCH (09:41)
[2020-09-15 10:19] LABS: Hemoglobin 10.8 g/dL (12.0-16.0); Platelet Count 203 thou/uL (130-400)
[2020-09-15] MEDS: Atorvastatin Calcium 40 MG TAB PO SCH (20:40)
[2020-09-16] MEDS: Milrinone Lactate/D5W 20 MG in Premix Bag 1 BAG IVPB SCH ×4 (03:24→22:31)
[2020-09-16 05:11] LABS: Anion Gap 13 mmol/L (10-20); BUN (Urea Nitrogen) 50 mg/dL (9.8-20.1); Calc. Creatinine Clearance 50 mL/min (70-130); Calcium 8.8 mg/dL (7.8-10.44); Carbon Dioxide 32 mmol/L (23-31); Chloride 97 mmol/L (98-107); Glucose 122 mg/dL (83-110); Magnesium 1.9 mg/dL (1.6-2.6); Sodium 138 mmol/L (136-145)
--- NOTE | 2020-09-16 05:55 | PDOC.FM ---
- Subjective Subjective: Pt resting in bed this AM. No acute events overnight. States that her arm rashes improved with the cortisone creame ordered yesterday. Pt continues to be in Afib, rate controlled with HR in the 70s-80s. - Objective Vital Signs & Weight: Vital Signs (12 hours) Temp Pulse Resp BP BP Pulse Ox 09/16/20 03:18 97.4 F L 67 16 106/57 L 98 09/15/20 23:50 85 20 103/54 L 09/15/20 19:02 97.8 F 90 20 125/62 97 Weight Admit Weight 137.524 kg Weight 133.9 kg Most Recent Monitor Data Heart Rate from ECG 70 NIBP 138/93 NIBP BP-Mean 108 Respiration from ECG 18 SpO2 94 I&O: 09/14/20 09/15/20 09/16/20 06:59 06:59 06:59 Intake Total 1096 750 950 Output Total 1375 1450 1000 Balance -279 -700 -50 Result Diagrams: 09/15/20 10:02 09/16/20 04:15 Phys Exam - Physical Examination Constitutional: NAD HEENT: moist MMs Neck: supple Respiratory: no wheezing, no rales, no rhonchi poor inspiratory effort Cardiovascular: no rub irregular RR Gastrointestinal: soft, non-tender, no distention, positive bowel sounds Musculoskeletal: pulses present Neurological: moves all 4 limbs Psychiatric: normal affect, A&O x 3 Skin: no rash (erythema, dryness, 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 Bone consulted -now on 2-2.5 L NC, pt is on 2 L at home -original CXR: bilateral pleural effusions that were not present on previous imaging, repeat xray showed improvement, repeat worsening of CHF -BNP 286 > 324.3; s/p lasix, now on bumex -EKG: Afib w/RVR -echo 08/17: technically difficulty exam 2/2 body habitus, EF 50-55%, diastolic dysfunction cannot be assessed -consulted nephro: diuretics per cards, IV iron, signed off on 08/29 with outpatient f/u in 2-3 weeks -cortisol stimulation test: normal -EP (Dr. Stapleton) consulted per Dr. Bone: Attempted cardioversion 09/06, but no conversion to SR achieved depite multiple high energy shocks; recommended continued amiodarone 200mg, consider repeat cardioversion in 4-6 weeks -Per Dr. Bone: * lasix stopped 09/08 due to bump in Cr, will continue Bumex 1mg daily 09/09 * started on Tropol XL 12.5 mg q 12 hours on 08/26, increased to 25 mg q12hrs on 08/27, decreased to 12.5 mg on 08/28 * milrinone gtt started on 09/03, drip at .425 * Working on placement at LTAC, where patient can still receive milrinone i nfusion HFpEF -ECHO 07/02, EF 50-55%, see repeat above -TTE 09/06: Combination R ventricular failure and left ventricular diastolic dysfunction -BNP 286 > 324.3 -lasix stopped 09/[address] Bone, will resume Bumex 1 09/09 -strict I/Os, daily weights Bowel Incontinence, Likely 2/2 age and inactivity Possible long-term gabapentin use causing - ordered back MRI, however due to body habitus MRI informed us that we would be unable to get it, d/c'd order due to low suspicion of neurologic cause as patie nt has sensation at the anus and groin, is walking, the loss of stool is positional- typically when sitting - continue working with PT to regain strength UTI, s/p treatment -urine cx: Kleb, E.coli, non-hem strep with dysuria -Ceftriaxone (08/24), x3 days (last day 08/26) -discussed possible interaction between penicillin allergy and cross reaction with ceftriaxone, patient understood and was okay with receiving antibiotics, she denies any reaction -due to hypotension overnight on 08/27-08/28, repeat blood cx and UA: UA appeared clean, no UCx resulted -gave azo 09/02 for suprapubic discomfort with urinating, UA clean, UCx - mixed woo; irritation resolved Hypotension, resolved -s/p 500 ml bolus x2, not receiving fluids due to concern for worsening CHF 2/2 to right heart failure and cardiogenic shock -likely 2/2 to cardiogenic shock - on milrinone gtt -will continue to hold lisinopril and coreg -Dr. Bone consulted as mentioned above Afib w/RVR, now rate controlled -Known history: known source, as patient was not taking PO Dilt at home. Patient also just was seen by Dr Connelly outpatient -Anticoagulated with warfarin prior to 08/[address] Tolliver at which time he switched to eliquis due to subtherapeutic INR and missing warfarin doses. -HR 90-110s while in ED, now rate controlled in the 60s-80s -RVR initially improved --> RVR returned on 08/27 --> normal rate 08/28 -s/p dilt gtt stopped 08/16, transitioned to dilt PO, dilt DC'd per Lizandro recs -DC'd dilt and coreg per Lizandro recs, on amiodarone and Toprol XL * Amiodarone 400 mg BID until 5g loading dose (last dose 08/28) achieved followed by amiodarone 200 mg daily (08/29) * Toprol 12.5 mg q12hrs * Increased Eliquis to 5 mg BID 09/04 per Lizandro recs -EP: failed cardioversion 09/06, will reattempt in 4 weeks -TSH: 0.2821 with normal free T3 and T4, will obtain antibodies, repeat TSH per Dr. Bone request 1.2 Bowel Incontinence, possibly 2/2 Low Back Injury Fall in May, resulting in lower back numbness - improving; Bowel incontinence x 1 week - will return for thorough exam of lower back, reflexes, anal sphincter tone - will get XR back SEGUNDO on CKD3 -Cr 1.02 on admission -Cr of 1.61 > 1.62 > 1.49 > 1.51; likely new baseline -likely secondary to cardiogenic shock -Dr. Bone consulted, appreciate recs -Nephro consulted: diuretics per cards, signed off with outpatient f/u 2-3 weeks - remains near baseline, will continue to monitor Normocytic Anemia -Hgb: 8.6; due to CHF and cardiogenic shock, will keep Hgb above 8 -iron: 23, TIBC: 184, %sat: 13, Transferrin: 147, ferritin pending -Dr. Davidson has ordered IV iron x3 bags -possibly a mixed picture, likely anemia of chronic disease with possible iron deficiency anemia Transaminitis, resolved -likely 2/2 to hypoperfusion vs congestion 2/2 to cardiorenal syndrome -will continue to monitor Elevated troponin -0.068>.164>.242>.165 -likely demand ischemia due to Afib COPD -duonejonh PRN Recent hospitalization for COVID pneumonia -05/18-05/21 -Has been on supplemental home oxygen since (2-3L) -Reports negative test on 08/10 HTN -holding original home meds -Stopped isosorbide dinitrate and hydralazine on 08/27 to increase perfusion to the kidney with hopes of increasing diuresis; added back hydralazine on 08/29; see above for further info --> stopped hydralazine and isosorbite dinitrate 09/03 after adding milrinone gtt HLD -Aware, continue home meds GERD -Aware, continue home meds Chronic back pain due to spondylosis -Aware, continue home meds -takes norco for pain Dispo as of 09/16/20: LTAC placement denied by insurance 09/13/20. CM contacted Dr. Bone regarding this and placement/approval pending peer-peer. Imagine that this will take place sometime this week.
[2020-09-16] MEDS: Amiodarone 200 MG TAB PO SCH (08:10)
[2020-09-16] MEDS: Magnesium Oxide 400 MG TAB PO SCH ×2 (08:10→21:16)
[2020-09-16] MEDS: Apixaban 5 MG TAB PO SCH ×2 (08:11→21:18)
[2020-09-16] MEDS: Spironolactone 25 MG TAB PO SCH (08:12)
[2020-09-16] MEDS: Bumetanide 1 MG TAB PO SCH (08:13)
[2020-09-16] MEDS: Gabapentin 300 MG CAP PO SCH ×2 (08:13→21:15)
[2020-09-16] MEDS: Potassium Chloride 20 MEQ TAB PO SCH (08:22)
[2020-09-16] MEDS ORDERED: AcetaZOLAMIDE 250 MG TAB PO SCH (09:30)
--- NOTE | 2020-09-16 10:56 | PRG ---
DATE OF SERVICE: 09/16/2020 SERVICE: [facility]iology. SUBJECTIVE: Ms. Salinas had a good week. She has been regaining strength and is regaining endurance. Now, she can shuffle a bit from the bed and shuffle to the bed from the side. She can sit up for longer periods of time. Her standing also has lengthened between 2 minutes to 4 minutes. However, she does not have ability to transfer. She does not have ability to go to the toilet by herself. In fact, it takes 2 people to put her in the shower. When she does, she is incontinent in terms of bowel movement. Even though she had made significant progress, she still has LONG way to go for returning to her baseline. She is continuously depending on oxygen and milrinone for support. REVIEW OF SYSTEMS: GENERAL: There is no fever, chills, or productive cough. HEENT: There is no change in vision, hearing, or swallowing. PULMONARY: There is no shortness of breath. CARDIAC: There is no chest pain, palpitations, or syncope. GASTROINTESTINAL: There is no nausea or vomiting. However, she does not have sensation of bowel movement. GENITOURINARY: She knows that way she needs to go. She wears a PureWick. MUSCULOSKELETAL: She developed some left forearm pain. INTEGUMENT: She developed sensitivity of possible allergic reaction to blood pressure cuff. Each time the blood pressure cuff placed on, it causes rash. NEUROLOGIC: Now, she talks about right-sided neuropathy where she cannot feel her right foot and right leg. She has combination of sensory loss and proprioception deficiency, so she has difficulty even when she is well. MEDICATIONS: Her current medications include, 1. Albuterol/ipratropium nebs q.4 hours p.r.n. 2. Amiodarone 200 mg daily. 3. Apixaban 5 mg b.i.d. 4. Atorvastatin 40 mg at bedtime. 5. Bumex 1 mg daily. 6. Gabapentin 300 mg b.i.d. 7. Magnesium oxide 400 mg b.i.d. 8. Toprol-XL 25 mg p.o. q.12 hours. 9. Milrinone 0.425 mcg/kg/minute. 10. Protonix 20 mg daily. 11. Potassium chloride (K-Dur) 40 mEq in the morning. 12. Spironolactone 25 mg p.o. daily. PHYSICAL EXAMINATION: TELEMETRY: Reviewed. She has chronic atrial fibrillation with average rate around high 70s and low 80. VITAL SIGNS: Her current vitals include heart rate 80 and blood pressure 120/62. GENERAL: She is alert, conversational, quite comfortable, sitting up in bed, playing cards. So, this is the best I have seen her. She is now interactive and much more energetic. HEENT: Show EOMI. Oropharynx is benign with moist mucosa. NECK: Her JVP is about 9 cm. PULMONARY: Her lungs are clear to auscultation bilaterally. CARDIAC: Irregular rate and irregular rhythm with normal S1 and S2. There is 2/6 holosystolic murmur at the left sternal border. ABDOMEN: Very large, soft, nontender. EXTREMITIES: In her lower extremities, there are varicose veins that are prominent and there are minimal edema. LABORATORY VALUES: Today are her sodium is 138, potassium 4.0, chloride 97, bicarb 32, BUN 50, creatinine 1.79, magnesium 1.9. Her H and H yesterday are hemoglobin 10.8 and hematocrit 33. ASSESSMENT: 1. Right heart failure, needing chronic milrinone infusion. It is [place] [employer] stage C and also [place] [employer] class 3B heart failure with preserved ejection fraction from the stents of the left side, but however, it is right heart failure. 2. COVID-19 pneumonia, needing chronic oxygen. 3. Chronic atrial fibrillation. 4. Neuropathy preventing sensation and proprioception. 5. 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 6. Lack of ability to transfer. 7. Chronic renal insufficiency. ASSESSMENT Mrs. Duran resides in [place] [employer] stage C and [place] [employer] class 3B right heart failure. This heart failure was caused by combination of a COVID-19 pneumonia and her chronic atrial fibrillation. She has proven that she needs milrinone. We attempted to titrate off ionotropic support. Titrating off inotropic support decreased activity, increased edema, and worsened renal function. Even with milrinone at 0.425 mcg/kg/minute, her creatinine is baseline about 1.75. Apparently, this is her new baseline. She has proven that she needs chronic milrinone to support her right heart. She has also proven that she needs chronic oxygenation to keep her oxygen saturated above 90%. It is hoped that in the future after being well rate controlled from her atrial fibrillation, another cardioversion be attempted. With successful cardioversion, her cardiac function may perform better. She also has chronic renal insufficiency. This is sequelae of the severe right heart failure during admission. Her kidneys has recovered significantly, but not back to her baseline. In early part of this year, she was able to transfer from bed to wheelchair. She was able to mobilize in the wheelchair. She was able to transfer from wheelchair to shower and wheelchair to commode. Since COVID-19, she has been oxygen dependent and 100% bed-bound. With milrinone infusion, she has improved. However, she will absolutely need long-term acute care to regain her function. Her family is unable to care for her at home, especially in combination of her needing help due to eventually transfer, needing oxygen, and needing chronic infusion therapy. Currently, she is a bit dry as shown with her increased BUN and creatinine. So, we would need to hold Bumex about 3 days. She also has not become alkalotic. Please start acetazolamide 250 mg daily. She complained of right upper arm pain. There is some possibility that she develop a DVT, so please do an ultrasound of the left upper arm. Please see the following for my recommendations. RECOMMENDATIONS: 1. Stop Bumex for now. 2. Start acetazolamide at 250 mg p.o. daily. 3. Please do duplex ultrasound to look for deep vein thrombosis of left upper extremity. 4. Please help with placing her in an LTAC. She will need a long-term acute care to regain sufficient function. Regular rehabilitation and also regular SNF cannot handle her as the regular rehabilitation and also regular senior care facility will not take milrinone infusion. Thus, the only possibility for her is LTAC. LTAC has help her to recover. It has been a pleasure taking care of Ms. Salinas. If you have any questions, please give me a call. This has been a long visit of 60 minutes. This includes personally performing history and physical, reviewing data, coordinating with multiple physicians, and explaining counseling and forming a workable plan with her daughter and her. Job ID: [id number] [facility] CENTERClarice
--- NOTE | 2020-09-16 14:07 | ULT ---
LEFT UPPER EXTREMITY VENOUS DOPPLER ULTRASOUND: HISTORY: Left upper extremity edema TECHNIQUE: Grayscale color-flow and spectral Doppler imaging of the deep venous systems of the left upper extrem ity was performed FINDINGS: There is good flow, compression and normal spectral waveforms in the internal jugular, subclavian, ax illary, brachial, radial, ulnar, basilic and cephalic veins of the left upper extremity. IMPRESSION: No evidence of DVT in the left upper extremity.
--- NOTE | 2020-09-16 14:20 | PRG ---
DATE OF SERVICE: 09/16/2020 Ms. Salinas is a pleasant 85-year-old lady with multiple medical problems and multiple hospitalizations during the last year. These are all well outlined in the note of Dr. Shakila Tracey. Clinically, she is at a baseline stability. We are awaiting LTAC placement. Job ID: [id number]
[2020-09-16] MEDS: Atorvastatin Calcium 40 MG TAB PO SCH (21:16)
[2020-09-16] MEDS: HYDROcodone/Acetaminophen 5/325 mg Tablet PO PRN (21:16)
[2020-09-17 05:13] LABS: Anion Gap 13 mmol/L (10-20); BUN (Urea Nitrogen) 48 mg/dL (9.8-20.1); Calc. Creatinine Clearance 55 mL/min (70-130); Calcium 8.8 mg/dL (7.8-10.44); Carbon Dioxide 30 mmol/L (23-31); Chloride 100 mmol/L (98-107); Glucose 103 mg/dL (83-110); Potassium 4.2 mmol/L (3.5-5.1); Sodium 139 mmol/L (136-145)
[2020-09-17] MEDS: Milrinone Lactate/D5W 20 MG in Premix Bag 1 BAG IVPB SCH ×3 (05:57→17:26)
--- NOTE | 2020-09-17 06:06 | PDOC.FM ---
- Subjective Subjective: Pt resting in bed this AM. No acute events overnight. On telemetry pt is still in Afib with HR controlled. - Objective Vital Signs & Weight: Vital Signs (12 hours) Temp Pulse Resp BP BP Pulse Ox 09/17/20 04:40 98.0 F 74 20 134/74 96 09/17/20 03:56 99 09/17/20 00:02 97.8 F 80 16 105/53 L Weight Admit Weight 137.524 kg Weight 133.619 kg Most Recent Monitor Data Heart Rate from ECG 70 NIBP 138/93 NIBP BP-Mean 108 Respiration from ECG 18 SpO2 94 I&O: 09/15/20 09/16/20 09/17/20 06:59 06:59 06:59 Intake Total 750 1600 960 Output Total 1450 1520 800 Balance -700 80 160 Result Diagrams: 09/15/20 10:02 09/17/20 04:15 Phys Exam - Physical Examination Constitutional: NAD HEENT: moist MMs Neck: supple Respiratory: no wheezing, no rales, no rhonchi poor inspiratory effort Cardiovascular: no rub irregular RR Gastrointestinal: soft, non-tender, no distention, positive bowel sounds Musculoskeletal: pulses present Neurological: moves all 4 limbs Psychiatric: normal affect, A&O x 3 Skin: normal turgor Dx/Plan - Plan Plan: Acute hypoxic respiratory failure likely 2/2 to right heart failure with cardiorenal syndrome -pt originally received lasix due to concern for CHF exacerbation, patient then appeared dry and was hypotensive, labs were concerning for hypoperfusion so patient was given fluids overnight on two different occasions; then concerns for cardiogenic shock --> Dr. Bone consulted -now on 2-2.5 L NC, pt is on 2 L at home -original CXR: bilateral pleural effusions that were not present on previous i maging, repeat xray showed improvement, repeat worsening of CHF -BNP 286 > 324.3; s/p lasix, now on bumex -EKG: Afib w/RVR -echo 08/17: technically difficulty exam 2/2 body habitus, EF 50-55%, diastolic dysfunction cannot be assessed -consulted nephro: diuretics per cards, IV iron, signed off on 08/29 with outpatient f/u in 2-3 weeks -cortisol stimulation test: normal -EP (Dr. Stapleton) consulted per Dr. Bone: Attempted cardioversion 09/06, but no conversion to SR achieved depite multiple high energy shocks; recommended continued amiodarone 200mg, consider repeat cardioversion in 4-6 weeks -Per Dr. Bone: * lasix stopped 09/08 due to bump in Cr, will continue Bumex 1mg daily 09/09 * started on Tropol XL 12.5 mg q 12 hours on 08/26, increased to 25 mg q12hrs on 08/27, decreased to 12.5 mg on 08/28 * milrinone gtt started on 09/03, drip at .425 HFpEF -ECHO 07/02, EF 50-55%, see repeat above -TTE 09/06: Combination R ventricular failure and left ventricular diastolic dysfunction -BNP 286 > 324.3 -lasix stopped 09/[address] Bone, will resume Bumex 1 09/09 -strict I/Os, daily weights Bowel Incontinence, Likely 2/2 age and inactivity Possible long-term gabapentin use causing - ordered back MRI, however due to body habitus MRI informed us that we would be unable to get it, d/c'd order due to low suspicion of neurologic cause as patient has sensation at the anus and groin, is walking, the loss of stool is positional- typically when sitting - continue working with PT to regain strength UTI, s/p treatment -urine cx: Kleb, E.coli, non-hem strep with dysuria -Ceftriaxone (08/24), x3 days (last day 08/26) -discussed possible interaction between penicillin allergy and cross reaction with ceftriaxone, patient understood and was okay with receiving antibiotics, she denies any reaction -due to hypotension overnight on 08/27-08/28, repeat blood cx and UA: UA appeared clean, no UCx resulted -gave azo 09/02 for suprapubic discomfort with urinating, UA clean, UCx - mixed woo; irritation resolved Hypotension, resolved -s/p 500 ml bolus x2, not receiving fluids due to concern for worsening CHF 2/2 to right heart failure and cardiogenic shock -likely 2/2 to cardiogenic shock - on milrinone gtt -will continue to hold lisinopril and coreg -Dr. Bone consulted as mentioned above Afib w/RVR, now rate controlled -Known history: known source, as patient was not taking PO Dilt at home. Patient also just was seen by Dr Connelly outpatient -Anticoagulated with warfarin prior to 08/[address] Tollvier at which time he switched to eliquis due to subtherapeutic INR and missing warfarin doses. -HR 90-110s while in ED, now rate controlled in the 60s-80s -RVR initially improved --> RVR returned on 08/27 --> normal rate 08/28 -s/p dilt gtt stopped 08/16, transitioned to dilt PO, dilt DC'd per Lizandro gradys -DC'd dilt and coreg per Lizandro gradys, on amiodarone and Toprol XL * Amiodarone 400 mg BID until 5g loading dose (last dose 08/28) achieved followed by amiodarone 200 mg daily (08/29) * Toprol 12.5 mg q12hrs * Increased Eliquis to 5 mg BID 09/04 per Lizandro gradys -EP: failed cardioversion 09/06, will reattempt in 4 weeks -TSH: 0.2821 with normal free T3 and T4, will obtain antibodies, repeat TSH per Dr. Bone request 1.2 Bowel Incontinence, possibly 2/2 Low Back Injury Fall in May, resulting in lower back numbness - improving; Bowel incontinence x 1 week - will return for thorough exam of lower back, reflexes, anal sphincter tone - will get XR back SEGUNDO on CKD3 -Cr 1.02 on admission -Cr of 1.61 > 1.62 > 1.49 > 1.51; likely new baseline -likely secondary to cardiogenic shock -Dr. Bone consulted, tiffany recs -Nephro consulted: diuretics per cards, signed off with outpatient f/u 2-3 weeks - remains near baseline, will continue to monitor Normocytic Anemia -Hgb: 8.6; due to CHF and cardiogenic shock, will keep Hgb above 8 -iron: 23, TIBC: 184, %sat: 13, Transferrin: 147, ferritin pending -Dr. Davidson has ordered IV iron x3 bags -possibly a mixed picture, likely anemia of chronic disease with possible iron deficiency anemia Transaminitis, resolved -likely 2/2 to hypoperfusion vs congestion 2/2 to cardiorenal syndrome -will continue to monitor Elevated troponin -0.068>.164>.242>.165 -likely demand ischemia due to Afib COPD -sony HYMAN Recent hospitalization for COVID pneumonia -05/18-05/21 -Has been on supplemental home oxygen since (2-3L) -Reports negative test on 08/10 HTN -holding original home meds -Stopped isosorbide dinitrate and hydralazine on 08/27 to increase perfusion to the kidney with hopes of increasing diuresis; added back hydralazine on 08/29; see above for further info --> stopped hydralazine and isosorbite dinitrate 09/03 after adding milrinone gtt HLD -Aware, continue home meds GERD -Aware, continue home meds Chronic back pain due to spondylosis -Aware, continue home meds -takes norco for pain Dispo as of 09/17: LTAC placement denied by insurance in peer-peer yesterday. Pending new plan in terms of patient's placement at this time.
[2020-09-17] MEDS: Gabapentin 300 MG CAP PO SCH ×2 (07:52→21:42)
[2020-09-17] MEDS: Potassium Chloride 20 MEQ TAB PO SCH (07:52)
[2020-09-17] MEDS: AcetaZOLAMIDE 250 MG TAB PO SCH (07:54)
[2020-09-17] MEDS: Apixaban 5 MG TAB PO SCH ×2 (07:54→21:42)
[2020-09-17] MEDS: Spironolactone 25 MG TAB PO SCH (07:54)
[2020-09-17] MEDS: Amiodarone 200 MG TAB PO SCH (07:54)
[2020-09-17] MEDS: Magnesium Oxide 400 MG TAB PO SCH ×2 (07:54→21:42)
--- NOTE | 2020-09-17 11:28 | PRG ---
DATE OF SERVICE: 09/17/2020 HISTORY OF PRESENT ILLNESS: Mrs. Salinas had a good day. She participated with physical therapy well. She was able to stand up, take 3 steps forward and also take 3 steps side. She is able to sit for almost an hour at a time to eat her breakfast and play card games. These are improvements since 2-1/2 weeks ago. She tolerated not taking any Bumex yesterday, because she seemed to be able to keep in's and out's even. REVIEW OF SYSTEMS: GENERAL: There is no fever, chills, or productive cough. HEENT: There is no change in vision, hearing, or swallowing. PULMONARY: There is no shortness of breath. CARDIAC: There is no complaint of chest pain, palpitations, or syncope. GI: There is no nausea, vomiting, diarrhea. However, she cannot control her bowel movement once she sits down. : She used a PureWick. MUSCULOSKELETAL: There is no muscular pain or joint pains. INTEGUMENT: There are no skin breakdown. NEUROLOGIC: There are no focal deficits or weaknesses. CURRENT MEDICATIONS: 1. Acetazolamide 250 mg daily. 2. Amiodarone 200 mg daily. 3. Apixaban 5 mg b.i.d. 4. Atorvastatin 40 mg at bedtime. 5. Gabapentin 300 mg b.i.d. 6. Magnesium oxide 400 mg b.i.d. 7. Toprol-XL 25 mg q.12 hours. 8. Milrinone currently at 0.425 mcg/kg per minute. 9. Protonix 20 mg daily. 10. K-Dur 40 mEq daily. 11. Spironolactone 25 mg daily. Her telemetry is reviewed. She is in chronic atrial fibrillation with a rate in 80s. PHYSICAL EXAMINATION: VITAL SIGNS: Her latest vital signs are heart rate about 82, blood pressure 117/67. GENERAL: She is alert and conversational, relaxed, sitting well in bed. HEENT: Show EOMI. Oropharynx is benign with moist mucosa. NECK: Her JVP is about 9 cm. PULMONARY: There is good air movement bilateral. There are no crackles. CARDIAC: Irregular rate, irregular rhythm with 1/6 holosystolic murmur at the left sternal border corresponding to tricuspid regurgitation. ABDOMEN: Very large, soft, nontender. Positive bowel sounds. EXTREMITIES: Her lower extremities, there is some slight pitting edema in her feet, but then she has her feet hanging off the bed for a long time. LABORATORY DATA: Her laboratory values this morning are: Sodium 139, potassium 4.2, chloride 100, bicarb 30, BUN 48, creatinine 1.63, glucose 103. 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 This is a result of Covid-19 pneumonia and underlying atrial fibrillation. She is currently requiring milrinone to support her right heart. However, she has shown signs of improvement. There is a chance that milrinone can be titrated off with LTAC stay. She will also need to gain the ability to transfer herself at LTAC. Currently, her atrial fibrillation is well rate controlled. In the near future, we do plan to conduct cardioversion. Sinus rhythm will improve her overall status and give her the better chance in titrating off her Milrinone. Her chronic renal syndrome is improving. We will continue with current regimen and leave off the loop diuretics for now. If she has any signs of increasing the edema, then we will have to restart loop diuretics. We will keep the loop diuretic off for another day. There is a chance that we will increase her spironolactone to 50 mg instead of 25. Please see the following for my detailed recommendations. RECOMMENDATIONS 1. Continue milrinone 0.425 mcg/kg per minute. 2. Continue with current combination of amiodarone 200 mg daily and Toprol-XL at 25 mg p.o. q.12 hours. 3. Continue with spironolactone 25 mg daily; may consider increasing tomorrow 4. Please keep potassium at 4 and magnesium at 2. 5. We will make an appeal for allowing her to transfer to LTAC It has been a pleasure taking care of Ms. Salinas. If you have any question, please give me a call. The total time for this visit is 35 minutes. Job ID: [id number] [facility] SYSTEMClarice
--- NOTE | 2020-09-17 13:49 | PRG ---
DATE OF SERVICE: 09/17/2020 I have reviewed the note of Dr. Shakila Tracey and agree with her assessment and plan. Job ID: [id number]
[2020-09-17] MEDS: Atorvastatin Calcium 40 MG TAB PO SCH (21:42)
[2020-09-18] MEDS: Milrinone Lactate/D5W 20 MG in Premix Bag 1 BAG IVPB SCH ×5 (01:35→21:56)
[2020-09-18 04:29] LABS: Anion Gap 12 mmol/L (10-20); BUN (Urea Nitrogen) 45 mg/dL (9.8-20.1); Calc. Creatinine Clearance 54 mL/min (70-130); Calcium 8.4 mg/dL (7.8-10.44); Carbon Dioxide 27 mmol/L (23-31); Chloride 103 mmol/L (98-107); Glucose 124 mg/dL (83-110); Potassium 4.6 mmol/L (3.5-5.1); Sodium 137 mmol/L (136-145)
--- NOTE | 2020-09-18 06:04 | PDOC.FM ---
- Subjective Subjective: Pt resting comfortably in bed this AM. No acute events overnight. Has been working really well with PT with improvement in strength. - Objective Vital Signs & Weight: Vital Signs (12 hours) Temp Pulse Resp BP Pulse Ox 09/18/20 03:23 97.4 F L 87 20 102/51 L 97 09/17/20 23:54 98.3 F 81 18 115/55 L 98 09/17/20 21:38 99 Weight Admit Weight 137.524 kg Weight 135.9 kg Most Recent Monitor Data Heart Rate from ECG 70 NIBP 138/93 NIBP BP-Mean 108 Respiration from ECG 18 SpO2 94 I&O: 09/16/20 09/17/20 09/18/20 06:59 06:59 06:59 Intake Total 1600 1360 1259.2 Output Total 1520 1300 375 Balance 80 60 884.2 Result Diagrams: 09/15/20 10:02 09/18/20 03:33 Phys Exam - Physical Examination Constitutional: NAD HEENT: moist MMs Neck: supple Respiratory: no wheezing, no rales, no rhonchi, clear to auscultation bilateral Cardiovascular: no rub irregular RR Gastrointestinal: soft, non-tender, no distention, positive bowel sounds Musculoskeletal: pulses present Neurological: normal sensation Psychiatric: normal affect, A&O x 3 Skin: normal turgor Dx/Plan - Plan Plan: Acute hypoxic respiratory failure likely 2/2 to right heart failure with cardiorenal syndrome -pt originally received lasix due to concern for CHF exacerbation, patient then appeared dry and was hypotensive, labs were concerning for hypoperfusion so patient was given fluids overnight on two different occasions; then concerns for cardiogenic shock --> Dr. Bone consulted -now on 2-2.5 L NC, pt is on 2 L at home -original CXR: bilateral pleural effusions that were not present on previous imaging, repeat xray showed improvement, repeat worsening of CHF -BNP 286 > 324.3; s/p lasix, now on bumex -EKG: Afib w/RVR -echo 08/17: technically difficulty exam 2/2 body habitus, EF 50-55%, diastolic dysfunction cannot be assessed -consulted nephro: diuretics per cards, IV iron, signed off on 08/29 with outpatient f/u in 2-3 weeks -cortisol stimulation test: normal -EP (Dr. Stapleton) consulted per Dr. Bone: Attempted cardioversion 09/06, but no conversion to SR achieved depite multiple high energy shocks; recommended continued amiodarone 200mg, consider repeat cardioversion in 4-6 weeks -Per Dr. Bone: * lasix stopped 09/08 due to bump in Cr, will continue Bumex 1mg daily 09/09 * started on Tropol XL 12.5 mg q 12 hours on 08/26, increased to 25 mg q12hrs on 08/27, decreased to 12.5 mg on 08/28 * milrinone gtt started on 09/03, drip at .425 HFpEF -ECHO 07/02, EF 50-55%, see repeat above -TTE 09/06: Combination R ventricular failure and left ventricular diastolic dysfunction -BNP 286 > 324.3 -lasix stopped 09/[address] Bone, will resume Bumex 1 09/09 -strict I/Os, daily weights Bowel Incontinence, Likely 2/2 age and inactivity Possible long-term gabapentin use causing - ordered back MRI, however due to body habitus MRI informed us that we would be unable to get it, d/c'd order due to low suspicion of neurologic cause as patient has sensation at the anus and groin, is walking, the loss of stool is positional- typically when sitting - continue working with PT to regain strength UTI, s/p treatment -urine cx: Kleb, E.coli, non-hem strep with dysuria -Ceftriaxone (08/24), x3 days (last day 08/26) -discussed possible interaction between penicillin allergy and cross reaction with ceftriaxone, patient understood and was okay with receiving antibiotics, she denies any reaction -due to hypotension overnight on 08/27-08/28, repeat blood cx and UA: UA a ppeared clean, no UCx resulted -gave azo 09/02 for suprapubic discomfort with urinating, UA clean, UCx - mixed woo; irritation resolved Hypotension, resolved -s/p 500 ml bolus x2, not receiving fluids due to concern for worsening CHF 2/2 to right heart failure and cardiogenic shock -likely 2/2 to cardiogenic shock - on milrinone gtt -will continue to hold lisinopril and coreg -Dr. Bone consulted as mentioned above Afib w/RVR, now rate controlled -Known history: known source, as patient was not taking PO Dilt at home. Patient also just was seen by Dr Connelly outpatient -Anticoagulated with warfarin prior to 08/[address] Tolliver at which time he switched to eliquis due to subtherapeutic INR and missing warfarin doses. -HR 90-110s while in ED, now rate controlled in the 60s-80s -RVR initially improved --> RVR returned on 08/27 --> normal rate 08/28 -s/p dilt gtt stopped 08/16, transitioned to dilt PO, dilt DC'd per Lizandro gradys -DC'd dilt and coreg per Lizandro gradys, on amiodarone and Toprol XL * Amiodarone 400 mg BID until 5g loading dose (last dose 08/28) achieved followed by amiodarone 200 mg daily (08/29) * Toprol 12.5 mg q12hrs * Increased Eliquis to 5 mg BID 09/04 per Lizandro gradys -EP: failed cardioversion 09/06, will reattempt in 4 weeks -TSH: 0.2821 with normal free T3 and T4, will obtain antibodies, repeat TSH per Dr. Bone request 1.2 Bowel Incontinence, possibly 2/2 Low Back Injury Fall in May, resulting in lower back numbness - improving; Bowel incontinence x 1 week - will return for thorough exam of lower back, reflexes, anal sphincter tone - will get XR back SEGUNDO on CKD3 -Cr 1.02 on admission -Cr of 1.61 > 1.62 > 1.49 > 1.51; likely new baseline -likely secondary to cardiogenic shock -Dr. Bone consulted, tiffany recs -Nephro consulted: diuretics per cards, signed off with outpatient f/u 2-3 weeks - remains near baseline, will continue to monitor Normocytic Anemia -Hgb: 8.6; due to CHF and cardiogenic shock, will keep Hgb above 8 -iron: 23, TIBC: 184, %sat: 13, Transferrin: 147, ferritin pending -Dr. Davidson has ordered IV iron x3 bags -possibly a mixed picture, likely anemia of chronic disease with possible iron deficiency anemia Transaminitis, resolved -likely 2/2 to hypoperfusion vs congestion 2/2 to cardiorenal syndrome -will continue to monitor Elevated troponin -0.068>.164>.242>.165 -likely demand ischemia due to Afib COPD -sony BLANCHARDN Recent hospitalization for COVID pneumonia -05/18-05/21 -Has been on supplemental home oxygen since (2-3L) -Reports negative test on 08/10 HTN -holding original home meds -Stopped isosorbide dinitrate and hydralazine on 08/27 to increase perfusion to the kidney with hopes of increasing diuresis; added back hydralazine on 08/29; see above for further info --> stopped hydralazine and isosorbite dinitrate 09/03 after adding milrinone gtt HLD -Aware, continue home meds GERD -Aware, continue home meds Chronic back pain due to spondylosis -Aware, continue home meds -takes norco for pain Dispo as of 09/18: LTAC placement denied by insurance in peer-peer. CM working in possible new options for pt at this time. LTAC approval has been resubmitted. Seem to be getting closer to a placement at this time.
[2020-09-18] MEDS: Potassium Chloride 20 MEQ TAB PO SCH (09:35)
[2020-09-18] MEDS: Amiodarone 200 MG TAB PO SCH (09:36)
[2020-09-18] MEDS: AcetaZOLAMIDE 250 MG TAB PO SCH (09:36)
[2020-09-18] MEDS: Magnesium Oxide 400 MG TAB PO SCH ×2 (09:36→21:55)
[2020-09-18] MEDS: Gabapentin 300 MG CAP PO SCH ×2 (09:36→21:55)
[2020-09-18] MEDS: Spironolactone 25 MG TAB PO SCH (09:36)
[2020-09-18] MEDS: Apixaban 5 MG TAB PO SCH ×2 (09:36→21:55)
[2020-09-18] MEDS ORDERED: Potassium Chloride 20 MEQ TAB PO SCH (12:30)
--- NOTE | 2020-09-18 13:17 | PRG ---
DATE OF SERVICE: 09/18/2020 SERVICE: Advanced Heart Failure Transplant Cardiology Consult Service. SUBJECTIVE: Mrs. Salinas had an excellent day. She participates with PT without any problems. She has increased strength, increased agility, increased mobility, now she can actually walk around the bed on the walker. This is the best she ever done. Urine collection for the last 24 hours incorrect. The PureWick was not hooked up. She urinated in the pad and a diaper, so majority of urine was not collected. She still has some burning sensation with urination. REVIEW OF SYSTEMS: GENERAL: There is no fever, chills, or productive cough. HEENT: There is no change in vision, hearing, or swallowing. PULMONARY: There is no shortness of breath. CARDIAC: There is no complaint of chest pain, palpitations, or syncope. GI: There is no nausea, vomiting, and diarrhea. However, she does not have a good sense of bowel control, so if she sits down, she will defecate on controllably. URINE: She still uses PureWick. MUSCULOSKELETAL: There is no complaints of new joint, pains or muscle pains. INTEGUMENT: There are no new complaints of skin breakdown. NEUROLOGIC: There has chronic decreased proprioception and sensation on right thigh, but there is no new focal deficits or weaknesses. CURRENT MEDICATIONS: Include, 1. Acetazolamide 250 mg daily. 2. Amiodarone 200 mg daily. 3. Apixaban 5 mg b.i.d. 4. Atorvastatin 40 mg daily. 5. Gabapentin 300 mg b.i.d. 6. Magnesium oxide 400 mg b.i.d. 7. Toprol-XL 25 mg q.12 hours. 8. Milrinone currently at 0.425 mcg/kg per minute. 9. Protonix 20 mg daily. 10. K-Dur 20 mEq daily. 11. Spironolactone 25 mg daily. PHYSICAL EXAMINATION: Her telemetry was reviewed. She is in chronic atrial fibrillation. The average heart rate in the mid 80s. There are no concerning arrhythmias. VITAL SIGNS: Her latest vital signs are heart rate 74 and blood pressure 105/51. GENERAL: She is alert and conversational, sitting up comfortably in bed, now she is getting back in to bed. She has been sitting for 3 hours, so this is the best she has ever done. She is not short of breath. She is relaxed. HEENT: Show EOMI. Oropharynx is benign with moist mucosa. NECK: Her JVP is about 10 cm. PULMONARY: There is good air movement bilaterally. There are no crackles bilaterally. CARDIAC: There is irregularly irregular rhythm with normal S1/S2, there is 2/6 holosystolic murmur at the left upper sternal border. ABDOMEN: Very large, soft, nontender. Positive bowel sounds. EXTREMITIES: Lower extremities are large. However, there is some only minimal edema from feet to knee. She has varicose veins, more prominent on the right lower extremity. LABORATORY DATA: Her laboratory values today are sodium 137, potassium 4.6, chloride 103, bicarbonate 27, BUN 45, and creatinine 1.64. 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 She has [place] Heart Association stage C, [place] Heart Association Class 3B heart failure due to right heart failure and diastolic dysfunction on the left heart. Her atrial fibrillation is under good rate control with combination amiodarone and also Toprol-XL. She can definitely benefit from LTAC stay if that is possible. The LTAC stay will allow her gain strength and function with cardioversion per how she can eventually be titrated off milrinone. Currently it is not possible. Also, she appears to be well compensated. However, BUN and creatinine still remain a little bit too high. This still suggests an insufficient cardiac output, so today we will try to increase her cardiac output some more. Please see the following for my recommendations. RECOMMENDATIONS 1. Increase milrinone to 0.5 mcg/kg per minute. 2. Stop acetazolamide. 3. Decrease potassium supplement to 20 mEq daily starting tomorrow. 4. If she regains fluid again, then we will have to restart Bumex at this point, we will see how far we can go without starting Bumex. 5. We will work with case loader operator and also we will need to find a workable plan for her to go home. She is getting to the point where she can be strong enough to go home. 6. If all possible, arrange for hospital bed at home, so that where she could get in and out of bed at home. It has been a pleasure taking care of Mrs. Salinas. The total visitation time today is 40 minutes. If you have any questions, please give me a call. Job ID: [id number] [facility]
--- NOTE | 2020-09-18 13:24 | PRG ---
DATE OF SERVICE: 09/18/2020 I have examined the patient and discussed the case with Dr. Shakila Tracey. I agree with her assessment and plan. We are still awaiting insurance decisions regarding placement. Job ID: [id number]
[2020-09-18 15:35] LABS: Bilirubin Negative (Negative); Blood, Urine Negative (Negative); Clarity Clear (Clear); Glucose, Urine (Dipstick) Normal (Negative); Ketone, Urine Negative (Negative); Leukocyte Negative Leu/uL (Negative); Nitrite Negative (Negative); Protein, Urine (Dipstick) Negative (Neg-Trace); RBC/HPF None Seen HPF (0-3); Specific Gravity, Urine 1.016 (1.002-1.036); Squamous Epithelial 0-3 HPF (0-3); Urobilinogen Normal mg/dL (Less than 2); WBC/HPF 0-3 HPF (0-3); pH, Urine 7.5 (5.0-9.0)
[2020-09-18 15:43] LABS: Bacteria/HPF 4+ HPF (None Seen)
[2020-09-18 15:44] LABS: Urine Culture Reflex Yes Yes
[2020-09-18] MEDS: Calcium Carbonate 500 MG ChewTAB PO PRN (16:45)
[2020-09-18] MEDS: cefTRIAXone\\ROCEPHIN 1 GM in Sodium Chloride 0.9% 100 ML IVPB SCH (19:21)
[2020-09-18] MEDS: Atorvastatin Calcium 40 MG TAB PO SCH (21:55)
[2020-09-18] MEDS: HYDROcodone/Acetaminophen 5/325 mg Tablet PO PRN (21:59)
[2020-09-19] MEDS: Milrinone Lactate/D5W 20 MG in Premix Bag 1 BAG IVPB SCH ×4 (03:51→20:17)
[2020-09-19 05:05] LABS: Anion Gap 12 mmol/L (10-20); BUN (Urea Nitrogen) 44 mg/dL (9.8-20.1); Calc. Creatinine Clearance 57 mL/min (70-130); Calcium 8.5 mg/dL (7.8-10.44); Carbon Dioxide 27 mmol/L (23-31); Chloride 105 mmol/L (98-107); Glucose 109 mg/dL (83-110); Magnesium 1.9 mg/dL (1.6-2.6); Potassium 4.5 mmol/L (3.5-5.1); Sodium 139 mmol/L (136-145)
--- NOTE | 2020-09-19 05:37 | PDOC.FM ---
- Subjective Subjective: Pt resting comfortably in bed this AM. No acute events overnight. - Objective Vital Signs & Weight: Vital Signs (12 hours) Temp Pulse Resp BP Pulse Ox 09/19/20 00:40 70 113/53 L 09/18/20 21:27 97.6 F 83 16 99/53 L 97 Weight Admit Weight 137.524 kg Weight 135.9 kg Most Recent Monitor Data Heart Rate from ECG 70 NIBP 138/93 NIBP BP-Mean 108 Respiration from ECG 18 SpO2 94 I&O: 09/17/20 09/18/20 09/19/20 06:59 06:59 06:59 Intake Total 1360 1259.2 1316 Output Total 1300 375 800 Balance 60 884.2 516 Result Diagrams: 09/15/20 10:02 09/19/20 04:13 Phys Exam - Physical Examination Constitutional: NAD HEENT: moist MMs Neck: supple Respiratory: no wheezing, no rales, no rhonchi poor inspiratory effort Cardiovascular: no rub irregular RR Gastrointestinal: soft, non-tender, no distention, positive bowel sounds Musculoskeletal: pulses present Neurological: moves all 4 limbs Psychiatric: normal affect, A&O x 3 Skin: normal turgor Dx/Plan - Plan Plan: Acute hypoxic respiratory failure likely 2/2 to right heart failure with cardiorenal syndrome -pt originally received lasix due to concern for CHF exacerbation, patient then appeared dry and was hypotensive, labs were concerning for hypoperfusion so patient was given fluids overnight on two different occasions; then concerns for cardiogenic shock --> Dr. Bone consulted -now on 2-2.5 L NC, pt is on 2 L at home -original CXR: bilateral pleural effusions that were not present on previous imaging, repeat xray showed improvement, repeat worsening of CHF -BNP 286 > 324.3; s/p lasix, now on bumex -EKG: Afib w/RVR -echo 08/17: technically difficulty exam 2/2 body habitus, EF 50-55%, diastolic dysfunction cannot be assessed -consulted nephro: diuretics per cards, IV iron, signed off on 08/29 with outpatient f/u in 2-3 weeks -cortisol stimulation test: normal -EP (Dr. Stapleton) consulted per Dr. Bone: Attempted cardioversion 09/06, but no conversion to SR achieved depite multiple high energy shocks; recommended continued amiodarone 200mg, consider repeat cardioversion in 4-6 weeks -Per Dr. Bone: * lasix stopped 09/08 due to bump in Cr, will continue Bumex 1mg daily 09/09 * started on Tropol XL 12.5 mg q 12 hours on 08/26, increased to 25 mg q12hrs on 08/27, decreased to 12.5 mg on 08/28 * milrinone gtt started on 09/03, drip at .425, now at 0.5 as of 09/18 HFpEF -ECHO 07/02, EF 50-55%, see repeat above -TTE 09/06: Combination R ventricular failure and left ventricular diastolic dysfunction -BNP 286 > 324.3 -lasix stopped 09/[address] Bone, will resume Bumex 1 09/09 -strict I/Os, daily weights Bowel Incontinence, Likely 2/2 age and inactivity Possible long-term gabapentin use causing - ordered back MRI, however due to body habitus MRI informed us that we would be unable to get it, d/c'd order due to low suspicion of neurologic cause as patient has sensation at the anus and groin, is walking, the loss of stool is positional- typically when sitting - continue working with PT to regain strength UTI, s/p treatment -urine cx: Kleb, E.coli, non-hem strep with dysuria -Ceftriaxone (08/24), x3 days (last day 08/26) -discussed possible interaction between penicillin allergy and cross reaction with ceftriaxone, patient understood and was okay with receiving antibiotics, she denies any reaction -due to hypotension overnight on 08/27-08/28, repeat blood cx and UA: UA appeared clean, no UCx resulted -gave azo 09/02 for suprapubic discomfort with urinating, UA clean, UCx - mixed woo; irritation resolved Hypotension, resolved -s/p 500 ml bolus x2, not receiving fluids due to concern for worsening CHF 2/2 to right heart failure and cardiogenic shock -likely 2/2 to cardiogenic shock - on milrinone gtt -will continue to hold lisinopril and coreg -Dr. Bone consulted as mentioned above Afib w/RVR, now rate controlled -Known history: known source, as patient was not taking PO Dilt at home. Patient also just was seen by Dr Connelly outpatient -Anticoagulated with warfarin prior to 08/[address] Tolliver at which time he switched to eliquis due to subtherapeutic INR and missing warfarin doses. -HR 90-110s while in ED, now rate controlled in the 60s-80s -RVR initially improved --> RVR returned on 08/27 --> normal rate 08/28 -s/p dilt gtt stopped 08/16, transitioned to dilt PO, dilt DC'd per Lizandro gradys -DC'd dilt and coreg per Lizandro recs, on amiodarone and Toprol XL * Amiodarone 400 mg BID until 5g loading dose (last dose 08/28) achieved fo llowed by amiodarone 200 mg daily (08/29) * Toprol 12.5 mg q12hrs * Increased Eliquis to 5 mg BID 09/04 per Lizandro recs -EP: failed cardioversion 09/06, will reattempt in 4 weeks -TSH: 0.2821 with normal free T3 and T4, will obtain antibodies, repeat TSH per Dr. Bone request 1.2 Bowel Incontinence, possibly 2/2 Low Back Injury Fall in May, resulting in lower back numbness - improving; Bowel incontinence x 1 week - will return for thorough exam of lower back, reflexes, anal sphincter tone - will get XR back SEGUNDO on CKD3 -Cr 1.02 on admission -Cr of 1.61 > 1.62 > 1.49 > 1.51; likely new baseline -likely secondary to cardiogenic shock -Dr. Bone consulted, tiffany recs -Nephro consulted: diuretics per cards, signed off with outpatient f/u 2-3 weeks - remains near baseline, will continue to monitor Normocytic Anemia -Hgb: 8.6; due to CHF and cardiogenic shock, will keep Hgb above 8 -iron: 23, TIBC: 184, %sat: 13, Transferrin: 147, ferritin pending -Dr. Davidson has ordered IV iron x3 bags -possibly a mixed picture, likely anemia of chronic disease with possible iron deficiency anemia Transaminitis, resolved -likely 2/2 to hypoperfusion vs congestion 2/2 to cardiorenal syndrome -will continue to monitor Elevated troponin -0.068>.164>.242>.165 -likely demand ischemia due to Afib COPD -duonebs PRN Recent hospitalization for COVID pneumonia -05/18-05/21 -Has been on supplemental home oxygen since (2-3L) -Reports negative test on 08/10 HTN -holding original home meds -Stopped isosorbide dinitrate and hydralazine on 08/27 to increase perfusion to the kidney with hopes of increasing diuresis; added back hydralazine on 08/29; see above for further info --> stopped hydralazine and isosorbite dinitrate 09/03 after adding milrinone gtt HLD -Aware, continue home meds GERD -Aware, continue home meds Chronic back pain due to spondylosis -Aware, continue home meds -takes norco for pain Dispo as of 09/19: LTAC approval has been resubmitted. Pending this approval vs. home health with milrone gtt.
[2020-09-19] MEDS: Magnesium Oxide 400 MG TAB PO SCH ×2 (09:02→20:13)
[2020-09-19] MEDS: Gabapentin 300 MG CAP PO SCH ×2 (09:02→20:14)
[2020-09-19] MEDS: Apixaban 5 MG TAB PO SCH ×2 (09:03→20:14)
[2020-09-19] MEDS: Spironolactone 25 MG TAB PO SCH (09:03)
[2020-09-19] MEDS: Potassium Chloride 20 MEQ TAB PO SCH (09:03)
[2020-09-19] MEDS: Amiodarone 200 MG TAB PO SCH (09:03)
--- NOTE | 2020-09-19 10:33 | PRG ---
DATE OF SERVICE: 09/19/2020 SUBJECTIVE: Mrs. Renee Salinas had an excellent day. She participated with PT well. She was able to walk a short distance on the walker to her wheelchair. Afterwards, she was able to stay in her wheelchair using her legs to go down the hyman with wheelchair a significant distance. This is the first time she has done this in many months, so this is a significant improvement. She continued to have pain with urination. Her urine culture came back positive for E coli, she was treated, and she says she felt better afterwards. Milrinone was increased to 0.5 mcg/kg per minute yesterday. She noticed that she had some increased function with it. So overall, she is heading in the right direction. REVIEW OF SYSTEMS: GENERAL: There is no fever, chills, or productive cough. HEENT: There is no change in vision, hearing, or swallowing. PULMONARY: She is breathing easy. CARDIAC: There is no mention of palpitations, chest pain, or syncope. GI: There is no nausea, vomiting, or diarrhea. : Please see HPI. MUSCULOSKELETAL: There are no new muscle or joint pains. INTEGUMENT: There is no new skin breakdown. NEUROLOGIC: There are no new focal deficits or weaknesses. She still has chronic proprioception and decreased sensation on right side, but she still has some episodic shaking episodes that has decreased significantly overtime. MEDICATIONS: Her current medication list includes, 1. Amiodarone 200 mg daily. 2. Apixaban 5 mg twice a day. 3. Atorvastatin 40 mg at bedtime. 4. Ceftriaxone currently at 1 g daily. 5. Gabapentin at 300 mg b.i.d. 6. Magnesium oxide 400 mg b.i.d. 7. Toprol-XL 25 mg p.o. q.12 hours. 8. Milrinone currently at 0.5 mcg/kg/minute. 9. Protonix at 20 mg daily. 10. K-Dur at 20 mEq daily. 11. Spironolactone at 25 mg p.o. daily. Her telemetry was reviewed. She is in chronic atrial fibrillation. There is no concerning arrhythmia. Her average rate is about 80, so she is well rate controlled. PHYSICAL EXAMINATION: VITAL SIGNS: Her current vitals are heart rate 83, blood pressure 117/70. GENERAL: She is alert and conversational, reclining in bed. She is looking energetic. HEENT: EOMI. Oropharynx is benign with moist mucosa. NECK: JVP about 9 cm with positive hepatojugular reflux. PULMONARY: She has good air movement bilaterally. Clear to auscultation bilaterally. HEART: Irregular rate, irregular rhythm. There is normal S1, S2. There is 2/6 holosystolic murmur at the apex with radiation to left axilla. ABDOMEN: Large, soft, nontender. Positive bowel sounds. EXTREMITIES: Her lower extremities have positive dorsalis pedis pulses. There is minimal or no edema. LABORATORY DATA: Her chemistry for today; sodium 139, potassium 4.5, chloride 101, bicarb 27, BUN 44, and creatinine is 1.61. Her magnesium is 1.9. She has 1600 in and 1400 out, so essentially even. 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 She resides in [place] Heart Association stage C, [place] Heart Association class 3B right heart failure. This is also exacerbated by atrial fibrillation and diastolic dysfunction on the left ventricle. She has proven that she needs chronic milrinone therapy to regain function. She has been regaining function everyday instead steadily. She will need to continue with milrinone. Currently, she is as euvolemic as she can be. Spironolactone 25 mg daily seemed to be sufficient at this point. Unfortunately, creatinine remains about 1.6 to 1.7 as her new her baseline. We will aim to provide as much rehabilitation to her as possible. If all possible, she can benefit from LTAC. She has the chance to improve with LTAC treatment. If LTAC is not possible, we will continue to work with her to finding a way to provide outpatient milrinone therapy and outpatient home health care. Per her daughter and her recollection, [facility] has been seeing her at home visits, so this need to be continued with ability to monitor her milrinone effect. RECOMMENDATIONS: 1. Continue milrinone at 0.5 mcg/kg/minute. 2. Continue spironolactone at 25 mg daily. There is no need for loop diuretics today. 3. Continue to keep her potassium above 4 and magnesium above 2. We can do that by increasing mag oxide to 800 mg twice a day. 4. Continue to anticoagulate for atrial fibrillation. In the near future, Dr. Stapleton will perform another cardioversion. If she can convert her to sinus rhythm, that will be very helpful. It has been a pleasure taking care of Mrs. Salinas. If you have any questions, please give me a call. The visitation time is 40 minutes today. Job ID: [id number] MTDD
--- NOTE | 2020-09-19 16:15 | PRG ---
DATE OF SERVICE: 09/19/2020 We are still awaiting placement. No clinical changes. Job ID: [id number]
[2020-09-19] MEDS: cefTRIAXone\\ROCEPHIN 1 GM in Sodium Chloride 0.9% 100 ML IVPB SCH (17:40)
[2020-09-19] MEDS: Atorvastatin Calcium 40 MG TAB PO SCH (20:14)
[2020-09-19] MEDS: Calcium Carbonate 500 MG ChewTAB PO PRN (20:15)
[2020-09-19] MEDS: HYDROcodone/Acetaminophen 5/325 mg Tablet PO PRN (20:15)
[2020-09-20] MEDS: Milrinone Lactate/D5W 20 MG in Premix Bag 1 BAG IVPB SCH ×5 (02:21→23:04)
[2020-09-20 05:09] LABS: Anion Gap 12 mmol/L (10-20); BUN (Urea Nitrogen) 39 mg/dL (9.8-20.1); Calc. Creatinine Clearance 61 mL/min (70-130); Calcium 8.7 mg/dL (7.8-10.44); Carbon Dioxide 25 mmol/L (23-31); Chloride 107 mmol/L (98-107); Glucose 116 mg/dL (83-110); Potassium 4.7 mmol/L (3.5-5.1); Sodium 139 mmol/L (136-145)
--- NOTE | 2020-09-20 05:55 | PDOC.FM ---
- Subjective Subjective: Pt resting comfortably in bed this AM. No acute events overnight. - Objective Vital Signs & Weight: Vital Signs (12 hours) Temp Pulse Resp BP BP Pulse Ox 09/20/20 00:00 99 110/55 L 09/19/20 20:00 97.4 F L 89 18 116/70 95 Weight Admit Weight 137.524 kg Weight 135.488 kg Most Recent Monitor Data Heart Rate from ECG 70 NIBP 138/93 NIBP BP-Mean 108 Respiration from ECG 18 SpO2 94 I&O: 09/18/20 09/19/20 09/20/20 06:59 06:59 06:59 Intake Total 1259.2 1616 1200 Output Total 375 1400 800 Balance 884.2 216 400 Result Diagrams: 09/15/20 10:02 09/20/20 04:21 Phys Exam - Physical Examination Constitutional: NAD HEENT: moist MMs Neck: supple Respiratory: no wheezing, no rales, no rhonchi, clear to auscultation bilateral Cardiovascular: no rub irregular RR Gastrointestinal: soft, non-tender, no distention, positive bowel sounds Musculoskeletal: pulses present Neurological: normal sensation Psychiatric: normal affect, A&O x 3 Skin: normal turgor Dx/Plan - Plan Plan: Acute hypoxic respiratory failure likely 2/2 to right heart failure with cardiorenal syndrome -pt originally received lasix due to concern for CHF exacerbation, patient then appeared dry and was hypotensive, labs were concerning for hypoperfusion so patient was given fluids overnight on two different occasions; then concerns for cardiogenic shock --> Dr. Bone consulted -now on 2-2.5 L NC, pt is on 2 L at home -original CXR: bilateral pleural effusions that were not present on previous imaging, repeat xray showed improvement, repeat worsening of CHF -BNP 286 > 324.3; s/p lasix, now on bumex -EKG: Afib w/RVR -echo 08/17: technically difficulty exam 2/2 body habitus, EF 50-55%, diastolic dysfunction cannot be assessed -consulted nephro: diuretics per cards, IV iron, signed off on 08/29 with outpatient f/u in 2-3 weeks -cortisol stimulation test: normal -EP (Dr. Stapleton) consulted per Dr. Bone: Attempted cardioversion 09/06, but no conversion to SR achieved depite multiple high energy shocks; recommended continued amiodarone 200mg, consider repeat cardioversion in 4-6 weeks -Per Dr. Bone: * lasix stopped 09/08 due to bump in Cr, will continue Bumex 1mg daily 09/09 * started on Tropol XL 12.5 mg q 12 hours on 08/26, increased to 25 mg q12hrs on 08/27, decreased to 12.5 mg on 08/28 * milrinone gtt started on 09/03, drip at .425, now at 0.5 as of 09/18 HFpEF -ECHO 07/02, EF 50-55%, see repeat above -TTE 09/06: Combination R ventricular failure and left ventricular diastolic dysfunction -BNP 286 > 324.3 -lasix stopped 09/[address] Bone, will resume Bumex 1 09/09 -strict I/Os, daily weights Bowel Incontinence, Likely 2/2 age and inactivity Possible long-term gabapentin use causing - ordered back MRI, however due to body habitus MRI informed us that we would be unable to get it, d/c'd order due to low suspicion of neurologic cause as patient has sensation at the anus and groin, is walking, the loss of stool is positional- typically when sitting - continue working with PT to regain strength UTI, s/p treatment -urine cx: Kleb, E.coli, non-hem strep with dysuria -Ceftriaxone (08/24), x3 days (last day 08/26) -discussed possible interaction between penicillin allergy and cross reaction with ceftriaxone, patient understood and was okay with receiving antibiotics, she denies any reaction -due to hypotension overnight on 08/27-08/28, repeat blood cx and UA: UA appeared clean, no UCx resulted -gave azo 09/02 for suprapubic discomfort with urinating, UA clean, UCx - mixed woo; irritation resolved Hypotension, resolved -s/p 500 ml bolus x2, not receiving fluids due to concern for worsening CHF 2/2 to right heart failure and cardiogenic shock -likely 2/2 to cardiogenic shock - on milrinone gtt -will continue to hold lisinopril and coreg -Dr. Bone consulted as mentioned above Afib w/RVR, now rate controlled -Known history: known source, as patient was not taking PO Dilt at home. Patient also just was seen by Dr Connelly outpatient -Anticoagulated with warfarin prior to 08/[address] Tolliver at which time he switched to eliquis due to subtherapeutic INR and missing warfarin doses. -HR 90-110s while in ED, now rate controlled in the 60s-80s -RVR initially improved --> RVR returned on 08/27 --> normal rate 08/28 -s/p dilt gtt stopped 08/16, transitioned to dilt PO, dilt DC'd per Lizandro gradys -DC'd dilt and coreg per Lizandro recs, on amiodarone and Toprol XL * Amiodarone 400 mg BID until 5g loading dose (last dose 08/28) achieved followed by amiodarone 200 mg daily (08/29) * Toprol 12.5 mg q12hrs * Increased Eliquis to 5 mg BID 09/04 per Lizandro recs -EP: failed cardioversion 09/06, will reattempt in 4 weeks -TSH: 0.2821 with normal free T3 and T4, will obtain antibodies, repeat TSH per Dr. Bone request 1.2 Bowel Incontinence, possibly 2/2 Low Back Injury Fall in May, resulting in lower back numbness - improving; Bowel incontinence x 1 week - will return for thorough exam of lower back, reflexes, anal sphincter tone - will get XR back SEGUNDO on CKD3 -Cr 1.02 on admission -Cr of 1.61 > 1.62 > 1.49 > 1.51; likely new baseline -likely secondary to cardiogenic shock -Dr. Bone consulted, appreciate recs -Nephro consulted: diuretics per cards, signed off with outpatient f/u 2-3 weeks - remains near baseline, will continue to monitor Normocytic Anemia -Hgb: 8.6; due to CHF and cardiogenic shock, will keep Hgb above 8 -iron: 23, TIBC: 184, %sat: 13, Transferrin: 147, ferritin pending -Dr. Davidson has ordered IV iron x3 bags -possibly a mixed picture, likely anemia of chronic disease with possible iron deficiency anemia Transaminitis, resolved -likely 2/2 to hypoperfusion vs congestion 2/2 to cardiorenal syndrome -will continue to monitor Elevated troponin -0.068>.164>.242>.165 -likely demand ischemia due to Afib COPD -sony PRN Recent hospitalization for COVID pneumonia -05/18-05/21 -Has been on supplemental home oxygen since (2-3L) -Reports negative test on 08/10 HTN -holding original home meds -Stopped isosorbide dinitrate and hydralazine on 08/27 to increase perfusion to the kidney with hopes of increasing diuresis; added back hydralazine on 08/29; see above for further info --> stopped hydralazine and isosorbite dinitrate 09/03 after adding milrinone gtt HLD -Aware, continue home meds GERD -Aware, continue home meds Chronic back pain due to spondylosis -Aware, continue home meds -takes norco for pain Dispo as of 09/20: It has been decided for HH with milrinone gtt with HH servic es and PT/OT. This is currently in the works as we need to set up with infusion company outpatient. Will change abx to po today.
[2020-09-20] MEDS: Spironolactone 25 MG TAB PO SCH (08:17)
[2020-09-20] MEDS: Apixaban 5 MG TAB PO SCH ×2 (08:17→21:39)
[2020-09-20] MEDS: Potassium Chloride 20 MEQ TAB PO SCH (08:17)
[2020-09-20] MEDS: Amiodarone 200 MG TAB PO SCH ×2 (08:18→21:38)
[2020-09-20] MEDS: Gabapentin 300 MG CAP PO SCH ×2 (08:18→21:38)
[2020-09-20] MEDS: Magnesium Oxide 400 MG TAB PO SCH ×2 (08:18→21:38)
[2020-09-20] MEDS ORDERED: Bumetanide 1 MG TAB PO SCH (09:30)
[2020-09-20] MEDS: Cefdinir 300 MG CAP PO SCH ×2 (09:53→21:39)
--- NOTE | 2020-09-20 10:10 | PRG ---
DATE OF SERVICE: 09/20/2020 SERVICE: Advanced Heart Failure Cardiology Consult Service. SUBJECTIVE: Ms. Renee Salinas had a variable day today. She had a good day with physical therapy. She was able to transfer from her bed to her wheelchair. This is the first time she had done this task in a very, very long time. Afterwards, she was able to wheel herself down in a wheelchair all the way to the edge and back, so this is the most amount of activity she has done since coronavirus. However, throughout the day, she did not feel as well and had acid reflux last night, and then perhaps she is gaining a little bit more fluid. REVIEW OF SYSTEMS: GENERAL: There is no fever, chills, or productive cough. HEENT: There is no change in vision, hearing, or swallowing. PULMONARY: There does not seem to be a change in shortness of breath. CARDIAC: There is no report of chest pain, palpitations, or syncope. GASTROINTESTINAL: Please see HPI. GENITOURINARY: She is using her PureWick. MUSCULOSKELETAL: There are no muscle or joint pains. INTEGUMENT: There is no new skin breakdown. NEUROLOGIC: She has decreased sensation and proprioception on the right side that is chronic. Otherwise, there is no new acute focal deficits or weaknesses. MEDICATIONS: Include, 1. Amiodarone 200 mg daily. 2. Apixaban 5 mg b.i.d. 3. Atorvastatin 40 mg at bedtime. 4. Cefdinir 300 mg b.i.d. 5. Gabapentin 300 mg b.i.d. 6. Magnesium oxide 800 mg b.i.d. 7. Toprol-XL 25 mg q.12 hours. 8. Milrinone currently at 0.5 mcg/kg/minute. 9. Protonix 20 mg daily. 10. K-Dur 20 mEq daily. 11. Spironolactone 25 mg daily. OBJECTIVE: TELEMETRY: Reviewed. She is in chronic atrial fibrillation. Rate between 70 and 80. This is very well controlled. VITAL SIGNS: Her latest vitals are heart rate 70 and blood pressure 108/62. GENERAL: She is alert, conversational, reclining comfortably in bed, speaking well. HEENT: EOMI. Oropharynx is benign with moist mucosa. NECK: Her JVP is more elevated today at about 11 cm. PULMONARY: There is clear air movement; however, there is now new appearance of crackles at the left base, so she has started to accumulate fluid in her lungs. This is newly developed. ABDOMEN: Soft and nontender. Positive bowel sounds. EXTREMITIES: Her lower extremities have slight pitting edema about her feet, a little bit above her ankles. Again, this is new. A 24-hour I's and O's is recorded as 1500 in and 1800 out. However, this did not correspond to the physical exam. LABORATORY DATA: Her chemistry show sodium 139, potassium 4.7, chloride 107, bicarb 25, BUN at 39, creatinine 1.5, and also glucose 116 with magnesium 2.0. ASSESSMENT: 85-year-old lady is still recovering from coronavirus pneumonia inducing severe right heart dysfunction leading to right heart failure. Her diastolic dysfunction on the left also contributes. She resides [place] Heart Association stage C and [place] Heart Association class 3B heart failure with right heart failure due to combination of coronavirus pneumonia and diastolic dysfunction. She is currently showing that she needs milrinone 0.5 mcg/kg/minute to sustain life and provide quality of life. Milrinone at this dose is providing her with increased function. This will need to continue. Without loop diuretics for 3 or 4 days, she is now reaccumulating fluid. We will need to start diuresis again today. She can still benefit from long-term acute care if that is possible. However, she must continue with physical therapy to regain her ability to transfer herself. Please see following for my recommendation. RECOMMENDATIONS: 1. Bumex 2 mg by mouth one dose today. 2. Start Bumex 1 mg daily tomorrow. 3. For next week, we will reduce Bumex down to 1 mg on Wednesday, Wednesday, and Wednesday. 4. Continue to keep potassium above 4 and magnesium above 2. 5. We will continue to work to identify home health care and home infusion company. 6. Please help the patient with finding a way to having a hospital bed at home, so that would help her being able to transfer. 7. Please help with established care as an outpatient where milrinone could be managed. 8. We will coordinate with Dr. Stapleton on cardioversion. If it is outpatient, she will require an ambulance ride. So, it will be more advantageous to do this next week. It has been a pleasure taking care of Ms. Lippard. If you have any questions, please give me a call. Total visitation time is 40 minutes today. Job ID: [id number] MTDD
--- NOTE | 2020-09-20 13:07 | PRG ---
DATE OF SERVICE: 09/20/2020 I have resident of Dr. Shakila Tracey discuss the case with her and agree with her assessment and plan. Job ID: [id number]
[2020-09-20] MEDS ORDERED: Cefdinir 300 MG CAP PO SCH (21:00)
[2020-09-20] MEDS: HYDROcodone/Acetaminophen 5/325 mg Tablet PO PRN (21:36)
[2020-09-20] MEDS: Atorvastatin Calcium 40 MG TAB PO SCH (21:39)
[2020-09-21] MEDS: Milrinone Lactate/D5W 20 MG in Premix Bag 1 BAG IVPB SCH ×2 (03:59→19:48)
[2020-09-21 04:49] LABS: Anion Gap 15 mmol/L (10-20); BUN (Urea Nitrogen) 37 mg/dL (9.8-20.1); Calc. Creatinine Clearance 52 mL/min (70-130); Calcium 8.8 mg/dL (7.8-10.44); Carbon Dioxide 25 mmol/L (23-31); Chloride 103 mmol/L (98-107); Glucose 102 mg/dL (83-110); Magnesium 1.9 mg/dL (1.6-2.6); Potassium 4.6 mmol/L (3.5-5.1); Sodium 138 mmol/L (136-145)
--- NOTE | 2020-09-21 06:26 | PDOC.FM ---
- Subjective Subjective: Pt resting comfortably. States that yesterday she was able to walk from her bed to her wheelchair with PT and then was able to use her wheelchair by herself to go to the hospital atrium to see the [employer] decorations. Denies CP, SOB, N/V. - Objective Vital Signs & Weight: Vital Signs (12 hours) Temp Pulse Resp BP BP Pulse Ox 09/21/20 03:27 97.7 F 101 H 17 117/61 95 09/20/20 23:15 87 94/54 L 09/20/20 20:00 98.3 F 85 18 119/62 97 Weight Admit Weight 137.524 kg Weight 135.624 kg Most Recent Monitor Data Heart Rate from ECG 70 NIBP 138/93 NIBP BP-Mean 108 Respiration from ECG 18 SpO2 94 I&O: 09/19/20 09/20/20 09/21/20 06:59 06:59 06:59 Intake Total 1616 1500 680 Output Total 1400 1800 1200 Balance 216 -300 -520 Result Diagrams: 09/21/20 13:23 09/21/20 03:02 Phys Exam - Physical Examination Constitutional: NAD HEENT: sclera anicteric Neck: supple Respiratory: wheezing present (mild) irregularly irregular rhythm, normal rate Gastrointestinal: soft mild edema of LE Neurological: non-focal Psychiatric: normal affect Skin: no rash Dx/Plan - Plan Plan: Acute hypoxic respiratory failure likely 2/2 to right heart failure with cardiorenal syndrome -pt originally received lasix due to concern for CHF exacerbation, patient then appeared dry and was hypotensive, labs were concerning for hypoperfusion so patient was given fluids overnight on two different occasions; then concerns for cardiogenic shock --> Dr. Bone consulted -now on 2-2.5 L NC, pt is on 2 L at home -original CXR: bilateral pleural effusions that were not present on previous imaging, repeat xray showed improvement, repeat worsening of CHF -BNP 286 > 324.3; s/p lasix, now on bumex -EKG: Afib w/RVR -echo 08/17: technically difficulty exam 2/2 body habitus, EF 50-55%, diastolic dysfunction cannot be assessed -consulted nephro: diuretics per cards, IV iron, signed off on 08/29 with out patient f/u in 2-3 weeks -cortisol stimulation test: normal -EP (Dr. Stapleton) consulted per Dr. Bone: Attempted cardioversion 09/06, but no conversion to SR achieved depite multiple high energy shocks; recommended continued amiodarone 200mg, consider repeat cardioversion in 4-6 weeks -Per Dr. Bone: * lasix stopped 09/08 due to bump in Cr, yesterday (09/20) heard crackles on lungs so gave bumex 2mg x1, now bumex 1mg MWF * started on Tropol XL 12.5 mg q 12 hours on 08/26, increased to 25 mg q12hrs on 08/27, decreased to 12.5 mg on 08/28 * milrinone gtt started on 09/03, drip at .425, now at 0.5 as of 09/18, will go home on drip HFpEF -ECHO 07/02, EF 50-55%, see repeat above -TTE 09/06: Combination R ventricular failure and left ventricular diastolic dysfunction -BNP 286 > 324.3 -lasix stopped 09/[address] Bone, will resume Bumex 1 09/09 -strict I/Os, daily weights Bowel Incontinence, Likely 2/2 age and inactivity Possible long-term gabapentin use causing - ordered back MRI, however due to body habitus MRI informed us that we would be unable to get it, d/c'd order due to low suspicion of neurologic cause as patient has sensation at the anus and groin, is walking, the loss of stool is positional- typically when sitting - continue working with PT to regain strength UTI, s/p treatment -urine cx: Kleb, E.coli, non-hem strep with dysuria -Ceftriaxone (08/24), x3 days (last day 08/26) -discussed possible interaction between penicillin allergy and cross reaction with ceftriaxone, patient understood and was okay with receiving antibiotics, she denies any reaction -due to hypotension overnight on 08/27-08/28, repeat blood cx and UA: UA appeared clean, no UCx resulted -gave azo 09/02 for suprapubic discomfort with urinating, UA clean, UCx - mixed woo; irritation resolved -currently on omnicef for txt (09/20-09/23) Hypotension, resolved -s/p 500 ml bolus x2, not receiving fluids due to concern for worsening CHF 2/2 to right heart failure and cardiogenic shock -likely 2/2 to cardiogenic shock - on milrinone gtt -will continue to hold lisinopril and coreg -Dr. Bone consulted as mentioned above Afib w/RVR, now rate controlled -Known history: known source, as patient was not taking PO Dilt at home. Patient also just was seen by Dr Connelly outpatient -Anticoagulated with warfarin prior to 08/[address] Tolliver at which time he switched to eliquis due to subtherapeutic INR and missing warfarin doses. -HR 90-110s while in ED, now rate controlled in the 60s-80s -RVR initially improved --> RVR returned on 08/27 --> normal rate 08/28 -s/p dilt gtt stopped 08/16, transitioned to dilt PO, dilt DC'd per Lizandro recs -DC'd dilt and coreg per Lizandro recs, on amiodarone and Toprol XL * Amiodarone 400 mg BID until 5g loading dose (last dose 08/28) achieved followed by amiodarone 200 mg daily (08/29) * Toprol 12.5 mg q12hrs * Increased Eliquis to 5 mg BID 09/04 per Lizandro gradys -EP: failed cardioversion 09/06, will reattempt in 4 weeks -TSH: 0.2821 with normal free T3 and T4, will obtain antibodies, repeat TSH per Dr. Bone request 1.2 SEGUNDO on CKD3 -Cr 1.02 on admission -Cr of 1.61 > 1.62 > 1.49 > 1.51; likely new baseline -likely secondary to cardiogenic shock -Dr. Bone consulted, tiffany recs -Nephro consulted: diuretics per cards, signed off with outpatient f/u 2-3 weeks - remains near baseline, will continue to monitor Normocytic Anemia -Hgb: 8.6; due to CHF and cardiogenic shock, will keep Hgb above 8 -iron: 23, TIBC: 184, %sat: 13, Transferrin: 147, ferritin pending -Dr. Davidson has ordered IV iron x3 bags -possibly a mixed picture, likely anemia of chronic disease with possible iron deficiency anemia Transaminitis, resolved -likely 2/2 to hypoperfusion vs congestion 2/2 to cardiorenal syndrome -will continue to monitor Elevated troponin -0.068>.164>.242>.165 -likely demand ischemia due to Afib COPD -duonejonh PRN Recent hospitalization for COVID pneumonia -05/18-05/21 -Has been on supplemental home oxygen since (2-3L) -Reports negative test on 08/10 HTN -holding original home meds -Stopped isosorbide dinitrate and hydralazine on 08/27 to increase perfusion to the kidney with hopes of increasing diuresis; added back hydralazine on 08/29; see above for further info --> stopped hydralazine and isosorbite dinitrate 09/03 after adding milrinone gtt HLD -Aware, continue home meds GERD -Aware, continue home meds Chronic back pain due to spondylosis -Aware, continue home meds -takes norco for pain Dispo: It has been decided for HH with milrinone gtt with HH services and PT/OT. This is currently in the works as we need to set up with infusion company outpatient. Possible cardioversion on Wednesday with Dr Stapleton Adddayamium - Attending - Attending Attestation Date/Time: 09/21/202039 I personally evaluated the patient and discussed the management with Dr. Whatley I agree with the History, Examination, Assessment and Plan documented above with any addition or exceptions noted below.
[2020-09-21] MEDS: Magnesium Oxide 400 MG TAB PO SCH ×2 (08:41→21:14)
[2020-09-21] MEDS: Cefdinir 300 MG CAP PO SCH ×2 (08:41→21:15)
[2020-09-21] MEDS: Amiodarone 200 MG TAB PO SCH ×2 (08:41→21:15)
[2020-09-21] MEDS: Apixaban 5 MG TAB PO SCH ×2 (08:41→21:16)
[2020-09-21] MEDS: Bumetanide 1 MG TAB PO SCH (08:42)
[2020-09-21] MEDS: Gabapentin 300 MG CAP PO SCH ×2 (08:42→21:15)
[2020-09-21] MEDS: Potassium Chloride 20 MEQ TAB PO SCH (08:43)
[2020-09-21] MEDS: Spironolactone 25 MG TAB PO SCH (08:43)
--- NOTE | 2020-09-21 11:07 | PRG ---
DATE OF SERVICE: 09/21/2020 SERVICE: Advanced Heart Failure Cardiology Consult Service. SUBJECTIVE: Ms. Salinas had an excellent day. She participated with Physical Therapy well. She is able to get out of bed and get on a walker. She was able to walk short distances with a walker to her wheelchair. Afterwards, she transferred herself to wheelchair. She then went down the hyman, went to the atrium with propelling herself in a wheelchair. Then she came back. This is the most activity she had for about 3 months. This was assisted by Physical Therapy. Bumex 2 mg orally was also restarted yesterday. She felt like that she has increased urine output. She had a decreased edema. She will feel better with it. There is note of a greater clarity of her urine. REVIEW OF SYSTEMS: GENERAL: There is no fever, chills, or productive cough. HEENT: There is no change in vision, hearing or swallowing. PULMONARY: She is breathing easy. CARDIAC: There is no complaint of chest pain, palpitations, or syncope. GI: There is no nausea, vomiting, diarrhea. : She still uses a PureWick. MUSCULOSKELETAL: There is no complaints of muscle pains or joint pains. INTEGUMENT: There is no new skin breakdown. NEUROLOGIC: She has chronic decreased proprioception and sensation on the right side. However, there is no new focal deficits or weaknesses. CURRENT MEDICATIONS: include, 1. Amiodarone 200 mg twice a day. 2. Apixaban 5 mg twice a day. 3. Atorvastatin 40 mg at bedtime. 4. Bumex 1 mg daily. 5. Cefdinir 300 mg b.i.d. 6. Gabapentin 300 mg b.i.d. 7. Magnesium oxide 800 mg b.i.d. 8. Toprol-XL 25 mg q.12 hours. 9. Protonix 20 mg daily. 10. Potassium chloride 20 mEq daily. 11. Spironolactone 25 mg daily. TELEMETRY Her telemetry was reviewed. It showed chronic atrial fibrillation with heart rate about 80s, so this is well controlled. PHYSICAL EXAMINATION: GENERAL: She is alert and conversational, relaxed and fairly energetic today. VITAL SIGNS: Heart rate 74 and blood pressure 129/62. HEENT: Show EOMI. Oropharynx is benign with moist mucosa. NECK: Her JVP is about 10 cm. PULMONARY: She has good air movement bilateral. However, she does have bibasilar crackles. She does have pulmonary edema; however, that her bibasilar crackles are less than yesterday, so her pulmonary edema is decreasing. CARDIAC: irregular rate and irregular rhythm, normal S1/S2, 2/6 holosystolic murmur at left upper sternal border ABDOMEN: Soft, nontender, it is large. EXTREMITIES: Lower extremity, she has slight pitting edema from feet about a third way up. LABORATORY VALUES: Sodium 138, potassium 4.6, chloride 103, bicarb 25, BUN 37, creatinine 1.74, and magnesium 1.9. She has 1480 in and 1725 out. 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 This is exacerbated by her left ventricular diastolic dysfunction. So this combination required Milrinone to sustain life and give her good quality of life. She is still volume overloaded. Thus, she will need to be continuously diuresed. She has marginal blood pressure at times. Her CBC has not been checked for a long time. She could be anemic, so we will need to do an anemia labs. Atrial fibrillation is contributing to her dysfunction. Converting back to sinus rhythm will be helpful. Long-term law that we will aim to be able to discharge her home with Home Health care and outpatient physical therapy. Right now, she is gaining function every day, so she will return to her baseline. Please see the following for my recommendations. RECOMMENDATIONS: 1. Continue milrinone at 0.5 mcg/kg per minute. 2. We will continue Bumex 1 mg daily for now. May need to go down to once every other day starting on Wednesday. If she is becoming more edematous, then we would need to switch to IV diuretics for short term. 3. Please check for anemia, this includes CBC today, type and screen, iron studies, iron studies will include total iron binding capacity, percent iron, ferritin, and also check for reticulocyte count and reticulocyte index. 4. Continue with amiodarone 200 mg twice a day and n.p.o. at midnight on Wednesday and she will be scheduled to go under cardioversion on Wednesday. 5. We will aim to have her discharge in place on Wednesday or Wednesday of next week. It has been a pleasure taking care of Ms. Salinas. The total visitation time today is 35 minutes. Job ID: [id number] MTDD
[2020-09-21 13:31] LABS: #Eosinphils 0.4 thou/uL (0.0-0.7); #Lymphocytes 1.5 thou/uL (1.20-3.40); #Monocytes 0.5 thou/uL (0.11-0.59); #Neutrophils 3.6 thou/uL (1.40-6.50); %Basophils 0.5 % (0.0-1.0); %Eosinophils 6.9 % (0.0-10.0); %Lymphocytes 24.9 % (21.0-51.0); %Monocytes 8.2 % (0.0-10.0); %Neutrophils 59.5 % (42.0-75.0); Hemoglobin 10.9 g/dL (12.0-16.0); Mean Corpuscular HGB CONC 32.6 g/dL (32.0-36.0); Mean Corpuscular Hemoglobin 32.2 pg (27.0-31.0); Mean Corpuscular Volume 98.8 fL (78.0-98.0); Mean Platelet Volume 7.7 fL (7.4-10.4); Platelet Count 227 thou/uL (130-400); RBC Distribution Width 13.4 % (11.5-14.5); Red Blood Cell (RBC) Count 3.39 mill/uL (4.20-5.40); Reticulocyte Count 3.2 % (0.5-1.5)
[2020-09-21 13:54] LABS: Iron 61 ug/dL (50-170); Iron Binding Capacity, Total 254 mcg/dL (265-497)
[2020-09-21] MEDS: HYDROcodone/Acetaminophen 5/325 mg Tablet PO PRN (21:15)
[2020-09-21] MEDS: Atorvastatin Calcium 40 MG TAB PO SCH (21:16)
[2020-09-22] MEDS: Milrinone Lactate/D5W 20 MG in Premix Bag 1 BAG IVPB SCH ×3 (00:50→21:17)
--- NOTE | 2020-09-22 06:07 | PDOC.FM ---
- Subjective Subjective: Pt resting comfortably. Daughter says she had some "anxiety-like symptoms" overnight and wasn't able to get comfortable. She has been working with PT. Denies CP, SOB. - Objective Vital Signs & Weight: Vital Signs (12 hours) Temp Pulse Resp BP BP BP Pulse Ox 09/22/20 03:12 97.5 F L 86 13 103/58 L 96 09/22/20 01:46 70 20 112/55 L 98 09/21/20 23:47 87 104/52 L 09/21/20 19:24 98.6 F 97 18 116/97 H 97 Weight Admit Weight 137.524 kg Weight 136 kg Most Recent Monitor Data Heart Rate from ECG 70 NIBP 138/93 NIBP BP-Mean 108 Respiration from ECG 18 SpO2 94 I&O: 09/20/20 09/21/20 09/22/20 06:59 06:59 06:59 Intake Total 1500 1480 1647 Output Total 1800 1725 1100 Balance -300 -245 547 Result Diagrams: 09/21/20 13:23 09/22/20 04:01 Phys Exam - Physical Examination Constitutional: NAD HEENT: sclera anicteric Neck: supple Respiratory: no wheezing, clear to auscultation bilateral Cardiovascular: no significant murmur irregular rhythm, normal rate Gastrointestinal: soft Musculoskeletal: no edema Neurological: non-focal Psychiatric: normal affect Dx/Plan - Plan Plan: cute hypoxic respiratory failure likely 2/2 to right heart failure with cardiorenal syndrome -pt originally received lasix due to concern for CHF exacerbation, patient then appeared dry and was hypotensive, labs were concerning for hypoperfusion so patient was given fluids overnight on two different occasions; then concerns for cardiogenic shock --> Dr. Bone consulted -now on 2-2.5 L NC, pt is on 2 L at home -original CXR: bilateral pleural effusions that were not present on previous imaging, repeat xray showed improvement, repeat worsening of CHF -BNP 286 > 324.3; s/p lasix, now on bumex -EKG: Afib w/RVR -echo 08/17: technically difficulty exam 2/2 body habitus, EF 50-55%, diastolic dysfunction cannot be assessed -consulted nephro: diuretics per cards, IV iron, signed off on 08/29 with outpatient f/u in 2-3 weeks -cortisol stimulation test: normal -EP (Dr. Stapleton) consulted per Dr. Bone: Attempted cardioversion 09/06, but no conversion to SR achieved depite multiple high energy shocks; recommended continued amiodarone 200mg, consider repeat cardioversion in 4-6 weeks -Per Dr. Bone: * lasix stopped 09/08 due to bump in Cr, bumex 1mg daily, start q2day schedule on Wednesday * started on Tropol XL 12.5 mg q 12 hours on 08/26, increased to 25 mg q12hrs on 08/27, decreased to 12.5 mg on 08/28 * milrinone gtt started on 09/03, drip at .425, now at 0.5 as of 09/18, will go home on drip HFpEF -ECHO 07/02, EF 50-55%, see repeat above -TTE 09/06: Combination R ventricular failure and left ventricular diastolic dysfunction -BNP 286 > 324.3 -lasix stopped 09/[address] Bone, will resume Bumex 1 09/09 -strict I/Os, daily weights Bowel Incontinence, Likely 2/2 age and inactivity Possible long-term gabapentin use causing - ordered back MRI, however due to body habitus MRI informed us that we would be unable to get it, d/c'd order due to low suspicion of neurologic cause as patient has sensation at the anus and groin, is walking, the loss of stool is p ositional- typically when sitting - continue working with PT to regain strength UTI, s/p treatment -urine cx: Kleb, E.coli, non-hem strep with dysuria -Ceftriaxone (08/24), x3 days (last day 08/26) -discussed possible interaction between penicillin allergy and cross reaction with ceftriaxone, patient understood and was okay with receiving antibiotics, she denies any reaction -due to hypotension overnight on 08/27-08/28, repeat blood cx and UA: UA appeared clean, no UCx resulted -gave azo 09/02 for suprapubic discomfort with urinating, UA clean, UCx - mixed woo; irritation resolved -currently on omnicef for txt (09/20-09/23) Hypotension, resolved -s/p 500 ml bolus x2, not receiving fluids due to concern for worsening CHF 2/2 to right heart failure and cardiogenic shock -likely 2/2 to cardiogenic shock - on milrinone gtt -will continue to hold lisinopril and coreg -Dr. Bone consulted as mentioned above Afib w/RVR, now rate controlled -Known history: known source, as patient was not taking PO Dilt at home. Patient also just was seen by Dr Connelly outpatient -Anticoagulated with warfarin prior to 08/[address] Tolliver at which time he switched to eliquis due to subtherapeutic INR and missing warfarin doses. -HR 90-110s while in ED, now rate controlled in the 60s-80s -RVR initially improved --> RVR returned on 08/27 --> normal rate 08/28 -s/p dilt gtt stopped 08/16, transitioned to dilt PO, dilt DC'd per Lizandro recs -DC'd dilt and coreg per Lizandro recs, on amiodarone and Toprol XL * Amiodarone 400 mg BID until 5g loading dose (last dose 08/28) achieved followed by amiodarone 200 mg daily (08/29) * Toprol 12.5 mg q12hrs * Increased Eliquis to 5 mg BID 09/04 per Lizandro recs -EP: failed cardioversion 09/06, will reattempt in 4 weeks -TSH: 0.2821 with normal free T3 and T4, will obtain antibodies, repeat TSH per Dr. Bone request 1.2 SEGUNDO on CKD3 -Cr 1.02 on admission -Cr of 1.61 > 1.62 > 1.49 > 1.51; likely new baseline -likely secondary to cardiogenic shock -Dr. Bone consulted, tiffany recs -Nephro consulted: diuretics per cards, signed off with outpatient f/u 2-3 weeks - remains near baseline, will continue to monitor Normocytic Anemia -Hgb: 10.9, MCV 98.8; will keep Hgb above 8 -iron: 61, TIBC: 254, %sat: 13, Transferrin: 147, ferritin 858 -possibly a mixed picture, likely anemia of chronic disease -pending B12, folate Transaminitis, resolved -likely 2/2 to hypoperfusion vs congestion 2/2 to cardiorenal syndrome -will continue to monitor Elevated troponin -0.068>.164>.242>.165 -likely demand ischemia due to Afib COPD -duonebs PRN Recent hospitalization for COVID pneumonia -05/18-05/21 -Has been on supplemental home oxygen since (2-3L) -Reports negative test on 08/10 HTN -holding original home meds -Stopped isosorbide dinitrate and hydralazine on 08/27 to increase perfusion to the kidney with hopes of increasing diuresis; added back hydralazine on 08/29; see above for further info --> stopped hydralazine and isosorbite dinitrate 09/03 after adding milrinone gtt HLD -Aware, continue home meds GERD -Aware, continue home meds Chronic back pain due to spondylosis -Aware, continue home meds -takes norco for pain Dispo: It has been decided for HH with milrinone gtt with HH services and PT/OT. This is currently in the works as we need to set up with infusion company outpatient. Possible cardioversion on Wednesday with Dr Stapleton Addendum - Attending - Attending Attestation Date/Time: 09/22/20 [id number] I personally evaluated the patient and discussed the management with Dr. Whatley. I agree with the History, Examination, Assessment and Plan documented above with any addition or exceptions noted below. R Vent Heart Failure with cardiorenal syndrome- appreciate Dr. Bone's recs. I opened the discussion today about what Renee wanted in regards to care to ensure that her voice was being heard. We discussed the options of home with milrinone and HH PT vs palliative/hospice discussion. The goal of care will be to get her back some independence with a trial of home milrinone. We will support this and get her f/u in our clinic. If her mobility is unsuccessful, then they will reconsider hospice discussion.
[2020-09-22 06:35] LABS: Anion Gap 17 mmol/L (10-20); BUN (Urea Nitrogen) 39 mg/dL (9.8-20.1); Calc. Creatinine Clearance 48 mL/min (70-130); Calcium 9.1 mg/dL (7.8-10.44); Carbon Dioxide 24 mmol/L (23-31); Chloride 98 mmol/L (98-107); Glucose 123 mg/dL (83-110); Potassium 4.2 mmol/L (3.5-5.1); Sodium 135 mmol/L (136-145)
[2020-09-22] MEDS: Gabapentin 300 MG CAP PO SCH ×2 (08:24→21:26)
[2020-09-22] MEDS: Potassium Chloride 20 MEQ TAB PO SCH (08:24)
[2020-09-22] MEDS: Cefdinir 300 MG CAP PO SCH ×2 (08:25→21:26)
[2020-09-22] MEDS: Magnesium Oxide 400 MG TAB PO SCH ×2 (08:26→21:25)
[2020-09-22] MEDS: Spironolactone 25 MG TAB PO SCH (08:26)
[2020-09-22] MEDS: Apixaban 5 MG TAB PO SCH ×2 (08:27→21:27)
[2020-09-22] MEDS: Bumetanide 1 MG TAB PO SCH (08:27)
[2020-09-22] MEDS: Amiodarone 200 MG TAB PO SCH ×2 (08:27→21:25)
[2020-09-22] MEDS: Albumin 25% 25 GM/100 ML BOT IVPB SCH ×2 (11:15→17:11)
--- NOTE | 2020-09-22 12:27 | PRG ---
DATE OF SERVICE: 09/22/2020 SUBJECTIVE: Ms. Salinas had a good day. She was active. She sat up several times a day, plays cards, and did some transfers. She did exercise with occupational therapy. However, physical therapy did not come to exercise her. She believes she has a good urine output and generally feels well. REVIEW OF SYSTEMS: GENERAL: There is no fever, chills, or productive cough. HEENT: There is no change in vision, hearing, or swallowing. PULMONARY: There is no severe shortness of breath. CARDIAC: There is no chest pain, palpitations, or syncope. GI: There is no nausea, vomiting, or diarrhea. : She is using PureWick. MUSCULOSKELETAL: There is no complaint of muscle pain or joint pain. INTEGUMENT: There are no new skin breakdowns. NEUROLOGIC: She has chronic loss of proprioception sensation on the right side. However, there are no new focal deficits or weaknesses. CURRENT MEDICATIONS: Include: 1. Amiodarone 200 mg twice a day. 2. Apixaban 5 mg twice a day. 3. Atorvastatin 40 mg at bedtime. 4. Cefdinir 300 mg b.i.d. 5. Gabapentin 300 mg b.i.d. 6. Magnesium oxide 800 mg b.i.d. 7. Toprol-XL 25 mg b.i.d. 8. Protonix 20 mg daily. 9. K-Dur 20 mEq daily. 10. Spironolactone 25 mg daily. TELEMETRY: Her telemetry was reviewed. She is in chronic atrial fibrillation, rate is about 80s. Says she is well rate controlled. OBJECTIVE: VITAL SIGNS: Heart rate 86, blood pressure 103/58. GENERAL: She is alert and conversational, sitting up comfortably in bed, playing cards with her daughter. There is no acute distress. She is very talkative. HEENT: Show EOMI. Oropharynx benign. NECK: Her JVP is about 10 cm. LUNGS: She has good air movement. Clear to auscultation bilaterally. Thus, her pulmonary edema seemed to have dissipated. CARDIAC: Irregular rate, irregular rhythm. Normal S1 and S2. There is a 2/6 holosystolic murmur at the left upper sternal border corresponding to tricuspid regurgitation. ABDOMEN: Large, soft, nontender. Positive bowel sounds. EXTREMITIES: Lower extremity is large. There is a slight pitting edema around her feet to ankle slightly above, it is less than yesterday, it is about her baseline. LABORATORY VALUES: Show white cell count 6, hemoglobin 10.9, and platelets 227. Her blood chemistry shows sodium 135, potassium 4.2, chloride 98, bicarb 24, BUN 39, creatinine 1.9. ASSESSMENT: 85-year-old female is having very slow recovery from COVID-19 pneumonia and COVID-19 induced right heart failure. She has chronic diastolic dysfunction and atrial fibrillation that exacerbated the situation. She resides in [place] [employer] stage C and [place] Heart [employer] class IIIB heart failure with combined systolic and diastolic dysfunctionS and also has strong right ventricular failure-cor pulmonale component. She requires milrinone to sustain life. She requires milrinone to give her a good quality of life. In this past week, she has regained function every day. At admission, she was total care, only lying in bed. As of yesterday, she can transfer herself or walk a few steps with a walker and go down hallway in a long distance to the atrium in a wheelchair, these are dramatic improvements. In terms of prognosis, as long as she has milrinone on board, it can be a long time, that is well over 6 months. I personally have seen milrinone infusion patients survive with good quality of life over 2 years. However, she is a very large person. She will need much care. She can definitely benefit from LTAC. LTAC care will allow her to regain better function and with return of sinus rhythm, the milrinone can be titrated down. For now, though it is still need. She can greatly benefit from sinus rhythm. Thus, we will make another attempt in converting her to sinus rhythm tomorrow. Please see following for my recommendations. PATIENT-FAMILY DISCUSSION. The patient's daughter was concerned and somewhat upset. She believed that she was somewhat pushed towards hospice without milrinone by the primary care team. A discussion took place. Currently, Mrs. Salinas is improving daily. She will likely survive longer than 6 months with good quality of life with milrinone support and good care. Mrs. Salinas strongly wants to improve and live. Thus, stopping milrinone and placing her on hospice without milrinone would not be appropriate. RECOMMENDATIONS: 1. Stop Bumex today. 2. Please provide albumin 25 g IV q.8 hours. 3. N.p.o. tonight except for medication, ice chips. 4. DC cardioversion tomorrow morning. 5. We will discuss with the primary team about decreasing Neurontin. Neurontin can lower blood pressure. She needs all the blood pressure that she can get. 6. Please help patient to obtain hospital bed at home that can tilt with bed remaining straight like the current hospital bed in room 296. She uses the tilt with head down to position herself toward the head of bed. A hospital bed will also allow her to transfer to wheel chair at home. It has been a pleasure taking care of Ms. Renee Salinas. If you have any questions, please give me a call. The total time for this visit is 45 minutes. Job ID: [id number] MTDD
[2020-09-22] MEDS: HYDROcodone/Acetaminophen 5/325 mg Tablet PO PRN (21:27)
[2020-09-22] MEDS: Atorvastatin Calcium 40 MG TAB PO SCH (21:27)
[2020-09-23] MEDS: Milrinone Lactate/D5W 20 MG in Premix Bag 1 BAG IVPB SCH ×3 (02:01→22:12)
[2020-09-23] MEDS: Albumin 25% 25 GM/100 ML BOT IVPB SCH ×2 (02:01→10:30)
[2020-09-23 04:22] LABS: Anion Gap 14 mmol/L (10-20); BUN (Urea Nitrogen) 45 mg/dL (9.8-20.1); Calc. Creatinine Clearance 49 mL/min (70-130); Calcium 8.7 mg/dL (7.8-10.44); Carbon Dioxide 27 mmol/L (23-31); Chloride 99 mmol/L (98-107); Glucose 96 mg/dL (83-110); Potassium 4.4 mmol/L (3.5-5.1); Sodium 136 mmol/L (136-145)
--- NOTE | 2020-09-23 05:47 | PDOC.FM ---
- Subjective Subjective: Pt resting comfortably in bed this AM. No acute events overnight. Has remained in Afib without RVR. - Objective Vital Signs & Weight: Vital Signs (12 hours) Temp Pulse Resp BP BP BP Pulse Ox 09/23/20 04:14 98.3 F 77 16 134/60 98 09/23/20 00:07 98 09/22/20 23:17 76 111/56 L 98 09/22/20 19:37 97.9 F 80 16 113/51 L 98 Weight Admit Weight 137.524 kg Weight 136 kg Most Recent Monitor Data Heart Rate from ECG 70 NIBP 138/93 NIBP BP-Mean 108 Respiration from ECG 18 SpO2 94 I&O: 09/21/20 09/22/20 09/23/20 06:59 06:59 06:59 Intake Total 1480 1647 970 Output Total 1725 1100 1000 Balance -245 547 -30 Result Diagrams: 09/24/20 08:21 09/24/20 08:21 Phys Exam - Physical Examination Constitutional: NAD HEENT: moist MMs Neck: supple Respiratory: no wheezing, no rales, no rhonchi, clear to auscultation bilateral Cardiovascular: no rub irregular RR Gastrointestinal: soft, non-tender, no distention, positive bowel sounds Musculoskeletal: pulses present Neurological: moves all 4 limbs Psychiatric: normal affect, A&O x 3 Skin: normal turgor Dx/Plan - Plan Plan: Acute hypoxic respiratory failure likely 2/2 to right heart failure with cardiorenal syndrome -EP (Dr. Stapleton) consulted per Dr. Bone: Attempted cardioversion 09/06, but no conversion to SR achieved depite multiple high energy shocks; recommended continued amiodarone 200mg (which is now BID) and pt will go for cardioversion today 09/23/20 -Per Dr. Bone: * lasix stopped 09/08 due to bump in Cr, will continue Bumex 1mg daily 09/09 * started on Tropol XL 12.5 mg q 12 hours on 08/26, increased to 25 mg q12hrs on 08/27, decreased to 12.5 mg on 08/28 * milrinone gtt started on 09/03, drip at .425, now at 0.5 as of 09/18 HFpEF -ECHO 07/02, EF 50-55%, see repeat above -TTE 09/06: Combination R ventricular failure and left ventricular diastolic dysfunction -BNP 286 > 324.3 -lasix stopped 09/[address] Bone, will resume Bumex 1 09/09 -strict I/Os, daily weights Bowel Incontinence, Likely 2/2 age and inactivity Possible long-term gabapentin use causing - ordered back MRI, however due to body habitus MRI informed us that we would be unable to get it, d/c'd order due to low suspicion of neurologic cause as patient has sensation at the anus and groin, is walking, the loss of stool is positional- typically when sitting - continue working with PT to regain strength UTI, s/p treatment -today 09/23 will finish course of po abx for UTI Hypotension, resolved - on milrinone gtt -will continue to hold lisinopril and coreg -Dr. Bone consulted as mentioned above Afib w/RVR, now rate controlled -Known history: known source, as patient was not taking PO Dilt at home. Patient also just was seen by Dr Connelly outpatient -Anticoagulated with warfarin prior to 08/[address] Tolliver at which time he switched to eliquis due to subtherapeutic INR and missing warfarin doses. -HR 90-110s while in ED, now rate controlled in the 60s-80s -RVR initially improved --> RVR returned on 08/27 --> normal rate 08/28 -s/p dilt gtt stopped 08/16, transitioned to dilt PO, dilt DC'd per Lizandro gradys -DC'd dilt and coreg per Lizandro recs, on amiodarone and Toprol XL * Amiodarone 400 mg BID until 5g loading dose (last dose 08/28) achieved followed by amiodarone 200 mg daily (08/29) * Toprol 12.5 mg q12hrs * Increased Eliquis to 5 mg BID 09/04 per Lizandro recs -EP: failed cardioversion 09/06 -TSH: 0.2821 with normal free T3 and T4, will obtain antibodies, repeat TSH per Dr. Bone request 1.2 SEGUNDO on CKD3 -Cr 1.02 on admission -Cr of 1.61 > 1.62 > 1.49 > 1.51; likely new baseline -likely secondary to cardiogenic shock -Dr. Bone consulted, appreciate recs -Nephro consulted: diuretics per cards, signed off with outpatient f/u 2-3 weeks - remains near baseline, will continue to monitor Normocytic Anemia -Hgb: 8.6; due to CHF and cardiogenic shock, will keep Hgb above 8 -iron: 23, TIBC: 184, %sat: 13, Transferrin: 147, ferritin pending -Dr. Davidson has ordered IV iron x3 bags -possibly a mixed picture, likely anemia of chronic disease with possible iron deficiency anemia Transaminitis, resolved -likely 2/2 to hypoperfusion vs congestion 2/2 to cardiorenal syndrome -will continue to monitor Elevated troponin -0.068>.164>.242>.165 -likely demand ischemia due to Afib COPD -duonebs PRN Recent hospitalization for COVID pneumonia -05/18-05/21 -Has been on supplemental home oxygen since (2-3L) -Reports negative test on 08/10 HTN -holding original home meds -Stopped isosorbide dinitrate and hydralazine on 08/27 to increase perfusion to the kidney with hopes of increasing diuresis; added back hydralazine on 08/29; see above for further info --> stopped hydralazine and isosorbite dinitrate 09/03 after adding milrinone gtt HLD -Aware, continue home meds GERD -Aware, continue home meds Chronic back pain due to spondylosis -Aware, continue home meds -takes norco for pain Dispo as of 09/23: It has been decided for HH with milrinone gtt with HH ser vices and PT/OT. Awaiting insurance auth for milrinone gtt.Today pt will have cardioversion. Addendum - Attending - Attending Attestation Date/Time: 09/23/20 2383 I personally evaluated the patient and discussed the management with Dr. Tracey I agree with the History, Examination, Assessment and Plan documented above with any addition or exceptions noted below - Patient denies complaints. Afebrile VSS. A/P: 1) Acute hypoxic resp failure secondary to right heart failure- continue milronone as per Dr. Bone. Arrangements for home infusion being made. 2) Afib- rate controlled; failed cardioversion. Continue current meds. 3) D/c planning- home health and home infusion arrangements being made; possible d/c tomorrow.
[2020-09-23] MEDS: Cefdinir 300 MG CAP PO SCH (08:43)
[2020-09-23] MEDS: Potassium Chloride 20 MEQ TAB PO SCH (08:44)
[2020-09-23] MEDS: Magnesium Oxide 400 MG TAB PO SCH ×2 (08:44→21:55)
[2020-09-23] MEDS: Gabapentin 300 MG CAP PO SCH (08:44)
[2020-09-23] MEDS: Amiodarone 200 MG TAB PO SCH ×2 (08:44→21:56)
[2020-09-23] MEDS: Apixaban 5 MG TAB PO SCH ×2 (08:44→21:56)
[2020-09-23] MEDS: Spironolactone 25 MG TAB PO SCH (08:45)
[2020-09-23] MEDS ORDERED: PROPOFOL 200 MG/20 ML VIAL ONE (09:48)
--- NOTE | 2020-09-23 11:30 | PRG ---
DATE OF SERVICE: 09/23/2020 SUBJECTIVE: Ms. Renee Salinas had a good day. She was able to interact with her daughter. She was sitting up in bed playing cards. She was able to do this several hours at a time. The albumin had a strong affect. She said that she put a lot of urine yesterday. Afterwards, she felt very well. She does have the goal of to go home on milrinone drip. She believes that she is approaching her baseline. She is ready for cardioversion this morning. REVIEW OF SYSTEMS: GENERAL: There is no fever, chills, or productive cough. HEENT: There is no change in vision, hearing, or swallowing. PULMONARY: She is breathing easy. CARDIAC: There are no palpitation, chest pain or syncope. GI: There is no nausea, vomiting, or diarrhea. : She uses Purewick for urination. MUSCULOSKELETAL: There are no new joint pains or muscle pains. INTEGUMENT: There are no new skin breakdown. NEUROLOGIC: She has chronic decreased proprioception on the right side and chronic slight decreased sensation in the right side. There are no new focal deficits or weaknesses. CURRENT MEDICATIONS: 1. Amiodarone 200 mg twice a day. 2. Apixaban 5 mg twice a day. 3. Atorvastatin 40 mg at bedtime. 4. Gabapentin 300 mg b.i.d. 5. Magnesium oxide 800 mg b.i.d. 6. Milrinone currently at 0.5 mcg/kg per minute. 7. Protonix 20 mg daily. 8. Potassium chloride, K-Dur 20 mEq daily. 9. Spironolactone 25 mg daily. Her telemetry reviewed. She is in chronic atrial fibrillation. Her average heart rate about 74 to 75. There are no concerning arrhythmias. PHYSICAL EXAMINATION: VITAL SIGNS: Latest, heart rate 77, blood pressure 125/58. GENERAL: She is alert, conversational, reclining comfortably in bed. She is very talkative. HEENT: EOMI. Oropharynx is benign with moist mucosa. NECK: Her JVP is about 10 cm. PULMONARY: There is good air movement bilaterally. Clear to auscultation bilaterally. So, there are no signs of pulmonary edema today. CARDIAC: Irregular rate, irregular rhythm with 2/6 holosystolic murmur best heard at the apex with radiation to the left axilla. This corresponds to mitral regurgitation. She also has left upper sternal 2/6 holosystolic murmur. This murmur would correspond to tricuspid regurgitation. ABDOMEN: Large, soft, nontender. Positive bowel sounds. EXTREMITIES: Her lower extremities warm, well perfused and slight pedal edema up to about her ankles. LABORATORY DATA: Today, chemistry: Sodium 136, potassium 4.4, chloride 99, BUN 45, creatinine 1.86, this is a slight improvement. Magnesium 2.0. 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 She resides in [place] Heart Association stage C and also [place] Heart Association class 3B heart failure. It is a combination of severe right ventricular function with right ventricular failure/cor pulmonale. She also has significant diastolic dysfunction with left ventricle. Her atrial fibrillation also contributes to this. She currently depends on milrinone to sustain life and also provide quality of life. She can improve under LTAC setting. Converting her back to sinus rhythm will be greatly helpful. We will attempt to do this today. She also suffered from acute renal failure about 3 weeks ago. Her renal function is currently operating under new baseline. We will be very mindful of this. She is currently near euvolemic and then we will try to sustain her with spironolactone and as needed loop diuretics. Long-term law, she has a good chance of living over 6 months with good function. Please see the following for my detailed recommendations. RECOMMENDATIONS: 1. Please proceed with DC cardioversion today. 2. Continue with milrinone 0.5 mcg/kg per minute with the baseline weight of 299 pounds which is 136 kg. 3. Please keep potassium above 4 and magnesium above 2.0. Please consider reducing her Neurontin down to 150 mg twice a day because that will help the blood pressure. 4. Her ferritin level is quite high. This needs to be investigated. 5. Hemochromatosis could cause her cardiac conditions. Long-term law, she will need a hospital bed at home. She would need chronic infusion therapy. We will also need to find a home health care agency that will be able to help her. It has been a pleasure taking care of Mrs. Renee Salinas. The total visitation time is 40 minutes today. Job ID: [id number] [facility]
[2020-09-23] MEDS ORDERED: PROPOFOL 20 ML ONE (11:34)
--- NOTE | 2020-09-23 12:20 | OP ---
DATE OF PROCEDURE: 09/23/2020 PROCEDURE PERFORMED: Elective cardioversion. PREOPERATIVE DIAGNOSIS: Atrial fibrillation. POSTOPERATIVE DIAGNOSIS: Atrial fibrillation. DESCRIPTION OF PROCEDURE: The patient came to the preoperative area in a postabsorptive state. Informed consent was obtained. A time-out was called. The patient was sedated by member of the Anesthesia staff. Once the patient was adequately sedated, a 360 joule synchronized biphasic shock was delivered to the anterior and posterior chest wall with some moderate pressure resulting in no sinus rhythm at all. The patient did not have a single sinus beat. After this second attempt with increasing the amount of manual pressure over the chest and over the pads in order to maximize contact was again delivered at 360 joules with a biphasic synchronized shock. This again did not result in any sinus beats at all. The patient was awoken from anesthetic and was discharged from the preoperative area in stable condition. COMPLICATIONS: None acute. CONCLUSIONS: 1. Persistent atrial fibrillation. 2. Unsuccessful cardioversion for atrial fibrillation (no early recurrence of atrial fibrillation because no sinus beats). RECOMMENDATIONS: At this point, it would be unlikely that she would convert and may be reasonable to consider discontinuation of amiodarone. Job ID: [id number]
[2020-09-23 14:37] VITALS: BMI 43.6
[2020-09-23] MEDS ORDERED: Gabapentin 300 MG CAP PO SCH (21:00)
[2020-09-23] MEDS: Atorvastatin Calcium 40 MG TAB PO SCH (21:56)
[2020-09-24] MEDS: Milrinone Lactate/D5W 20 MG in Premix Bag 1 BAG IVPB SCH ×2 (04:14→09:13)
--- NOTE | 2020-09-24 05:25 | PDOC.FM ---
- Subjective Subjective: Pt resting comfortably in bed this AM. No acute events overnight. - Objective Vital Signs & Weight: Vital Signs (12 hours) Temp Pulse Resp BP BP Pulse Ox 09/24/20 04:00 97.6 F 77 18 139/71 93 L 09/24/20 00:00 84 99/52 L 99/52 L 09/23/20 20:30 98 F 73 18 129/58 L 94 L Weight Admit Weight 137.524 kg Weight 136.8 kg Most Recent Monitor Data Heart Rate from ECG 70 NIBP 138/93 NIBP BP-Mean 108 Respiration from ECG 18 SpO2 94 I&O: 09/22/20 09/23/20 09/24/20 06:59 06:59 06:59 Intake Total 1647 1394 1550 Output Total 1100 1500 600 Balance 547 -106 950 Result Diagrams: 09/21/20 13:23 09/23/20 03:13 Phys Exam - Physical Examination Constitutional: NAD HEENT: moist MMs Neck: supple Respiratory: no wheezing, no rales, no rhonchi, clear to auscultation bilateral Cardiovascular: no rub irregular RR Gastrointestinal: soft, non-tender, no distention, positive bowel sounds Musculoskeletal: pulses present Psychiatric: normal affect, A&O x 3 Skin: normal turgor Dx/Plan - Plan Plan: Acute hypoxic respiratory failure likely 2/2 to right heart failure with cardiorenal syndrome -EP (Dr. Stapleton) consulted per Dr. Bone: Attempted cardioversion 09/06, but no conversion to SR achieved depite multiple high energy shocks; recommended continued amiodarone 200mg (which is now BID) and pt will go for cardioversion today 09/23/20 -Per Dr. Bone: * lasix stopped 09/08 due to bump in Cr, will continue Bumex 1mg daily 09/09 * started on Tropol XL 12.5 mg q 12 hours on 08/26, increased to 25 mg q12hrs on 08/27, decreased to 12.5 mg on 08/28 * milrinone gtt started on 09/03, drip at .425, now at 0.5 as of 09/18 HFpEF -ECHO 07/02, EF 50-55%, see repeat above -TTE 09/06: Combination R ventricular failure and left ventricular diastolic dysfunction -BNP 286 > 324.3 -lasix stopped 09/[address] Bone, will resume Bumex 1 09/09 -strict I/Os, daily weights Bowel Incontinence, Likely 2/2 age and inactivity Possible long-term gabapentin use causing - ordered back MRI, however due to body habitus MRI informed us that we would be unable to get it, d/c'd order due to low suspicion of neurologic cause as patient has sensation at the anus and groin, is walking, the loss of stool is positional- typically when sitting - continue working with PT to regain strength UTI, s/p treatment -today 09/23 will finish course of po abx for UTI Hypotension, resolved - on milrinone gtt -will continue to hold lisinopril and coreg -Dr. Bone consulted as mentioned above Afib w/RVR, now rate controlled -Known history: known source, as patient was not taking PO Dilt at home. Patient also just was seen by Dr Connelly outpatient -Anticoagulated with warfarin prior to 08/[address] Tolliver at which time he switched to eliquis due to subtherapeutic INR and missing warfarin doses. -HR 90-110s while in ED, now rate controlled in the 60s-80s -RVR initially improved --> RVR returned on 08/27 --> normal rate 08/28 -s/p dilt gtt stopped 08/16, transitioned to dilt PO, dilt DC'd per Lizandro gradys -DC'd dilt and coreg per Lizandro recs, on amiodarone and Toprol XL * Amiodarone 400 mg BID until 5g loading dose (last dose 08/28) achieved followed by amiodarone 200 mg daily (08/29) * Toprol 12.5 mg q12hrs * Increased Eliquis to 5 mg BID 09/04 per Lizandro recs -EP: failed cardioversion 09/06 -TSH: 0.2821 with normal free T3 and T4, will obtain antibodies, repeat TSH per Dr. Bone request 1.2 SEGUNDO on CKD3 -Cr 1.02 on admission -Cr of 1.61 > 1.62 > 1.49 > 1.51; likely new baseline -likely secondary to cardiogenic shock -Dr. Bone consulted, appreciate recs -Nephro consulted: diuretics per cards, signed off with outpatient f/u 2-3 weeks - remains near baseline, will continue to monitor Normocytic Anemia -Hgb: 8.6; due to CHF and cardiogenic shock, will keep Hgb above 8 -iron: 23, TIBC: 184, %sat: 13, Transferrin: 147, ferritin elevated, B12 wnl, folate pending -Dr. Davidson has ordered IV iron x3 bags -possibly a mixed picture, likely anemia of chronic disease with possible iron deficiency anemia Transaminitis, resolved -likely 2/2 to hypoperfusion vs congestion 2/2 to cardiorenal syndrome -will continue to monitor Elevated troponin -0.068>.164>.242>.165 -likely demand ischemia due to Afib COPD -sony BLANCHARDN Recent hospitalization for COVID pneumonia -05/18-05/21 -Has been on supplemental home oxygen since (2-3L) -Reports negative test on 08/10 HTN -holding original home meds -Stopped isosorbide dinitrate and hydralazine on 08/27 to increase perfusion to the kidney with hopes of increasing diuresis; added back hydralazine on 08/29; see above for further info --> stopped hydralazine and isosorbite dinitrate 09/03 after adding milrinone gtt HLD -Aware, continue home meds GERD -Aware, continue home meds Chronic back pain due to spondylosis -Aware, continue home meds -takes norco for pain Dispo as of 09/24: Pt s/p unsuccessful cardioversion yesterday. It has been decided for HH with milrinone gtt with HH services and PT/OT. Pharmacy desk representative will be here today to teach daughter about milrinon gtt. Plan is to d/c today, home.
[2020-09-24 08:32] LABS: #Eosinphils 0.5 thou/uL (0.0-0.7); #Lymphocytes 1.5 thou/uL (1.20-3.40); #Monocytes 0.5 thou/uL (0.11-0.59); #Neutrophils 3.5 thou/uL (1.40-6.50); %Basophils 0.3 % (0.0-1.0); %Eosinophils 8.3 % (0.0-10.0); %Lymphocytes 24.7 % (21.0-51.0); %Neutrophils 57.6 % (42.0-75.0); Hemoglobin 9.8 g/dL (12.0-16.0); Mean Corpuscular HGB CONC 31.4 g/dL (32.0-36.0); Mean Corpuscular Hemoglobin 30.1 pg (27.0-31.0); Mean Corpuscular Volume 95.8 fL (78.0-98.0); Mean Platelet Volume 7.5 fL (7.4-10.4); Platelet Count 213 thou/uL (130-400); RBC Distribution Width 13.2 % (11.5-14.5); Red Blood Cell (RBC) Count 3.25 mill/uL (4.20-5.40)
[2020-09-24 08:52] LABS: ALT (SGPT) 8 U/L (8-55); AST (SGOT) 11 U/L (5-34); Alkaline Phosphatase 107 U/L (40-110); Anion Gap 16 mmol/L (10-20); BUN (Urea Nitrogen) 43 mg/dL (9.8-20.1); Bilirubin, Total 0.4 mg/dL (0.2-1.2); Calc. Creatinine Clearance 53 mL/min (70-130); Calcium 9.1 mg/dL (7.8-10.44); Carbon Dioxide 27 mmol/L (23-31); Chloride 100 mmol/L (98-107); Glucose 114 mg/dL (83-110); Potassium 4.5 mmol/L (3.5-5.1); Sodium 138 mmol/L (136-145)
[2020-09-24] MEDS: Apixaban 5 MG TAB PO SCH (09:05)
[2020-09-24] MEDS: Potassium Chloride 20 MEQ TAB PO SCH (09:05)
[2020-09-24] MEDS: Amiodarone 200 MG TAB PO SCH (09:05)
[2020-09-24] MEDS: Magnesium Oxide 400 MG TAB PO SCH (09:05)
[2020-09-24] MEDS: Spironolactone 25 MG TAB PO SCH (09:05)
--- NOTE | 2020-09-24 09:53 | PRG ---
DATE OF SERVICE: 09/24/2020 SUBJECTIVE: Mrs. Salinas had an excellent day. It did not start so well. She underwent cardioversion. Unfortunately, she stayed in sinus rhythm. She recovered from the procedure without any problems. Afterwards, she was able to ambulate short distance with her walker to her wheelchair. She self-propelled her wheelchair all the way to the atrium and back. Afterwards, she was able to ambulate short distance to shower by herself. Unfortunately, the shower chair was too small she was stuck in the shower chair. It took her daughter and 2 nurses to pull the shower chair off her. Other than that, there were no major problems. She had a quite vigorous stay. The urine output is not correct. She wetted her diapers several times. So, amount of urine output was unknown at this point. She said that she urinated well. She feels good, and she is breathing well. REVIEW OF SYSTEMS: GENERAL: There are no fever, chills, or productive cough. HEENT: There is no change in vision, hearing, or swallowing. CARDIAC: No palpitation, chest pain, or syncope. GI: There is no nausea, vomiting, or diarrhea. : She may be incontinent, so this will need to be seen. MUSCULOSKELETAL: There are no muscle pains or joint pains. INTEGUMENT: There is no new skin breakdown. NEUROLOGIC: She has chronic decreased proprioception and loss of sensation on the right side. There are no new focal deficits or weaknesses. CURRENT MEDICATIONS: Include, 1. Amiodarone 200 mg every 12 hours. 2. Apixaban 5 mg b.i.d. 3. Atorvastatin 40 mg at bedtime. 4. Gabapentin 300 mg at bedtime. 5. Magnesium oxide 800 mg twice a day. 6. Toprol-XL 25 mg q.12 hours. 7. Protonix 20 mg daily. 8. K-Dur 20 mEq daily. 9. Spironolactone 25 mg daily. Her telemetry is reviewed. She is in chronic atrial fibrillation. There are no new concerning arrhythmia. PHYSICAL EXAMINATION: VITAL SIGNS: Her latest vitals are heart rate 81, blood pressure 127/72. GENERAL: She is alert and conversational, sitting comfortably on the edge of bed. She is eating her breakfast. HEENT: EOMI. Oropharynx is benign with moist mucosa. NECK: JVP is about 10 cm. PULMONARY: There is good air movement bilaterally. No crackles bilaterally. CARDIAC: Irregular rate, irregular rhythm. Normal S1, normal S2. There is 2/6 holosystolic murmur best heard at left upper sternal border that is corresponding to tricuspid regurgitation. ABDOMEN: Large, soft, nontender. Positive bowel sounds. EXTREMITIES: Lower extremities are warm, well perfused. There is slight pedal edema. Besides that, there is no other significant finding. LABORATORY DATA: Stat laboratories were done because morning labs were not drawn. Her chemistry shows sodium 138, potassium 4.5, chloride 100, bicarb at 27, BUN decreased to 43, and creatinine has decreased to 1.75, so her renal function is improving. Her BNP is 264. Her albumin is 4.0. She has good nutrition, and she has normal liver enzymes with total bilirubin 0.4, AST 11, and ALT 8. 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 This is also compounded by atrial fibrillation and her left ventricular diastolic dysfunction. This combination gives her [place] Heart Association stage C and [place] Heart Association class 3B heart failure due to combination of right heart failure and cor pulmonale with atrial fibrillation and LVEF about 45%. She has proven that she needs chronic milrinone infusion to sustain life and also give her quality of life. She can benefit from LTAC, however, her insurance does not seem to want to approve this. Right now, she has recovered to such extent where she can ambulate short distances with her walker being able to transfer and being able to self-propel in a wheelchair that she is probably safe enough to go home. RECOMMENDATIONS: Please see the following for my recommendations. 1. Continue milrinone at 0.5 mcg/kg/minute with baseline weight of 299 pounds which is 136 kg. 2. Continue Toprol-XL at 25 mg q.12 hours. This may need to be titrated up later. 3. Per EP recommendation, amiodarone could be titrated off, but we will not change it at this point. 4. Continue spironolactone 25 mg p.o. daily. This may be increased in the future. 5. Continue magnesium supplementation 800 mg twice a day. 6. Decrease potassium supplementation to K-Dur 10 mEq daily. 7. Outpatient, she will need weekly labs. The weekly labs will include CBC, complete metabolic panel, magnesium, and BNP. 8. She will need to be seen every 2 weeks to make sure there is no infection and she is doing well. Her medication will need to be continually adjusted on long-term basis. Please workup for reasons why her ferritin is so high. She may have hemochromatosis because that would give a unifying diagnosis to her and her family. I will be more than happy to help with her outpatient followup. It has been a pleasure taking care of Ms. Renee Salinas. If you have any questions, please give me a call. The total visitation time today is 50 minutes. Job ID: [id number] MTDD
[2020-09-24 13:17] VITALS: BP 135/71; TEMP 98.4
--- NOTE | 2020-09-25 20:52 | PQF ---
CLINICAL DOCUMENTATION CLARIFICATION FORM: Dear : Ronnie Bone Date / Time: 09/25/20202050 Please exercise your independent, professional judgment in responding to the clarification form. Clinical indicators are provided on the bottom of this form for your review Please check appropriate box(es): [ ] Type 1 SC (NSTEMI) [ ] Type 2 SC (T2MI) secondary to heart failure [ ] Type 2 SC (T2MI) secondary to Atrial Fibrillation [X ] Demand Ischemia without Myocardial infarction [ X ] Other diagnosis: right heart failure/cor pulmonale [ ] Unable to determine Physician Signature: Date/Time: For continuity of documentation, please document condition throughout progress notes and discharge summary. Thank You. To be completed by CDI/Coding staff for physician review: Present Clinical Indicators - Signs / Symptoms / Labs Results and Location in Medical Record [X] BNP 286.5, Troponin I 0.068; 0.164; 0.242; 0.165 Laboratory 08/16 [X] Electrocardiogram: A fib with rapid ventricular response Cardiac procedure Dr Restrepo 08/16 [X] Echocardiogram: EF 50-55%, Enlarge right ventricular cavity, mitral and tricuspid regurgitation Cardiac procedure Dr Koo 08/17 [X] Presenting with SOB and respiratory distress H&P p1 08/16 Dr Ochoa [X] Elevated troponin likley demand ischemia due to Afib H&P p4 08/16 Dr Ochoa [X] CHF exacerbation H&P p5 08/16 Dr Ochoa [X] NSTEMI type most likley causing elevated trop H&P p6 08/16 Dr Ochoa Present Risk Factors Results and Location in Medical Record [X] 85 year-old Female H&P p1 08/16 Dr Ochoa [X] Afib H&P p2 08/16 Dr Ochoa [X] COPD H&P p2 08/16 Dr Ochoa [X] HTN H&P p2 08/16 Dr Ochoa [X] CKD 3 H&P p2 08/16 Dr Ochoa [X] CHF H&P p2 08/16 Dr Ochoa Present Treatments Results and Location in Medical Record [X] Cardiology consult Consult Dr Bone 09/20 [X] Public Health Sanitarian Technician Consult Consult Dr Stapleton 09/20 [X] Cardioversion [X] Cardioversion [X] Dobutamine [X] Milrinone [X] Amiodarone, Toprol-XL, Spironolactone, Bumex [X] Eliquis 5 mg oral [X] Bipap Respiratory panel 08/16 CDS/Gear Design Engineer Signature: Abi Suarez Peter Phone #: [facility] [phone] Date/Time: 09/25/20202050 This is a permanent part of the Medical Record MTDD
== END 2020-09-24 15:30 | disposition home health service (06) | DRG 291 ==
LOC: ERS 00:57 → ERHOLD 03:22 → IMCU/EMU 07:41 → 2NO 08-17 22:26
PROVIDERS: ADMIT Student in an Organized Health Care Education/Training Program; ATTEND Student in an Organized Health Care Education/Training Program
PROC: 5A2204Z Restoration of Cardiac Rhythm, Single (ICD-10-PCS; principal; 2020-09-06)
PROC: 8E0ZXY6 Isolation (ICD-10-PCS; 2020-09-11)
PROC: 5A09357 Assistance with Respiratory Ventilation, Less than 24 Consecutive Hours, Continuous Positive Airway Pressure (ICD-10-PCS; 2020-09-16)
PROC: 3E033XZ Introduction of Vasopressor into Peripheral Vein, Percutaneous Approach (ICD-10-PCS; 2020-09-20)
PROC: 02HV33Z Insertion of Infusion Device into Superior Vena Cava, Percutaneous Approach (ICD-10-PCS; 2020-09-21)
PROC: B548ZZA Ultrasonography of Superior Vena Cava, Guidance (ICD-10-PCS; 2020-09-21)
PROC: 5A2204Z Restoration of Cardiac Rhythm, Single (ICD-10-PCS; 2020-09-23)
DX: I13.0 Hypertensive heart and chronic kidney disease with heart failure and stage 1 through stage 4 chronic kidney disease, or unspecified chronic kidney disease (principal); J96.01 Acute respiratory failure with hypoxia; R57.0 Cardiogenic shock; I50.33 Acute on chronic diastolic (congestive) heart failure; Z51.5 Encounter for palliative care; Z66 Do not resuscitate; N17.0 Acute kidney failure with tubular necrosis; E23.0 Hypopituitarism; Z68.41 Body mass index [BMI] 40.0-44.9, adult; I48.19 Other persistent atrial fibrillation; E87.3 Alkalosis; N39.0 Urinary tract infection, site not specified; I24.8 Other forms of acute ischemic heart disease; J44.1 Chronic obstructive pulmonary disease with (acute) exacerbation; Z20.828 Contact with and (suspected) exposure to other viral communicable diseases; K21.9 Gastro-esophageal reflux disease without esophagitis; Z96.642 Presence of left artificial hip joint; M19.90 Unspecified osteoarthritis, unspecified site; G89.29 Other chronic pain; M47.9 Spondylosis, unspecified; N18.30 Chronic kidney disease, stage 3 unspecified; E78.5 Hyperlipidemia, unspecified; R19.7 Diarrhea, unspecified; G47.33 Obstructive sleep apnea (adult) (pediatric); E66.01 Morbid (severe) obesity due to excess calories; E87.5 Hyperkalemia; R94.5 Abnormal results of liver function studies; R74.01 Elevation of levels of liver transaminase levels; D63.1 Anemia in chronic kidney disease; I50.810 Right heart failure, unspecified; D50.9 Iron deficiency anemia, unspecified; I27.20 Pulmonary hypertension, unspecified; I27.81 Cor pulmonale (chronic); B96.1 Klebsiella pneumoniae [K. pneumoniae] as the cause of diseases classified elsewhere; B96.20 Unspecified Escherichia coli [E. coli] as the cause of diseases classified elsewhere; T50.2X5A Adverse effect of carbonic-anhydrase inhibitors, benzothiadiazides and other diuretics, initial encounter; R15.9 Full incontinence of feces; B94.8 Sequelae of other specified infectious and parasitic diseases; Z28.21 Immunization not carried out because of patient refusal; Z85.41 Personal history of malignant neoplasm of cervix uteri; Z90.710 Acquired absence of both cervix and uterus; Z90.49 Acquired absence of other specified parts of digestive tract; Z88.0 Allergy status to penicillin; Z88.2 Allergy status to sulfonamides; Z82.49 Family history of ischemic heart disease and other diseases of the circulatory system; Z86.718 Personal history of other venous thrombosis and embolism; Z79.899 Other long term (current) drug therapy; Z79.01 Long term (current) use of anticoagulants; Z86.711 Personal history of pulmonary embolism; Z74.01 Bed confinement status; Z99.81 Dependence on supplemental oxygen
CPT/HCPCS: 36415; 36569; 36600; 71045; 71046; 71275; 80048; 80053; 80400; 81001; 81003; 82553; 82570; 82607; 82728; 82746; 82805; 83540; 83550; 83605; 83735; 83880; 84100; 84145; 84156; 84238; 84300; 84439; 84443; 84466; 84481; 84484; 84540; 85014; 85018; 85025; 85046; 85049; 85379; 85610; 85730; 87040; 87077; 87086; 87186; 92960; 93005; 93010; 93306; 94660; 94760; 96374; C1751; J0696; J0834; J1250; J1644; J1940; J2260; J2405; J2704; J2916; J3475; J3480; J3490; P9047; Q0163; Q9967; U0002

== ENCOUNTER 2020-12-30 16:27 | Emergency (ER) | payer MEDICARE ==
[2020-12-30 17:37] LABS: ALT (SGPT) 8 U/L (8-55); AST (SGOT) 14 U/L (5-34); Albumin 3.4 g/dL (3.4-4.8); Alkaline Phosphatase 138 U/L (40-110); Anion Gap 14 mmol/L (10-20); BUN (Urea Nitrogen) 38 mg/dL (9.8-20.1); Bilirubin, Total 0.5 mg/dL (0.2-1.2); Calc. Creatinine Clearance 0 mL/min (70-130); Calcium 9.2 mg/dL (7.8-10.44); Carbon Dioxide 31 mmol/L (23-31); Chloride 100 mmol/L (98-107); Globulin 3.4 g/dL (2.4-3.5); Glucose 108 mg/dL (83-110); Potassium 4.3 mmol/L (3.5-5.1); Protein, Total 6.8 g/dL (5.8-8.1); Sodium 141 mmol/L (136-145)
[2020-12-30 17:44] LABS: #Eosinphils 0.3 thou/uL (0.0-0.7); #Lymphocytes 1.8 thou/uL (1.20-3.40); #Monocytes 0.5 thou/uL (0.11-0.59); #Neutrophils 4.3 thou/uL (1.40-6.50); %Basophils 0.4 % (0.0-1.0); %Lymphocytes 25.5 % (21.0-51.0); %Monocytes 7.7 % (0.0-10.0); %Neutrophils 61.5 % (42.0-75.0); Mean Corpuscular HGB CONC 32.6 g/dL (32.0-36.0); Mean Corpuscular Hemoglobin 31.5 pg (27.0-31.0); Mean Corpuscular Volume 96.7 fL (78.0-98.0); Mean Platelet Volume 7.5 fL (7.4-10.4); Platelet Count 256 thou/uL (130-400); RBC Distribution Width 12.5 % (11.5-14.5); Red Blood Cell (RBC) Count 3.35 mill/uL (4.20-5.40)
[2020-12-30 18:09] LABS: Hemoglobin 10.5 g/dL (12.0-16.0)
== END 2020-12-30 19:14 | disposition home or self-care (01) ==
LOC: ERS 16:27
DX: D64.9 Anemia, unspecified (principal); I10 Essential (primary) hypertension; K21.9 Gastro-esophageal reflux disease without esophagitis; J44.9 Chronic obstructive pulmonary disease, unspecified; Z79.899 Other long term (current) drug therapy; I50.33 Acute on chronic diastolic (congestive) heart failure; I50.84 End stage heart failure
CPT/HCPCS: 80053; 83735; 83880; 85025; 86850; 86870; 86900; 86901; 86922; 99283